=== PATIENT | male | born 1945 | race Caucasian/White ===

== ENCOUNTER 2019-02-23 09:45 | Inpatient (IN) ==
--- NOTE | 2019-02-23 09:51 | Emergency Department Note ---
Disposition Clinical Impression: NSTEMI (non-ST elevated myocardial infarction), Elevated troponin COPD (chronic obstructive pulmonary disease) Qualifiers: COPD type: unspecified COPD Qualified Code(s): J44.9 - Chronic obstructive pulmonary disease, unspecified Disposition: Admitted As Inpatient Time of Disposition: 14:04 General Adult HPI - General Chief complaint: ED Chest Pain Stated complaint: Chest Pressure,JAVIER Time Seen by Provider: 02/23/19 09:50 Source: patient Mode of arrival: ambulatory Limitations: no limitations Nursing Notes Reviewed: Yes Vital Signs Reviewed: Yes - History of Present Illness HPI Narrative: 73 yo male with past medical history of COPD and hypertension presents to the emergency department with chest pain after eating. Patient states that about an hour after he eats fatty or greasy foods he feels pain in his sternum that he describes as a pressure and it makes it hard for him to breathe secondary to the pain. Patient also has felt nauseous with this but has not vomited. He experienced chills last night but did not take her temperature and does not know if he had a fever. He states this has been going on for the past 2 weeks and he has been trying to avoid fatty foods which has improved his discomfort but has not completely resolved it. He has never had problems with his gallbladder before and denies any abdominal surgeries. He denies headache, abdominal pain, diarrhea and constipation as well as dysuria. Pain Scale: 5 - Related Data Home Medications Medication Instructions Recorded Confirmed Albuterol Sulfate [Proair Hfa] 1 puff IH PRN PRN 02/23/19 02/23/19 Brinzolamide/Brimonidine Tart 8 ml OP BID 02/23/19 02/23/19 [Simbrinza 1%-0.2% Eye Drops] Budesonide/Formoterol 160/4.5 1 puff IH BID 02/23/19 02/23/19 [Symbicort 160/4.5] Lisinopril-HCTZ 20-12.5 [Prinzide 1 each PO DAILY 02/23/19 02/23/19 20-12.5] Meloxicam 7.5 mg PO DAILY 02/23/19 02/23/19 Timolol Maleate 0.5% 1 drop OP DAILY 02/23/19 02/23/19 Allergies Allergy/AdvReac Type Severity Reaction Status Date / Time No Known Allergies Allergy Verified 03/15/16 10:28 All systems ED: reviewed and negative except as stated. Review of Systems: As Per HPI Constitutional: Reports: chills. Denies: fever Cardiovascular: Reports: chest pain, dyspnea on exertion. Denies: palpitations, edema Respiratory: Reports: cough, wheezes, sputum production (green). Denies: dyspnea Gastrointestinal: Reports: nausea. Denies: abdominal pain, vomiting, diarrhea, constipation Genitourinary: Denies: dysuria, hematuria Musculoskeletal: Denies: back pain, neck pain Integumentary: Denies: rash Neurological: Denies: headache Past Medical History - Past Medical History Attestation: Yes The following information was validated with the patient. Source: patient Medical history: Reports: COPD, hypertension - Social History Smoking Status: Former smoker Smokeless Tobacco Status: No Alcohol use: Reports: none Physical Exam - General Limitations: no limitations General appearance: alert, in no apparent distress - Head Head exam: atraumatic, normocephalic - Eye Eye exam: Present: normal appearance, PERRL, EOMI - ENT ENT exam: normal oropharynx, mucous membranes dry - Neck Neck exam: Present: normal inspection. Absent: tenderness, lymphadenopathy - Chest Chest inspection: Present: normal inspection. Absent: tenderness, rash - Respiratory Respiratory exam: Present: wheezes (in all lung goss). Absent: respiratory distress, stridor - Cardiovascular Cardiovascular exam: Present: regular rate, normal rhythm - Abdominal Exam Abdominal exam: Present: soft, Non-Tender. Absent: distention, guarding, rebound, rigidity, Walsh's sign Abdominal tenderness: Absent: epigastrium - Extremities Exam Extremities exam: Present: normal inspection. Absent: tenderness, pedal edema - Neurological Exam Neurological exam: Present: alert, oriented X3 - Psychiatric Psychiatric exam: Present: normal affect, normal mood - Skin Skin exam: Present: warm, dry, intact Course Vital Signs Temperature 97.7 F 02/23/19 09:47 Pulse Rate 85 02/23/19 09:47 Respiratory Rate 18 02/23/19 09:47 Blood Pressure 107/71 02/23/19 09:47 O2 Sat by Pulse Oximetry 95 02/23/19 09:47 Temperature 97.7 F 02/23/19 09:51 Pulse Rate 85 02/23/19 09:51 Respiratory Rate 17 02/23/19 10:27 Blood Pressure 107/71 02/23/19 09:51 O2 Sat by Pulse Oximetry 96 02/23/19 10:27 Oxygen Delivery Oxygen Delivery Room Air Medical Decision Making - MDM Narrative Medical decision making narrative: Patient presents with chest pain after eating fatty foods for the past 2 weeks which has become better with up with food. We will do a cardiac workup on the patient and had in LFTs, ultrasound of the right upper quadrant, and urinalysis. 1120 - patient's EKG shows non-specific changes with minor ST segment depressions in leads V2 and V3. Chest x-ray does not demonstrate any acute cardiopulmonary abnormalities. Lab work is significant for an elevated troponin of 6.99. We will obtain a repeat EKG and a posterior EKG to look for any ST elevation or other changes. Patient will be given aspirin and heparin once repeat EKGs were obtained and we will consult the hospitalist. 1220 - ultrasound of the right upper quadrant did not demonstrate any acute gallbladder disease. 1300 - repeat EKG showed a resolution in the nonspecific ST segment changes. Spoke with Dr. Santillan, category analyst, who states the patient should be started on heparin drip and aspirin at this time and they will have someone come to evaluate the patient. Plan is admission to the hospitalist with possible cardiac procedure in the near future. Hospitalist has been called at this time. 1340 - cardiology has evaluated the patient at bedside and state they will attempt to take the patient to [facility] today as long as he can lie flat. Awaiting the hospitalist to call back for admission. 1400 - patient has been except the hospitalist at this time. - Medical Records Medical records reviewed: Yes I reviewed the patient's medical records. - Lab Data Lab results reviewed: Yes I reviewed the patient's lab results. Result diagrams: 02/24/19 03:52 02/24/19 03:52 Lab Results 02/23/19 02/23/19 02/23/19 Range/Units 10:00 10:00 10:18 WBC 11.9 H (4.3-11.1) K/mcL RBC 5.77 H (4.19-5.50) M/mcL Hgb 17.9 H (12.9-16.9) g/dL Hct 54.3 H (37.5-50.1) % MCV 94.1 (83.0-100.0) fL MCH 31.0 (28.0-33.3) pg MCHC 33.0 (31.6-35.5) g/dL RDW 13.3 (11.5-14.5) % Plt Count 205 (140-400) K/mcL MPV 10.1 (9.4-12.4) fL Immature Gran % 0.3 (0-4) % Seg Neutrophils % 73.4 % Lymphocytes % 15.8 % Monocytes % 8.9 % Eosinophils % 1.3 % Basophils % 0.3 % Neutrophils # 8.8 (1.6-8.9) K/mcL Lymphocytes # 1.9 (0.6-4.6) K/mcL Monocytes # 1.1 (0.0-1.3) K/mcL Eosinophils # 0.2 (0.0-0.6) K/mcL Basophils # 0.0 (0.0-0.2) K/mcL PT (9.4-12.1) Seconds INR Heparin Anti-Xa, Unfract (0.30-0.70) IU/mL Sodium 135 L (136-145) mEq/L Potassium 3.9 (3.5-5.1) mEq/L Chloride 96 L (98-107) mEq/L Carbon Dioxide 32 H (23-29) mEq/L BUN 13 (8-23) mg/dL Creatinine 0.85 (0.70-1.30) mg/dL Est GFR ( Amer) > 60 (> 60) Est GFR (Non-Af Amer) > 60 (> 60) BUN/Creatinine Ratio 15 (6-26) Glucose 99 (70-105) mg/dL Calculated Osmolality 280 (280-300) Calcium 10.3 (8.6-10.3) mg/dL Magnesium 2.1 (1.6-2.6) mg/dL Total Bilirubin 1.1 H (0.3-1.0) mg/dL AST 74 H (13-39) Units/L ALT 35 (7-52) Units/L Alkaline Phosphatase 77 (34-104) Units/L Troponin I 6.99 H* (< 0.04) ng/mL Serum Total Protein 7.7 (6.4-8.9) g/dL Albumin 4.3 (3.5-5.7) g/dL Globulin 3.4 (2.4-3.5) g/dL Albumin/Globulin Ratio 1.3 (1.1-2.2) Lipase 45 (11-82) Units/L TSH 0.799 (0.340-5.600) mcIU/mL Urine Color Yellow (Yellow) Urine Clarity Clear (Clear) Urine pH 7.5 (5.0-8.0) pH Units Ur Specific [place] 1.018 (1.010-1.025) Urine Protein Negative (Neg-Trace) mg/dL Urine Glucose (UA) Normal (Normal) mg/dL Urine Ketones Negative (Negative) mg/dL Urine Blood Negative (Negative) Urine Nitrite Negative (Negative) Urine Bilirubin Negative (Negative) Urine Urobilinogen Normal (Normal) mg/dL Ur Leukocyte Esterase Small H (Negative) Urine Microscopic RBC 3-5 H (0-3) per hpf Urine Microscopic WBC 5-15 H (0-3) per hpf Ur Squamous Epith Cells Moderate H (None-Few) per lpf Urine Bacteria None Seen (None-Few) per hpf Hyaline Casts None Seen (None-Few) per lpf Ur Culture Indicated? YES A (NO) 02/23/19 Range/Units 12:04 WBC (4.3-11.1) K/mcL RBC (4.19-5.50) M/mcL Hgb (12.9-16.9) g/dL Hct (37.5-50.1) % MCV (83.0-100.0) fL MCH (28.0-33.3) pg MCHC (31.6-35.5) g/dL RDW (11.5-14.5) % Plt Count (140-400) K/mcL MPV (9.4-12.4) fL Immature Gran % (0-4) % Seg Neutrophils % % Lymphocytes % % Monocytes % % Eosinophils % % Basophils % % Neutrophils # (1.6-8.9) K/mcL Lymphocytes # (0.6-4.6) K/mcL Monocytes # (0.0-1.3) K/mcL Eosinophils # (0.0-0.6) K/mcL Basophils # (0.0-0.2) K/mcL PT 11.7 (9.4-12.1) Seconds INR 1.0 Heparin Anti-Xa, Unfract 0.03 L (0.30-0.70) IU/mL Sodium (136-145) mEq/L Potassium (3.5-5.1) mEq/L Chloride (98-107) mEq/L Carbon Dioxide (23-29) mEq/L BUN (8-23) mg/dL Creatinine (0.70-1.30) mg/dL Est GFR ( Amer) (> 60) Est GFR (Non-Af Amer) (> 60) BUN/Creatinine Ratio (6-26) Glucose (70-105) mg/dL Calculated Osmolality (280-300) Calcium (8.6-10.3) mg/dL Magnesium (1.6-2.6) mg/dL Total Bilirubin (0.3-1.0) mg/dL AST (13-39) Units/L ALT (7-52) Units/L Alkaline Phosphatase (34-104) Units/L Troponin I (< 0.04) ng/mL Serum Total Protein (6.4-8.9) g/dL Albumin (3.5-5.7) g/dL Globulin (2.4-3.5) g/dL Albumin/Globulin Ratio (1.1-2.2) Lipase (11-82) Units/L TSH (0.340-5.600) mcIU/mL Urine Color (Yellow) Urine Clarity (Clear) Urine pH (5.0-8.0) pH Units Ur Specific [place] (1.010-1.025) Urine Protein (Neg-Trace) mg/dL Urine Glucose (UA) (Normal) mg/dL Urine Ketones (Negative) mg/dL Urine Blood (Negative) Urine Nitrite (Negative) Urine Bilirubin (Negative) Urine Urobilinogen (Normal) mg/dL Ur Leukocyte Esterase (Negative) Urine Microscopic RBC (0-3) per hpf Urine Microscopic WBC (0-3) per hpf Ur Squamous Epith Cells (None-Few) per lpf Urine Bacteria (None-Few) per hpf Hyaline Casts (None-Few) per lpf Ur Culture Indicated? (NO) - Radiology Data Radiology results reviewed: Yes I reviewed the patient's radiology results. - EKG Data EKG #1 EKG attestation: Yes I reviewed and interpreted this EKG. EKG results narrative: Posterior EKG obtained at 12:13 on 02/23/2019 Heart rate 81 bpm, RI interval 167, QRS duration 96, QT 361, QTC 419 Sinus rhythm without any elevations visible in the posterior leads. All other leads are unchanged compared to previous EKGs from today. EKG #2 EKG attestation: Yes I reviewed and interpreted this EKG. EKG results narrative: Posterior EKG obtained at 12:13 on 02/23/2019 Heart rate 81 bpm, RI interval 167, QRS duration 96, QT 361, QTC 419 Sinus rhythm without any elevations visible in the posterior leads. All other leads are unchanged compared to previous EKGs from today. EKG #3 EKG attestation: Yes I reviewed and interpreted this EKG. EKG results narrative: Posterior EKG obtained at 12:13 on 02/23/2019 Heart rate 81 bpm, RI interval 167, QRS duration 96, QT 361, QTC 419 Sinus rhythm without any elevations visible in the posterior leads. All other leads are unchanged compared to previous EKGs from today. Attestation Statement - Attestation Attestation: Resident Attestation: I examined this patient and my medical decision making was reviewed with the Resident Physician. I agree with the documented findings, disposition and treatment plan as described except to the extent set forth below. We independently had [id number] contact with the patient.EKG reviewed with resident physician. Agree with documentation. Patient presented for evaluation of epigastric/chest pain that is worse with food. Patient was found to have significant EKG changes. Patient did undergo further evaluation and had elevated troponin as well as negative gallbladder study. Case was discussed with cardiology. Patient will likely go for cardiac catheterization later today. Patient placed on heparin. Patient overall has been feeling better within the emergency department and is chest pain-free.
[2019-02-23] MEDS ORDERED: Ipratropium/Albuterol Neb 3 ML IH ONE (10:01)
[2019-02-23] MEDS ORDERED: 0.9 % Sodium Chloride 1,000 ML IVC ONE (10:18)
[2019-02-23 10:30] LABS: Basophils % 0.3 %; Eosinophils # 0.2 K/mcL (0.0-0.6); Eosinophils % 1.3 %; Hematocrit 54.3 % (37.5-50.1); Hemoglobin 17.9 g/dL (12.9-16.9); Immature Granulocytes % 0.3 % (0-4); Lymphocytes # 1.9 K/mcL (0.6-4.6); Lymphocytes % 15.8 %; Mean Corpuscular Volume 94.1 fL (83.0-100.0); Mean Platelet Volume 10.1 fL (9.4-12.4); Monocytes # 1.1 K/mcL (0.0-1.3); Monocytes % 8.9 %; Neutrophils # 8.8 K/mcL (1.6-8.9); Platelet Count 205 K/mcL (140-400); Red Blood Count 5.77 M/mcL (4.19-5.50); Red Cell Distribution Width 13.3 % (11.5-14.5); Segmented Neutrophils % 73.4 %; White Blood Count 11.9 K/mcL (4.3-11.1)
[2019-02-23 10:37] LABS: Bilirubin,Urine Negative (Negative); Blood,Urine Negative (Negative); Clarity,Urine Clear (Clear); Color,Urine Yellow (Yellow); Glucose,Urine (UA) Normal (Normal); Ketones,Urine Negative (Negative); Leukocyte Esterase,Urine Small (Negative); Nitrite,Urine Negative (Negative); PH,Urine 7.5 pH Units (5.0-8.0); Protein,Urine Negative (Neg-Trace); Specific Gravity,Urine 1.018 (1.010-1.025); Urobilinogen,Urine Normal (Normal)
[2019-02-23 10:39] LABS: Bacteria,Urine None Seen per hpf (None-Few); Hyaline Casts,Urine None Seen per lpf (None-Few); Squamous Epithelial Cell,Urine Moderate per lpf (None-Few)
[2019-02-23 10:58] LABS: Troponin I 6.99 ng/mL (< 0.04)
[2019-02-23 11:05] LABS: Alanine Aminotransferase 35 Units/L (7-52); Albumin 4.3 g/dL (3.5-5.7); Albumin/Globulin Ratio 1.3 (1.1-2.2); Alkaline Phosphatase 77 Units/L (34-104); Aspartate Amino Transferase 74 Units/L (13-39); BUN/Creatinine Ratio 15 (6-26); Bilirubin,Total 1.1 mg/dL (0.3-1.0); Blood Urea Nitrogen 13 mg/dL (8-23); Calcium 10.3 mg/dL (8.6-10.3); Carbon Dioxide 32 mEq/L (23-29); Chloride 96 mEq/L (98-107); Globulin 3.4 g/dL (2.4-3.5); Glucose 99 mg/dL (70-105); Lipase 45 Units/L (11-82); Magnesium 2.1 mg/dL (1.6-2.6); Osmolality,Calculated 280 (280-300); Potassium 3.9 mEq/L (3.5-5.1); Sodium 135 mEq/L (136-145); Thyroid Stimulating Hormone 0.799 mcIU/mL (0.340-5.600); Total Protein 7.7 g/dL (6.4-8.9); eGFR For African Americans > 60 (> 60); eGFR For Non-African Americans > 60 (> 60)
[2019-02-23] MEDS ORDERED: Aspirin 81 MG TAB.CHEW PO ONE (11:24)
[2019-02-23] MEDS ORDERED: *HR* Heparin 5,000 UNIT/ML VIAL IVP PRN ×2 (11:25)
[2019-02-23] MEDS ORDERED: *HR* Heparin 5,000 UNIT/ML VIAL IVP ONE (11:25)
[2019-02-23] MEDS ORDERED: Heparin 25,000 UNIT/250 ML D5W 25,000 UNIT/250 ML IV.SOLN IVC SCH (11:30)
[2019-02-23 12:34] LABS: Heparin anti-factor XA UFH 0.03 IU/mL (0.30-0.70); Prothrombin Time 11.7 Seconds (9.4-12.1)
--- NOTE | 2019-02-23 13:45 | Cardiology Consult Note ---
<KarolMariny R - Last Filed: 02/23/19 13:42> Date of Encounter: 02/23/19 Time of Encounter: 13:42 Assessment and Plan (1) NSTEMI (non-ST elevated myocardial infarction) Current Visit: Yes Status: Acute Chest pain after eating associated with nausea and dyspnea over the past 2 weeks. Antacids seem to help the symptoms. Gallbladder US no acute sonographic findings in the right upper quadrant. Initial troponin 6.99. Trend for total of 3. No acute ECG changes. CP free currently. On heparin gtt. Recommend ASA, Statin, BB. TTE to evaluate structure and function. Recommend LHC. R/B/A discussed. Pt agrees to proceed. Discussion w patient/family: The assessment and plan as outlined above was discussed with the patient and/or family members who expressed understanding and agreement. All questions were answered. Thank you for involving us in the care of your patient. Please call with any questions. I will discuss all the above with Dr. Boudreaux and make changes as necessary. History of Present Illness Consult date: 02/23/19 Consult reason: NSTEMI Chief complaint: Chest pain History of present illness: Mr. Galeano is a 73 year old male with PMH of COPD, tobacco abuse and HTN presents to the ED with chest pain after eating. Patient states that about an hour after he eats fatty or greasy foods he feels pain in his sternum that he describes as a pressure and it makes it hard for him to breathe. He felt nauseous with this but has not vomited. This has been going on for the past 2 weeks and he has been trying to avoid fatty foods which has improved his discomfort but has not completely resolved it. Antiacids seem to help the symptoms. He presented to ED and initial troponin found to be 6.99. Cardiology consulted for further recs. Past Med Surg Social Fam HX - Past Medical History Medical history: COPD, hypertension Psychiatric history: no psych history - Social History Smoking Status: Former smoker Smokeless Tobacco Status: No Alcohol use: none Drug use: none Medications and Allergies Albuterol Sulfate [Proair Hfa] 1 puff IH PRN PRN 02/23/19 [History] Brinzolamide/Brimonidine Tart [Simbrinza 1%-0.2% Eye Drops] 8 ml OP BID 02/23/19 [History] Budesonide/Formoterol 160/4.5 [Symbicort 160/4.5] 1 puff IH BID 02/23/19 [History] Lisinopril-HCTZ 20-12.5 [Prinzide 20-12.5] 1 each PO DAILY 02/23/19 [History] Meloxicam 7.5 mg PO DAILY 02/23/19 [History] Timolol Maleate 0.5% 1 drop OP DAILY 02/23/19 [History] Allergy/AdvReac Type Severity Reaction Status Date / Time No Known Allergies Allergy Verified 03/15/16 10:28 All Systems Review: The remainder of the systems were reviewed and are negative - Cardiovascular Cardiovascular: as per HPI, chest pain at rest, dyspnea at rest - Respiratory Respiratory: dyspnea - Gastrointestinal Gastrointestinal: nausea Physical Examination Vital Signs, Last 4 Hours Temp Pulse Resp BP Pulse Ox 02/23/19 10:27 17 96 02/23/19 09:51 97.7 F 85 18 107/71 95 02/23/19 09:47 97.7 F 85 18 107/71 95 Vital Signs Temp Pulse Resp BP Pulse Ox 02/23/19 10:27 17 96 02/23/19 09:51 97.7 F 85 18 107/71 95 02/23/19 09:47 97.7 F 85 18 107/71 95 Intake and Output 02/22/19 02/23/19 02/23/19 23:59 07:59 15:59 Other: Weight 95.254 kg Patient Weight 02/23/19 23:59 Weight 95.254 kg General: Conversant, No Apparent Distress HEENT: Atraumatic, Normocephaly, Mucus Membranes Moist Neck: No JVD, Normal carotid pulses Cardiac: Reg Rate and Rhythm, Normal S1 and S2, No Murmur Lungs: Normal Breath Sounds, No Wheeze, Rales, Rhonchi Neuro: Alert and responsive, No focal deficits noted Abdomen: Soft, Non-Tender Skin: No rashes noted on visualized skin Musculoskeletal: No Chest Wall Tenderness Extremities: No Clubbing, No Cyanosis, No Edema, Normal Pulses Results 02/23/19 10:00 02/23/19 10:00 Lab Results 02/23/19 02/23/19 02/23/19 10:00 10:00 12:04 WBC 11.9 H Hgb 17.9 H Hct 54.3 H Plt Count 205 INR 1.0 Sodium 135 L Potassium 3.9 Chloride 96 L Carbon Dioxide 32 H BUN 13 Creatinine 0.85 Glucose 99 Calcium 10.3 Magnesium 2.1 Total Bilirubin 1.1 H AST 74 H ALT 35 Alkaline Phosphatase 77 Troponin I 6.99 H* Lipase 45 TSH 0.799 Short CBC 02/23/19 Range/Units 10:00 WBC 11.9 H (4.3-11.1) K/mcL Hgb 17.9 H (12.9-16.9) g/dL Hct 54.3 H (37.5-50.1) % Plt Count 205 (140-400) K/mcL Neutrophils # 8.8 (1.6-8.9) K/mcL BMP 02/23/19 Range/Units 10:00 Sodium 135 L (136-145) mEq/L Potassium 3.9 (3.5-5.1) mEq/L Chloride 96 L (98-107) mEq/L Carbon Dioxide 32 H (23-29) mEq/L BUN 13 (8-23) mg/dL Creatinine 0.85 (0.70-1.30) mg/dL Glucose 99 (70-105) mg/dL Calcium 10.3 (8.6-10.3) mg/dL Cardiac Enzymes 02/23/19 Range/Units 10:00 Troponin I 6.99 H* (< 0.04) ng/mL Liver Function 02/23/19 Range/Units 10:00 Total Bilirubin 1.1 H (0.3-1.0) mg/dL AST 74 H (13-39) Units/L ALT 35 (7-52) Units/L Alkaline Phosphatase 77 (34-104) Units/L Albumin 4.3 (3.5-5.7) g/dL Urine 02/23/19 Range/Units 10:18 Urine Color Yellow (Yellow) Urine Clarity Clear (Clear) Urine pH 7.5 (5.0-8.0) pH Units Ur Specific [place] 1.018 (1.010-1.025) Urine Protein Negative (Neg-Trace) mg/dL Urine Glucose (UA) Normal (Normal) mg/dL Impressions Chest X-Ray 02/23/19 09:51 IMPRESSION: No acute cardiopulmonary disease D/ / Pedro Abernathy MD / Pedro Abernathy MD Interpreting Provider: Pedro Abernathy MD Gallbladder Ultrasound 02/23/19 10:01 IMPRESSION: 1. No acute sonographic findings in the right upper quadrant. 2. Only minimal visualization of the pancreas. 3. Right renal cysts for which no follow-up is recommend. D/ / Javed Montejo MD / Javed Montejo MD Interpreting Provider: Javed Montejo MD Active Medications Heparin Sodium (Porcine) (Heparin) 4,000 unit IVP Q6HR PRN PRN Reason: SEE COMMENTS Stop: 08/25/19 11:26 Heparin Sodium (Porcine) (Heparin) 2,000 unit IVP Q6H PRN PRN Reason: SEE COMMENTS Stop: 08/25/19 11:26 Heparin Sodium/Dextrose (Heparin 25,000 Unit/250 Ml D5w) 25,000 unit in 250 mls @ 11.43 mls/hr IVC .[id number] [facility]; Protocol Stop: 08/25/19 11:31 Last Admin: 02/23/19 13:03 Dose: 12 unit/kg/hr, 11.4 mls/hr Documented by: - EKG Interpretation EKG results cardiology: personally reviewed Consult Discharge Plan - Plan <Nancie Boudreaux - Last Filed: 02/23/19 15:08> Date of Encounter: 02/23/19 - Attending Attestation I examined this patient and my medical decision-making was reviewed with the F[employer]GRAPHIC PRESS HELPER. I agree with the documented findings, disposition and treatment plan as described. Mr. Galeano presents with chest discomfort and elevated troponin. Initial troponin 6.99. No acute ECG findings. Currently chest pain free and hemodynamically stable. Risk factors include male gender, age, long history of smoking, HTN. Discussed options with patient including R/B/A of [facility]. Patient expressed understanding and has decided to proceed. No upcoming elective procedures. Normal renal function. Acceptable Hgb, plt. Assessment and Plan Discussion w patient/family: The assessment and plan as outlined above was discussed with the patient and/or family members who expressed understanding and agreement. All questions were answered. Thank you for involving us in the care of your patient. Please call with any questions. History of Present Illness History of present illness: Mr. Galeano is a 73 year old male All Systems Review: The remainder of the systems were reviewed and are negative Physical Examination Vital Signs, Last 4 Hours Pulse Resp BP Pulse Ox 02/23/19 14:44 20 106/70 02/23/19 14:37 74 20 106/70 97 Results 02/23/19 10:00 02/23/19 10:00 Lab Results 02/23/19 02/23/19 02/23/19 10:00 10:00 12:04 WBC 11.9 H Hgb 17.9 H Hct 54.3 H Plt Count 205 INR 1.0 Sodium 135 L Potassium 3.9 Chloride 96 L Carbon Dioxide 32 H BUN 13 Creatinine 0.85 Glucose 99 Calcium 10.3 Magnesium 2.1 Total Bilirubin 1.1 H AST 74 H ALT 35 Alkaline Phosphatase 77 Troponin I 6.99 H* Lipase 45 TSH 0.799
[2019-02-23] MEDS ORDERED: *HR* Ticagrelor 90 MG TABLET PO ONE (13:55)
[2019-02-23] MEDS ORDERED: 0.9 % Sodium Chloride 1,000 ML ONE ×2 (15:14→15:15)
[2019-02-23] MEDS ORDERED: Heparin 1,000 UNITS/500 mL 500 ML ONE ×2 (15:14→16:34)
[2019-02-23] MEDS ORDERED: ISOVUE-370 200 ML INFUS..BTL ONE (15:14)
[2019-02-23] MEDS ORDERED: *HR* Heparin 10,000 UNIT/10 ML VIAL ONE (15:14)
[2019-02-23] MEDS ORDERED: Nitroglycerin 1,000 MCG/10 ML VIAL IV ONE (15:14)
--- NOTE | 2019-02-23 15:14 | Internal Med History&Physical ---
Date of Encounter: 02/23/19 Time of Encounter: 15:09 Internal Medicine - H&P: HPI Chief complaint: chest pain Admitted From: Home Plans for Post Hospital Care: Home History of present illness: Mr. Galeano is a 73 year old male who has history of COPD, cataracts, right eye infection, hypertension, chronic smoking, chronic back pain presenting emergency room for chest pain. Patient stated that he has on and off chest pain for over 2 weeks. It happens after dinner, located epigastric area, pressure-like, 10 out of 10, initially lasts for few hours, over last 3 days it lasted for whole Night. Associated with nausea and shortness of breath, denies diaphoresis and palpation dizziness. Last night after dinner he started having chest pain, lasted all night until this this morning he presented to emergency room. In the emergency room he was found troponin 6.99, EKG shows nonspecific ST changes. He was started on heparin drip, chest pain improved now 2 out of 10. Cardiology was called he is going to have C now. Patient denies mhx of PA, DM, code status disucssed, he is full code, but just one try, his is NOK. Past Med Surg Social Fam HX - Past Medical History Medical history: COPD, hypertension Psychiatric history: no psych history - Past Surgical History Surgical History: other (back surgery) - Social History Smoking Status: Former smoker Smokeless Tobacco Status: No Alcohol use: none Drug use: none Internal Medicine - H&P: Meds Albuterol Sulfate [Proair Hfa] 1 puff IH PRN PRN 02/23/19 [History] Brinzolamide/Brimonidine Tart [Simbrinza 1%-0.2% Eye Drops] 8 ml OP BID 02/23/19 [History] Budesonide/Formoterol 160/4.5 [Symbicort 160/4.5] 1 puff IH BID 02/23/19 [History] Lisinopril-HCTZ 20-12.5 [Prinzide 20-12.5] 1 each PO DAILY 02/23/19 [History] Meloxicam 7.5 mg PO DAILY 02/23/19 [History] Timolol Maleate 0.5% 1 drop OP DAILY 02/23/19 [History] Allergy/AdvReac Type Severity Reaction Status Date / Time No Known Allergies Allergy Verified 03/15/16 10:28 All Systems PM: A 10-system review of systems was performed and is negative for pertinent findings except as documented above in the HPI. - Constitutional Vitals: Temp Pulse Resp BP Pulse Ox 97.7 F 74 20 106/70 97 02/23/19 09:51 02/23/19 14:37 02/23/19 14:44 02/23/19 14:44 02/23/19 14:37 General appearance: Present: A&O X 3, pleasant Exam: CONSTITUTIONAL: Patient appears as an age appropriate male well developed, in no acute distress. EYES Clear sclerae, bilateral pupils are equal, reactive to light and accommodation. Extraocular movements are intact RESPIRATORY: No accessory muscle use, bilateral reduced breath sounds to auscultation, no wheezing, no crackles/rales. CARDIOVASCULAR: Regular heart rate, normal S1 and S2, no murmurs GASTROINTESTINAL: bowel sounds present, soft, no tenderness. No hepatosplenomegaly. No bilateral CVA tenderness MUSCULOSKELETAL: Joints in normal range of motion, no clubbing, no edema, no cyanosis. Bilateral peripheral pulses 2+ LYMPHATIC no lymphadenopathy in neck, groin and axilla bilaterally, no thyromegaly. NEUROLOGIC: CN II to XII are grossly intact, no focal neurological deficit. Deep tendon reflexes 2+ bilaterally. Normal light touch sensation to upper and lower extremity PSYCHIATRIC: Oriented x3, with good insight, mood is euthymic. No hallucinations or delusions. SKIN: Skin warm and dry, no rashes, no open wound. Internal Med - H&P Results - Labs CBC & Chem 7: 02/23/19 10:00 02/23/19 10:00 Labs: Short CBC 02/23/19 Range/Units 10:00 WBC 11.9 H (4.3-11.1) K/mcL Hgb 17.9 H (12.9-16.9) g/dL Hct 54.3 H (37.5-50.1) % Plt Count 205 (140-400) K/mcL Neutrophils # 8.8 (1.6-8.9) K/mcL BMP 02/23/19 10:00 Sodium 135 L Potassium 3.9 Chloride 96 L Carbon Dioxide 32 H BUN 13 Creatinine 0.85 Glucose 99 Calcium 10.3 Cardiac Enzymes 02/23/19 Range/Units 10:00 Troponin I 6.99 H* (< 0.04) ng/mL Liver Function 02/23/19 Range/Units 10:00 Total Bilirubin 1.1 H (0.3-1.0) mg/dL AST 74 H (13-39) Units/L ALT 35 (7-52) Units/L Alkaline Phosphatase 77 (34-104) Units/L Albumin 4.3 (3.5-5.7) g/dL Urine 02/23/19 Range/Units 10:18 Urine Color Yellow (Yellow) Urine Clarity Clear (Clear) Urine pH 7.5 (5.0-8.0) pH Units Ur Specific [place] 1.018 (1.010-1.025) Urine Protein Negative (Neg-Trace) mg/dL Urine Glucose (UA) Normal (Normal) mg/dL - Impressions ITS Impressions Chest X-Ray 02/23/19 09:51 IMPRESSION: No acute cardiopulmonary disease D/ / Pedro Abernathy MD / Pedro Abernathy MD Interpreting Provider: Pedro Abernathy MD Gallbladder Ultrasound 02/23/19 10:01 IMPRESSION: 1. No acute sonographic findings in the right upper quadrant. 2. Only minimal visualization of the pancreas. 3. Right renal cysts for which no follow-up is recommend. D/ / Javed Montejo MD / Javed Montejo MD Interpreting Provider: Javed Montejo MD - Summary of Assessment and Plan Summary of Assessment and Plan: This is a 73 year 70 male who has history of COPD, hypertension, chronic back pain, tobacco dependent presenting emergency room for on and off chest pain for 2 weeks. He was found elevated troponin 6.9, EKG shows normal skin specific ST depression. Cardiology was consulted, he is going to have left heart catheterization today. 1. NSTEMI, contineu heparin drip, cardiology is on board, getting C now, normal TSH, will check lipid panel am, conitnue ASA, statin 2. COPD, not on exacerbation, albuterol prn 3. tobacco dependent, smoking cessation discussed 4. Hypertension, conitnue lisinopril and HCTZ 5. Glaucoma, conitnue eye drop 6. UTI, will start ceftriaxone, pending culture 7.chronic back pain 8. DVT prophrophalsx, on heparin drip, GI add pepcid - Time Spent With Patient Total time spent is greater than 50% in coordination of care (as documented) at patient's floor/unit and/or counseling patient: Greater than 35 minutes
[2019-02-23] MEDS ORDERED: Naloxone 0.4 MG/ML INJ IVP PRN (15:23)
[2019-02-23] MEDS ORDERED: Ondansetron 4 MG/2 ML VIAL IVP PRN (15:23)
[2019-02-23] MEDS ORDERED: Acetaminophen 325 MG TABLET PO PRN (15:23)
--- NOTE | 2019-02-23 15:25 | Pre-Sedation Evaluation ---
Pre-sedation evaluation - Pre-sedation checklist Date of procedure: 02/23/19 Procedure: Heart cath Recent Vitals: Last Vital Signs Temp 97.7 F 02/23/19 09:51 Pulse 74 02/23/19 14:37 Resp 20 02/23/19 14:44 BP 106/70 02/23/19 14:44 Pulse Ox 97 02/23/19 14:37 H&P (including ROS) documented in medical record: Yes Previous reaction to sedatives/anesthetics: No Dietary Status: NPO 6 hours prior to procedure Airway Assessment: Patient can open mouth completely, TMJ function normal, Micrognathia (under-bite, receding chin) absent, Neck with adequate range of motion Dentition: dentures removed Possible difficult airway: No ASA Classification *see protocol: CLASS II-Mild systemic disease Plan of Care: Pt appropriate candidate for procedure/moderate/conscious sedation, Risks/benefits of procedure/sedation discussed w/ patient/family Cardiac Registry (Cardio Only) - Functional Capacity Functional Capacity: < 4 METS - Clincal Frailty Scale Clinical Frailty Scale: Vulnerable
[2019-02-23] MEDS ORDERED: *HR* FentaNYL (PF) 100 MCG/2 ML VIAL ONE (15:32)
[2019-02-23] MEDS ORDERED: *HR* Midazolam HCl 2 MG/2 ML VIAL ONE (15:32)
[2019-02-23] MEDS ORDERED: Verapamil 5 MG/2 ML VIAL ONE (15:59)
[2019-02-23] MEDS ORDERED: Isovue-370 500 ML BOTTLE IVP ONE (16:42)
--- NOTE | 2019-02-23 16:59 | Event Note ---
Date of Encounter: 02/23/19 Time of Encounter: 16:58 - Cardiology Event Note Large abdominal aortic aneurysm seen during [facility]. Discussed with Dr. Toth. CTA Abd/P ordered.
[2019-02-23] MEDS ORDERED: *HR* Ticagrelor 90 MG TABLET ONE (17:06)
[2019-02-23] MEDS ORDERED: Nitroglycerin 0.4 MG TAB.SUBL SL PRN (17:26)
--- NOTE | 2019-02-23 17:54 | Invasive Diagnostic Lab Proc ---
Name: Donnie Galeano Date of Study: 02/23/2019 Date: 1945 Ht: 70.9in Medical Record#: [id number] Age: 73 Wt: 210.10lb Gender: Male BSA: 2.15 Order #: [id number] BMI: 29.41 Physicians Procedure Physician: Jacqueline Santillan MD, FACC Referring MD: Referring MD: Staff Name Position Time In Magui Velasco RT (R) Monitor 03:34 PM Alyce Roman RN Scrub 03:34 PM Marleen Joiner RN Director Of Advertising Sales 03:35 PM Indications Indication Non-Stemi Procedures Performed Procedure CORONARY ARTERY ANGIO S&I PRQ CARD REVASC AR 1 VSL Pre-Procedure Checklist Informed consent is complete signed and on chart. H&P is on chart. ID band is on and ID verified with patient. Patient NPO for procedure The procedure was described for the patient and questions were answered. Blood Pressure: 106/70 ECG is on chart. Rhythm: NSR Plan of Care Patient will tolerate the procedure without complications. Adequate level of comfort will be maintained. Hemodynamics will remain stable Patient will recover from procedure without complications. Respiratory function will be maintained. Cardiac rhythm will remain stable. Patient temperature will be maintained. Patient and/or family have verbalized understanding of the procedure. Patient Education Chief Complaint/Reason for Test: Cardiac Cath Developmental Category: Geriatric (65+ years) Developmentally Appropriate for Age: Yes Learning Barriers: None Education Needs: Procedure Education Method: Verbal Information Taught: Cardiac Cath Educational Evaluation: Able to repeat information Intravenous Access Time IV Size Location DC'd Fluid/Drip Rate Units RN 03:36 PM 20g 1 09/10" Patent On Arrival Lt Arm 0.9NaCl 25 ml/hr Allergies No Known Allergies NKDA Vital Signs Time BP (mmHg) HR (bpm) O2 Sat. RR (bpm) LOC 03:35 PM 107 / 80 74 99 % 18 4 = Oriented but drowsy 03:35 PM / % 4 = Oriented but drowsy 03:50 PM / % 4 = Oriented but drowsy 04:05 PM / % 4 = Oriented but drowsy 04:21 PM / % 4 = Oriented but drowsy 04:36 PM / % 4 = Oriented but drowsy 03:34 PM 107 / 80 70 100 % 24 03:39 PM 95 / 74 74 97 % 18 03:44 PM 84 / 62 70 96 % 20 03:45 PM 98 / 70 71 97 % 14 03:49 PM 89 / 66 71 96 % 20 03:54 PM 92 / 65 72 97 % 17 03:59 PM 92 / 69 70 98 % 19 04:04 PM 102 / 79 68 98 % 22 04:09 PM 108 / 85 74 99 % 20 04:14 PM 99 / 71 75 95 % 15 04:19 PM 94 / 71 71 96 % 22 04:24 PM 96 / 65 65 96 % 19 04:29 PM 92 / 69 69 96 % 24 04:34 PM 92 / 74 71 99 % 29 04:39 PM 100 / 75 70 97 % 21 04:44 PM 105 / 72 69 97 % 22 04:49 PM 87 / 65 70 94 % 16 04:50 PM 93 / 68 74 95 % 29 04:54 PM 86 / 65 73 93 % 22 04:59 PM 89 / 65 69 94 % 18 05:20 PM 85 / 63 61 92 % 20 5 = Fully awake and oriented or at pre-proc level 05:30 PM 83 / 64 66 93 % 20 5 = Fully awake and oriented or at pre-proc level Procedural Medications Time Medication Dose Units Method Given By 03:35 PM Oxygen 2 L/min nasal cannula Marleen Joiner RN 03:35 PM Versed 2 mg Intravenous Marleen Joiner RN 03:35 PM Fentanyl 50 mcg Intravenous Marleen Joiner RN 03:40 PM Lidocaine 2% 19 ml Subcutaneous Jacqueline Santillan MD, FACC 04:09 PM Lidocaine 2% 2 ml Subcutaneous Jacqueline Santillan MD, FACC 04:11 PM Heparin 2000 units Nitroglycerin 200 mcg Verapamil 2.5 mg Intraarterial Jacqueline Santillan MD, FACC 04:31 PM Angiomax 0.75mg/kg bolus: 14 ml Intravenous Marleen Joiner RN 04:31 PM Angiomax 1.75mg/kg/hr: 33 ml Intravenous Marleen Joiner RN 04:45 PM Nitroglycerin 200 mcg Intracoronary Jacqueline Santillan MD, FACC 04:51 PM Fentanyl 25 mcg Intravenous Marleen Joiner RN 04:51 PM Nitroglycerin 200 mcg Jacqueline Santillan MD, FACC 05:05 PM Brilinta 180 mg Orally Marleen Joiner RN ASA Classification: CLASS II- Mild systemic disease (i.e. well-controlled diabetes, hypertension, asthma, cigarette smoking) Cristopher Score Preprocedure Postprocedure Activity 2- Moves 4 extremities sustained head lift Activity 2- Moves 4 extremities sustained head lift Circulation 2- SBP +/= 20 points of pre-anesthetic level Circulation 2- SBP +/= 20 points of pre-anesthetic level Consciousness 2- Awake and alert oriented x 3 Consciousness 2- Awake and alert oriented x 3 O2 Saturation 2- Able to maintain O2 satruation of 92% on room air O2 Saturation 2- Able to maintain O2 satruation of 92% on room air Respiratory 2- Able to deep breathe and cough well Respiratory 2- Able to deep breathe and cough well Total Score 10 Total Score 10 Contrast Agent: Isovue Diagnostic Contrast: 285 ml Total Contrast: 285 ml Fluoro Dose: 152 mGy Procedure Log Time Note Enter By 03:33 PM CathStat 03:33 PM Vitals capture started with the following parameters, Patient=Adult, Interval=5 min, Initial Sakpckso=766 mmHg, Deflation Rate=3 mmHg, Cuff placed on Right Arm 03:34 PM HR=70 bpm, AIHH=143/80 mmhg, GfT1=664.0 %, Resp=24 B/min, Comment=A-flutter 03:34 PM Pt arrived to carpenter/labor 2 at 15:34 [email or web address] 03:34 PM Patient charges- Angio tray pack, Navilyst 3mm J, Pulse Oximetry and ACIST tubing and transducer [email or web address] 03:34 PM Case Delayed No [email or web address] 03:34 PM Hair removed from procedure site in holding area using clippers. Bilateral groin prepped with Chloraprep by Magui Velasco RT (R), then patient was draped. Skin intact. [email or web address] 03:34 PM Physician arrived 15:34 [email or web address] 03:34 PM ASA Class CLASS II- Mild systemic disease (i.e. well-controlled diabetes, hypertension, asthma, cigarette smoking) [email or web address] 03:34 PM Meet and greet completed [email or web address] 03:34 PM Sign in performed according to hospital policy. Informed consent was obtained. [email or web address] 03:34 PM Procedure start 15:34 [email or web address] 03:34 PM Magui Velasco (R) Position: Monitor Time in: 15:34 [email or web address] 03:35 PM Deck, Alyce RN Position: Scrub Time in: 15:34 [email or web address] 03:35 PM Marleen Joiner RN Position: Director Of Advertising Sales Time in: 15:35 [email or web address] 03:35 PM Time: 15:35 Oxygen on at 2 L/min per nasal cannula by Marleen Joiner RN [email or web address] 03:35 PM Time: 15:35 Versed 2 mg Intravenous Given by Marleen Joiner RN [email or web address] 03:35 PM Time: 15:35 Fentanyl 50 mcg Intravenous Given by Marleen Joiner RN [email or web address] 03:35 PM Time: 15:35 Patient comfortable and pain free: No [email or web address] 03:35 PM Time: 15:35LOC: 4 = Oriented but drowsy [email or web address] 03:36 PM Recorded ECG: HR=72 Condition=Condition 1 03:36 PM Reference ECG taken 03:37 PM Pressure channel 1 zero failed. 03:37 PM Pressure channel 1 zeroed. 03:39 PM HR=74 bpm, NIBP=95/74 mmhg, SpO2=97.0 %, Resp=18 B/min, Comment=aflutter 03:40 PM Time out was performed according to hospital policy. Conscious sedation and anesthesia was achieved (see medication log with in this report above) [email or web address] 03:41 PM Time: 15:40 19 ml Lidocaine 2% to right groin Subcutaneous Given by Jacqueline Santillan MD, [facility] [email or web address] 03:42 PM Access obtained by percutaneous puncture. 5Fr 10cm Terumo Thousandsticks sheath placed in right Femoral artery. [id number] [email or web address] 03:42 PM 0.035 145cm Navilyst 3mmJ wire [id number] [email or web address] 03:42 PM 5Fr FL 4 catheter inserted over the wire [facility] [email or web address] 03:44 PM HR=70 bpm, NIBP=84/62 mmhg, SpO2=96.0 %, Resp=20 B/min, EtCO2=36 mmHg, Comment=aflutter 03:44 PM NIBP STAT measurement started. 03:45 PM HR=71 bpm, NIBP=98/70 mmhg, SpO2=97.0 %, Resp=14 B/min, EtCO2=36 mmHg, Comment=aflutter 03:45 PM 0.035 260cm Navilyst 3mmJ wire [id number] [email or web address] 03:45 PM Recorded ECG: HR=71 Condition=Condition 1 03:46 PM Catheter removed [email or web address] 03:46 PM 5Fr FR 4 catheter inserted over the wire DNC [email or web address] 03:49 PM HR=71 bpm, NIBP=89/66 mmhg, SpO2=96.0 %, Resp=20 B/min, EtCO2=20 mmHg, Comment=aflutter 03:50 PM Time: 15:35LOC: 4 = Oriented but drowsy [email or web address] 03:50 PM Time: 15:35 Patient comfortable and pain free: Yes [email or web address] 03:51 PM Catheter removed [email or web address] 03:52 PM 5Fr Pigtail catheter inserted over the wire DNC [email or web address] 03:54 PM Bolus angiogram of Abdominal aorta complete: 15 ml/sec for a total of 30 mls [email or web address] 03:54 PM HR=72 bpm, NIBP=92/65 mmhg, SpO2=97.0 %, Resp=17 B/min, EtCO2=36 mmHg, Comment=aflutter 03:58 PM Catheter removed [email or web address] 03:58 PM JR4 re-inserted. [email or web address] 03:59 PM HR=70 bpm, NIBP=92/69 mmhg, SpO2=98.0 %, Resp=19 B/min, EtCO2=38 mmHg, Comment=SR 03:59 PM Catheter removed [email or web address] 04:00 PM Wire removed [email or web address] 04:00 PM Bolus angiogram of right Femoral complete: 4 ml/sec for a total of 7 mls [email or web address] 04:04 PM HR=68 bpm, OQXA=413/79 mmhg, SpO2=98.0 %, Resp=22 B/min, EtCO2=38 mmHg, Comment=SR 04:05 PM Time: 15:50 Patient comfortable and pain free: Yes [email or web address] 04:05 PM Time: 15:50LOC: 4 = Oriented but drowsy [email or web address] 04:05 PM Unable to cross through abdominal aorta. [email or web address] 04:06 PM Prepping Lt wrist for radial access. [email or web address] 04:09 PM HR=74 bpm, JWAF=894/85 mmhg, SpO2=99.0 %, Resp=20 B/min, EtCO2=37 mmHg, Comment=SR 04:10 PM Time: 16:09 2 ml Lidocaine 2% to left radial Subcutaneous Given by Jacqueline Santillan MD, [facility] [email or web address] 04:11 PM Access obtained by percutaneous puncture. 6Fr 10cm Terumo Glidesheath sheath placed in left Radial artery. [id number] [email or web address] 04:11 PM Time: 16:11 Patient given 2,000 units Heparin, 200 mcg Nitroglycerin, and 2.5 mg Verapamil Intraarterial by Jacqueline Santillan MD, [facility]. This is given to reduce risk of vessel spasm and thrombosis. [email or web address] 04:14 PM HR=75 bpm, NIBP=99/71 mmhg, SpO2=95.0 %, Resp=15 B/min, EtCO2=23 mmHg, Comment=SR 04:14 PM FR 4 catheter re-inserted. [email or web address] 04:16 PM RCA angiography performed in multiple views. [email or web address] 04:18 PM Catheter removed [email or web address] 04:18 PM FL4 catheter re-inserted. [email or web address] 04:19 PM HR=71 bpm, NIBP=94/71 mmhg, SpO2=96.0 %, Resp=22 B/min, EtCO2=29 mmHg, Comment=SR 04:21 PM Time: 16:05LOC: 4 = Oriented but drowsy [email or web address] 04:21 PM Time: 16:05 Patient comfortable and pain free: Yes [email or web address] 04:23 PM Recorded Pressure: Ao, HR=67, Condition=Condition 1 (Aorta) Ao 113/90/103 04:24 PM HR=65 bpm, NIBP=96/65 mmhg, SpO2=96.0 %, Resp=19 B/min, EtCO2=36 mmHg, Comment=SR 04:25 PM Catheter removed [email or web address] 04:25 PM 5Fr 3DRC catheter inserted over the wire [id number] [email or web address] 04:29 PM RCA angiography performed in multiple views. [email or web address] 04:29 PM HR=69 bpm, NIBP=92/69 mmhg, SpO2=96.0 %, Resp=24 B/min, EtCO2=35 mmHg, Comment=SR 04:29 PM Recorded Pressure: Ao, HR=67, Condition=Condition 1 (Aorta) Ao 109/86/98 04:29 PM Catheter removed [email or web address] 04:30 PM Sheath exchanged for a 6 Fr 11 cm Terumo Thousandsticks sheath [id number] [email or web address] 04:31 PM Time: 16:31 Angiomax 0.75mg/kg bolus: 14 ml Intravenous Given by Marleen Joiner RN Osorio pump [email or web address] 04:31 PM Time: 16:31 Angiomax 1.75mg/kg/hr: 33 ml Intravenous Given by Marleen Joiner RN Osorio pump [email or web address] 04:32 PM Coronary Dominance: Left [email or web address] 04:34 PM HR=71 bpm, NIBP=92/74 mmhg, SpO2=99.0 %, Resp=29 B/min 04:36 PM Time: 16:21LOC: 4 = Oriented but drowsy [email or web address] 04:36 PM Time: 16:21 Patient comfortable and pain free: Yes [email or web address] 04:36 PM 6Fr XB LAD 3.5 Cordis guide catheter was used to cannulate the PCI vessel successfully. reused? No twilson 04:36 PM Inflation device was opened. [email or web address] 04:36 PM PCI Status Urgent twilson 04:37 PM Wire removed, intact. twilson 04:38 PM Recorded Pressure: Ao, HR=71, Condition=Condition 1 (Aorta) Ao 112/82/97 04:39 PM HR=70 bpm, YADA=066/75 mmhg, SpO2=97.0 %, Resp=21 B/min 04:40 PM .014 Prowater 190cm guide wire across target lesion- successful. reused? No twilson 04:42 PM 2.0 mm x 15 mm Emerge Monorail balloon across target lesion- successful. reused? No twilson 04:43 PM Balloon inflated @ 8 carlton for 20 seconds twilson 04:44 PM HR=69 bpm, MAWE=323/72 mmhg, SpO2=97.0 %, Resp=22 B/min 04:44 PM Recorded Pressure: Ao, HR=70, Condition=Condition 1 (Aorta) Ao 107/82/95 04:45 PM Time: 16:45 Nitroglycerin 200 mcg Intracoronary Given by Jac[facility]an MD, [facility] twilson 04:46 PM Balloon catheter removed intact. [email or web address] 04:47 PM 3.5mm x 20mm Rebel [employer] bare metal stent across target lesion- successful Lot #[id number] [email or web address] 04:49 PM HR=70 bpm, NIBP=87/65 mmhg, SpO2=94.0 %, Resp=16 B/min 04:49 PM NIBP STAT measurement started. 04:50 PM HR=74 bpm, NIBP=93/68 mmhg, SpO2=95.0 %, Resp=29 B/min 04:50 PM Stent deployed @ 12 carlton for 30 seconds twilson 04:50 PM Stent balloon reinflated @ 18 carlton for 18 seconds [email or web address] 04:51 PM Time: 16:36 Patient comfortable and pain free: Yes [email or web address] 04:51 PM Time: 16:36LOC: 4 = Oriented but drowsy [email or web address] 04:51 PM Time: 16:51 Fentanyl 25 mcg Intravenous Given by Marleen Joiner RN twilson 04:51 PM Stent delivery system removed intact. [email or web address] 04:51 PM Time: 16:51 Nitroglycerin 200 mcg Given by Jacqueline Santillan MD, [facility] twilson 04:52 PM Guide wire removed intact. [email or web address] 04:53 PM Guide catheter removed intact. [email or web address] 04:54 PM HR=73 bpm, NIBP=86/65 mmhg, SpO2=93.0 %, Resp=22 B/min 04:56 PM Procedure completed at 16:56 02/23/2019 twilson 04:56 PM Did you address YESSY flow and Dominance? YesCoronary Dominance: Left twilson 04:57 PM Isovue 370 - 200ml,2 Bottle(s) used. twilson 04:57 PM Arterial sheath pulled, Vasc Band closure device used and was Successful S/N. twilson 04:57 PM Estimated Blood Loss: less than 20cc twilson 04:57 PM Post ECG NSR twilson 04:58 PM Post Blood Pressure 86/65 twilson 04:58 PM 16:58 Post Pulses Bilateral DP & PT 1+ twilson 04:58 PM 16:58 Post Pulses Bilateral radial 2+ twilson 04:58 PM Information taught Cardiac Cath, PCI, and Vasc Band twilson 04:58 PM Education needs Procedure, Plan of Care, and Responsibilities of Patient in Care twilson 04:58 PM Learning barriers :None twilson 04:58 PM Education Methods Verbal twilson 04:58 PM Education evaluation Able to repeat information twilson 04:58 PM Site status No bleeding/hematoma - Lt Wrist as reported by Richmond Amaro RT (R) at 16:58 twilson 04:59 PM HR=69 bpm, NIBP=89/65 mmhg, SpO2=94.0 %, Resp=18 B/min 04:59 PM 11 ml air in Vasc Band. twilson 05:00 PM Sign out completed: Radiation Dose 773.71 mGy, 152 Gy/cm2 Fluoro Time: 22.1 Isovue 370 - 200ml contrast 285 ml given by Jacqueline Santillan MD, [facility]. Complications: None. 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 Sedation minutes 75. Cardiac Rehab Consult needed: Yes. Confirmed administered medications: Yes twilson 05:00 PM Lesion found in Proximal LAD. Pre Stenosis: 40 Pre YESSY Flow: twilson 05:00 PM Lesion found in Mid LAD. Pre Stenosis: 50 Pre YESSY Flow: twilson 05:00 PM Lesion found in Proximal RCA. Pre Stenosis: 40 Pre YESSY Flow: twilson 05:02 PM Proximal Left Anterior Descending Coronary Artery with 40% stenosis. If graft is supplying this territory, 0 % stenosis. twilson 05:03 PM Lesion found in 1st Diagonal. Pre Stenosis: 70 Pre YESSY Flow: twilson 05:03 PM Right Coronary, Right Posterior Descending Arteries with Right Posterolateral and Acute Marginal branches with 40 % stenosis. If graft is supplying this area, 0 % stenosis twilson 05:03 PM Mid/Distal Left Anterior Descending Coronary Artery and diagonal branches with 70% stenosis. If graft is supplying this area, 0 % stenosis twilson 05:03 PM Lesion found in Proximal Circumflex. Pre Stenosis: 40 Pre YESSY Flow: twilson 05:03 PM Lesion found in Mid Circumflex. Pre Stenosis: 100 Pre YESSY Flow: 0: No Flow/No perfusion twilson 05:04 PM Circumflex, Obtuse Marginal, Left Posterior Descending, and Left Posterolateral Coronary Arteries with 100 % stenosis. If graft is supplying this area, 0 % stenosis twilson 05:04 PM Lesion found in 1st Marginal. Pre Stenosis: 99 Pre YESSY Flow: twilson 05:05 PM Time: 17:05 Brilinta 180 mg Orally Given by Marleen Joiner RN twilson 05:06 PM Sheath left in place to be pulled on floor/holding areaV+Pad twilson 05:06 PM Opsite applied twilson 05:06 PM Delay to floor Bed availability twilson 05:06 PM Family placed in consult room. twilson 05:09 PM Report given to Hollis HERRMANN Pt taken to Holding room Room #2. 17:09 twilson 05:14 PM Patient out of room: 17:14 twilson 05:21 PM at bedside, after speaking with Dr. Santillan. [email or web address] 05:23 PM Patient assisted to urinal to void. kwitte 05:34 PM Elo HERRMANN from cardiac rehab at bedside to discuss cardia rehab options with patient and his . kwitte 05:40 PM Delay to floor Bed availability kwitte 05:47 PM Report given to Marlene HERRMANN Pt taken to Holding room Room #ICU 12. 17:46 kwitte 05:47 PM Complications: None kwitte 05:47 PM Patient out of room: 17:47 kwitte Complications Complication None None Hemodynamics Pressures Site Systolic/A Wave Diastolic/V Wave Mean AO 113 90 103 AO 109 86 98 AO 112 82 97 AO 107 82 95 Post Procedure Information Blood Pressure: 86/65 mmHg Rhythm: NSR Post procedural instructions were given Closure Device Time Device Success/Fail 02/23/2019 5:09:00 PM Mechanical Compression Successful Site Checks Time Location Status Staff Sheath In? Note 04:58 PM Lt Wrist No bleeding/hematoma Richmond Amaro RT (R) 05:20 PM Lt Groin No bleeding/ No Hematoma Ama Mcconnell RN vasc band in place 05:20 PM Rt Groin No bleeding/ No Hematoma Hollis Ricardo RN Yes 05:30 PM Rt Groin No bleeding/ No Hematoma Hollis Ricardo RN Yes 05:30 PM Lt Wrist No bleeding/ No Hematoma Hollis Ricardo RN vasc band in place Pulses Time Site Pre-Procedure Post-Procedure Note 02/23/2019 3:36:00 PM Bilateral DP & PT 1+ 02/23/2019 3:36:00 PM Bilateral radial 2+ 4:58:00 PM Bilateral DP & PT 1+ 4:58:00 PM Bilateral radial 2+ 02/23/2019 5:20:00 PM Bilateral DP & PT 1+ 02/23/2019 5:00:00 PM Lt Radial 1+ Updated by Hollis Ricardo RN on 02/23/2019 5:48:00 PM Hollis Ricardo RN electronically signed on 02/23/2019 5:48:28 PM with status of Final
--- NOTE | 2019-02-23 17:59 | Vascular/Endovasc Consult Note ---
Date of Encounter: 02/23/19 Time of Encounter: 17:00 Assessment and Plan (1) Abdominal aortic aneurysm (AAA) Current Visit: Yes Status: Acute The pathophysiology and natural history of abdominal aortic aneurysms was discussed the patient and all questions were answered. The patient was unaware that he has an aneurysm. His aneurysm is large in size on recent angiography. A CT scan will be ordered for site bleeding and to determine acceptability of his anatomy for endograft placement. Qualifiers: Presence of rupture: without rupture Qualified Code(s): I71.4 - Abdominal aortic aneurysm, without rupture (2) Tobacco abuse Current Visit: Yes Status: Chronic The patient was counseled regarding smoking cessation. (3) NSTEMI (non-ST elevated myocardial infarction) Current Visit: Yes Status: Acute The patient is undergone coronary stenting for a non-ST elevation myocardial for him. At this time is chest pain-free. (4) COPD (chronic obstructive pulmonary disease) Current Visit: Yes Status: Chronic Qualifiers: COPD type: emphysema Emphysema type: panlobular Qualified Code(s): J43.1 - Panlobular emphysema (5) Hypertension Current Visit: No Status: Chronic The patient was counter atherosclerotic risk factor reduction. Qualifiers: Hypertension type: essential hypertension Qualified Code(s): I10 - Essential (primary) hypertension - History of Present Illness Consult date: 02/23/19 Requesting physician: Nancie Boudreaux Consult reason: Abdominal aortic aneurysm Chief complaint: Chest pain History of present illness: Mr. Galeano is a 73 year old male with a history of COPD, hypertension and tobacco abuse who presented to [facility] with chest pain. He is found have a non-ST elevation myocardial infarction. He taken to the Operations Welder where he underwent left heart catheterization. During his her Incision is noted to have a large abdominal aortic aneurysm. The patient denies any abdominal, flank or back pain. He denies a family history of aneurysms and he is unaware of his own aneurysm. At the time of evaluation, the patient is alert and oriented and appears comfortable. He denies any chest pain or shortness of breath. Past Med Surg Social Fam HX - Past Medical History Medical history: COPD, hypertension Psychiatric history: no psych history - Past Surgical History Surgical History: other (back surgery) - Social History Smoking Status: Former smoker Smokeless Tobacco Status: No Alcohol use: none Drug use: none - Family History Mother Living Status: Hx Family Cardiac Disorders: Yes (Hypertension) Father Living Status: Medications and Allergies Albuterol Sulfate [Proair Hfa] 1 puff IH PRN PRN 02/23/19 [History] Brinzolamide/Brimonidine Tart [Simbrinza 1%-0.2% Eye Drops] 1 drop OP BID 02/23/19 [History] Budesonide/Formoterol 160/4.5 [Symbicort 160/4.5] 2 puff IH BID 02/23/19 [History] Meloxicam 7.5 mg PO DAILY 02/23/19 [History] Timolol Maleate 0.5% 1 drop OP DAILY 02/23/19 [History] Lisinopril-HCTZ 10-12.5 [Prinzide 10-12.5] 2 each PO DAILY 02/24/19 [History] Allergy/AdvReac Type Severity Reaction Status Date / Time No Known Allergies Allergy Verified 02/24/19 12:41 All Systems Review: The remainder of the systems were reviewed and are negative - Constitutional Constitutional: no chills, no fever(s) - Cardiovascular Cardiovascular: chest pain at rest, dyspnea at rest - Gastrointestinal Gastrointestinal: no abdominal pain, no constipation - Neurological Neurological: no abnormal speech, no focal weakness, no numbness Exam Vital Signs, Last 4 Hours Pulse Resp BP Pulse Ox 02/23/19 14:44 20 106/70 02/23/19 14:37 74 20 106/70 97 General: Present: No Apparent Distress HEENT: Present: Atraumatic Neck: Absent: JVD, Lymphadenopathy, Left Carotid bruit, Right Carotid bruit Cardiac: Present: Reg Rate and Rhythm, Normal S1 and S2 Lungs: Present: Normal Breath Sounds Neuro: Present: Alert and responsive, No focal deficits noted, Motor nerves grossly intact, Sensory nerves grossly intact Abdomen: Present: Soft, Non-tender, Other (Obese, abdominal aorta not palpable.). Absent: Masses Vascular: Present: Normal capillary refill. Absent: Cyanosis, Edema Skin: Present: No rashes noted on visualized skin Consult Discharge Plan - Plan Referrals: Stefania Sue, WIN [Primary Care Provider] -
[2019-02-23] MEDS ORDERED: Perflutren Lipid Microsphere 1.3 ML in 0.9 % Sodium Chloride 8.7 ML IVP ONE (18:34)
[2019-02-23] MEDS: cefTRIAXone 1,000 MG in 0.9 % Sodium Chloride Mini Bag 100 ML IVPB SCH (19:01)
[2019-02-23] MEDS: 0.9 % Sodium Chloride 1,000 ML IVC SCH ×2 (19:01→21:12)
--- NOTE | 2019-02-23 20:28 | Electrocardiograph Report ---
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
[2019-02-23] MEDS: Budesonide/Formoterol 160/4.5 1 PUFF INH IH SCH (20:46)
[2019-02-23] MEDS: Famotidine 20 MG/2 ML VIAL IVP SCH (20:59)
[2019-02-23] MEDS ORDERED: *HR* Atropine Sulfate 1 MG/10 ML SYRINGE ONE (23:02)
[2019-02-24 04:10] LABS: Basophils % 0.4 %; Eosinophils # 0.1 K/mcL (0.0-0.6); Eosinophils % 0.8 %; Hematocrit 49.2 % (37.5-50.1); Immature Granulocytes % 0.4 % (0-4); Lymphocytes # 1.4 K/mcL (0.6-4.6); Lymphocytes % 13.7 %; Mean Corpuscular HGB Conc 33.1 g/dL (31.6-35.5); Mean Corpuscular Hemoglobin 30.6 pg (28.0-33.3); Mean Corpuscular Volume 92.3 fL (83.0-100.0); Mean Platelet Volume 10.1 fL (9.4-12.4); Monocytes # 0.9 K/mcL (0.0-1.3); Monocytes % 8.3 %; Platelet Count 192 K/mcL (140-400); Red Blood Count 5.33 M/mcL (4.19-5.50); Red Cell Distribution Width 13.7 % (11.5-14.5); Segmented Neutrophils % 76.4 %; White Blood Count 10.5 K/mcL (4.3-11.1)
[2019-02-24 04:11] LABS: Hemoglobin 16.3 g/dL (12.9-16.9)
[2019-02-24 04:31] LABS: BUN/Creatinine Ratio 17 (6-26); Blood Urea Nitrogen 15 mg/dL (8-23); Calcium 9.3 mg/dL (8.6-10.3); Carbon Dioxide 27 mEq/L (23-29); Chloride 102 mEq/L (98-107); Chol/HDL Ratio 3.5 (0-4.9); Cholesterol 118 mg/dL (< 200); Glucose 119 mg/dL (70-105); HDL Cholesterol 34 mg/dL (40-59); LDL Cholesterol,Calculated 68 mg/dL (0-99); Magnesium 2.2 mg/dL (1.6-2.6); Osmolality,Calculated 282 (280-300); Potassium 3.9 mEq/L (3.5-5.1); Sodium 135 mEq/L (136-145); Triglycerides 80 mg/dL (< 150); eGFR For African Americans > 60 (> 60); eGFR For Non-African Americans > 60 (> 60)
[2019-02-24] MEDS: Famotidine 20 MG/2 ML VIAL IVP SCH ×2 (05:14→17:46)
[2019-02-24] MEDS: cefTRIAXone 1,000 MG in 0.9 % Sodium Chloride Mini Bag 100 ML IVPB SCH (07:47)
[2019-02-24] MEDS: Aspirin 81 MG TAB.CHEW PO SCH (07:47)
[2019-02-24] MEDS ORDERED: Lisinopril-HCTZ 20-12.5mg TABLET PO SCH (09:00)
[2019-02-24] MEDS: Budesonide/Formoterol 160/4.5 1 PUFF INH IH SCH ×2 (09:22→20:20)
--- NOTE | 2019-02-24 10:32 | Cardiology Progress Note ---
Date of Encounter: 02/24/19 Time of Encounter: 10:30 Assessment and Plan (1) NSTEMI (non-ST elevated myocardial infarction) Current Visit: Yes Status: Acute Per Cardiology: Peak troponin 10.15. Echo showed EF 50%, no significant Dysfunction. Status post catheterization: Lesion Findings/Interventions * Left Main Coronary Artery The LMCA is angiographically free of disease. * Left Anterior Descending There is a 40% stenosis in the Proximal LAD. There is a 50% stenosis in the Mid LAD. There is a 70% stenosis in the 1st Diagonal. * Circumflex There is a 40% stenosis in the Proximal Circumflex. There is a 20 mm long, 100% stenosis in the Mid Circumflex. The lesion has a YESSY flow of 0 and has thrombus present. An intervention was performed on the Mid Circumflex with a final stenosis of 0%. There were no lesion complications. The final YESSY flow was 3. There is a 99% stenosis in the 1st Marginal. * Right Coronary Artery There is a 40% stenosis in the Proximal RCA. On aspirin, Plavix, statin, beta lubna, JARRET inhibitor. CP free. All questions answered. (2) Abdominal aortic aneurysm (AAA) Current Visit: Yes Status: Acute Per Cardiology: On C: "There is a large abdominal aneurysm present". CT Abd/Pelvis IMPRESSION: "Infrarenal abdominal aortic aneurysm measuring maximally 8.9 cm". Vascular surgery following. SBP 90's - 100's. Qualifiers: Presence of rupture: without rupture Qualified Code(s): I71.4 - Abdominal aortic aneurysm, without rupture Discussion w patient/family: The assessment and plan as outlined above was discussed with the patient and/or family members who expressed understanding and agreement. All questions were answered. Thank you for involving us in the care of your patient. Please call with any questions. Subjective Principal diagnosis: NSTEMI Interval history: Denies any concerns today. Denies any chest pain, short of breath, palpitations. Denies any concerns from his left wrist and right groin sites. Patient with family at bedside. Patient extremely hard of hearing. Objective Vital Signs, Last 4 Hours Temp Pulse Resp BP Pulse Ox 02/24/19 09:23 18 94 02/24/19 09:00 72 25 90/55 93 02/24/19 08:00 75 25 100/71 95 02/24/19 07:00 70 25 100/79 98 02/24/19 06:48 97.5 F L General: Conversant, No Apparent Distress HEENT: Atraumatic, Normocephaly, Mucus Membranes Moist, Other ([place]) Neck: No JVD, Normal carotid pulses Cardiac: Reg Rate and Rhythm, Normal S1 and S2, No Murmur Lungs: Normal Breath Sounds, No Wheeze, Rales, Rhonchi Neuro: Alert and responsive, No focal deficits noted Abdomen: Soft, Non-Tender Skin: No rashes noted on visualized skin, Other (Left wrist site dry and intact, no hematoma, no bleeding, no ecchymosis, radial pulse 2+ palpable; right groin site dry and intact, mild ecchymosis, no bleeding, no hematoma, right PT and DP pulses 1+ palpable) Musculoskeletal: No Chest Wall Tenderness Extremities: No Clubbing, No Cyanosis, No Edema, Normal Pulses Results 02/24/19 03:52 02/24/19 03:52 Lab Results Laboratory Tests 02/23/19 02/23/19 02/23/19 10:00 10:18 12:04 Hgb Hct INR 1.0 Creatinine Est GFR (Non-Af Amer) Magnesium Troponin I 6.99 H* B-Natriuretic Peptide LDL Cholesterol, Calc TSH 0.799 Ur Leukocyte Esterase Small H Ur Culture Indicated? YES A 02/24/19 02/24/19 02/24/19 03:52 03:52 03:52 Hgb 16.3 D Hct 49.2 INR Creatinine 0.90 Est GFR (Non-Af Amer) > 60 Magnesium 2.2 Troponin I B-Natriuretic Peptide 195 H LDL Cholesterol, Calc 68 TSH Ur Leukocyte Esterase Ur Culture Indicated? 02/24/19 03:52 Hgb Hct INR Creatinine Est GFR (Non-Af Amer) Magnesium Troponin I 10.15 H* B-Natriuretic Peptide LDL Cholesterol, Calc TSH Ur Leukocyte Esterase Ur Culture Indicated? ITS Impressions Chest X-Ray 02/23/19 09:51 IMPRESSION: No acute cardiopulmonary disease D/ / Pedro Abernathy MD / Pedro Abernathy MD Interpreting Provider: Pedro Abernathy MD Gallbladder Ultrasound 02/23/19 10:01 IMPRESSION: 1. No acute sonographic findings in the right upper quadrant. 2. Only minimal visualization of the pancreas. 3. Right renal cysts for which no follow-up is recommend. D/ / Javed Montejo MD / Javed Montejo MD Interpreting Provider: Javed Montejo MD Echocardiogram 02/23/19 14:38 Impressions: LVEF 50%. Mild segmental left ventricular systolic dysfunction. Mild left ventricular diastolic dysfunction. Normal right ventricular structure and function. No significant valvular dysfunction. Unable to estimate RVSP due to lack of TR jet. Left Ventricular Wall Motion: Rest Echo Findings The basal inferior and basal inferior lateral pickering were hypokinetic. All other wall segments showed normal motion. Findings: Study Quality * Technically adequate exam. ECG Findings * Normal sinus rhythm. Left Ventricle * LVEF 50%. * Normal LV chamber size, wall thickness. * Mild segmental left ventricular systolic dysfunction. * Mild left ventricular diastolic dysfunction. * Definity echo contrast was not used. Right Ventricle * Normal right ventricular structure and function. Left Atrium * Normal left atrial size. Right Atrium * Normal right atrial size. Interatrial Septum * Interatrial septum not well evaluated. * No evidence of PFO by color Doppler. Aortic Valve * Aortic valve not well visualized. * Mildly calcified aortic valve leaflets. * No aortic stenosis. * No aortic regurgitation. Mitral Valve * Normal mitral valve structure. * No mitral stenosis. * Trace mitral regurgitation. Tricuspid Valve * Normal tricuspid valve structure. * No tricuspid stenosis. * Trace tricuspid regurgitation. * Unable to estimate RVSP due to lack of TR jet. * Estimated RA pressure is 8 mmHg. Pulmonic Valve * Pulmonic valve is not well visualized. * No pulmonic stenosis. * No pulmonic regurgitation. Aorta * Normally sized aortic root. Pericardium * The pericardium appears normal. IVC * The IVC is dilated. * > 50% respiratory change Abdomen/Pelvis CTA 02/24/19 00:00 IMPRESSION: Infrarenal abdominal aortic aneurysm measuring maximally 8.9 cm. Reference management guidelines below. 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 No acute intraabdominal or intrapelvic abnormality. High attenuation fat stranding in the right inguinal region may relate to hemorrhagic material relating to recent intervention such as catheterization. No focal fluid collections or soft tissue gas. No extension intrapelvic. Focus of apparent enhancement to the prostate laterally on the left may relate to timing of imaging with contrast bolus, but lesion to the prostate cannot be excluded. Clinical and laboratory correlation suggested and consider further evaluation with MRI with and without contrast. Colonic diverticulosis without evidence for diverticulitis. RECOMMENDATIONS: Managing Abdominal Aortic Aneurysms Greater than or equal to 5.5 cm: Referral to vascular surgeon. Reference: J Vasc Surg. 2009 Jun;50(4 Suppl):S2-49 D/ / 02/24/2019 07:39:08 Guy Goncalves MD / [email or web address] Interpreting Provider: Guy Goncalves MD Active Medications Acetaminophen (Tylenol) 650 mg PO Q6HR PRN PRN Reason: Mild Pain/Fever Stop: 08/25/19 15:24 Albuterol Sulfate (Albuterol Inhaler) 2 puff IH [id number] PRN PRN Reason: Shortness Of Breath/Wheezing Stop: 08/25/19 15:46 Aspirin (Aspirin) 81 mg PO DAILY [facility] Stop: 08/26/19 09:01 Last Admin: 02/24/19 07:47 Dose: 81 mg Documented by: Atorvastatin Calcium (Lipitor) 40 mg PO HS [facility] Stop: 08/25/19 21:01 Last Admin: 02/23/19 20:59 Dose: 40 mg Documented by: Budesonide/Formoterol Fumarate (Symbicort) 1 puff IH BIDR [facility]; Protocol Stop: 08/25/19 22:01 Last Admin: 02/24/19 09:22 Dose: 1 puff Documented by: Clopidogrel Bisulfate (Plavix) 75 mg PO DAILY [facility] Stop: 08/26/19 09:01 Last Admin: 02/24/19 07:47 Dose: 75 mg Documented by: Docusate Sodium (Colace) 100 mg PO BID [facility] Stop: 08/25/19 21:01 Last Admin: 02/24/19 07:47 Dose: 100 mg Documented by: Famotidine (Pepcid) 20 mg IVP Q12HR [facility]; Protocol Stop: 08/25/19 18:01 Last Admin: 02/24/19 05:14 Dose: 20 mg Documented by: Lisinopril/HCTZ (Prinzide 20-12.5) 1 each PO DAILY [facility] Stop: 08/26/19 09:01 Last Admin: 02/24/19 07:49 Dose: Not Given Documented by: Ceftriaxone Sodium 1,000 mg/ (Sodium Chloride) 100 mls @ 200 mls/hr IVPB DAILY [facility] Stop: 08/25/19 16:01 Last Infusion: 02/24/19 08:30 Dose: Infused Documented by: Metoprolol Tartrate (Lopressor) 25 mg PO BID [facility] Stop: 08/25/19 21:01 Last Admin: 02/24/19 07:49 Dose: Not Given Documented by: Naloxone HCl (Narcan) 0.4 mg IVP Q2MPRN PRN PRN Reason: SEE COMMENTS Stop: 08/25/19 15:24 Nitroglycerin (Nitroglycerin) 0.4 mg SL Q5MPRN PRN PRN Reason: Chest Pain Stop: 08/25/19 17:27 Ondansetron HCl (Zofran) 4 mg IVP Q8HR PRN PRN Reason: Nausea And Vomiting Stop: 08/25/19 15:24 Pharmacy Profile Note (Patient Taking Own Medication) 1 each OP BID [facility] Stop: 08/25/19 21:01 Last Admin: 02/24/19 07:49 Dose: 1 each Documented by: Timolol Maleate (Timolol Maleate 0.5%) 1 drop OP DAILY [facility]; Protocol Stop: 08/25/19 15:31 Last Admin: 02/23/19 18:59 Dose: Not Given Documented by: - Imaging and Cardiology Echo: report reviewed Cardiac cath: report reviewed Consult Discharge Plan - Plan Referrals: Stefania Sue, AUTOMATIC GLUING MACHINE OPERATOR [Primary Care Provider] -
--- NOTE | 2019-02-24 12:11 | Electrocardiograph Report ---
[address] [place] [address] Test Date: 2019-02-23 Pat Name: Donnie Galeano Department: 109 Room: 12 Gender: M Receiving Supervisor: : 1945 Requested By: Jacqueline Santillan Order Number: [id number] Reading MD: Jag Santillan Measurements Intervals [place] Rate: 66 P: 52 VT: 176 QRS: 8 QRSD: 96 T: 12 QT: 372 QTc: 385 Interpretive Statements SINUS RHYTHM INCOMPLETE RIGHT BUNDLE BRANCH BLOCK INFERIOR MYOCARDIAL INFARCTION, OF INDETERMINATE AGE Electronically Signed On 02-24-2019 12:09:50 EDT by Jag Santillan
--- NOTE | 2019-02-24 12:59 | Internal Med Progress Note ---
Hospitalist Progress Note - Encounter Date of Encounter: 02/24/19 Time of Encounter: 12:57 - Subjective Interval History: patient is doing well, chest pain resolved, he was found new AAA, denies abdominal pain. - Exam Vitals: Temp Pulse Resp BP Pulse Ox 97.5 F L 72 18 90/55 94 02/24/19 12:07 02/24/19 09:00 02/24/19 09:23 02/24/19 09:00 02/24/19 09:23 Exam: CONSTITUTIONAL: Patient appears as an age appropriate male well developed, in no acute distress. EYES Clear sclerae, bilateral pupils are equal, reactive to light and accommodation. Extraocular movements are intact RESPIRATORY: No accessory muscle use, bilateral reduced breath sounds to auscultation, no wheezing, no crackles/rales. CARDIOVASCULAR: Regular heart rate, normal S1 and S2, no murmurs GASTROINTESTINAL: bowel sounds present, soft, no tenderness. No hepatosplenomegaly. No bilateral CVA tenderness MUSCULOSKELETAL: Joints in normal range of motion, no clubbing, no edema, no cyanosis. Bilateral peripheral pulses 2+ LYMPHATIC no lymphadenopathy in neck, groin and axilla bilaterally, no t hyromegaly. NEUROLOGIC: CN II to XII are grossly intact, no focal neurological deficit. Deep tendon reflexes 2+ bilaterally. Normal light touch sensation to upper and lower extremity PSYCHIATRIC: Oriented x3, with good insight, mood is euthymic. No hallucinations or delusions. SKIN: Skin warm and dry, no rashes, no open wound. DVT Prophylaxis: heparin SC - Summary of Assessment and Plan Summary of Assessment and Plan: This is a 73 year 70 male who has history of COPD, hypertension, chronic back pain, tobacco dependent presenting emergency room for on and off chest pain for 2 weeks. He was found elevated troponin 6.9, EKG shows normal skin specific ST depression. Cardiology was consulted, he is going to have left heart catheterization today. 1. NSTEMI, s/p LHC on 02/23 s/p BMS,Peak troponin 10.15. Echo showed EF 50%, no significant Dysfunction. normal TSH, normal LDL, continneu ASA, plavix, statin Lesion Findings/Interventions cath showed * Left Main Coronary Artery The LMCA is angiographically free of disease. * Left Anterior Descending There is a 40% stenosis in the Proximal LAD. There is a 50% stenosis in the Mid LAD. There is a 70% stenosis in the 1st Diagonal. * Circumflex There is a 40% stenosis in the Proximal Circumflex. There is a 20 mm long, 100% stenosis in the Mid Circumflex. The lesion has a YESSY flow of 0 and has thrombus present. An intervention was performed on the Mid Circumflex with a final stenosis of 0%. There were no lesion complications. The final YESSY flow was 3. There is a 99% stenosis in the 1st Marginal. * Right Coronary Artery There is a 40% stenosis in the Proximal RCA. 2. AAA Infrarenal abdominal aortic aneurysm measuring maximally 8.9 cm, vascular surgeon is on board 3. tobacco dependent, smoking cessation discussed 4. Hypertension, conitnue lisinopril and HCTZ 5. Glaucoma, conitnue eye drop 6. UTI, will start ceftriaxone, pending culture 7. COPD, not on exacerbation, albuterol prn 7.chronic back pain 8. DVT prophrophalsx, on heparin SC GI add pepcid - Time Spent with Patient Total time spent is greater than 50% in coordination of care (as documented) at patient's floor/unit and/or counseling patient: 25 - 35 minutes Plan of Care Discussed with: family Internal Medicine: Result - Labs CBC & Chem 7: 02/24/19 03:52 02/24/19 03:52 Labs: Short CBC 02/24/19 Range/Units 03:52 WBC 10.5 (4.3-11.1) K/mcL Hgb 16.3 D (12.9-16.9) g/dL Hct 49.2 (37.5-50.1) % Plt Count 192 (140-400) K/mcL Neutrophils # 8.0 (1.6-8.9) K/mcL BMP 02/24/19 03:52 Sodium 135 L Potassium 3.9 Chloride 102 Carbon Dioxide 27 BUN 15 Creatinine 0.90 Glucose 119 H Calcium 9.3 Cardiac Enzymes 02/24/19 Range/Units 03:52 Troponin I 10.15 H* (< 0.04) ng/mL - ABG Interpretation ABG results: PT/INR, D-dimer PT 11.7 Seconds (9.4-12.1) 02/23/19 12:04 - Impressions Impressions Echocardiogram 02/23/19 14:38 Impressions: LVEF 50%. Mild segmental left ventricular systolic dysfunction. Mild left ventricular diastolic dysfunction. Normal right ventricular structure and function. No significant valvular dysfunction. Unable to estimate RVSP due to lack of TR jet. Left Ventricular Wall Motion: Rest Echo Findings The basal inferior and basal inferior lateral pickering were hypokinetic. All other wall segments showed normal motion. Findings: Study Quality * Technically adequate exam. ECG Findings * Normal sinus rhythm. Left Ventricle * LVEF 50%. * Normal LV chamber size, wall thickness. * Mild segmental left ventricular systolic dysfunction. * Mild left ventricular diastolic dysfunction. * Definity echo contrast was not used. Right Ventricle * Normal right ventricular structure and function. Left Atrium * Normal left atrial size. Right Atrium * Normal right atrial size. Interatrial Septum * Interatrial septum not well evaluated. * No evidence of PFO by color Doppler. Aortic Valve * Aortic valve not well visualized. * Mildly calcified aortic valve leaflets. * No aortic stenosis. * No aortic regurgitation. Mitral Valve * Normal mitral valve structure. * No mitral stenosis. * Trace mitral regurgitation. Tricuspid Valve * Normal tricuspid valve structure. * No tricuspid stenosis. * Trace tricuspid regurgitation. * Unable to estimate RVSP due to lack of TR jet. * Estimated RA pressure is 8 mmHg. Pulmonic Valve * Pulmonic valve is not well visualized. * No pulmonic stenosis. * No pulmonic regurgitation. Aorta * Normally sized aortic root. Pericardium * The pericardium appears normal. IVC * The IVC is dilated. * > 50% respiratory change Abdomen/Pelvis CTA 02/24/19 00:00 IMPRESSION: Infrarenal abdominal aortic aneurysm measuring maximally 8.9 cm. Reference management guidelines below. 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 No acute intraabdominal or intrapelvic abnormality. High attenuation fat stranding in the right inguinal region may relate to hemorrhagic material relating to recent intervention such as catheterization. No focal fluid collections or soft tissue gas. No extension intrapelvic. Focus of apparent enhancement to the prostate laterally on the left may relate to timing of imaging with contrast bolus, but lesion to the prostate cannot be excluded. Clinical and laboratory correlation suggested and consider further evaluation with MRI with and without contrast. Colonic diverticulosis without evidence for diverticulitis. RECOMMENDATIONS: Managing Abdominal Aortic Aneurysms Greater than or equal to 5.5 cm: Referral to vascular surgeon. Reference: J Vasc Surg. 2009 Oct;50(4 Suppl):S2-49 D/ / 02/24/2019 07:39:08 Guy Goncalves MD / [facility] Interpreting Provider: Guy Goncalves MD Consult Discharge Plan - Plan Referrals: Stefania Sue, NUCLEAR OPERATIONS SPECIALIST [Primary Care Provider] -
--- NOTE | 2019-02-24 14:18 | Event Note ---
Date of Encounter: 02/24/19 Time of Encounter: 14:15 - Cardiology Event Note Clinically stable. Awaiting Vasc. reqs. Cardiology signing off, reconsult as needed, follow-up arranged. Discussed with Dr. Rosa.
[2019-02-24] MEDS: *HR* Heparin 5,000 UNIT/ML VIAL SQ SCH ×2 (15:21→21:03)
--- NOTE | 2019-02-24 16:47 | Vascular/[facility]as Progress Note ---
Date of Encounter: 02/24/19 Time of Encounter: 15:45 - Assessment and plan (1) Abdominal aortic aneurysm (AAA) Current Visit: Yes Status: Acute The patient is a 9.0 cm infrarenal abdominal aortic aneurysm. His CT scan which revealed a he appears to be an appropriate candidate for endograft repair. The patient currently denies abdominal, flank or back pain. He is no evidence of acute or impending rupture. He will be scheduled for endograft repair the near future. He expressed understanding and wishes to proceed Qualifiers: Presence of rupture: without rupture Qualified Code(s): I71.4 - Abdominal aortic aneurysm, without rupture (2) COPD (chronic obstructive pulmonary disease) Current Visit: Yes Status: Chronic Qualifiers: COPD type: emphysema Emphysema type: panlobular Qualified Code(s): J43.1 - Panlobular emphysema (3) NSTEMI (non-ST elevated myocardial infarction) Current Visit: Yes Status: Acute Patient recently sustained an acute myocardial infarction. He recently underwent left heart catheterization with coronary stent placement. His troponin remains elevated. He will have a repeat troponin drawn the morning. - Subjective Interval history: The patient is alert and comfortable. He denies any chest pain, abdomen pain, back pain or flank pain. He denies shortness of breath. Vital Signs, Last 4 Hours Temp 02/24/19 16:00 97.8 F - Physical Examination General: Present: Conversant, No Apparent Distress Neck: Present: Lymphadenopathy. Absent: JVD Cardiac: Present: Reg Rate and Rhythm, Normal S1 and S2 Lungs: Present: Normal Breath Sounds Neuro: Present: Alert and responsive, Motor nerves grossly intact, Sensory nerves grossly intact Vascular: Present: Normal capillary refill, Other (No hematoma). Absent: Clubbing, Cyanosis, Edema Abdomen: Present: Non-tender, Other (Abdominal aorta nonpalpable) Skin: Present: No rashes noted on visualized skin Results 02/25/19 17:20 02/25/19 04:32 Lab Results, Last 24 hours 02/24/19 02/24/19 02/24/19 03:52 03:52 03:52 WBC 10.5 Hgb 16.3 D Hct 49.2 Plt Count 192 Sodium 135 L Potassium 3.9 Chloride 102 Carbon Dioxide 27 BUN 15 Creatinine 0.90 Glucose 119 H Calcium 9.3 Magnesium 2.2 Troponin I B-Natriuretic Peptide 195 H 02/24/19 03:52 WBC Hgb Hct Plt Count Sodium Potassium Chloride Carbon Dioxide BUN Creatinine Glucose Calcium Magnesium Troponin I 10.15 H* B-Natriuretic Peptide Consult Discharge Plan - Plan Referrals: Stefania Sue, GREEN END MAN [Primary Care Provider] -
[2019-02-24] MEDS ORDERED: *HR* Metoprolol 5 MG/5 ML VIAL IVP ONE ×2 (18:17→18:24)
[2019-02-24] MEDS ORDERED: 0.9 % Sodium Chloride 500 ML ONE (18:18)
[2019-02-24] MEDS ORDERED: 0.9 % Sodium Chloride 500 ML IV ONE (18:27)
[2019-02-24] MEDS ORDERED: 0.9 % Sodium Chloride 1,000 ML IVC SCH (18:30)
--- NOTE | 2019-02-24 18:45 | Event Note ---
Date of Encounter: 02/24/19 Time of Encounter: 18:41 I was called to see the aptent is in a-fib with RVR, HR was 175, audie is asymptomatic. I give metoprolol 5 mg push, did not help, then 10 mg cardiazem 10 mg IV, HR slowed down to 100, Cardiazem drip started at 5 mg per hour. reconuslt cardiology, cardiology is called BP was 115/87 after cardiazem push audie is already on metoprolol
[2019-02-24] MEDS ORDERED: 0.9 % Sodium Chloride 1,000 ML ONE (18:46)
[2019-02-24] MEDS: 0.9 % Sodium Chloride 1,000 ML IVC SCH (19:00)
[2019-02-25] MEDS: 0.9 % Sodium Chloride 1,000 ML IVC SCH ×3 (03:42→21:54)
[2019-02-25 04:52] LABS: Basophils % 0.3 %; Eosinophils # 0.1 K/mcL (0.0-0.6); Eosinophils % 1.6 %; Hematocrit 46.6 % (37.5-50.1); Hemoglobin 15.2 g/dL (12.9-16.9); Immature Granulocytes % 0.5 % (0-4); Lymphocytes % 22.7 %; Mean Corpuscular HGB Conc 32.6 g/dL (31.6-35.5); Mean Corpuscular Hemoglobin 30.6 pg (28.0-33.3); Mean Corpuscular Volume 93.8 fL (83.0-100.0); Mean Platelet Volume 10.4 fL (9.4-12.4); Monocytes # 0.8 K/mcL (0.0-1.3); Monocytes % 8.8 %; Neutrophils # 5.8 K/mcL (1.6-8.9); Platelet Count 156 K/mcL (140-400); Red Blood Count 4.97 M/mcL (4.19-5.50); Red Cell Distribution Width 13.7 % (11.5-14.5); Segmented Neutrophils % 66.1 %; White Blood Count 8.8 K/mcL (4.3-11.1)
[2019-02-25 05:06] LABS: BUN/Creatinine Ratio 25 (6-26); Blood Urea Nitrogen 19 mg/dL (8-23); Calcium 8.9 mg/dL (8.6-10.3); Carbon Dioxide 24 mEq/L (23-29); Chloride 107 mEq/L (98-107); Glucose 101 mg/dL (70-105); Osmolality,Calculated 288 (280-300); Sodium 138 mEq/L (136-145); eGFR For African Americans > 60 (> 60); eGFR For Non-African Americans > 60 (> 60)
[2019-02-25] MEDS: Famotidine 20 MG/2 ML VIAL IVP SCH ×2 (05:30→17:26)
[2019-02-25] MEDS: *HR* Heparin 5,000 UNIT/ML VIAL SQ SCH (05:35)
[2019-02-25] MEDS: cefTRIAXone 1,000 MG in 0.9 % Sodium Chloride Mini Bag 100 ML IVPB SCH (07:38)
--- NOTE | 2019-02-25 09:33 | Electrocardiograph Report ---
[place] [address] Test Date: 2019-02-23 Pat Name: Donnie Galeano Department: EXAM17 Room: 12 Gender: M Per Diem Interpreter: : 1945 Requested By: Jacqueline Santillan Order Number: [id number] Reading MD: Kulwant Rosa Measurements Intervals [place] Rate: 81 P: 83 UT: 167 QRS: -9 QRSD: 96 T: 49 QT: 361 QTc: 419 Interpretive Statements Sinus rhythm Nonspecific ST-T changes Electronically Signed On 02-25-2019 9:31:56 EDT by Kulwant Rosa
[2019-02-25] MEDS: Aspirin 81 MG TAB.CHEW PO SCH (10:59)
[2019-02-25] MEDS: Levalbuterol Neb 1.25 MG/3 ML IH SCH ×3 (11:04→21:25)
[2019-02-25] MEDS: Budesonide/Formoterol 160/4.5 1 PUFF INH IH SCH ×2 (11:05→21:25)
--- NOTE | 2019-02-25 11:12 | Cardiology Progress Note ---
Date of Encounter: 02/25/19 Time of Encounter: 09:30 Assessment and Plan (1) Afib Current Visit: Yes Status: Acute Afib with RVR overnight, was given IV metoprolol, then started on IV cardizem gtt. HR controlled upon exam, 70's at bedside on cardizem 5 mg/hr. Chronicity unclear. Patient asymptomatic. TTE 02/24/19: LVEF 50%, no significant valvular dysfunction. TSH, electrolytes normal. Recommend rate control strategy, will transition to oral cardizem after AAA repair. CHA2Ds Vasc=3 (age, HTN, CAD); recommend long-term AC; however will discuss with Vascular surgery on appropriate timing given upcoming repair of 9.0 AAA. Discussed NOACs vs. coumadin, and pt/family at this time prefer NOAC. Qualifiers: Atrial fibrillation type: paroxysmal Qualified Code(s): I48.0 - Paroxysmal atrial fibrillation (2) NSTEMI (non-ST elevated myocardial infarction) Current Visit: Yes Status: Acute Peak troponin 10.15. [facility] 02/23/19: s/p PCI with BMS to LCx; otherwise non-obstructive CAD. TTE 02/24/19: LVEF 50%, no significant valvular dysfunction. No chest pain/discomfort reported. Cardiac rehab. Continue asa, statin, BB. Recommend DAPT x1 month. (3) Abdominal aortic aneurysm (AAA) Current Visit: Yes Status: Acute Large 9.0 infrarenal AAA, Vascular surgery following with plan for endograft, potentially today per bedside RN. Qualifiers: Presence of rupture: without rupture Qualified Code(s): I71.4 - Abdominal aortic aneurysm, without rupture Discussion w patient/family: The assessment and plan as outlined above was discussed with the patient and/or family members who expressed understanding and agreement. All questions were answered. Thank you for involving us in the care of your patient. Please call with any questions. The patient will be discussed and reviewed with Dr. Rosa; changes to be made accordingly. Subjective Principal diagnosis: NSTEMI Objective Vital Signs, Last 4 Hours Temp Pulse Resp BP Pulse Ox 02/25/19 11:06 20 98 02/25/19 09:30 98.0 F 02/25/19 09:00 84 20 96/71 98 02/25/19 08:00 98.2 F 96 20 103/68 97 Results 02/25/19 04:32 02/25/19 04:32 Lab Results 02/25/19 02/25/19 02/25/19 04:32 04:32 04:32 WBC 8.8 Hgb 15.2 Hct 46.6 Plt Count 156 Sodium 138 Potassium 4.0 Chloride 107 Carbon Dioxide 24 BUN 19 Creatinine 0.76 Glucose 101 Calcium 8.9 Troponin I 4.28 H* Consult Discharge Plan - Plan Referrals: Stefania Sue, BRICK OFFBEARER [Primary Care Provider] -
[2019-02-25] MEDS ORDERED: *HR* Heparin 5,000 UNIT/ML VIAL IVP PRN ×2 (12:57)
[2019-02-25 14:01] LABS: Heparin anti-factor XA UFH 0.01 IU/mL (0.30-0.70)
[2019-02-25 14:02] LABS: Prothrombin Time 11.8 Seconds (9.4-12.1)
--- NOTE | 2019-02-25 14:21 | Internal Med Progress Note ---
Hospitalist Progress Note - Encounter Date of Encounter: 02/25/19 Time of Encounter: 07:00 - Subjective Interval History: Patient did not well at night, HR has been on a 90-100, he said he had a good night sleep, denies chest pain palpation. Blood pressure has been running lower side we will continue IV fluids. Lung sounds clear. No leg edema. He is nothing by mouth for possible surgery intervention awaiting for cardiology to see patient to manage atrial fibrillation and anticoagulation perioperative - Exam Vitals: Temp Pulse Resp BP Pulse Ox 97.6 F 82 25 100/66 98 02/25/19 13:12 02/25/19 13:00 02/25/19 13:00 02/25/19 13:00 02/25/19 13:00 Exam: CONSTITUTIONAL: Patient appears as an age appropriate male well developed, in no acute distress. EYES Clear sclerae, bilateral pupils are equal, reactive to light and accommodation. Extraocular movements are intact RESPIRATORY: No accessory muscle use, bilateral reduced breath sounds to auscultation, no wheezing, no crackles/rales. CARDIOVASCULAR: Irregularly irregular heart rate, normal S1 and S2, no murmurs GASTROINTESTINAL: bowel sounds present, soft, no tenderness. No hepatosplenomegaly. No bilateral CVA tenderness MUSCULOSKELETAL: Joints in normal range of motion, no clubbing, no edema, no cy anosis. Bilateral peripheral pulses 2+ LYMPHATIC no lymphadenopathy in neck, groin and axilla bilaterally, no thyromegaly. NEUROLOGIC: CN II to XII are grossly intact, no focal neurological deficit. Deep tendon reflexes 2+ bilaterally. Normal light touch sensation to upper and lower extremity PSYCHIATRIC: Oriented x3, with good insight, mood is euthymic. No hallucinations or delusions. SKIN: Skin warm and dry, no rashes, no open wound. DVT Prophylaxis: heparin drip - Summary of Assessment and Plan Summary of Assessment and Plan: This is a 73 year 69 male who has history of COPD, hypertension, chronic back pain, tobacco dependent presenting emergency room for on and off chest pain for 2 weeks. He was found elevated troponin 6.9, EKG shows normal skin specific ST depression. Cardiology was consulted, he is going to have left heart catheterization today. 1. NSTEMI, s/p LHC on 02/23 s/p BMS,Peak troponin 10.15. Echo showed EF 50%, no significant Dysfunction. normal TSH, normal LDL, continue ASA, plavix, statin, metoprolol Lesion Findings/Interventions cath showed * Left Main Coronary Artery The LMCA is angiographically free of disease. * Left Anterior Descending There is a 40% stenosis in the Proximal LAD. There is a 50% stenosis in the Mid LAD. There is a 70% stenosis in the 1st Diagonal. * Circumflex There is a 40% stenosis in the Proximal Circumflex. There is a 20 mm long, 100% stenosis in the Mid Circumflex. The lesion has a YESSY flow of 0 and has thrombus present. An intervention was performed on the Mid Circumflex with a final stenosis of 0%. There were no lesion complications. The final YESSY flow was 3. There is a 99% stenosis in the 1st Marginal. * Right Coronary Artery There is a 40% stenosis in the Proximal RCA. 2. AAA Infrarenal abdominal aortic aneurysm measuring maximally 8.9 cm, vascular surgeon is on board, planing for endograft repair the near future. 3. New onset atrial fib with RVR, contineu BB and cardiazem drip, on heparin drip cardiology is on board 4. Hypertension, conitnue lisinopril and HCTZ 5. Glaucoma, conitnue eye drop 6. UTI, on ceftriaxone, pending culture 7. COPD, not on exacerbation, xopenx prn 7.chronic back pain 8.tobacco dependent, smoking cessation discussed . DVT prophrophalsx, on heparin, GI add pepcid - Time Spent with Patient Total time spent is greater than 50% in coordination of care (as documented) at patient's floor/unit and/or counseling patient: 25 - 35 minutes Plan of Care Discussed with: patient Internal Medicine: Result - Labs CBC & Chem 7: 02/25/19 04:32 02/25/19 04:32 Labs: Short CBC 02/25/19 Range/Units 04:32 WBC 8.8 (4.3-11.1) K/mcL Hgb 15.2 (12.9-16.9) g/dL Hct 46.6 (37.5-50.1) % Plt Count 156 (140-400) K/mcL Neutrophils # 5.8 (1.6-8.9) K/mcL BMP 02/25/19 04:32 Sodium 138 Potassium 4.0 Chloride 107 Carbon Dioxide 24 BUN 19 Creatinine 0.76 Glucose 101 Calcium 8.9 Cardiac Enzymes 02/25/19 Range/Units 04:32 Troponin I 4.28 H* (< 0.04) ng/mL - ABG Interpretation ABG results: PT/INR, D-dimer PT 11.8 Seconds (9.4-12.1) 02/25/19 13:29 - Impressions Impressions Abdomen/Pelvis CTA 02/24/19 00:00 IMPRESSION: Infrarenal abdominal aortic aneurysm measuring maximally 8.9 cm. Reference management guidelines below. 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 No acute intraabdominal or intrapelvic abnormality. High attenuation fat stranding in the right inguinal region may relate to hemorrhagic material relating to recent intervention such as catheterization. No focal fluid collections or soft tissue gas. No extension intrapelvic. Focus of apparent enhancement to the prostate laterally on the left may relate to timing of imaging with contrast bolus, but lesion to the prostate cannot be excluded. Clinical and laboratory correlation suggested and consider further evaluation with MRI with and without contrast. Colonic diverticulosis without evidence for diverticulitis. RECOMMENDATIONS: Managing Abdominal Aortic Aneurysms Greater than or equal to 5.5 cm: Referral to vascular surgeon. Reference: J Vasc Surg. 2008;50(4 Suppl):S2-49 D/ / 02/24/2019 07:39:08 Guy Goncalves MD / [facility] Interpreting Provider: Guy Goncalves MD Consult Discharge Plan - Plan Referrals: Stefania Sue, WIN [Primary Care Provider] -
[2019-02-25] MEDS: Heparin 25,000 UNIT/250 ML D5W 25,000 UNIT/250 ML IV.SOLN IVC SCH (14:22)
[2019-02-25 17:47] LABS: Hematocrit 48.6 % (37.5-50.1); Hemoglobin 15.7 g/dL (12.9-16.9); Mean Corpuscular HGB Conc 32.3 g/dL (31.6-35.5); Mean Corpuscular Hemoglobin 30.7 pg (28.0-33.3); Mean Corpuscular Volume 94.9 fL (83.0-100.0); Mean Platelet Volume 10.4 fL (9.4-12.4); Platelet Count 184 K/mcL (140-400); Red Blood Count 5.12 M/mcL (4.19-5.50); Red Cell Distribution Width 13.6 % (11.5-14.5); White Blood Count 10.3 K/mcL (4.3-11.1)
--- NOTE | 2019-02-25 20:24 | Vascular/[facility] Progress Note ---
Date of Encounter: 02/25/19 Time of Encounter: 15:15 - Assessment and plan (1) Abdominal aortic aneurysm (AAA) Current Visit: Yes Status: Acute The patient has a 9.0 cm infrarenal abdominal aortic aneurysm. His aneurysm appears adequate for endograft placement. Due to his acute onset atrial fibrillation fibrillation his surgery will be tentatively scheduled for Thursday. He will be assessed by the anesthesia team over the weekend. The risks and bene fits alternatives of the procedure were discussed and all questions were answered. He says understanding and again wishes to proceed. Qualifiers: Presence of rupture: without rupture Qualified Code(s): I71.4 - Abdominal aortic aneurysm, without rupture (2) COPD (chronic obstructive pulmonary disease) Current Visit: Yes Status: Chronic Qualifiers: COPD type: emphysema Emphysema type: panlobular Qualified Code(s): J43.1 - Panlobular emphysema (3) NSTEMI (non-ST elevated myocardial infarction) Current Visit: Yes Status: Acute Patient recently sustained an acute myocardial infarction. He recently underwent left heart catheterization with coronary stent placement. His troponin has decreased today. He denies chest pain or shortness of breath. (4) Afib Current Visit: Yes Status: Acute Qualifiers: Atrial fibrillation type: paroxysmal Qualified Code(s): I48.0 - Paroxysmal atrial fibrillation - Subjective Interval history: The patient developed rapid atrial fibrillation of acute onset last evening. The patient is currently rate controlled. He is hemodynamically stable and denies any chest pain or shortness of breath. He denies any abdominal, flank or back pain. He is alert reports that he is comfortable. Vital Signs, Last 4 Hours Temp Pulse Resp BP Pulse Ox 02/25/19 19:40 91 02/25/19 19:00 92 24 101/64 94 02/25/19 18:06 87 19 104/67 97 02/25/19 18:02 98.0 F 02/25/19 17:00 87 27 98/62 97 Results 02/25/19 17:20 02/25/19 04:32 Lab Results, Last 24 hours 02/25/19 02/25/19 02/25/19 04:32 04:32 04:32 WBC 8.8 Hgb 15.2 Hct 46.6 Plt Count 156 INR Sodium 138 Potassium 4.0 Chloride 107 Carbon Dioxide 24 BUN 19 Creatinine 0.76 Glucose 101 Calcium 8.9 Troponin I 4.28 H* 02/25/19 02/25/19 13:29 17:20 WBC 10.3 Hgb 15.7 Hct 48.6 Plt Count 184 INR 1.0 Sodium Potassium Chloride Carbon Dioxide BUN Creatinine Glucose Calcium Troponin I Consult Discharge Plan - Plan Referrals: Stefania Sue, QUILL LAYER [Primary Care Provider] -
[2019-02-26 03:22] LABS: Basophils # 0.1 K/mcL (0.0-0.2); Basophils % 0.5 %; Eosinophils # 0.2 K/mcL (0.0-0.6); Eosinophils % 2.1 %; Hematocrit 42.7 % (37.5-50.1); Immature Granulocytes % 0.3 % (0-4); Lymphocytes # 1.8 K/mcL (0.6-4.6); Mean Corpuscular HGB Conc 32.8 g/dL (31.6-35.5); Mean Corpuscular Hemoglobin 31.6 pg (28.0-33.3); Mean Corpuscular Volume 96.4 fL (83.0-100.0); Mean Platelet Volume 10.1 fL (9.4-12.4); Monocytes # 0.7 K/mcL (0.0-1.3); Monocytes % 7.7 %; Neutrophils # 6.4 K/mcL (1.6-8.9); Platelet Count 172 K/mcL (140-400); Red Blood Count 4.43 M/mcL (4.19-5.50); Red Cell Distribution Width 13.6 % (11.5-14.5); Segmented Neutrophils % 69.4 %; White Blood Count 9.2 K/mcL (4.3-11.1)
[2019-02-26] MEDS: Levalbuterol Neb 1.25 MG/3 ML IH SCH ×4 (03:26→21:41)
[2019-02-26 03:40] LABS: BUN/Creatinine Ratio 19 (6-26); Blood Urea Nitrogen 14 mg/dL (8-23); Calcium 8.4 mg/dL (8.6-10.3); Carbon Dioxide 25 mEq/L (23-29); Chloride 108 mEq/L (98-107); Glucose 109 mg/dL (70-105); Magnesium 1.9 mg/dL (1.6-2.6); Osmolality,Calculated 289 (280-300); Potassium 3.4 mEq/L (3.5-5.1); Sodium 139 mEq/L (136-145); eGFR For African Americans > 60 (> 60); eGFR For Non-African Americans > 60 (> 60)
[2019-02-26] MEDS: Famotidine 20 MG/2 ML VIAL IVP SCH ×2 (05:50→16:34)
[2019-02-26] MEDS: 0.9 % Sodium Chloride 1,000 ML IVC SCH ×2 (08:26→16:40)
[2019-02-26] MEDS: Aspirin 81 MG TAB.CHEW PO SCH (08:27)
[2019-02-26] MEDS: cefTRIAXone 1,000 MG in 0.9 % Sodium Chloride Mini Bag 100 ML IVPB SCH (08:27)
--- NOTE | 2019-02-26 08:42 | Internal Med Progress Note ---
<Adan Wakefield - Last Filed: 02/26/19 18:39> Hospitalist Progress Note - Encounter Date of Encounter: 02/26/19 - Exam Vitals: Temp Pulse Resp BP Pulse Ox 97.6 F 99 18 125/89 97 02/26/19 15:52 02/26/19 18:00 02/26/19 18:00 02/26/19 18:00 02/26/19 18:00 - Time Spent with Patient Total time spent is greater than 50% in coordination of care (as documented) at patient's floor/unit and/or counseling patient: Internal Medicine: Result - Labs CBC & Chem 7: 02/26/19 03:00 02/26/19 03:00 Labs: Short CBC 02/26/19 Range/Units 03:00 WBC 9.2 (4.3-11.1) K/mcL Hgb 14.0 D (12.9-16.9) g/dL Hct 42.7 (37.5-50.1) % Plt Count 172 (140-400) K/mcL Neutrophils # 6.4 (1.6-8.9) K/mcL BMP 02/26/19 03:00 Sodium 139 Potassium 3.4 L Chloride 108 H Carbon Dioxide 25 BUN 14 Creatinine 0.72 Glucose 109 H Calcium 8.4 L - ABG Interpretation ABG results: PT/INR, D-dimer PT 11.8 Seconds (9.4-12.1) 02/25/19 13:29 Consult Discharge Plan - Plan Referrals: Stefania Sue, LEGAL BILLING COORDINATOR [Primary Care Provider] - - Attending Attestation I examined this patient and my medical decision-making was reviewed with the Resident Physician on 02/26/19. I agree with the documented findings, disposition and treatment plan as described except to the extent set forth below. Mr Galeano is currently admitted for acute NSTEMI and AAA. He remains moderate to high risk. Mr Galeano is resting comfortably. He has had no further CP or other issues. Still in a fib but rate controlled. Exam as above. Further plan per vascular. <Glenda Reynolds - Last Filed: 02/26/19 20:59> Hospitalist Progress Note - Encounter Date of Encounter: 02/26/19 Time of Encounter: 10:14 - Subjective Interval History: Seen and examined at bedside. Patient is sitting up in bed his son and are at bedside as well. Patient reports he slept very well last night, has had no chest pain, shortness of breath, abdominal pain, nausea, vomiting, denies numbness or tingling in lower extremities. He has no complaints or questions at this time. - Exam Vitals: Temp Pulse Resp BP Pulse Ox 98.7 F 115 15 95/70 96 02/26/19 07:16 02/26/19 07:00 02/26/19 07:00 02/26/19 07:00 02/26/19 07:00 Exam: General: No acute distress, resting comfortably in bed, hard of hearing HEENT: head normocephalic/atraumatic, EOMI, PERRL, sclera anicteric, moist mucus membranes Neck: Supple, no lymphadenopathy Cardio: irregular rhythm, HR 80s-100, no murmurs, +S1/S2 Pulm: decreased breath sounds bilaterally, expiratory wheezing, no rhonchi/rales. Normal respiratory effort. Abdomen: soft, nontender, active bowel sounds Extremities: No LE edema, no cyanosis or clubbing, warm Neuro: AAOx3, no focal deficit, no speech deficit, mentating well, CN II-XII grossly intact, moves all extremities spontaneously MSK: Strength 5/5 throughout, no visible deformities Skin: clean, dry, intact, no visible rashes Psych: Appropriate mood and affect. Answers questions appropriately. Cooperative with exam - Assessment and Plan (1) Abdominal aortic aneurysm (AAA) Current Visit: Yes Status: Acute Assessment and Plan: CTA abdomen/pelvis shows 9.0 cm infrarenal AAA. Vascular surgery consulted and planning for endograft on Thursday. No complaints of chest, abdominal, or back pain. On heparin gtt. Continue to maintain control of HTN. (2) NSTEMI (non-ST elevated myocardial infarction) Current Visit: Yes Status: Acute Assessment and Plan: Peak troponin 10.15, decreased to 4.28. s/p C 02/23/19 with bare metal stent placement to left circumflex; otherwise n on-obstructive CAD. Echo shows LVEF 50%, no significant valvular dysfunction. No c/o chest pain at this time. Continue heparin drip. Cardiology recommendations: cardiac rehab, DAPT x 1 month, and continuation of ASA, statin, BB. (3) Hypertension Current Visit: Yes Status: Acute Assessment and Plan: Has not been hypertensive this visit, holding antihypertensives due to soft blood pressures with SBP 90s (4) Afib Current Visit: Yes Status: Acute Assessment and Plan: Rate controlled, HR 90's on Cardizem drip. TTE as above, normal TSH and electrolytes. CHADS-VASc 4 (age, CHF, HTN, vascular disease). Anticoagulated on heparin gtt. (5) COPD (chronic obstructive pulmonary disease) Current Visit: Yes Status: Chronic Assessment and Plan: Does not wear oxygen at home, wearing supplemental oxygen here for comfort (6) UTI (urinary tract infection) Current Visit: Yes Status: Ruled-out Assessment and Plan: Ceftriaxone discontinued. - Time Spent with Patient Total time spent is greater than 50% in coordination of care (as documented) at patient's floor/unit and/or counseling patient: Internal Medicine: Result - Labs CBC & Chem 7: 02/26/19 03:00 02/26/19 03:00 Labs: Short CBC 02/25/19 02/26/19 Range/Units 17:20 03:00 WBC 10.3 9.2 (4.3-11.1) K/mcL Hgb 15.7 14.0 D (12.9-16.9) g/dL Hct 48.6 42.7 (37.5-50.1) % Plt Count 184 172 (140-400) K/mcL Neutrophils # 6.4 (1.6-8.9) K/mcL BMP 02/26/19 03:00 Sodium 139 Potassium 3.4 L Chloride 108 H Carbon Dioxide 25 BUN 14 Creatinine 0.72 Glucose 109 H Calcium 8.4 L - ABG Interpretation ABG results: PT/INR, D-dimer PT 11.8 Seconds (9.4-12.1) 02/25/19 13:29 <Glenda Reynolds - Last Filed: 02/26/19 20:59> (1) Abdominal aortic aneurysm (AAA) Qualifiers: Presence of rupture: without rupture Qualified Code(s): I71.4 - Abdominal aortic aneurysm, without rupture (3) Hypertension Qualifiers: Hypertension type: unspecified Qualified Code(s): I10 - Essential (primary) hypertension (4) Afib Qualifiers: Atrial fibrillation type: paroxysmal Qualified Code(s): I48.0 - Paroxysmal atrial fibrillation (5) COPD (chronic obstructive pulmonary disease) Qualifiers: COPD type: emphysema Emphysema type: panlobular Qualified Code(s): J43.1 - Panlobular emphysema
--- NOTE | 2019-02-26 09:27 | Cardiology Progress Note ---
Date of Encounter: 02/26/19 Time of Encounter: 09:25 Assessment and Plan (1) Afib Current Visit: Yes Status: Acute Afib with RVR on IV cardizem gtt. HR 90s at bedside on cardizem 5 mg/hr. Chronicity unclear. Patient asymptomatic. TTE 02/24/19: LVEF 50%, no significant valvular dysfunction. TSH, electrolytes normal. Recommend rate control strategy, will transition to oral cardizem after AAA repair. CHA2Ds Vasc=3 (age, HTN, CAD); recommend long-term AC; however will discuss with Vascular surgery on appropriate timing given upcoming repair of 9.0 AAA. Discussed NOACs vs. coumadin, and pt/family at this time prefer NOAC. On heparin gtt for now. Qualifiers: Atrial fibrillation type: paroxysmal Qualified Code(s): I48.0 - Paroxysmal atrial fibrillation (2) NSTEMI (non-ST elevated myocardial infarction) Current Visit: Yes Status: Acute Peak troponin 10.15. [facility] 02/23/19: s/p PCI with BMS to LCx; otherwise non-obstructive CAD. TTE 02/24/19: LVEF 50%, no significant valvular dysfunction. No chest pain/discomfort reported. Cardiac rehab. Continue asa, statin, BB. Recommend DAPT x1 month. (3) Abdominal aortic aneurysm (AAA) Current Visit: Yes Status: Acute Large 9.0 infrarenal AAA, Vascular surgery following with plan for endograft. Qualifiers: Presence of rupture: without rupture Qualified Code(s): I71.4 - Abdominal aortic aneurysm, without rupture Discussion w patient/family: The assessment and plan as outlined above was discussed with the patient and/or family members who expressed understanding and agreement. All questions were answered. Thank you for involving us in the care of your patient. Please call with any questions. I will discuss all the above with Dr. Rosa and make changes as necessary. Subjective Principal diagnosis: NSTEMI Interval history: No acute complaints this AM. Objective Vital Signs, Last 4 Hours Temp Pulse Resp BP Pulse Ox 02/26/19 09:00 94 15 124/84 94 02/26/19 08:00 106 15 110/78 94 02/26/19 07:16 98.7 F 02/26/19 07:00 95 15 95/70 96 02/26/19 06:00 125 20 105/79 94 Vital Signs Temp Pulse Resp BP Pulse Ox 02/26/19 09:00 94 15 124/84 94 02/26/19 08:00 106 15 110/78 94 02/26/19 07:16 98.7 F 02/26/19 07:00 95 15 95/70 96 02/26/19 06:00 125 20 105/79 94 02/26/19 05:00 103 20 109/69 94 02/26/19 04:00 108 16 107/83 96 02/26/19 03:31 95 02/26/19 03:28 16 100 02/26/19 03:00 94 22 89/71 96 02/26/19 02:00 93 25 103/73 94 02/26/19 01:00 99 23 95/72 93 02/26/19 00:16 98.5 F 02/26/19 00:00 89 24 89/74 95 02/25/19 23:23 87 02/25/19 23:00 88 26 99/70 95 02/25/19 22:00 104 24 97/72 96 02/25/19 21:28 16 97 02/25/19 21:00 79 23 105/68 94 02/25/19 20:00 96.0 F L 92 24 101/71 94 02/25/19 19:40 91 02/25/19 19:00 92 24 101/64 94 02/25/19 18:06 87 19 104/67 97 02/25/19 18:02 98.0 F 02/25/19 17:00 87 27 98/62 97 02/25/19 16:12 19 98 02/25/19 16:04 97.6 F 85 19 103/74 98 02/25/19 16:00 85 02/25/19 15:00 85 23 104/71 98 02/25/19 14:00 89 24 97/70 98 02/25/19 13:12 97.6 F 02/25/19 13:00 82 25 100/66 98 02/25/19 12:00 72 23 151/131 98 02/25/19 11:06 20 98 02/25/19 11:00 81 17 100/65 98 02/25/19 10:00 85 22 91/69 98 02/25/19 09:30 98.0 F Intake and Output 02/25/19 02/26/19 02/26/19 23:59 07:59 15:59 Intake Total 1629 / 3789 970 / 970 Output Total 1100 / 1400 500 / 500 Balance 529 / 2389 470 / 470 Intake: IV Fluids 1129 / 3289 970 / 970 0.9 % Sodium Chloride 1,000 ML 1000 / 3000 900 / 900 @ 100 mls/hr IVC .Q10H [facility] Rx#: [id number] Cardizem 50 MG In 0.9 % Sodium 46 / 96 0 / 0 Chloride 40 ML @ 5 MG/HR 5 mls/ hr IVC CONT [facility] Rx#:[id number] Heparin 25,000 UNIT/250 ML D5W 83 / 83 70 / 70 25,000 unit In 250 ml @ 14 UNIT /KG/HR 12.684 mls/hr IVC . [id number] [facility] Rx#:[id number] Oral 500 / 500 Output: Urine 1100 / 1400 500 / 500 Other: Meal Dinner Percent of Meal Consumed 90% Stool Size Small Stool Consistency soft Stool Color Brown # Bowel Movements 1 Weight 92.3 kg Blood Glucose* 100 Patient Weight 02/26/19 23:59 Weight 92.3 kg General: Conversant, No Apparent Distress HEENT: Atraumatic, Normocephaly, Mucus Membranes Moist Neck: No JVD, Normal carotid pulses Cardiac: Other (irregularly irregular) Lungs: Other (coarse) Neuro: Alert and responsive, No focal deficits noted Abdomen: Soft, Non-Tender Skin: No rashes noted on visualized skin Musculoskeletal: No Chest Wall Tenderness Extremities: No Clubbing, No Cyanosis, No Edema, Normal Pulses Results 02/26/19 03:00 02/26/19 03:00 Lab Results 02/25/19 02/25/19 02/26/19 13:29 17:20 03:00 WBC 10.3 9.2 Hgb 15.7 14.0 D Hct 48.6 42.7 Plt Count 184 172 INR 1.0 Sodium Potassium Chloride Carbon Dioxide BUN Creatinine Glucose Calcium Magnesium 02/26/19 03:00 WBC Hgb Hct Plt Count INR Sodium 139 Potassium 3.4 L Chloride 108 H Carbon Dioxide 25 BUN 14 Creatinine 0.72 Glucose 109 H Calcium 8.4 L Magnesium 1.9 Short CBC 02/26/19 02/25/19 Range/Units 03:00 17:20 WBC 9.2 10.3 (4.3-11.1) K/mcL Hgb 14.0 D 15.7 (12.9-16.9) g/dL Hct 42.7 48.6 (37.5-50.1) % Plt Count 172 184 (140-400) K/mcL Neutrophils # 6.4 (1.6-8.9) K/mcL BMP 02/26/19 Range/Units 03:00 Sodium 139 (136-145) mEq/L Potassium 3.4 L (3.5-5.1) mEq/L Chloride 108 H (98-107) mEq/L Carbon Dioxide 25 (23-29) mEq/L BUN 14 (8-23) mg/dL Creatinine 0.72 (0.70-1.30) mg/dL Glucose 109 H (70-105) mg/dL Calcium 8.4 L (8.6-10.3) mg/dL Active Medications Acetaminophen (Tylenol) 650 mg PO Q6HR PRN PRN Reason: Mild Pain/Fever Stop: 08/25/19 15:24 Aspirin (Aspirin) 81 mg PO DAILY [facility] Stop: 08/26/19 09:01 Last Admin: 02/26/19 08:27 Dose: 81 mg Documented by: Atorvastatin Calcium (Lipitor) 40 mg PO HS [facility] Stop: 08/25/19 21:01 Last Admin: 02/25/19 21:10 Dose: 40 mg Documented by: Budesonide/Formoterol Fumarate (Symbicort) 1 puff IH BIDR [facility]; Protocol Stop: 08/25/19 22:01 Last Admin: 02/25/19 21:25 Dose: 1 puff Documented by: Clopidogrel Bisulfate (Plavix) 75 mg PO DAILY [facility] Stop: 08/26/19 09:01 Last Admin: 02/26/19 08:27 Dose: 75 mg Documented by: Docusate Sodium (Colace) 100 mg PO BID [facility] Stop: 08/25/19 21:01 Last Admin: 02/26/19 08:27 Dose: 100 mg Documented by: Famotidine (Pepcid) 20 mg IVP Q12HR [facility]; Protocol Stop: 08/25/19 18:01 Last Admin: 02/26/19 05:50 Dose: 20 mg Documented by: Heparin Sodium (Porcine) (Heparin) 6,300 unit 70 unit/kg (6300 unit) IVP Q6HR PRN PRN Reason: SEE COMMENTS Stop: 08/27/19 12:58 Last Admin: 02/25/19 14:25 Dose: 6,300 unit Documented by: Heparin Sodium (Porcine) (Heparin) 3,200 unit 35 unit/kg (3200 unit) IVP Q6H PRN PRN Reason: SEE COMMENTS Stop: 08/27/19 12:58 Ceftriaxone Sodium 1,000 mg/ (Sodium Chloride) 100 mls @ 200 mls/hr IVPB DAILY [facility] Stop: 08/25/19 16:01 Last Admin: 02/26/19 08:27 Dose: 200 mls/hr Documented by: Sodium Chloride (0.9 % Sodium Chloride) 1,000 mls @ 100 mls/hr IVC .Q10H [facility] Stop: 08/26/19 18:40 Last Admin: 02/26/19 08:26 Dose: 100 mls/hr Documented by: Diltiazem HCl 50 mg/ Sodium (Chloride) 50 mls @ 5 mls/hr IVC CONT [facility]; Protocol Stop: 08/26/19 18:31 Last Admin: 02/26/19 05:50 Dose: 5 mg/hr, 5 mls/hr Documented by: Heparin Sodium/Dextrose (Heparin 25,000 Unit/250 Ml D5w) 25,000 unit in 250 mls @ 12.684 mls/hr IVC .[id number] [facility]; Protocol Stop: 08/27/19 13:01 Last Titration: 02/26/19 03:36 Dose: 12.03 unit/kg/hr, 10.9 mls/hr Documented by: Levalbuterol HCl (Xopenex) 1.25 mg IH [id number] [facility] Stop: 08/27/19 10:01 Last Admin: 02/26/19 03:26 Dose: 1.25 mg Documented by: Metoprolol Tartrate (Lopressor) 25 mg PO BID [facility] Stop: 08/25/19 21:01 Last Admin: 02/26/19 08:27 Dose: 25 mg Documented by: Naloxone HCl (Narcan) 0.4 mg IVP Q2MPRN PRN PRN Reason: SEE COMMENTS Stop: 08/25/19 15:24 Nitroglycerin (Nitroglycerin) 0.4 mg SL Q5MPRN PRN PRN Reason: Chest Pain Stop: 08/25/19 17:27 Ondansetron HCl (Zofran) 4 mg IVP Q8HR PRN PRN Reason: Nausea And Vomiting Stop: 08/25/19 15:24 Pharmacy Profile Note (Patient Taking Own Medication) 1 each OP BID [facility] Stop: 08/25/19 21:01 Last Admin: 02/26/19 08:28 Dose: 1 each Documented by: Timolol Maleate (Timolol Maleate 0.5%) 1 drop OP DAILY [facility]; Protocol Stop: 08/25/19 15:31 Last Admin: 02/26/19 08:28 Dose: 1 drop Documented by: Consult Discharge Plan - Plan Referrals: Stefania Sue, MOHS SURGEON [Primary Care Provider] -
[2019-02-26] MEDS: Budesonide/Formoterol 160/4.5 1 PUFF INH IH SCH ×2 (09:41→21:40)
[2019-02-26] MEDS: Heparin 25,000 UNIT/250 ML D5W 25,000 UNIT/250 ML IV.SOLN IVC SCH (10:41)
--- NOTE | 2019-02-26 17:35 | Vascular/[facility] Progress Note ---
Date of Encounter: 02/27/19 Time of Encounter: 17:31 - Assessment and plan (1) NSTEMI (non-ST elevated myocardial infarction) Current Visit: Yes Status: Acute (2) Abdominal aortic aneurysm (AAA) Current Visit: Yes Status: Acute Asymptomatic 9 cm infrarenal abdominal aortic aneurysm. Dr. Toth to decide early next week about the timing of his procedure. Most likely he will defer h is surgical procedure for a month to allow him to recover from his recent myocardial infarction. Qualifiers: Presence of rupture: without rupture Qualified Code(s): I71.4 - Abdominal aortic aneurysm, without rupture (3) Afib Current Visit: Yes Status: Acute Qualifiers: Atrial fibrillation type: paroxysmal Qualified Code(s): I48.0 - Paroxysmal atrial fibrillation - Subjective Interval history: The patient presents with chest pain and was found to have circumflex coronary artery stenosis which required bare-metal stenting. Patient is also suffering from chronic atrial fibrillation and is on Cardizem drip. He is currently asymptomatic. He was found to have an asymptomatic 9 cm infrarenal abdominal aortic aneurysm. His troponin level At 10 and is trending down to 4. He is currently asymptomatic Vital Signs, Last 4 Hours Temp Pulse Resp BP Pulse Ox 02/26/19 17:00 92 24 110/83 100 02/26/19 16:00 81 23 109/77 100 02/26/19 15:57 95 02/26/19 15:52 97.6 F 02/26/19 15:46 18 100/74 95 02/26/19 15:00 93 22 100/74 98 02/26/19 14:00 90 20 99/64 99 - Physical Examination General: Present: No Apparent Distress HEENT: Present: Pupils equal Cardiac: Present: Irregular Rhythm Lungs: Present: Normal Breath Sounds Neuro: Present: Alert and responsive Vascular: Present: Normal capillary refill Abdomen: Present: Soft Skin: Present: No rashes noted on visualized skin Results 02/27/19 04:36 02/27/19 04:36 Lab Results, Last 24 hours 02/25/19 02/26/19 02/26/19 17:20 03:00 03:00 WBC 10.3 9.2 Hgb 15.7 14.0 D Hct 48.6 42.7 Plt Count 184 172 Sodium 139 Potassium 3.4 L Chloride 108 H Carbon Dioxide 25 BUN 14 Creatinine 0.72 Glucose 109 H Calcium 8.4 L Magnesium 1.9 Consult Discharge Plan - Plan Referrals: Stefania Sue, AIRPLANE DISPATCHER [Primary Care Provider] -
[2019-02-27] MEDS: Levalbuterol Neb 1.25 MG/3 ML IH SCH ×4 (03:57→21:24)
[2019-02-27 04:52] LABS: Basophils % 0.4 %; Eosinophils # 0.2 K/mcL (0.0-0.6); Eosinophils % 2.1 %; Hematocrit 42.9 % (37.5-50.1); Hemoglobin 13.9 g/dL (12.9-16.9); Immature Granulocytes % 0.2 % (0-4); Lymphocytes # 2.1 K/mcL (0.6-4.6); Lymphocytes % 22.9 %; Mean Corpuscular HGB Conc 32.4 g/dL (31.6-35.5); Mean Corpuscular Hemoglobin 31.1 pg (28.0-33.3); Mean Platelet Volume 10.4 fL (9.4-12.4); Monocytes # 0.7 K/mcL (0.0-1.3); Monocytes % 7.2 %; Neutrophils # 6.3 K/mcL (1.6-8.9); Platelet Count 173 K/mcL (140-400); Red Blood Count 4.47 M/mcL (4.19-5.50); Red Cell Distribution Width 13.6 % (11.5-14.5); Segmented Neutrophils % 67.2 %; White Blood Count 9.4 K/mcL (4.3-11.1)
[2019-02-27] MEDS: Heparin 25,000 UNIT/250 ML D5W 25,000 UNIT/250 ML IV.SOLN IVC SCH ×2 (05:03→09:17)
[2019-02-27] MEDS: Famotidine 20 MG/2 ML VIAL IVP SCH ×2 (05:04→18:21)
[2019-02-27] MEDS: 0.9 % Sodium Chloride 1,000 ML IVC SCH ×2 (05:06→07:27)
[2019-02-27 05:12] LABS: BUN/Creatinine Ratio 12 (6-26); Blood Urea Nitrogen 10 mg/dL (8-23); Calcium 8.8 mg/dL (8.6-10.3); Carbon Dioxide 26 mEq/L (23-29); Chloride 106 mEq/L (98-107); Glucose 102 mg/dL (70-105); Osmolality,Calculated 285 (280-300); Potassium 3.8 mEq/L (3.5-5.1); Sodium 138 mEq/L (136-145); eGFR For African Americans > 60 (> 60); eGFR For Non-African Americans > 60 (> 60)
--- NOTE | 2019-02-27 06:20 | Internal Med Progress Note ---
<Adan Wakefield - Last Filed: 02/27/19 12:44> Hospitalist Progress Note - Encounter Date of Encounter: 02/27/19 - Exam Vitals: Temp Pulse Resp BP Pulse Ox 97.8 F 69 20 89/68 94 02/27/19 11:00 02/27/19 11:29 02/27/19 11:00 02/27/19 11:00 02/27/19 11:00 - Time Spent with Patient Total time spent is greater than 50% in coordination of care (as documented) at patient's floor/unit and/or counseling patient: Internal Medicine: Result - Labs CBC & Chem 7: 02/27/19 04:36 02/27/19 04:36 Labs: Short CBC 02/27/19 Range/Units 04:36 WBC 9.4 (4.3-11.1) K/mcL Hgb 13.9 (12.9-16.9) g/dL Hct 42.9 (37.5-50.1) % Plt Count 173 (140-400) K/mcL Neutrophils # 6.3 (1.6-8.9) K/mcL BMP 02/27/19 04:36 Sodium 138 Potassium 3.8 Chloride 106 Carbon Dioxide 26 BUN 10 Creatinine 0.86 Glucose 102 Calcium 8.8 - ABG Interpretation ABG results: PT/INR, D-dimer PT 11.8 Seconds (9.4-12.1) 02/25/19 13:29 Consult Discharge Plan - Plan Referrals: Stefania Sue, METALLURGICAL INSPECTOR [Primary Care Provider] - - Attending Attestation I examined this patient and my medical decision-making was reviewed with the Resident Physician on 02/27/19. I agree with the documented findings, dispositio n and treatment plan as described except to the extent set forth below. Mr Galeano is currently admitted for NTSEMI and AAA. He remains moderate to high risk at this time. He is on heparin drip at this time. Cardizem transitioned to PO today. No further chest pain. Exam as above. Awaiting further recommendations per vascular. <Glenda Reynolds - Last Filed: 02/27/19 15:13> Hospitalist Progress Note - Encounter Date of Encounter: 02/27/19 Time of Encounter: 09:49 - Subjective Interval History: Family at bedside. Pt just finished breathing treatment, feels like his breathing is good. He reports morning cough with some phlegm, but states it's at baseline for him. Slept well overnight, but states he did get tangled up in his IV and tele/monitoring leads and accidentally pulled his IV out. He has no chest pain, palpitations, sensation of heart racing, shortness of breath, wheezing, nausea, abdominal pain, lower extremity pain or paresthesias. Good PO intake, had BM this morning and reports no problems with urination. - Exam Vitals: Temp Pulse Resp BP Pulse Ox 97.8 F 89 21 84/67 94 02/27/19 04:00 02/27/19 06:00 02/27/19 06:00 02/27/19 06:00 02/27/19 06:00 Exam: General: No acute distress, resting comfortably in bed, hard of hearing HEENT: head normocephalic/atraumatic, EOMI, PERRL, sclera anicteric, moist mucus membranes Neck: Supple, no lymphadenopathy Cardio: irregular rhythm, HR 120s, no murmurs, +S1/S2 Pulm: decreased breath sounds bilaterally, expiratory wheezing, no rhonchi/rales. Normal respiratory effort. Abdomen: soft, nontender, active bowel sounds Extremities: No LE edema, no cyanosis or clubbing, warm Neuro: AAOx3, no focal deficit, no speech deficit, mentating well, CN II-XII grossly intact, moves all extremities spontaneously MSK: Strength 5/5 throughout, no visible deformities Skin: clean, dry, intact, no visible rashes Psych: Appropriate mood and affect. Answers questions appropriately. Cooperative with exam - Assessment and Plan (1) Abdominal aortic aneurysm (AAA) Current Visit: Yes Status: Acute Assessment and Plan: CTA abdomen/pelvis shows 9.0 cm infrarenal AAA. Vascular surgery following, planning for endograft. No complaints of chest, abdominal, or back pain. On heparin gtt. (2) NSTEMI (non-ST elevated myocardial infarction) Current Visit: Yes Status: Acute Assessment and Plan: Peak troponin 10.15, has demonstrated downward trend. s/p LHC 02/23/19 with bare metal stent placement to left circumflex; otherwise non-obstructive CAD. Echo shows LVEF 50%, no significant valvular dysfunction. Continues to be chest pain free. Transitioned from cardizem gtt to PO today. Continue heparin drip. Cardiology recommendations: cardiac rehab, DAPT x 1 month, and continuation of ASA, statin, BB. (3) Afib Current Visit: Yes Status: Acute Assessment and Plan: Rate controlled. TTE as above, normal TSH and electrolytes. CHADS-VASc 4 (age, CHF, HTN, vascular disease). Anticoagulated on heparin gtt. Cardiology and vascular surgery to discuss starting NOAC. (4) COPD (chronic obstructive pulmonary disease) Current Visit: Yes Status: Chronic Assessment and Plan: Does not wear oxygen at home, wearing supplemental oxygen here for comfort. (5) UTI (urinary tract infection) Current Visit: Yes Status: Ruled-out - Time Spent with Patient Total time spent is greater than 50% in coordination of care (as documented) at patient's floor/unit and/or counseling patient: Internal Medicine: Result - Labs CBC & Chem 7: 02/27/19 04:36 02/27/19 04:36 Labs: Short CBC 02/27/19 Range/Units 04:36 WBC 9.4 (4.3-11.1) K/mcL Hgb 13.9 (12.9-16.9) g/dL Hct 42.9 (37.5-50.1) % Plt Count 173 (140-400) K/mcL Neutrophils # 6.3 (1.6-8.9) K/mcL BMP 02/27/19 04:36 Sodium 138 Potassium 3.8 Chloride 106 Carbon Dioxide 26 BUN 10 Creatinine 0.86 Glucose 102 Calcium 8.8 - ABG Interpretation ABG results: PT/INR, D-dimer PT 11.8 Seconds (9.4-12.1) 02/25/19 13:29 <Glenda Reynolds - Last Filed: 02/27/19 15:13> (1) Abdominal aortic aneurysm (AAA) Qualifiers: Presence of rupture: without rupture Qualified Code(s): I71.4 - Abdominal aortic aneurysm, without rupture (3) Afib Qualifiers: Atrial fibrillation type: paroxysmal Qualified Code(s): I48.0 - Paroxysmal atrial fibrillation (4) COPD (chronic obstructive pulmonary disease) Qualifiers: COPD type: emphysema Emphysema type: panlobular Qualified Code(s): J43.1 - Panlobular emphysema
--- NOTE | 2019-02-27 07:53 | Event Note ---
Date of Encounter: 02/27/19 Time of Encounter: 07:52 - Cardiology Event Note HR controlled on Cardizem gtt at 5mg/hr. Will transition to PO Cardizem CD 120mg daily. Continue BB. On heparin gtt for AC. Plan for endograft repair of AAA tomorrow. Will continue to follow until after surgery. Will discuss with vas cular regarding NOAC for A-Fib and timing of starting it.
[2019-02-27] MEDS: Aspirin 81 MG TAB.CHEW PO SCH (09:08)
[2019-02-27] MEDS: Budesonide/Formoterol 160/4.5 1 PUFF INH IH SCH ×2 (09:30→21:24)
[2019-02-27] MEDS: Diltiazem CD (24hr) 120 MG CAPSULE PO SCH (09:43)
--- NOTE | 2019-02-27 16:20 | Vascular/[facility] Progress Note ---
Date of Encounter: 02/28/19 Time of Encounter: 16:19 - Assessment and plan (1) NSTEMI (non-ST elevated myocardial infarction) Current Visit: Yes Status: Acute (2) Abdominal aortic aneurysm (AAA) Current Visit: Yes Status: Acute Asymptomatic 9 cm infrarenal abdominal aortic aneurysm. Dr. Toth to decide early next week about the timing of his procedure. Most likely he will defer h is surgical procedure for a month to allow him to recover from his recent myocardial infarction. Qualifiers: Presence of rupture: without rupture Qualified Code(s): I71.4 - Abdominal aortic aneurysm, without rupture (3) Afib Current Visit: Yes Status: Acute Qualifiers: Atrial fibrillation type: paroxysmal Qualified Code(s): I48.0 - Paroxysmal atrial fibrillation - Subjective Interval history: The patient presents with chest pain and was found to have circumflex coronary artery stenosis which required bare-metal stenting. Patient is also suffering from chronic atrial fibrillation and is on Cardizem drip. He is currently asymptomatic. He was found to have an asymptomatic 9 cm infrarenal abdominal aortic aneurysm. His troponin level At 10 and is trending down to 4. He is currently asymptomatic Vital Signs, Last 4 Hours Temp Pulse Resp BP Pulse Ox 02/27/19 16:00 97.8 F 63 20 110/82 99 02/27/19 15:53 16 110/82 98 02/27/19 15:00 61 20 78/66 98 02/27/19 14:00 65 20 92/67 98 02/27/19 13:00 83 16 94/74 95 - Physical Examination General: Present: No Apparent Distress HEENT: Present: Pupils equal Cardiac: Present: Reg Rate and Rhythm, Normal S1 and S2, No Murmur, Irregular Rhythm Lungs: Present: Normal Breath Sounds, No Wheeze, Rales, Rhonchi Neuro: Present: Alert and responsive Vascular: Present: Normal capillary refill, Pulse, normal Abdomen: Present: Soft, Non-tender Skin: Present: No rashes noted on visualized skin Musculoskeletal: Present: No Chest Wall Tenderness Results 02/27/19 04:36 02/28/19 04:08 Lab Results, Last 24 hours 02/27/19 02/27/19 04:36 04:36 WBC 9.4 Hgb 13.9 Hct 42.9 Plt Count 173 Sodium 138 Potassium 3.8 Chloride 106 Carbon Dioxide 26 BUN 10 Creatinine 0.86 Glucose 102 Calcium 8.8 Consult Discharge Plan - Plan Referrals: Stefania Sue, WIN [Primary Care Provider] -
--- NOTE | 2019-02-27 19:01 | Anesthesia Evaluation PreOp ---
Date of Encounter: 02/28/19 Time of Encounter: 18:59 - Past History Planned Operation: Endo AAA Cardiac History: IA (NSTEMI - , 1 week ago), HTN, Arrhythmia (AFib - on cardizem drip), Cardiac Stent (02/23/19 bare metal stent to Circumflex, Cardiology recommend continue asa, statin, BB and DAPT x1 month.), Other (Asymptomatic 9 cm infrarenal abdominal aortic aneurysm) Pulmonary History: Smoker, COPD STONER HAND History: Denies Any Significant HX Other Medical History: Denies Any Significant HX Anesthesia History: No Prior Anesthetic Complications, Past Anesthesia (BACK SX) Alcohol Use: none Drug use: none Medications and Allergies Albuterol Sulfate [Proair Hfa] 1 puff IH PRN PRN 02/23/19 [History] Brinzolamide/Brimonidine Tart [Simbrinza 1%-0.2% Eye Drops] 1 drop OP BID 02/23/19 [History] Budesonide/Formoterol 160/4.5 [Symbicort 160/4.5] 2 puff IH BID 02/23/19 [History] Meloxicam 7.5 mg PO DAILY 02/23/19 [History] Timolol Maleate 0.5% 1 drop OP DAILY 02/23/19 [History] Lisinopril-HCTZ 10-12.5 [Prinzide 10-12.5] 2 each PO DAILY 02/24/19 [History] 3 Allergy/AdvReac Type Severity Reaction Status Date / Time No Known Allergies Allergy Verified 02/24/19 12:41 - Meds/Allergy Pre-op Review Medications Reviewed: Yes Allergies Reviewed: Yes Beta Blockers on Current Med List: Yes If Beta Blockers taken, Date/Time (Last Dose taken): 20:27 02/27/2019 Anesthesia Results - Labs 02/27/19 04:36 02/28/19 04:08 - Imaging EKG: report reviewed (Sinus rhythm Nonspecific ST-T changes Electronically Signed On 02-25-2019 9:31:56 EDT by Kulwant Rosa) Additional studies: Name: Waleska Donniedavis Flores Date of Study: 02/23/2019 CORONARY ANGIOGRAPHY PCI of Acute IA Indications: Non-Stemi ACS <= 24 hrs Impressions: Double vessel coronary artery disease. Patient had successful PTCA/Bare Metal Stent placement in the mid Circ. There is a large abdominal aneurysm present. Recommendations: DAPT Optimal medical therapy of patient's disease. Aggressive risk factor modification. CTA abdomen/pelvis Vascular surgery consult Coronary Dominance: Left Lesion Findings/Interventions * Left Main Coronary Artery The LMCA is angiographically free of disease. * Left Anterior Descending There is a 40% stenosis in the Proximal LAD. There is a 50% stenosis in the Mid LAD. There is a 70% stenosis in the 1st Diagonal. * Circumflex There is a 40% stenosis in the Proximal Circumflex. There is a 20 mm long, 100% stenosis in the Mid Circumflex. The lesion has a YESSY flow of 0 and has thrombus present. An intervention was performed on the Mid Circumflex with a final stenosis of 0%. There were no lesion complications. The final YESSY flow was 3. There is a 99% stenosis in the 1st Marginal. * Right Coronary Artery There is a 40% stenosis in the Proximal RCA. Echocardiogram Name: Donnie Galeano Date of Study: 02/23/2019 EV/EV echocardiogram Impressions: LVEF 50%. Mild segmental left ventricular systolic dysfunction. Mild left ventricular diastolic dysfunction. Normal right ventricular structure and function. No significant valvular dysfunction. Unable to estimate RVSP due to lack of TR jet. Anesthesia Exam Vital Signs/O2 Sat, Most Current Temp Pulse Resp BP Pulse Ox 97.8 F 78 20 89/72 97 02/27/19 16:00 02/27/19 18:00 02/27/19 18:00 02/27/19 18:00 02/27/19 18:00 - HEENT Pupil (Motor): Pupils equal, EOMI Mallampati: I Teeth: Edentulous Oral Opening: Greater than 3 - STONER HAND LOC: Oriented STONER HAND Motor: Normal RUE, Normal LUE, Normal RLE, Normal LLE, Normal Face STONER HAND Sensory: Normal: RUE, LUE, RLE, LLE, Face - Cardiac Rhythm: Irregular Murmur: None JVD: No Carotid Bruit: No - Pulmonary Respiratory Effort: Symmetrical Anesthesia Assess/Plan ASA Score: 4 Level of consciousness: Cooperative Anesthetic Plan: General Monitoring Plan: A-Line, CVC Recovery Plan: PACU
[2019-02-28] MEDS ORDERED: *HR* Metoprolol 5 MG/5 ML VIAL IVP ONE ×4 (02:35→06:16)
[2019-02-28] MEDS: Levalbuterol Neb 1.25 MG/3 ML IH SCH ×4 (04:27→21:59)
[2019-02-28 04:55] LABS: BUN/Creatinine Ratio 14 (6-26); Blood Urea Nitrogen 11 mg/dL (8-23); Calcium 9.1 mg/dL (8.6-10.3); Carbon Dioxide 26 mEq/L (23-29); Chloride 105 mEq/L (98-107); Glucose 99 mg/dL (70-105); Osmolality,Calculated 285 (280-300); Potassium 3.7 mEq/L (3.5-5.1); Sodium 138 mEq/L (136-145); eGFR For African Americans > 60 (> 60); eGFR For Non-African Americans > 60 (> 60)
[2019-02-28] MEDS ORDERED: Vancomycin 1,000 MG, Sodium Chloride IRRigation 1,000 ML IR ONE (06:00)
[2019-02-28] MEDS: Famotidine 20 MG/2 ML VIAL IVP SCH ×2 (06:24→18:09)
[2019-02-28] MEDS: Heparin 25,000 UNIT/250 ML D5W 25,000 UNIT/250 ML IV.SOLN IVC SCH (09:34)
[2019-02-28] MEDS: Diltiazem CD (24hr) 120 MG CAPSULE PO SCH (09:37)
[2019-02-28] MEDS: Aspirin 81 MG TAB.CHEW PO SCH (09:42)
--- NOTE | 2019-02-28 10:19 | Internal Med Progress Note ---
<Glenda Reynolds - Last Filed: 02/28/19 13:35> Hospitalist Progress Note - Encounter Date of Encounter: 02/28/19 Time of Encounter: 09:30 - Subjective Interval History: Patient is sleeping, appears comfortable and family is present in the room. The patient states he slept well overnight, has no complaints. 09:00 pt had episode of Afib with RVR, heart rate in 150's and cardizem gtt restarted. He states he hasn't had any chest pain, shortness of breath, abdominal pain, or nausea. - Exam Vitals: Temp Pulse Resp BP Pulse Ox 97.8 F 143 22 89/63 95 02/28/19 08:17 02/28/19 08:00 02/28/19 08:00 02/28/19 08:00 02/28/19 08:00 Exam: General: No acute distress, resting comfortably in bed, hard of hearing HEENT: head normocephalic/atraumatic, EOMI, PERRL, sclera anicteric, moist mucus membranes Neck: Supple, no lymphadenopathy Cardio: irregular rhythm, HR 120s, no murmurs, +S1/S2 Pulm: decreased breath sounds bilaterally, expiratory wheezing, no rhonchi/rales. Normal respiratory effort. Abdomen: soft, nontender, active bowel sounds Extremities: No LE edema, no cyanosis or clubbing, warm Neuro: AAOx3, no focal deficit, no speech deficit, mentating well, CN II-XII grossly intact, moves all extremities spontaneously MSK: Strength 5/5 throughout, no visible deformities Skin: clean, dry, intact, no visible rashes Psych: Appropriate mood and affect. Answers questions appropriately. Cooperative with exam - Assessment and Plan (1) Atrial fibrillation with RVR Current Visit: Yes Status: Acute Assessment and Plan: Rate control improved--episode of Afib RVR this morning, rate increased to 150s, pt was placed back on Cardizem gtt. TTE as above, normal TSH and electrolytes. CHADS-VASc 4 (age, CHF, HTN, vascular disease). Anticoagulated on heparin gtt. Cardiology and vascular surgery to discuss starting NOAC. (2) Abdominal aortic aneurysm (AAA) Current Visit: Yes Status: Acute Assessment and Plan: CTA abdomen/pelvis shows 9.0 cm infrarenal AAA. No complaints of chest, abdominal, or back pain. Due to episode of afib RVR this morning, vascular cancelled endograft today--now tentatively planning for 03/03. On heparin gtt. (3) NSTEMI (non-ST elevated myocardial infarction) Current Visit: Yes Status: Acute Assessment and Plan: Peak troponin 10.15, has demonstrated downward trend. s/p LHC 02/23/19 with bare metal stent placement to left circumflex; otherwise non-obstructive CAD. Echo shows LVEF 50%, no significant valvular dysfunction. Continues to be chest pain free. Continue heparin drip. Cardizem gtt restarted. Cardiology recommendations: cardiac rehab, DAPT x 1 month, and continuation of ASA, statin, BB. (4) COPD (chronic obstructive pulmonary disease) Current Visit: Yes Status: Chronic Assessment and Plan: Does not wear oxygen at home, wearing supplemental oxygen here for comfort. (5) UTI (urinary tract infection) Current Visit: Yes Status: Ruled-out DVT Prophylaxis: heparin drip - Time Spent with Patient Total time spent is greater than 50% in coordination of care (as documented) at patient's floor/unit and/or counseling patient: Internal Medicine: Result - Labs CBC & Chem 7: 02/27/19 04:36 02/28/19 04:08 Labs: BMP 02/28/19 04:08 Sodium 138 Potassium 3.7 Chloride 105 Carbon Dioxide 26 BUN 11 Creatinine 0.79 Glucose 99 Calcium 9.1 - ABG Interpretation ABG results: PT/INR, D-dimer PT 11.8 Seconds (9.4-12.1) 02/25/19 13:29 Consult Discharge Plan - Plan Referrals: Stefania Sue, WIN [Primary Care Provider] - <Adan Wakefield - Last Filed: 02/28/19 16:09> Hospitalist Progress Note - Encounter Date of Encounter: 02/28/19 - Exam Vitals: Temp Pulse Resp BP Pulse Ox 97.8 F 89 18 79/59 97 02/28/19 08:17 02/28/19 10:20 02/28/19 15:58 02/28/19 10:20 02/28/19 15:58 - Assessment and Plan (1) Abdominal aortic aneurysm (AAA) Current Visit: Yes Status: Acute (2) Hypertension Current Visit: No Status: Chronic - Time Spent with Patient Total time spent is greater than 50% in coordination of care (as documented) at patient's floor/unit and/or counseling patient: Internal Medicine: Result - Labs CBC & Chem 7: 02/27/19 04:36 02/28/19 04:08 Labs: BMP 02/28/19 04:08 Sodium 138 Potassium 3.7 Chloride 105 Carbon Dioxide 26 BUN 11 Creatinine 0.79 Glucose 99 Calcium 9.1 - ABG Interpretation ABG results: PT/INR, D-dimer PT 11.8 Seconds (9.4-12.1) 02/25/19 13:29 - Attending Attestation I examined this patient and my medical decision-making was reviewed with the Resident Physician on 02/28/19. I agree with the documented findings, disposition and treatment plan as described except to the extent set forth below. Mr Galeano is currently admitted for acute NSTEMI s/p stent, a fib and AAA. He remains high risk at this time. Mr Galeano had recurrent rapid a fib this AM. No fever or chills. No chest or abd pain. He is alert and oriented and comfortable. Heart is irreg and tachy. Now on Cardizem and heparin drips. Fluids given. Awaiting surgery later this week per notes. <Glenda Reynolds - Last Filed: 02/28/19 13:35> (2) Abdominal aortic aneurysm (AAA) Qualifiers: Presence of rupture: without rupture Qualified Code(s): I71.4 - Abdominal aortic aneurysm, without rupture (4) COPD (chronic obstructive pulmonary disease) Qualifiers: COPD type: emphysema Emphysema type: panlobular Qualified Code(s): J43.1 - Panlobular emphysema <Adan Wakefield - Last Filed: 02/28/19 16:09> (1) Abdominal aortic aneurysm (AAA) Qualifiers: Presence of rupture: without rupture Qualified Code(s): I71.4 - Abdominal aortic aneurysm, without rupture (2) Hypertension Qualifiers: Hypertension type: essential hypertension Qualified Code(s): I10 - Essential (primary) hypertension
--- NOTE | 2019-02-28 10:41 | Cardiology Progress Note ---
Date of Encounter: 02/28/19 Time of Encounter: 10:39 Assessment and Plan (1) Afib Current Visit: Yes Status: Acute Afib with RVR on IV cardizem gtt. HR low 100s at bedside on cardizem 5 mg/hr. Chronicity unclear. Patient asymptomatic. Transitioned to PO Cardizem CD 120mg daily yesterday, but remained RVR and gtt was restarted overnight. TTE 02/24/19: LVEF 50%, no significant valvular dysfunction. TSH, electrolytes normal. Recommend rate control strategy. BP marginal--currently low 100s systolic. Will attempt to increase PO BB. Concern of pauses on telemetry. Longest pause noted was 1.8 seconds on conversion to SR. No significant pauses noted. CHA2Ds Vasc=3 (age, HTN, CAD); recommend long-term AC; however will discuss with Vascular surgery on appropriate timing given upcoming repair of 9.0 AAA. Discussed NOACs vs. coumadin, and pt/family at this time prefer NOAC. On heparin gtt for now. Qualifiers: Atrial fibrillation type: paroxysmal Qualified Code(s): I48.0 - Paroxysmal atrial fibrillation (2) NSTEMI (non-ST elevated myocardial infarction) Current Visit: Yes Status: Acute Peak troponin 10.15. [facility] 02/23/19: s/p PCI with BMS to LCx; otherwise non-obstructive CAD. TTE 02/24/19: LVEF 50%, no significant valvular dysfunction. No chest pain/discomfort reported. Cardiac rehab. Continue asa, statin, BB. Recommend DAPT x1 month. (3) Abdominal aortic aneurysm (AAA) Current Visit: Yes Status: Acute Large 9.0 infrarenal AAA, Vascular surgery following with plan for endograft. Qualifiers: Presence of rupture: without rupture Qualified Code(s): I71.4 - Abdominal aortic aneurysm, without rupture Discussion w patient/family: The assessment and plan as outlined above was discussed with the patient and/or family members who expressed understanding and agreement. All questions were answered. Thank you for involving us in the care of your patient. Please call with any questions. I will discuss all the above with Dr. Hill and make changes as necessary. Subjective Principal diagnosis: NSTEMI Interval history: No acute complaints this AM. Objective Vital Signs, Last 4 Hours Temp Pulse Resp BP Pulse Ox 02/28/19 09:30 112 22 82/63 94 02/28/19 08:17 97.8 F 02/28/19 08:00 143 22 89/63 95 02/28/19 07:15 117 24 83/62 94 Vital Signs Temp Pulse Resp BP Pulse Ox 02/28/19 09:30 112 22 82/63 94 02/28/19 08:17 97.8 F 02/28/19 08:00 143 22 89/63 95 02/28/19 07:15 117 24 83/62 94 02/28/19 06:00 111 24 112/90 95 02/28/19 05:30 108 20 77/59 94 02/28/19 04:27 22 109/89 94 02/28/19 04:00 98.0 F 142 24 109/89 94 02/28/19 03:00 121 22 101/80 92 02/28/19 02:00 71 18 92/72 94 02/28/19 01:00 57 24 84/69 93 02/28/19 00:30 98.1 F 02/28/19 00:00 61 22 90/66 93 02/27/19 23:30 62 02/27/19 23:00 65 20 100/76 94 02/27/19 22:00 63 22 85/62 93 02/27/19 21:24 19 96 02/27/19 21:00 66 20 105/82 96 02/27/19 20:00 98.6 F 63 18 118/86 96 02/27/19 19:00 76 22 126/88 96 02/27/19 18:00 78 20 89/72 97 02/27/19 17:00 72 20 108/91 98 02/27/19 16:00 97.8 F 63 20 110/82 99 02/27/19 15:53 16 110/82 98 02/27/19 15:00 61 20 78/66 98 02/27/19 14:00 65 20 92/67 98 02/27/19 13:00 83 16 94/74 95 02/27/19 12:00 75 20 83/62 96 02/27/19 11:29 69 02/27/19 11:00 97.8 F 61 20 89/68 94 Intake and Output 02/27/19 02/28/19 02/28/19 23:59 07:59 15:59 Intake Total 205.3 / 255.3 50 / 255.3 Output Total 400 / 1300 1020 / 1020 0 / 1020 Balance -400 / 503.5 -814.7 / -764.7 50 / -764.7 Intake: IV Fluids 205.3 / 255.3 50 / 255.3 Cardizem 50 MG In 0.9 % Sodium 5.3 / 5.3 Chloride 40 ML @ 5 MG/HR 5 mls/ hr IVC .Q10H [facility] Rx#:[id number] Heparin 25,000 UNIT/250 ML D5W 200 / 250 50 / 250 25,000 unit In 250 ml @ 14 UNIT /KG/HR 12.684 mls/hr IVC . [id number] [facility] Rx#:[id number] Oral 0 / 0 Output: Urine 400 / 1000 1020 / 1020 0 / 1020 Other: Weight 99.9 kg Patient Weight 02/28/19 23:59 Weight 99.9 kg General: Conversant, No Apparent Distress HEENT: Atraumatic, Normocephaly, Mucus Membranes Moist Neck: Normal carotid pulses Cardiac: Other (irregularly irregular) Lungs: Normal Breath Sounds, No Wheeze, Rales, Rhonchi Neuro: Alert and responsive, No focal deficits noted Abdomen: Soft, Non-Tender Skin: No rashes noted on visualized skin Musculoskeletal: No Chest Wall Tenderness Extremities: No Clubbing, No Cyanosis, No Edema, Normal Pulses Results 02/27/19 04:36 02/28/19 04:08 Lab Results 02/28/19 04:08 Sodium 138 Potassium 3.7 Chloride 105 Carbon Dioxide 26 BUN 11 Creatinine 0.79 Glucose 99 Calcium 9.1 Active Medications Acetaminophen (Tylenol) 650 mg PO Q6HR PRN PRN Reason: Mild Pain/Fever Stop: 08/25/19 15:24 Aspirin (Aspirin) 81 mg PO DAILY [facility] Stop: 08/26/19 09:01 Last Admin: 02/28/19 09:42 Dose: 81 mg Documented by: Atorvastatin Calcium (Lipitor) 40 mg PO HS [facility] Stop: 08/25/19 21:01 Last Admin: 02/27/19 20:27 Dose: 40 mg Documented by: Budesonide/Formoterol Fumarate (Symbicort) 1 puff IH BIDR [facility]; Protocol Stop: 08/25/19 22:01 Last Admin: 02/27/19 21:24 Dose: 1 puff Documented by: Clopidogrel Bisulfate (Plavix) 75 mg PO DAILY [facility] Stop: 08/26/19 09:01 Last Admin: 02/28/19 09:42 Dose: 75 mg Documented by: Diltiazem HCl (Cardizem Cd) 120 mg PO DAILY [facility] Stop: 08/29/19 09:46 Last Admin: 02/28/19 09:37 Dose: Not Given Documented by: Docusate Sodium (Colace) 100 mg PO BID [facility] Stop: 08/25/19 21:01 Last Admin: 02/28/19 09:42 Dose: 100 mg Documented by: Famotidine (Pepcid) 20 mg IVP Q12HR [facility]; Protocol Stop: 08/25/19 18:01 Last Admin: 02/28/19 06:24 Dose: 20 mg Documented by: Heparin Sodium (Porcine) (Heparin) 6,300 unit 70 unit/kg (6300 unit) IVP Q6HR PRN PRN Reason: SEE COMMENTS Stop: 08/27/19 12:58 Last Admin: 02/25/19 14:25 Dose: 6,300 unit Documented by: Heparin Sodium (Porcine) (Heparin) 3,200 unit 35 unit/kg (3200 unit) IVP Q6H PRN PRN Reason: SEE COMMENTS Stop: 08/27/19 12:58 Heparin Sodium/Dextrose (Heparin 25,000 Unit/250 Ml D5w) 25,000 unit in 250 mls @ 12.684 mls/hr IVC .[id number] [facility]; Protocol Stop: 08/27/19 13:01 Last Admin: 02/28/19 09:34 Dose: 12.03 unit/kg/hr, 10.9 mls/hr Documented by: Diltiazem HCl 50 mg/ Sodium (Chloride) 50 mls @ 5 mls/hr IVC .Q10H [facility]; Protocol Stop: 08/30/19 03:46 Last Infusion: 02/28/19 05:53 Dose: 5 mg/hr, 5 mls/hr Documented by: Levalbuterol HCl (Xopenex) 1.25 mg IH [id number] [facility] Stop: 08/27/19 10:01 Last Admin: 02/28/19 04:27 Dose: 1.25 mg Documented by: Metoprolol Tartrate (Lopressor) 25 mg PO BID [facility] Stop: 08/25/19 21:01 Last Admin: 02/28/19 09:42 Dose: Not Given Documented by: Naloxone HCl (Narcan) 0.4 mg IVP Q2MPRN PRN PRN Reason: SEE COMMENTS Stop: 08/25/19 15:24 Nitroglycerin (Nitroglycerin) 0.4 mg SL Q5MPRN PRN PRN Reason: Chest Pain Stop: 08/25/19 17:27 Ondansetron HCl (Zofran) 4 mg IVP Q8HR PRN PRN Reason: Nausea And Vomiting Stop: 08/25/19 15:24 Pharmacy Profile Note (Patient Taking Own Medication) 1 each OP BID [facility] Stop: 08/25/19 21:01 Last Admin: 02/28/19 09:43 Dose: 1 each Documented by: Timolol Maleate (Timolol Maleate 0.5%) 1 drop OP DAILY [facility]; Protocol Stop: 08/25/19 15:31 Last Admin: 02/28/19 09:43 Dose: 1 drop Documented by: - Imaging and Cardiology Echo: report reviewed Cardiac cath: report reviewed Consult Discharge Plan - Plan Referrals: Stefania Sue, CLINICAL QUALITY ASSURANCE ASSOCIATE [Primary Care Provider] -
[2019-02-28] MEDS: Budesonide/Formoterol 160/4.5 1 PUFF INH IH SCH ×2 (10:45→21:59)
[2019-02-28] MEDS ORDERED: 0.9 % Sodium Chloride 1,000 ML IVC ONE (12:02)
--- NOTE | 2019-02-28 15:08 | Vascular/[facility] Progress Note ---
Date of Encounter: 02/28/19 Time of Encounter: 15:04 - Assessment and plan (1) NSTEMI (non-ST elevated myocardial infarction) Current Visit: Yes Status: Acute (2) Abdominal aortic aneurysm (AAA) Current Visit: Yes Status: Acute Asymptomatic 9 cm infrarenal abdominal aortic aneurysm. Dr. Toth to decide in the next couple of days about the timing of his procedure. Cardiology to op timize his cardiac issues. Qualifiers: Presence of rupture: without rupture Qualified Code(s): I71.4 - Abdominal aortic aneurysm, without rupture (3) Afib Current Visit: Yes Status: Acute Qualifiers: Atrial fibrillation type: paroxysmal Qualified Code(s): I48.0 - Paroxysmal atrial fibrillation - Subjective Interval history: Seen and examined. events from the past 24 hours were reviewed. Denies abdominal pain. The patient is currently back on a Cardizem drip. He is anticoagulated. He denies any shortness of breath or chest pain. - Physical Examination General: Present: No Apparent Distress HEENT: Present: Pupils equal Cardiac: Present: Irregular Rhythm Lungs: Present: Normal Breath Sounds Neuro: Present: Alert and responsive, Other (Hard hearing) Vascular: Present: Normal capillary refill, Pulse, normal Abdomen: Present: Soft, Non-tender Results 02/27/19 04:36 02/28/19 04:08 Lab Results, Last 24 hours 02/28/19 04:08 Sodium 138 Potassium 3.7 Chloride 105 Carbon Dioxide 26 BUN 11 Creatinine 0.79 Glucose 99 Calcium 9.1 Consult Discharge Plan - Plan Referrals: Stefania Sue CNP [Primary Care Provider] -
--- NOTE | 2019-02-28 17:22 | Vascular/[facility] Progress Note ---
Date of Encounter: 02/28/19 Time of Encounter: 16:55 - Assessment and plan (1) Abdominal aortic aneurysm (AAA) Current Visit: Yes Status: Acute The patient has a 9.0 cm infrarenal abdominal aortic aneurysm. His aneurysm appears adequate for endograft placement. Discussion was held with anesthesia today. The decision was made to wait until to perform his repair in order to allow additional time for his myocardium to heal. If the patient has no further issues he will likely undergo repair of his aneurysm on . Qualifiers: Presence of rupture: without rupture Qualified Code(s): I71.4 - Abdominal aortic aneurysm, without rupture (2) COPD (chronic obstructive pulmonary disease) Current Visit: Yes Status: Chronic Qualifiers: COPD type: emphysema Emphysema type: panlobular Qualified Code(s): J43.1 - Panlobular emphysema (3) NSTEMI (non-ST elevated myocardial infarction) Current Visit: Yes Status: Acute Patient recently sustained an acute myocardial infarction. He recently underwent left heart catheterization with coronary stent placement. His troponin has decreased today. He denies chest pain or shortness of breath. (4) Afib Current Visit: Yes Status: Acute Qualifiers: Atrial fibrillation type: paroxysmal Qualified Code(s): I48.0 - Paroxysmal atrial fibrillation - Subjective Interval history: The patient reports that he has been feeling well today. He denies palpi tations. He denies any chest pain or shortness breath. He denies abdominal, flank or back pain. Vital Signs, Last 4 Hours Resp Pulse Ox 02/28/19 15:58 18 97 - Physical Examination General: Present: Conversant, No Apparent Distress HEENT: Present: Pupils equal Cardiac: Present: Normal S1 and S2, Irregular Rhythm Lungs: Present: Normal Breath Sounds Neuro: Present: Alert and responsive, No focal deficits noted Vascular: Present: Normal capillary refill, Pulse, normal. Absent: Cyanosis, Edema Abdomen: Present: Soft, Non-tender Skin: Present: No rashes noted on visualized skin Results 03/02/19 03:59 03/02/19 03:59 Lab Results, Last 24 hours 02/28/19 04:08 Sodium 138 Potassium 3.7 Chloride 105 Carbon Dioxide 26 BUN 11 Creatinine 0.79 Glucose 99 Calcium 9.1 Consult Discharge Plan - Plan Referrals: Stefania Sue CNP [Primary Care Provider] -
[2019-03-01] MEDS: Levalbuterol Neb 1.25 MG/3 ML IH SCH ×4 (04:12→22:40)
[2019-03-01] MEDS: Famotidine 20 MG/2 ML VIAL IVP SCH ×2 (05:16→18:06)
[2019-03-01] MEDS: Aspirin 81 MG TAB.CHEW PO SCH (08:47)
[2019-03-01] MEDS: Diltiazem CD (24hr) 120 MG CAPSULE PO SCH (08:47)
[2019-03-01] MEDS: Heparin 25,000 UNIT/250 ML D5W 25,000 UNIT/250 ML IV.SOLN IVC SCH (08:47)
[2019-03-01] MEDS: Budesonide/Formoterol 160/4.5 1 PUFF INH IH SCH ×2 (10:53→22:41)
--- NOTE | 2019-03-01 12:08 | Cardiology Progress Note ---
Date of Encounter: 03/01/19 Time of Encounter: 12:05 Assessment and Plan (1) Afib Current Visit: Yes Status: Acute PAF during stay. Chronicity unclear. Patient asymptomatic. On PO Cardizem CD 120mg daily. Increased BB yesterday to Lopressor 37.5 mg BID. Cardizem gtt stopped this AM as pt back in SR. Shortly after my exam, but went back into A-Fib RVR. Will attempt to rate control. TTE 02/24/19: LVEF 50%, no significant valvular dysfunction. TSH, electrolytes normal. CHA2Ds Vasc=3 (age, HTN, CAD); recommend long-term AC; however will discuss with Vascular surgery on appropriate timing given upcoming repair of 9.0 AAA. Discussed NOACs vs. coumadin, and pt/family at this time prefer NOAC. On heparin gtt for now. Will continue to follow to monitor BP/HR. Qualifiers: Atrial fibrillation type: paroxysmal Qualified Code(s): I48.0 - Paroxysmal atrial fibrillation (2) NSTEMI (non-ST elevated myocardial infarction) Current Visit: Yes Status: Acute Peak troponin 10.15. [facility] 02/23/19: s/p PCI with BMS to LCx; otherwise non-obstructive CAD. TTE 02/24/19: LVEF 50%, no significant valvular dysfunction. No chest pain/discomfort reported. Cardiac rehab. Continue asa, statin, BB. Recommend DAPT x1 month. (3) Abdominal aortic aneurysm (AAA) Current Visit: Yes Status: Acute Large 9.0 infrarenal AAA, Vascular surgery following with plan for endograft. Qualifiers: Presence of rupture: without rupture Qualified Code(s): I71.4 - Abdominal aortic aneurysm, without rupture Discussion w patient/family: The assessment and plan as outlined above was discussed with the patient and/or family members who expressed understanding and agreement. All questions were answered. Thank you for involving us in the care of your patient. Please call with any questions. I will discuss all the above with Dr. Hill and make changes as necessary. Subjective Principal diagnosis: NSTEMI Interval history: No acute complaints this AM. Objective Vital Signs, Last 4 Hours Temp Pulse Resp BP Pulse Ox 03/01/19 11:31 89 03/01/19 11:00 89 15 79/61 100 03/01/19 10:5 3 97.3 F L 22 99 03/01/19 10:00 91 25 83/70 95 03/01/19 09:00 105 20 107/82 94 General: Conversant, No Apparent Distress HEENT: Atraumatic, Normocephaly, Mucus Membranes Moist Neck: No JVD, Normal carotid pulses Cardiac: Reg Rate and Rhythm, Normal S1 and S2, No Murmur Lungs: Normal Breath Sounds, No Wheeze, Rales, Rhonchi Neuro: Alert and responsive, No focal deficits noted Abdomen: Soft, Non-Tender Skin: No rashes noted on visualized skin Musculoskeletal: No Chest Wall Tenderness Extremities: No Clubbing, No Cyanosis, No Edema, Normal Pulses Results 02/27/19 04:36 02/28/19 04:08 Active Medications Acetaminophen (Tylenol) 650 mg PO Q6HR PRN PRN Reason: Mild Pain/Fever Stop: 08/25/19 15:24 Aspirin (Aspirin) 81 mg PO DAILY [facility] Stop: 08/26/19 09:01 Last Admin: 03/01/19 08:47 Dose: 81 mg Documented by: Atorvastatin Calcium (Lipitor) 40 mg PO HS [facility] Stop: 08/25/19 21:01 Last Admin: 02/28/19 20:16 Dose: 40 mg Documented by: Budesonide/Formoterol Fumarate (Symbicort) 1 puff IH BIDR [facility]; Protocol Stop: 08/25/19 22:01 Last Admin: 03/01/19 10:53 Dose: 1 puff Documented by: Clopidogrel Bisulfate (Plavix) 75 mg PO DAILY [facility] Stop: 08/26/19 09:01 Last Admin: 03/01/19 08:47 Dose: 75 mg Documented by: Diltiazem HCl (Cardizem Cd) 120 mg PO DAILY [facility] Stop: 08/29/19 09:46 Last Admin: 03/01/19 08:47 Dose: 120 mg Documented by: Docusate Sodium (Colace) 100 mg PO BID [facility] Stop: 08/25/19 21:01 Last Admin: 03/01/19 08:47 Dose: 100 mg Documented by: Famotidine (Pepcid) 20 mg IVP Q12HR [facility]; Protocol Stop: 08/25/19 18:01 Last Admin: 03/01/19 05:16 Dose: 20 mg Documented by: Heparin Sodium (Porcine) (Heparin) 6,300 unit 70 unit/kg (6300 unit) IVP Q6HR PRN PRN Reason: SEE COMMENTS Stop: 08/27/19 12:58 Last Admin: 02/25/19 14:25 Dose: 6,300 unit Documented by: Heparin Sodium (Porcine) (Heparin) 3,200 unit 35 unit/kg (3200 unit) IVP Q6H [facility] PRN Reason: SEE COMMENTS Stop: 08/27/19 12:58 Last Admin: 03/01/19 05:16 Dose: 3,200 unit Documented by: Heparin Sodium/Dextrose (Heparin 25,000 Unit/250 Ml D5w) 25,000 unit in 250 mls @ 12.684 mls/hr IVC .[id number] [facility]; Protocol Stop: 08/27/19 13:01 Last Admin: 03/01/19 08:47 Dose: 14.03 unit/kg/hr, 12.7 mls/hr Documented by: Levalbuterol HCl (Xopenex) 1.25 mg IH [id number] [facility] Stop: 08/27/19 10:01 Last Admin: 03/01/19 10:52 Dose: 1.25 mg Documented by: Metoprolol Tartrate (Lopressor) 37.5 mg PO BID [facility] Stop: 08/30/19 21:01 Last Admin: 03/01/19 08:47 Dose: 37.5 mg Documented by: Naloxone HCl (Narcan) 0.4 mg IVP Q2MPRN PRN PRN Reason: SEE COMMENTS Stop: 08/25/19 15:24 Nitroglycerin (Nitroglycerin) 0.4 mg SL Q5MPRN PRN PRN Reason: Chest Pain Stop: 08/25/19 17:27 Ondansetron HCl (Zofran) 4 mg IVP Q8HR PRN PRN Reason: Nausea And Vomiting Stop: 08/25/19 15:24 Pharmacy Profile Note (Patient Taking Own Medication) 1 each OP BID [facility] Stop: 08/25/19 21:01 Last Admin: 03/01/19 09:03 Dose: 1 each Documented by: Timolol Maleate (Timolol Maleate 0.5%) 1 drop OP DAILY [facility]; Protocol Stop: 08/25/19 15:31 Last Admin: 03/01/19 09:03 Dose: 1 drop Documented by: - Imaging and Cardiology Echo: report reviewed Cardiac cath: report reviewed Consult Discharge Plan - Plan Referrals: Stefania Sue CNP [Primary Care Provider] -
--- NOTE | 2019-03-01 13:48 | Internal Med Progress Note ---
<Adan Wakefield - Last Filed: 03/01/19 15:30> Hospitalist Progress Note - Encounter Date of Encounter: 03/01/19 - Exam Vitals: Temp Pulse Resp BP Pulse Ox 97.3 F L 87 25 93/71 95 03/01/19 10:53 03/01/19 14:00 03/01/19 14:00 03/01/19 14:00 03/01/19 14:00 - Assessment and Plan (1) Abdominal aortic aneurysm (AAA) Current Visit: Yes Status: Acute (2) Hypertension Current Visit: No Status: Chronic - Time Spent with Patient Total time spent is greater than 50% in coordination of care (as documented) at patient's floor/unit and/or counseling patient: Internal Medicine: Result - Labs CBC & Chem 7: 02/27/19 04:36 02/28/19 04:08 - ABG Interpretation ABG results: PT/INR, D-dimer PT 11.8 Seconds (9.4-12.1) 02/25/19 13:29 Consult Discharge Plan - Plan Referrals: Stefania Sue, QUALITY ASSURANCE CONSULTANT [Primary Care Provider] - - Attending Attestation I examined this patient and my medical decision-making was reviewed with the Resident Physician on 03/01/19. I agree with the documented findings, disposition and treatment plan as described except to the extent set forth below. Mr Galeano is currently admitted for NSTEMI, a fib and AAA. He remains moderate to high risk due to potential for worsening clinical status. Mr Galeano is resting comfortably. No fever or chills. No pain. On PO meds now. Plan is for OR on . Exam - comfortable Heart irreg but not tachy. Agree with assessment and plan as above. <Glenda Reynolds - Last Filed: 03/01/19 17:00> Hospitalist Progress Note - Encounter Date of Encounter: 03/01/19 Time of Encounter: 13:44 - Subjective Interval History: Patient is resting in his room. Family is at bedside. Patient reports sleeping w ell overnight and had no issues. He has no chest pain or shortness of breath. No overnight events and no further Afib RVR events reported. Patient's nurse states he was taken off his cardizem gtt and has been doing well on PO cardizem. - Exam Vitals: Temp Pulse Resp BP Pulse Ox 97.3 F L 89 24 78/65 93 03/01/19 10:53 03/01/19 13:00 03/01/19 13:00 03/01/19 13:00 03/01/19 13:00 Exam: General: No acute distress, resting comfortably in bed, hard of hearing HEENT: head normocephalic/atraumatic, EOMI, PERRL, sclera anicteric, moist mucus membranes Neck: Supple Cardio: irregular rhythm, HR 90s, no murmurs, +S1/S2 Pulm: CTAB, no rhonchi/rales. Normal respiratory effort. Abdomen: soft, nontender, active bowel sounds Extremities: No LE edema, no cyanosis or clubbing, warm Neuro: AAOx3, no focal deficit, no speech deficit, mentating well, CN II-XII grossly intact, moves all extremities spontaneously Skin: clean, dry, intact, no visible rashes Psych: Appropriate mood and affect. Answers questions appropriately. Cooperative with exam - Assessment and Plan (1) Atrial fibrillation with RVR Current Visit: Yes Status: Acute Assessment and Plan: Rate control improved, stable. TTE shows LVEF 50%, no significant valvular dysfunction. Normal TSH and electrolytes. [id number] 4 (age, CHF, HTN, vascular disease). Transitioned from IV to PO cardizem 120 mg. Continue metoprolol, dosing per cardiology. Continue heparin gtt for AC. (2) Abdominal aortic aneurysm (AAA) Current Visit: Yes Status: Acute Assessment and Plan: CTA abdomen/pelvis shows 9.0 cm infrarenal AAA. No complaints of chest, abdominal, or back pain. Endograft tentatively planned for 03/03. On heparin gtt. (3) NSTEMI (non-ST elevated myocardial infarction) Current Visit: Yes Status: Acute Assessment and Plan: Peak troponin 10.15, has demonstrated downward trend. s/p LHC 02/23/19 with bare metal stent placement to left circumflex; otherwise non-obstructive CAD. Echo shows LVEF 50%, no significant valvular dysfunction. Continues to be chest pain free. Continue heparin drip. Transitioned from IV to PO cardizem 120 mg. Continue metoprolol, dosing per cardiology. Cardiology recommendations: cardiac rehab, DAPT x 1 month, and continuation of ASA, statin, BB. (4) COPD (chronic obstructive pulmonary disease) Current Visit: Yes Status: Chronic Assessment and Plan: Does not wear oxygen at home, wearing supplemental oxygen here for comfort. Scheduled symbicort BID. Xopenx nebs Q6H PRN. DVT Prophylaxis: heparin drip - Time Spent with Patient Total time spent is greater than 50% in coordination of care (as documented) at patient's floor/unit and/or counseling patient: Internal Medicine: Result - Labs CBC & Chem 7: 02/27/19 04:36 02/28/19 04:08 - ABG Interpretation ABG results: PT/INR, D-dimer PT 11.8 Seconds (9.4-12.1) 02/25/19 13:29 <Adan Wakefield - Last Filed: 03/01/19 15:30> (1) Abdominal aortic aneurysm (AAA) Qualifiers: Presence of rupture: without rupture Qualified Code(s): I71.4 - Abdominal aortic aneurysm, without rupture (2) Hypertension Qualifiers: Hypertension type: essential hypertension Qualified Code(s): I10 - Essential (primary) hypertension <Glenda Reynolds - Last Filed: 03/01/19 17:00> (2) Abdominal aortic aneurysm (AAA) Qualifiers: Presence of rupture: without rupture Qualified Code(s): I71.4 - Abdominal aortic aneurysm, without rupture (4) COPD (chronic obstructive pulmonary disease) Qualifiers: COPD type: emphysema Emphysema type: panlobular Qualified Code(s): J43.1 - Panlobular emphysema
[2019-03-01] MEDS ORDERED: *HR* Heparin 5,000 UNIT/ML VIAL IVP PRN (23:07)
[2019-03-01] MEDS ORDERED: Nitroglycerin 0.4 MG TAB.SUBL SL PRN (23:07)
[2019-03-01] MEDS ORDERED: Naloxone 0.4 MG/ML INJ IVP PRN (23:07)
[2019-03-01] MEDS ORDERED: Acetaminophen 325 MG TABLET PO PRN (23:07)
[2019-03-01] MEDS ORDERED: Ondansetron 4 MG/2 ML VIAL IVP PRN (23:07)
[2019-03-02] MEDS: Heparin 25,000 UNIT/250 ML D5W 25,000 UNIT/250 ML IV.SOLN IVC SCH (00:50)
[2019-03-02] MEDS: Levalbuterol Neb 1.25 MG/3 ML IH SCH ×4 (03:42→21:34)
[2019-03-02 04:38] LABS: Hematocrit 41.6 % (37.5-50.1); Hemoglobin 13.6 g/dL (12.9-16.9)
[2019-03-02 04:59] LABS: BUN/Creatinine Ratio 16 (6-26); Blood Urea Nitrogen 15 mg/dL (8-23); Carbon Dioxide 26 mEq/L (23-29); Chloride 104 mEq/L (98-107); Glucose 104 mg/dL (70-105); Osmolality,Calculated 283 (280-300); Potassium 3.7 mEq/L (3.5-5.1); Sodium 136 mEq/L (136-145); eGFR For African Americans > 60 (> 60); eGFR For Non-African Americans > 60 (> 60)
[2019-03-02] MEDS: *HR* Heparin 5,000 UNIT/ML VIAL IVP PRN ×2 (05:05→18:45)
[2019-03-02] MEDS: Famotidine 20 MG/2 ML VIAL IVP SCH ×2 (05:48→18:35)
--- NOTE | 2019-03-02 06:17 | Vascular/Endovas Progress Note ---
Date of Encounter: 03/01/19 Time of Encounter: 16:40 - Assessment and plan (1) Abdominal aortic aneurysm (AAA) Current Visit: Yes Status: Acute The patient has a 9.0 cm infrarenal abdominal aortic aneurysm. He denies any abdominal, flank or back pain. His aneurysm is appropriate for endograft placement. He is tentatively scheduled for surgery on . The risks, benefits alternatives were discussed and all questions were answered. Qualifiers: Presence of rupture: without rupture Qualified Code(s): I71.4 - Abdominal aortic aneurysm, without rupture (2) COPD (chronic obstructive pulmonary disease) Current Visit: Yes Status: Chronic Qualifiers: COPD type: emphysema Emphysema type: panlobular Qualified Code(s): J43.1 - Panlobular emphysema (3) NSTEMI (non-ST elevated myocardial infarction) Current Visit: Yes Status: Acute Patient recently sustained an acute myocardial infarction. He recently underwent left heart catheterization with coronary stent placement. His troponin has decreased today. He denies chest pain or shortness of breath. (4) Afib Current Visit: Yes Status: Acute The patient is currently in normal sinus rhythm. Qualifiers: Atrial fibrillation type: paroxysmal Qualified Code(s): I48.0 - Paroxysmal atrial fibrillation - Subjective Interval history: The patient is without complaints overnight. He denies any abdominal, flank or back pain. He denies chest pain or shortness of breath. Vital Signs, Last 4 Hours Resp Pulse Ox 03/02/19 03:42 16 94 - Physical Examination General: Present: Conversant, No Apparent Distress HEENT: Present: Pupils equal Cardiac: Present: Reg Rate and Rhythm Lungs: Present: Normal Breath Sounds Neuro: Present: Alert and responsive, No focal deficits noted Vascular: Present: Normal capillary refill. Absent: Cyanosis, Edema Abdomen: Present: Soft, Non-tender Skin: Present: No rashes noted on visualized skin Results 03/02/19 03:59 03/02/19 03:59 Lab Results, Last 24 hours 03/02/19 03/02/19 03:59 03:59 Hgb 13.6 Hct 41.6 Sodium 136 Potassium 3.7 Chloride 104 Carbon Dioxide 26 BUN 15 Creatinine 0.91 Glucose 104 Calcium 9.0 Consult Discharge Plan - Plan Referrals: Stefania Sue CNP [Primary Care Provider] -
[2019-03-02] MEDS: Diltiazem CD (24hr) 120 MG CAPSULE PO SCH (10:11)
[2019-03-02] MEDS: Aspirin 81 MG TAB.CHEW PO SCH (10:11)
[2019-03-02] MEDS: EYE OP SCH ×2 (10:16→21:38)
[2019-03-02] MEDS: SIMBRINZA OP SCH ×2 (10:16→21:38)
--- NOTE | 2019-03-02 10:43 | Internal Med Progress Note ---
<Glenda Reynolds - Last Filed: 03/02/19 13:16> Hospitalist Progress Note - Encounter Date of Encounter: 03/02/19 Time of Encounter: 10:41 - Subjective Interval History: Resting comfortably in bed. No complaints at this time. Eating well. Denies chest pain, dyspnea, back pain, abdominal pain, nausea/vomiting. Pt is anxious to have his procedure done and hopes it will be tomorrow. - Exam Vitals: Temp Pulse Resp BP Pulse Ox 97.8 F 67 19 95/75 95 03/02/19 07:15 03/02/19 07:15 03/02/19 07:15 03/02/19 07:15 03/02/19 07:15 Exam: General: No acute distress, resting comfortably in bed, hard of hearing HEENT: head normocephalic/atraumatic, EOMI, PERRL, sclera anicteric, moist mucus membranes Neck: Supple Cardio: irregular rhythm, HR 90s, no murmurs, +S1/S2 Pulm: CTAB, no rhonchi/rales. Normal respiratory effort. Abdomen: soft, nontender, active bowel sounds Extremities: No LE edema, no cyanosis or clubbing, warm Neuro: AAOx3, no focal deficit, no speech deficit, mentating well, CN II-XII grossly intact, moves all extremities spontaneously Skin: clean, dry, intact, no visible rashes Psych: Appropriate mood and affect. Answers questions appropriately. Cooperative with exam - Assessment and Plan (1) Abdominal aortic aneurysm (AAA) Current Visit: Yes Status: Acute Assessment and Plan: CTA abdomen/pelvis shows 9.0 cm infrarenal AAA. No complaints of chest, abdominal, or back pain. Seen by vascular surgery yesterday, still tentatively planning for endograft 03/03. On heparin gtt. NPO at midnight. (2) Atrial fibrillation with RVR Current Visit: Yes Status: Acute Assessment and Plan: Rate controlled. TTE shows LVEF 50%, no significant valvular dysfunction. Normal TSH and electrolytes. [id number] 4 (age, CHF, HTN, vascular disease). Continue PO cardizem 120 mg. Continue metoprolol, dosing per cardiology. Continue heparin gtt for AC. (3) NSTEMI (non-ST elevated myocardial infarction) Current Visit: Yes Status: Acute Assessment and Plan: Peak troponin 10.15, has demonstrated downward trend. s/p C 02/23/19 with bare metal stent placement to left circumflex; otherwise non-obstructive CAD. Echo shows LVEF 50%, no significant valvular dysfunction. Continues to be chest pain free. Continue heparin drip. Continue PO cardizem 120 mg. Continue metoprolol, dosing per cardiology. Cardiology recommendations: cardiac rehab, DAPT x 1 month, and continuation of ASA, statin, BB. (4) COPD (chronic obstructive pulmonary disease) Current Visit: Yes Status: Chronic Assessment and Plan: Does not wear oxygen at home, wearing supplemental oxygen here for comfort. Scheduled symbicort BID. Xopenx nebs Q6H PRN. DVT Prophylaxis: heparin drip - Time Spent with Patient Total time spent is greater than 50% in coordination of care (as documented) at patient's floor/unit and/or counseling patient: Internal Medicine: Result - Labs CBC & Chem 7: 03/02/19 03:59 03/02/19 03:59 Labs: Short CBC 03/02/19 Range/Units 03:59 Hgb 13.6 (12.9-16.9) g/dL Hct 41.6 (37.5-50.1) % BMP 03/02/19 03:59 Sodium 136 Potassium 3.7 Chloride 104 Carbon Dioxide 26 BUN 15 Creatinine 0.91 Glucose 104 Calcium 9.0 - ABG Interpretation ABG results: PT/INR, D-dimer PT 11.8 Seconds (9.4-12.1) 02/25/19 13:29 Consult Discharge Plan - Plan Referrals: Stefania Sue, ENGINEER TECHNICIAN [Primary Care Provider] - <Javed Denise - Last Filed: 03/02/19 15:36> Hospitalist Progress Note - Encounter Date of Encounter: 03/02/19 - Exam Vitals: Temp Pulse Resp BP Pulse Ox 97.9 F 64 18 96/69 96 03/02/19 12:20 03/02/19 12:20 03/02/19 12:20 03/02/19 12:20 03/02/19 12:20 - Assessment and Plan (1) Abdominal aortic aneurysm (AAA) Current Visit: Yes Status: Acute (2) Hypertension Current Visit: No Status: Chronic - Time Spent with Patient Total time spent is greater than 50% in coordination of care (as documented) at patient's floor/unit and/or counseling patient: Internal Medicine: Result - Labs CBC & Chem 7: 03/02/19 03:59 03/02/19 03:59 Labs: Short CBC 03/02/19 Range/Units 03:59 Hgb 13.6 (12.9-16.9) g/dL Hct 41.6 (37.5-50.1) % BMP 03/02/19 03:59 Sodium 136 Potassium 3.7 Chloride 104 Carbon Dioxide 26 BUN 15 Creatinine 0.91 Glucose 104 Calcium 9.0 - ABG Interpretation ABG results: PT/INR, D-dimer PT 11.8 Seconds (9.4-12.1) 02/25/19 13:29 - Attending Attestation I examined this patient and my medical decision-making was reviewed with the Resident Physician. I agree with the documented findings, disposition and warner tment plan as described except to the extent set forth below. Patient seen and examined at bedside. Patient has no complaints today. He denies any abdominal pain. On exam abdomen is soft, nontender. Heart is irregular rhythm with rate controlled. Plan is for aortic aneurysm repair tomorrow per vascular surgery, make nothing by mouth at midnight. Atrial fibrillation: Rate controlled at this time. Continue heparin drip and transitioned to oral anticoagulation 24 hours after surgery. Appreciate cardiology recommendations. <Glenda Reynolds - Last Filed: 03/02/19 13:16> (1) Abdominal aortic aneurysm (AAA) Qualifiers: Presence of rupture: without rupture Qualified Code(s): I71.4 - Abdominal aortic aneurysm, without rupture (4) COPD (chronic obstructive pulmonary disease) Qualifiers: COPD type: emphysema Emphysema type: panlobular Qualified Code(s): J43.1 - Panlobular emphysema <Javed Denise - Last Filed: 03/02/19 15:36> (1) Abdominal aortic aneurysm (AAA) Qualifiers: Presence of rupture: without rupture Qualified Code(s): I71.4 - Abdominal aortic aneurysm, without rupture (2) Hypertension Qualifiers: Hypertension type: essential hypertension Qualified Code(s): I10 - Essential (primary) hypertension
[2019-03-02] MEDS: Budesonide/Formoterol 160/4.5 1 PUFF INH IH SCH ×2 (10:55→21:34)
--- NOTE | 2019-03-02 11:04 | Cardiology Progress Note ---
Date of Encounter: 03/02/19 Time of Encounter: 11:02 Assessment and Plan (1) Afib Current Visit: Yes Status: Acute PAF during stay. Chronicity unclear. Patient asymptomatic. On PO Cardizem CD 120mg daily and Lopressor 25mg BID. Currently SR--12 hr tele AVG HR 68. TTE 02/24/19: LVEF 50%, no significant valvular dysfunction. TSH, electrolytes normal. CHA2Ds Vasc=3 (age, HTN, CAD); recommend long-term AC. Discussed with vascular surgery on appropriate timing given upcoming repair of 9.0 AAA tomorrow. They are okay with starting NOAC 24 hours after surgery. On heparin gtt for now. Eliquis is $47/month, 5mg BID. Will give free 30 day card. Plan to start evening of 03/04 and will stop heparin gtt at that time. Cardiology signing off. Reconsult PRN. Will coordinate outpt follow-up in 1 week. Qualifiers: Atrial fibrillation type: paroxysmal Qualified Code(s): I48.0 - Paroxysmal atrial fibrillation (2) NSTEMI (non-ST elevated myocardial infarction) Current Visit: Yes Status: Acute Peak troponin 10.15. [facility] 02/23/19: s/p PCI with BMS to LCx; otherwise non-obstructive CAD. TTE 02/24/19: LVEF 50%, no significant valvular dysfunction. No chest pain/discomfort reported. Cardiac rehab. Continue asa, statin, BB. Recommend DAPT x1 month. (3) Abdominal aortic aneurysm (AAA) Current Visit: Yes Status: Acute Large 9.0 infrarenal AAA, Vascular surgery following with plan for endograft. Qualifiers: Presence of rupture: without rupture Qualified Code(s): I71.4 - Abdominal aortic aneurysm, without rupture Discussion w patient/family: The assessment and plan as outlined above was discussed with the patient and/or family members who expressed understanding and agreement. All questions were answered. Thank you for involving us in the care of your patient. Please call with any questions. I will discuss all the above with Dr. Ramírez and make changes as necessary. Subjective Principal diagnosis: NSTEMI Interval history: No acute complaints this AM. Objective Vital Signs, Last 4 Hours Temp Pulse Resp BP Pulse Ox 03/02/19 07:15 97.8 F 67 19 95/75 95 Vital Signs Temp Pulse Resp BP Pulse Ox 03/02/19 07:15 97.8 F 67 19 95/75 95 03/02/19 04:54 97.9 F 71 15 100/66 93 03/02/19 03:42 16 94 03/02/19 01:00 99.0 F 71 16 90/64 97 03/01/19 23:01 99.1 F 70 15 97/74 94 03/01/19 22:40 20 96 03/01/19 17:48 97.1 F L 75 14 105/78 98 03/01/19 16:00 97.4 F L 62 20 89/66 98 03/01/19 15:54 18 94 03/01/19 15:00 90 21 90/70 96 03/01/19 14:00 87 25 93/71 95 03/01/19 13:00 89 24 78/65 93 03/01/19 12:00 100 24 104/86 96 03/01/19 11:31 89 Intake and Output 03/01/19 03/02/19 03/02/19 23:59 07:59 15:59 Intake Total 132 / 902 75 / 195 120 / 195 Output Total 250 / 1850 0 / 0 Balance -118 / -948 75 / 195 120 / 195 Intake: IV Fluids 132 / 512 75 / 75 Heparin 25,000 UNIT/250 ML D5W 132 / 382 75 / 75 25,000 unit In 250 ml @ 14 UNIT /KG/HR 13.692 mls/hr IVC . [id number] [facility] Rx#:[id number] Oral 0 / 390 0 / 120 120 / 120 Output: Urine 250 / 1850 0 / 0 Other: Meal Breakfast Percent of Meal Consumed 100% # Voids 1 Weight 97.8 kg 97.9 kg Patient Weight 03/02/19 23:59 Weight 97.9 kg General: Conversant, No Apparent Distress HEENT: Atraumatic, Normocephaly, Mucus Membranes Moist Neck: No JVD, Normal carotid pulses Cardiac: Reg Rate and Rhythm, Normal S1 and S2, No Murmur Lungs: Normal Breath Sounds, No Wheeze, Rales, Rhonchi Neuro: Alert and responsive, No focal deficits noted Abdomen: Soft, Non-Tender Skin: No rashes noted on visualized skin Musculoskeletal: No Chest Wall Tenderness Extremities: No Clubbing, No Cyanosis, No Edema, Normal Pulses Results 03/02/19 03:59 03/02/19 03:59 Lab Results 03/02/19 03/02/19 03:59 03:59 Hgb 13.6 Hct 41.6 Sodium 136 Potassium 3.7 Chloride 104 Carbon Dioxide 26 BUN 15 Creatinine 0.91 Glucose 104 Calcium 9.0 Short CBC 03/02/19 Range/Units 03:59 Hgb 13.6 (12.9-16.9) g/dL Hct 41.6 (37.5-50.1) % BMP 03/02/19 Range/Units 03:59 Sodium 136 (136-145) mEq/L Potassium 3.7 (3.5-5.1) mEq/L Chloride 104 (98-107) mEq/L Carbon Dioxide 26 (23-29) mEq/L BUN 15 (8-23) mg/dL Creatinine 0.91 (0.70-1.30) mg/dL Glucose 104 (70-105) mg/dL Calcium 9.0 (8.6-10.3) mg/dL Active Medications Acetaminophen (Tylenol) 650 mg PO Q6H PRN PRN Reason: Mild Pain/Fever Stop: 08/31/19 23:08 Aspirin (Aspirin) 81 mg PO DAILY [facility] Stop: 08/26/19 09:01 Last Admin: 03/02/19 10:11 Dose: 81 mg Documented by: Atorvastatin Calcium (Lipitor) 40 mg PO HS [facility] Stop: 08/25/19 21:01 Budesonide/Formoterol Fumarate (Symbicort) 1 puff IH BIDR [facility]; Protocol Stop: 08/25/19 22:01 Last Admin: 03/02/19 10:55 Dose: 1 puff Documented by: Clopidogrel Bisulfate (Plavix) 75 mg PO DAILY [facility] Stop: 08/26/19 09:01 Last Admin: 03/02/19 10:11 Dose: 75 mg Documented by: Diltiazem HCl (Cardizem Cd) 120 mg PO DAILY [facility] Stop: 08/29/19 09:46 Last Admin: 03/02/19 10:11 Dose: 120 mg Documented by: Docusate Sodium (Colace) 100 mg PO BID [facility] Stop: 08/25/19 21:01 Last Admin: 03/02/19 10:11 Dose: 100 mg Documented by: Famotidine (Pepcid) 20 mg IVP Q12HR [facility]; Protocol Stop: 08/25/19 18:01 Last Admin: 03/02/19 05:48 Dose: 20 mg Documented by: Heparin Sodium (Porcine) (Heparin) 6,300 unit 70 unit/kg (6300 unit) IVP Q6HR PRN PRN Reason: SEE COMMENTS Stop: 08/27/19 12:58 Heparin Sodium (Porcine) (Heparin) 3,200 unit 35 unit/kg (3200 unit) IVP Q6H PRN PRN Reason: SEE COMMENTS Stop: 08/27/19 12:58 Last Admin: 03/02/19 05:05 Dose: 3,200 unit Documented by: Heparin Sodium/Dextrose (Heparin 25,000 Unit/250 Ml D5w) 25,000 unit in 250 mls @ 13.692 mls/hr IVC .[id number] [facility]; Protocol Stop: 08/27/19 13:01 Last Titration: 03/02/19 05:05 Dose: 13 unit/kg/hr, 12.7 mls/hr Documented by: Levalbuterol HCl (Xopenex) 1.25 mg IH [id number] [facility] Stop: 08/27/19 10:01 Last Admin: 03/02/19 10:55 Dose: 1.25 mg Documented by: Metoprolol Tartrate (Lopressor) 25 mg PO BID [facility] Stop: 08/31/19 21:01 Last Admin: 03/02/19 10:11 Dose: 25 mg Documented by: Naloxone HCl (Narcan) 0.4 mg IVP Q2MPRN PRN PRN Reason: SEE COMMENTS Stop: 08/25/19 15:24 Nitroglycerin (Nitroglycerin) 0.4 mg SL Q5MPRN PRN PRN Reason: Chest Pain Stop: 08/25/19 17:27 Ondansetron HCl (Zofran) 4 mg IVP Q8H PRN PRN Reason: Nausea And Vomiting Stop: 08/31/19 23:08 Pharmacy Profile Note (Patient Taking Own Medication) 1 each OP BID [facility] Stop: 08/25/19 21:01 Last Admin: 03/02/19 10:16 Dose: 1 each Documented by: Timolol Maleate (Timolol Maleate 0.5%) 1 drop OP DAILY [facility]; Protocol Stop: 08/25/19 15:31 Last Admin: 03/02/19 10:17 Dose: 1 drop Documented by: - Imaging and Cardiology Echo: report reviewed - EKG Interpretation EKG results cardiology: other (12 hr tele AVG HR 68, SR) Consult Discharge Plan - Plan Referrals: Stefania Sue, LEATHER [employer]T [employer]APER [Primary Care Provider] -
[2019-03-03 00:44] LABS: Basophils # 0.1 K/mcL (0.0-0.2); Basophils % 0.5 %; Eosinophils # 0.4 K/mcL (0.0-0.6); Eosinophils % 3.5 %; Hematocrit 42.5 % (37.5-50.1); Hemoglobin 13.8 g/dL (12.9-16.9); Immature Granulocytes % 0.5 % (0-4); Lymphocytes % 19.3 %; Mean Corpuscular HGB Conc 32.5 g/dL (31.6-35.5); Mean Corpuscular Hemoglobin 30.7 pg (28.0-33.3); Mean Corpuscular Volume 94.7 fL (83.0-100.0); Mean Platelet Volume 10.6 fL (9.4-12.4); Monocytes # 0.7 K/mcL (0.0-1.3); Monocytes % 6.9 %; Platelet Count 213 K/mcL (140-400); Red Blood Count 4.49 M/mcL (4.19-5.50); Red Cell Distribution Width 13.7 % (11.5-14.5); Segmented Neutrophils % 69.3 %; White Blood Count 10.2 K/mcL (4.3-11.1)
[2019-03-03] MEDS: Heparin 25,000 UNIT/250 ML D5W 25,000 UNIT/250 ML IV.SOLN IVC SCH (00:46)
[2019-03-03 01:04] LABS: BUN/Creatinine Ratio 14 (6-26); Blood Urea Nitrogen 12 mg/dL (8-23); Calcium 9.2 mg/dL (8.6-10.3); Carbon Dioxide 27 mEq/L (23-29); Chloride 104 mEq/L (98-107); Glucose 108 mg/dL (70-105); Osmolality,Calculated 282 (280-300); Potassium 3.6 mEq/L (3.5-5.1); Sodium 136 mEq/L (136-145); eGFR For African Americans > 60 (> 60); eGFR For Non-African Americans > 60 (> 60)
[2019-03-03] MEDS ORDERED: 0.9 % Sodium Chloride 250 ML IVC ONE (03:54)
[2019-03-03] MEDS: Levalbuterol Neb 1.25 MG/3 ML IH SCH ×4 (04:01→22:33)
[2019-03-03] MEDS: Famotidine 20 MG/2 ML VIAL IVP SCH (05:58)
--- NOTE | 2019-03-03 07:53 | Internal Med Progress Note ---
<Glenda Reynolds - Last Filed: 03/03/19 08:46> Hospitalist Progress Note - Encounter Date of Encounter: 03/03/19 Time of Encounter: 07:51 - Subjective Interval History: Examined this morning at bedside, pt seated on edge of bed. Vascular surgery stopped by pt's room earlier this morning and told pt they are planning for surgery later this morning around 11:00. Reports not sleeping last night, otherwise feels ok and no complaints today. - Exam Vitals: Temp Pulse Resp BP Pulse Ox 98.0 F 120 18 107/88 97 03/03/19 06:41 03/03/19 06:41 03/03/19 06:41 03/03/19 06:41 03/03/19 06:41 Exam: General: No acute distress, hard of hearing HEENT: head normocephalic/atraumatic, EOMI, PERRL, sclera anicteric, moist mucus membranes Neck: Supple Cardio: irregular rhythm, regular rate, no murmurs, +S1/S2 Pulm: CTAB, no rhonchi/rales. Normal respiratory effort. Abdomen: soft, nontender, active bowel sounds Extremities: No LE edema, no cyanosis or clubbing, warm Neuro: AAOx3, no focal deficit, no speech deficit, mentating well, CN II-XII grossly intact, moves all extremities spontaneously Skin: clean, dry, intact, no visible rashes Psych: Appropriate mood and affect, somewhat anxious-appearing - Assessment and Plan (1) Abdominal aortic aneurysm (AAA) Current Visit: Yes Status: Acute Assessment and Plan: CTA abdomen/pelvis shows 9.0 cm infrarenal AAA. Vascular surgery planning for repair with endograft today. Per vascular and cardiology, start Eliquis 5 mg BID evening of 03/04 and heparin gtt will be stopped at that time. (2) Atrial fibrillation with RVR Current Visit: Yes Status: Acute Assessment and Plan: Rate controlled, sinus rhythm. Occasional, brief episodes of Afib RVR--converts back to NSR on his own. TTE shows LVEF 50%, no significant valvular dysfunction. Normal TSH and electrolytes. [id number] 4 (age, CHF, HTN, vascular disease). Continue PO cardizem 120 mg. Continue metoprolol, dosing per cardiology. Continue heparin gtt for AC. Outpatient follow up with cardiology 1 week after discharge. Per vascular and cardiology, pt ok to start Eliquis 5 mg BID evening of 03/04 and heparin gtt will be stopped at that time. (3) NSTEMI (non-ST elevated myocardial infarction) Current Visit: Yes Status: Acute Assessment and Plan: Peak troponin 10.15, has demonstrated downward trend. s/p [facility] 02/23/19 with bare metal stent placement to left circumflex; otherwise non-obstructive CAD. Echo shows LVEF 50%, no significant valvular dysfunction. Continues to be chest pain free. Continue heparin drip. Continue PO cardizem 120 mg. Continue metoprolol, dosing per cardiology. Cardiology recommendations: cardiac rehab, DAPT x 1 month, and continuation of ASA, statin, BB. (4) COPD (chronic obstructive pulmonary disease) Current Visit: Yes Status: Chronic Assessment and Plan: Does not wear oxygen at home. Scheduled symbicort BID. Xopenx nebs Q6H PRN. Supplemental oxygen here for comfort. - Time Spent with Patient Total time spent is greater than 50% in coordination of care (as documented) at patient's floor/unit and/or counseling patient: Internal Medicine: Result - Labs CBC & Chem 7: 03/03/19 00:18 03/03/19 00:18 Labs: Short CBC 03/03/19 Range/Units 00:18 WBC 10.2 (4.3-11.1) K/mcL Hgb 13.8 (12.9-16.9) g/dL Hct 42.5 (37.5-50.1) % Plt Count 213 (140-400) K/mcL Neutrophils # 7.0 (1.6-8.9) K/mcL BMP 03/03/19 00:18 Sodium 136 Potassium 3.6 Chloride 104 Carbon Dioxide 27 BUN 12 Creatinine 0.86 Glucose 108 H Calcium 9.2 - ABG Interpretation ABG results: PT/INR, D-dimer PT 11.8 Seconds (9.4-12.1) 02/25/19 13:29 Consult Discharge Plan - Plan Referrals: Stefania Sue, HIGH SCHOOL PHYSICAL EDUCATION TEACHER [Primary Care Provider] - <Javed Denise - Last Filed: 03/03/19 09:43> Hospitalist Progress Note - Encounter Date of Encounter: 03/03/19 - Exam Vitals: Temp Pulse Resp BP Pulse Ox 98.0 F 120 18 107/88 97 03/03/19 06:41 03/03/19 06:41 03/03/19 06:41 03/03/19 06:41 03/03/19 06:41 - Assessment and Plan (1) Abdominal aortic aneurysm (AAA) Current Visit: Yes Status: Acute (2) Hypertension Current Visit: No Status: Chronic - Time Spent with Patient Total time spent is greater than 50% in coordination of care (as documented) at patient's floor/unit and/or counseling patient: Internal Medicine: Result - Labs CBC & Chem 7: 03/03/19 00:18 03/03/19 00:18 Labs: Short CBC 03/03/19 Range/Units 00:18 WBC 10.2 (4.3-11.1) K/mcL Hgb 13.8 (12.9-16.9) g/dL Hct 42.5 (37.5-50.1) % Plt Count 213 (140-400) K/mcL Neutrophils # 7.0 (1.6-8.9) K/mcL BMP 03/03/19 00:18 Sodium 136 Potassium 3.6 Chloride 104 Carbon Dioxide 27 BUN 12 Creatinine 0.86 Glucose 108 H Calcium 9.2 - ABG Interpretation ABG results: PT/INR, D-dimer PT 11.8 Seconds (9.4-12.1) 02/25/19 13:29 - Attending Attestation I examined this patient and my medical decision-making was reviewed with the Resident Physician. I agree with the documented findings, disposition and treatment plan as described except to the extent set forth below. Patient seen and examined at bedside. Patient has no complaints. He denies any abdominal pain, nausea, vomiting, palpitations. Abdomen is soft, nontender. Heart is irregular rhythm with rate controlled. Plan is for aortic aneurysm repair today per vascular surgery. Atrial fibrillation: Rate controlled at this time. Continue heparin drip and transition Eliquis 24 hours after surgery. Appreciate cardiology recommendations. <Glenda Reynolds - Last Filed: 03/03/19 08:46> (1) Abdominal aortic aneurysm (AAA) Qualifiers: Presence of rupture: without rupture Qualified Code(s): I71.4 - Abdominal aortic aneurysm, without rupture (4) COPD (chronic obstructive pulmonary disease) Qualifiers: COPD type: emphysema Emphysema type: panlobular Qualified Code(s): J43.1 - Panlobular emphysema <Javed Denise - Last Filed: 03/03/19 09:43> (1) Abdominal aortic aneurysm (AAA) Qualifiers: Presence of rupture: without rupture Qualified Code(s): I71.4 - Abdominal aortic aneurysm, without rupture (2) Hypertension Qualifiers: Hypertension type: essential hypertension Qualified Code(s): I10 - Essential (primary) hypertension
[2019-03-03] MEDS: Diltiazem CD (24hr) 120 MG CAPSULE PO SCH (08:32)
[2019-03-03] MEDS: SIMBRINZA OP SCH (08:33)
[2019-03-03] MEDS: EYE OP SCH (08:33)
[2019-03-03] MEDS: Aspirin 81 MG TAB.CHEW PO SCH (08:33)
[2019-03-03] MEDS ORDERED: Heparin 1,000 UNITS/500 mL 500 ML ONE (10:14)
[2019-03-03] MEDS ORDERED: *HR* Succinylcholine 200 MG/10 ML VIAL IVP ONE (10:45)
[2019-03-03] MEDS ORDERED: Dexamethasone 4 MG/ML VIAL ONE (10:45)
[2019-03-03] MEDS ORDERED: *HR* Rocuronium Bromide 50 MG/5 ML VIAL ONE (10:45)
[2019-03-03] MEDS ORDERED: Ondansetron 4 MG/2 ML VIAL ONE (10:45)
[2019-03-03] MEDS ORDERED: *HR* FentaNYL (PF) 100 MCG/2 ML VIAL ONE ×3 (10:46→17:14)
[2019-03-03] MEDS ORDERED: NiCARdipine 2.5 MG/10 ML Syringe IVPB ONE (10:55)
[2019-03-03] MEDS ORDERED: Nitroglycerin 25 MG/250 ML INFUS..BTL IVC ONE (10:55)
[2019-03-03] MEDS ORDERED: Albumin Human 5% 25.0 GM/500 ML VIAL ONE (10:55)
[2019-03-03] MEDS ORDERED: D5% in Water 250 ML ONE (10:55)
[2019-03-03] MEDS ORDERED: *HR* Norepinephrine 4 MG/4 ML VIAL IVC ONE (10:55)
[2019-03-03] MEDS: Budesonide/Formoterol 160/4.5 1 PUFF INH IH SCH ×2 (11:08→22:33)
[2019-03-03] MEDS ORDERED: *HR* Midazolam HCl 2 MG/2 ML VIAL ONE ×2 (11:10→18:44)
[2019-03-03] MEDS ORDERED: Vancomycin 1,000 MG, Sodium Chloride IRRigation 1,000 ML IR ONE (11:15)
[2019-03-03] MEDS ORDERED: Heparin 1,000 UNITS/500 mL 2,000 ML ONE (11:37)
[2019-03-03] MEDS ORDERED: Isovue-300 150 ML INFUS..BTL ONE (11:38)
[2019-03-03] MEDS ORDERED: Isovue-300 50 ML VIAL ONE (11:38)
--- NOTE | 2019-03-03 11:41 | Anesthesia Procedures ---
Date of Encounter: 03/03/19 Time of Encounter: 11:41 Procedures: Anesthesia - Arterial Line Consent obtained: written consent Time out performed: Yes Sedation: Versed (mg): 2 Size (Gauge): 20 Length (inches): 1 3/4 Technique Used: sterile prep, guide wire technique, direct puncture technique Post-Procedure: line taped into place, dry sterile dressing placed Patient tolerated procedure: well, no complications Complications: none Site: Radial L
[2019-03-03] MEDS ORDERED: *HR* Phenylephrine 10 MG/ML VIAL ONE (11:47)
[2019-03-03] MEDS ORDERED: Lidocaine -MPF 2% 2 ML VIAL ONE (11:47)
[2019-03-03] MEDS ORDERED: *HR* PHENYLEPHRINE 1,000 MCG/10 ML SYRINGE IVP ONE (11:48)
[2019-03-03] MEDS ORDERED: CeFAZolin Syr 2,000MG/20 ML 2,000 MG/20 ML SYRINGE IVPB ONE (11:56)
[2019-03-03] MEDS ORDERED: Vancomycin (wt based) 1,000 MG VIAL IVPB ONE (12:00)
[2019-03-03] MEDS ORDERED: Calcium Gluconate 1,000 MG/10 ML VIAL ONE (12:31)
[2019-03-03] MEDS ORDERED: EPHEDrine 50 MG/ML VIAL ONE (12:48)
--- NOTE | 2019-03-03 13:03 | Anesthesia Procedures ---
Date of Encounter: 03/03/19 Time of Encounter: 13:00 Procedures: Anesthesia - Central Line Placement Right IJ Consent obtained: verbal consent Time out performed: Yes Patient placed on monitor/pulse ox: Yes MD prep: mask, gown, gloves Central line prep: Chlorhexidine scrub Ultrasound used for placement: Yes Technique: Seldinger Lumen Inserted: triple Size / Length: 7 Fr / 16 cm Post procedure: sutured in place, good blood return, all ports aspirated, flushed, capped, sterile dressing applied Patient tolerated procedure: well, no complications Complications: none Comments: indication: needed for vasoactive substance infusions placed easily, all ports easily aspirated and flushed. Will use CVC for case and get CXR in PACU
[2019-03-03 13:07] LABS: ABG Base Excess 0 mEq/L (-2 to 3); ABG Chloride 104 mEq/L (98-107); ABG Glucose 98 mg/dL (60-95); ABG HCO3 25 mEq/L (21-27); ABG Ionized Calcium 1.26 mmol/L (1.15-1.35); ABG Oxygen Saturation 100 % (95-98); ABG PCO2 43 mmHg (35-45); ABG PH 7.37 pH Units (7.32-7.45); ABG PO2 229 mmHg (85-104); ABG TCO2 26 mEq/L (20-26)
[2019-03-03] MEDS ORDERED: EPINEPHrine 1 MG/ML VIAL ONE (13:52)
[2019-03-03] MEDS ORDERED: *HR* Atropine Sulfate 8 MG/20 ML VIAL IVP ONE ×2 (13:52→15:53)
[2019-03-03] MEDS ORDERED: *HR* Heparin 5,000 UNIT/ML VIAL ONE (14:42)
[2019-03-03] MEDS ORDERED: *HR* Promethazine 25 MG/ML VIAL IVP PRN (18:08)
[2019-03-03] MEDS ORDERED: *HR* Labetalol 20 MG/4 ML SYRINGE IVP PRN ×2 (18:08→19:46)
[2019-03-03] MEDS ORDERED: *HR* HYDROmorphone (PF) 1 MG/ML SYRINGE IVP PRN (18:08)
[2019-03-03] MEDS ORDERED: *HR* OxyCODONE Immed Rel 5 MG TABLET PO PRN (18:08)
[2019-03-03] MEDS ORDERED: Ondansetron 4 MG/2 ML VIAL IVP ONE (18:08)
--- NOTE | 2019-03-03 18:16 | Operative Note ---
Date of procedure: 03/03/19 Pre-op diagnosis: 9 cm infrarenal abdominal aortic aneurysm Post-op diagnosis: same Procedure: 1. Endograft repair of infrarenal abdominal aortic aneurysm with Cook Zenith modular bifurcated graft including radiologic supervision and interpretation. 2. Right femoral vessel exposure for endograft placement. 3. Left femoral vessel exposure for endograft placement. 4. Right common femoral and proximal superficial femoral artery endarterectomy with bovine pericardial patch angioplasty. Complications: None Anesthesia: GETA Surgeon: Terence Toth Was there an temporary administrative assistant present: Yes Senior Qa Tester: Donavon Wilder Estimated blood loss (cc): 200 Specimen: None Condition: stable Disposition: PACU Procedure in Detail: Indications: The patient is a 73-year-old male who presented to the hospital wi th a non-ST elevated myocardial infarction. During his heart catheterization he was diagnosed with a 9.0 cm infrarenal abdominal aortic aneurysm. His anatomy appeared appropriate for endograft repair. The patient remained hospitalized and became hemodynamically stable without chest pain. Urgent repair was recommended to reduce his risk of rupture and . Procedure: The patient was identified, brought to the operating room and placed in the supine position on the operating room table. After induction of general endotracheal anesthesia, the patient was cleaned and draped in normal sterile fashion. Oblique incisions were made over both groins sharply. Hemostasis was obtained with electrocautery. Using blunt and sharp and electrocautery dissection, the bilateral common, deep and superficial femoral arteries were dissected circumferentially and surrounded with Vessel loops. At this point, the patient received intravenous and then bilateral femoral punctures with large-bore needles were performed. Bentson wires were advanced into the aorta under fluoroscopic view. Due to the atrial fibrillation and positioning of the aortic aneurysm neck significant time attention was given to advance wires into the proximal aorta. Given the anatomy, the main body was selected to be the right side of the patient. The needles were exchanged for bilateral #8-Turkish sheaths and a long Pigtail catheter was advanced over the right wire into the aortic arch. The wire was replaced with a Lunderquist wire. The catheter was removed and repositioned in the suprarenal aorta via the left femoral artery. Abdominal aortogram was then performed to determine graft main body sizing. The main body was inserted over the Lunderquist wire with the contralateral limb being in the anterolateral position. An aortogram was then performed at the level of the renal arteries. The graft was positioned just inferior to the renal arteries and the first 2 segments were deployed. Again an aortogram revealed adequate infrarenal placement. The graft was then further opened to the contralateral limb exposed. A final angiogram was performed confirming adequate infrarenal placement. The suprarenal stent was deployed in the usual fashion. The contralateral limb was then selected with a a guiding catheter wires. Again given the size of the aneurysm significant attention was given to cannulation of the left limb of the graft. An oblique view of the pelvis was performed with contrast to size the left extension limb. The #8-Turkish sheath was removed and exchanged for the appropriate limb, which was advanced under fluoroscopic view and positioned. Due to the length from the graft gate to the iliac artery, a bridging cuff was deployed into the contralateral gate in the usual fashion. The left extension limb was then deployed and the introducer was removed from the sheath. The remaining portion of the main body was then deployed. The top cap was retrieved under fluoroscopic view and the introducer was removed. An oblique view of the right pelvis was performed in a similar fashion to determine the length of the graft on the right. The graft extension was then advanced on the right and positioned in the usual fashion. Due to the length from the main body to the external iliac artery, a bridging cuff was deployed into the main body limb in the usual fashion. The extension limb was then deployed and the introducer was removed. Upon completion of the graft docking limb extension, a Coda balloon was then advanced into the graft proximal and distal endpoints as well as overlap were expanded with gentle pressure. The balloon was left in the suprarenal position and a Flush catheter was placed in the suprarenal aorta. A Flush completion angiogram revealed persistent type II endoleak arising from lumbar vessels. Additional imaging via retrograde angiography was performed in order to further evaluate the endoleak. Tension was then applied to the Vesseloops in the groin. The bilateral sheaths were then removed. After confirming hemodynamic stability, the wires were then removed. Further inspection of the right femoral artery revealed significant atherosclerotic plaque which was partially occlusive. A longitudinal arteriotomy was made into the common femoral artery and extended onto the proximal superficial femoral artery. A right common femoral and proximal superficial femoral artery endarterectomy was performed. Endpoints were inspected and no elevated flaps were noted. A bovine pericardial patch was cut to fit the arterial defect and sutured in place with a running 6-0 Prolene. Prior to completing the patch closure, the common, deep and superficial femoral arteries were flushed. However no backbleeding was noted from the superficial femoral artery. A 4- Turkish Sylvia embolectomy catheter was passed into the superficial femoral artery and withdrawn. No thrombus was identified. Retrograde flow was then noted from the superficial femoral artery. The patch was completed and flow was restored.. The left arteriotomy was repaired with a running 6-0 Prolene. Polyphasic signals were identified distal to the repairs of both femoral arteries. An tibiotic irrigation was infused into the groin. Platelet rich and platelet poor plasma were infused into the incisions. The bilateral groins were closed with a single layer of 2-0 Vicryl followed by two layers of 3-0 Vicryl followed by a layer of 3-0 monocryl in the subcuticular region. Sterile dressings were applied. The patient was then extubated and taken to the recovery room in stable condition.
[2019-03-03] MEDS ORDERED: *HR* Midazolam HCl 2 MG/2 ML VIAL IVP PRN (18:44)
--- NOTE | 2019-03-03 19:22 | Anesthesia Evaluation Post Op ---
Date of Encounter: 03/03/19 Time of Encounter: 19:19 - Vital Signs Vital Signs: Vital Signs/O2 Sat, Most Current Temp Pulse Resp BP Pulse Ox 97.6 F 55 18 100/67 93 03/03/19 19:15 03/03/19 19:15 03/03/19 19:15 03/03/19 19:15 03/03/19 19:15 - Lungs Lungs: Clear Ascult./Percussion - Airway Airway: Non-obstructed - Cardiovascular Regular Rate - Mental Status Mental Status: Alert & Oriented, Answers Appropriately - Pain Pain Scale: 0 Pain Scale used: Numeric (1 - 10) - Nausea Vomiting Nausea Vomiting: Not Present - Hydration Hydration: NPO, Veronica catheter - Discharge PostOp Status: Transfer Patient to floor
[2019-03-03] MEDS ORDERED: Naloxone 0.4 MG/ML INJ IVP PRN ×2 (19:46)
[2019-03-03] MEDS ORDERED: 0.9 % Sodium Chloride 1,000 ML IVC SCH (19:46)
[2019-03-03] MEDS ORDERED: *HR* HYDROcodone/Acet 5/325 mg TABLET PO PRN (19:46)
[2019-03-03] MEDS ORDERED: Nitroglycerin 0.4 MG TAB.SUBL SL PRN (19:46)
[2019-03-03] MEDS ORDERED: Ondansetron 4 MG/2 ML VIAL IVP PRN (19:46)
[2019-03-03] MEDS ORDERED: Acetaminophen 325 MG TABLET PO PRN (19:46)
[2019-03-03] MEDS: Patient Taking Own Medication 1 EACH OP SCH (21:10)
[2019-03-03] MEDS: *HR* OxyCODONE Immed Rel 5 MG TABLET PO PRN (22:53)
[2019-03-04 03:38] LABS: Basophils % 0.1 %; Hematocrit 36.6 % (37.5-50.1); Immature Granulocytes % 0.5 % (0-4); Lymphocytes # 0.6 K/mcL (0.6-4.6); Lymphocytes % 4.4 %; Mean Corpuscular HGB Conc 32.2 g/dL (31.6-35.5); Mean Corpuscular Hemoglobin 30.8 pg (28.0-33.3); Mean Corpuscular Volume 95.6 fL (83.0-100.0); Mean Platelet Volume 10.4 fL (9.4-12.4); Monocytes # 0.6 K/mcL (0.0-1.3); Monocytes % 4.6 %; Neutrophils # 11.9 K/mcL (1.6-8.9); Platelet Count 169 K/mcL (140-400); Red Blood Count 3.83 M/mcL (4.19-5.50); Segmented Neutrophils % 90.4 %; White Blood Count 13.2 K/mcL (4.3-11.1)
[2019-03-04] MEDS: Levalbuterol Neb 1.25 MG/3 ML IH SCH ×4 (03:46→22:32)
[2019-03-04 03:56] LABS: Hemoglobin 11.8 g/dL (12.9-16.9)
[2019-03-04 03:57] LABS: BUN/Creatinine Ratio 16 (6-26); Blood Urea Nitrogen 14 mg/dL (8-23); Calcium 8.6 mg/dL (8.6-10.3); Carbon Dioxide 25 mEq/L (23-29); Chloride 105 mEq/L (98-107); Glucose 126 mg/dL (70-105); Osmolality,Calculated 286 (280-300); Sodium 137 mEq/L (136-145); eGFR For African Americans > 60 (> 60); eGFR For Non-African Americans > 60 (> 60)
[2019-03-04] MEDS: Famotidine 20 MG/2 ML VIAL IVP SCH ×2 (05:32→19:54)
--- NOTE | 2019-03-04 08:16 | Internal Med Progress Note ---
<Glenda Reynolds - Last Filed: 03/04/19 11:17> Hospitalist Progress Note - Encounter Date of Encounter: 03/04/19 Time of Encounter: 08:15 - Subjective Interval History: Patient is POD #1 s/p repair of 9 cm infrarenal AAA with Drs. Toth and Tina. He tolerated surgery well. Postoperatively, he continues to have oozing from his right IJ CVC, which was removed. Pt is awake and alert, resting in bed. Visitors including are at bedside. Pt feels well this morning and tolerating PO intake. He has no chest pain, dyspnea, abdominal pain, or nausea. He has no complaints and states he really wants a bowel of cream of wheat and he hopes to go home tomorrow. At time of my exam, Dr. Wilder also present in the room to examine pt's surgical sites and briefly discuss post-operative care instructions to the pt and his . - Exam Vitals: Temp Pulse Resp BP Pulse Ox 98.2 F 60 19 91/66 95 03/04/19 07:41 03/04/19 07:41 03/04/19 07:41 03/04/19 07:41 03/04/19 07:41 Exam: General: No acute distress, hard of hearing, vitals noted. HEENT: head normocephalic/atraumatic, EOMI, PERRL, sclera anicteric, moist mucus membranes Neck: gauze dressing covering site of right IJ CVC, outer dressing appears clean and dry but there is some blood soaked into collar of hospital gown Cardio: regular rate, appears to be sinus rhythm on monitor no murmurs, +S1/S2 Pulm: CTAB anteriorly, no rhonchi/rales. Normal respiratory effort. Abdomen: soft, nontender, active bowel sounds Extremities: No LE edema, no cyanosis or clubbing, warm, DP pulses present and equal bilaterally Neuro: AAOx3, no focal deficit, no speech deficit, mentating well, CN II-XII grossly intact, moves all extremities spontaneously Skin: bruising of left and right inguinal areas surrounding surgical sites, small amount of tried blood soaked through gauze dressings over surgical sites. Psych: Appropriate mood and affect, - Assessment and Plan (1) Abdominal aortic aneurysm (AAA) Current Visit: Yes Status: Acute Assessment and Plan: s/p repair of 9 cm infrarenal AAA and R femoral artery endarterectomy with angioplasty with Drs. Toth and Tina on 03/04/19. CTA abdomen/pelvis at time of LHC showed 9.0 cm infrarenal AAA. Tentatively planning to start Eliquis 5 mg BID this evening. Heparin gtt has been discontinued. (2) Atrial fibrillation with RVR Current Visit: Yes Status: Acute Assessment and Plan: Rate controlled (HR 60's), sinus rhythm. TTE shows LVEF 50%, no significant valvular dysfunction. Normal TSH and electrolytes. [id number] (age, CHF, HTN, vascular disease). Continue PO cardizem and metoprolol. Tentatively planning to start Eliquis 5 mg BID this evening. Heparin gtt has been discontinued. Outpatient follow up with cardiology 1 week after discharge. (3) NSTEMI (non-ST elevated myocardial infarction) Current Visit: Yes Status: Acute Assessment and Plan: Peak troponin 10.15, has demonstrated downward trend. s/p C 02/23/19 with bare metal stent placement to left circumflex; otherwise non-obstructive CAD. Echo shows LVEF 50%, no significant valvular dysfunction. Continues to be chest pain free. Continue PO cardizem and metoprolol. Tentatively planning to start Eliquis 5 mg BID this evening. Heparin gtt has been discontinued. Cardiology recommendations: cardiac rehab, DAPT x 1 month, and continuation of ASA, statin, BB. (4) COPD (chronic obstructive pulmonary disease) Current Visit: Yes Status: Chronic Assessment and Plan: Does not wear oxygen at home. Scheduled symbicort BID. Xopenx nebs Q6H PRN. Supplemental oxygen here for comfort. Smoking cessation strongly encouraged. (5) Tobacco abuse counseling Current Visit: Yes Status: Chronic Assessment and Plan: Cessation of all tobacco products strongly encouraged. DVT Prophylaxis: EPCDs - Time Spent with Patient Total time spent is greater than 50% in coordination of care (as documented) at patient's floor/unit and/or counseling patient: Internal Medicine: Result - Labs CBC & Chem 7: 03/04/19 03:25 03/04/19 03:25 Labs: Short CBC 03/04/19 Range/Units 03:25 WBC 13.2 H (4.3-11.1) K/mcL Hgb 11.8 L D (12.9-16.9) g/dL Hct 36.6 L (37.5-50.1) % Plt Count 169 (140-400) K/mcL Neutrophils # 11.9 H (1.6-8.9) K/mcL BMP 03/04/19 03:25 Sodium 137 Potassium 4.0 Chloride 105 Carbon Dioxide 25 BUN 14 Creatinine 0.86 Glucose 126 H Calcium 8.6 - ABG Interpretation ABG results: ABG ABG pH 7.37 pH Units (7.32-7.45) 03/03/19 13:04 ABG pCO2 43 mmHg (35-45) 03/03/19 13:04 ABG pO2 229 mmHg (85-104) H 03/03/19 13:04 ABG O2 Saturation 100 % (95-98) H 03/03/19 13:04 PT/INR, D-dimer PT 11.8 Seconds (9.4-12.1) 02/25/19 13:29 - Impressions Impressions Fluoroscopy 03/03/19 00:00 IMPRESSION: Please see operative report for further details. D/ / Ashu Wolf MD / Ashu Wolf MD Interpreting Provider: Ashu Wolf MD X-Ray 03/03/19 00:00 IMPRESSION: Please see operative report for further details. D/ / Ashu Wolf MD / Ashu Wolf MD Interpreting Provider: Ashu Wolf MD Chest X-Ray 03/03/19 18:06 IMPRESSION: Mild pulmonary vascular congestion. Low lung volumes. D/ / Boyd Acosta MD / Boyd Acosta MD Interpreting Provider: Boyd Acosta MD Consult Discharge Plan - Plan Referrals: Stefania Sue, IMPLEMENT MECHANIC [Primary Care Provider] - 03/11/19 1:00 pm <Javed Denise - Last Filed: 03/04/19 14:11> Hospitalist Progress Note - Encounter Date of Encounter: 03/04/19 - Exam Vitals: Temp Pulse Resp BP Pulse Ox 97.8 F 72 18 96/62 94 03/04/19 11:35 03/04/19 11:35 03/04/19 11:35 03/04/19 11:35 03/04/19 11:35 - Assessment and Plan (1) Abdominal aortic aneurysm (AAA) Current Visit: Yes Status: Acute (2) Hypertension Current Visit: No Status: Chronic - Time Spent with Patient Total time spent is greater than 50% in coordination of care (as documented) at patient's floor/unit and/or counseling patient: Internal Medicine: Result - Labs CBC & Chem 7: 03/04/19 03:25 03/04/19 03:25 Labs: Short CBC 03/04/19 Range/Units 03:25 WBC 13.2 H (4.3-11.1) K/mcL Hgb 11.8 L D (12.9-16.9) g/dL Hct 36.6 L (37.5-50.1) % Plt Count 169 (140-400) K/mcL Neutrophils # 11.9 H (1.6-8.9) K/mcL BMP 03/04/19 03:25 Sodium 137 Potassium 4.0 Chloride 105 Carbon Dioxide 25 BUN 14 Creatinine 0.86 Glucose 126 H Calcium 8.6 - ABG Interpretation ABG results: ABG ABG pH 7.37 pH Units (7.32-7.45) 03/03/19 13:04 ABG pCO2 43 mmHg (35-45) 03/03/19 13:04 ABG pO2 229 mmHg (85-104) H 03/03/19 13:04 ABG O2 Saturation 100 % (95-98) H 03/03/19 13:04 PT/INR, D-dimer PT 11.8 Seconds (9.4-12.1) 02/25/19 13:29 - Impressions Impressions Fluoroscopy 03/03/19 00:00 IMPRESSION: Please see operative report for further details. D/ / Ashu Wolf MD / Ashu Wolf MD Interpreting Provider: Ashu Wolf MD X-Ray 03/03/19 00:00 IMPRESSION: Please see operative report for further details. D/ / Ashu Wolf MD / Ashu Wolf MD Interpreting Provider: Ashu Wolf MD Chest X-Ray 03/03/19 18:06 IMPRESSION: Mild pulmonary vascular congestion. Low lung volumes. D/ / Boyd Acosta MD / Boyd Acosta MD Interpreting Provider: Boyd Acosta MD - Attending Attestation I examined this patient and my medical decision-making was reviewed with the Resident Physician. I agree with the documented findings, disposition and treatment plan as described except to the extent set forth below. Patient seen and examined at bedside. States he feels pretty good today. He states surgery well. He does report continued bleeding from his right IJ site. Abdomen is soft, nontender. Heart is irregular rhythm with rate controlled. Dressing applied to right IJ site is saturated with blood. AAA: Postop day 1 status post endograft repair. Seems to be recovering well. Further postoperative recommendations per vascular surgery. Atrial fibrillation: Rate controlled at this time. Plan restart Eliquis this evening, 24 hours after surgery however patient is having some continued bleeding from his right IJ site, we will attempt to control before starting anticoagulation. <Glenda Reynolds - Last Filed: 03/04/19 11:17> (1) Abdominal aortic aneurysm (AAA) Qualifiers: Presence of rupture: without rupture Qualified Code(s): I71.4 - Abdominal a ortic aneurysm, without rupture (4) COPD (chronic obstructive pulmonary disease) Qualifiers: COPD type: emphysema Emphysema type: panlobular Qualified Code(s): J43.1 - Panlobular emphysema <Javed Denise - Last Filed: 03/04/19 14:11> (1) Abdominal aortic aneurysm (AAA) Qualifiers: Presence of rupture: without rupture Qualified Code(s): I71.4 - Abdominal aortic aneurysm, without rupture (2) Hypertension Qualifiers: Hypertension type: essential hypertension Qualified Code(s): I10 - Essential (primary) hypertension
[2019-03-04] MEDS: Aspirin 81 MG TAB.CHEW PO SCH (09:19)
[2019-03-04] MEDS: Patient Taking Own Medication 1 EACH OP SCH ×2 (09:20→19:54)
[2019-03-04] MEDS: Diltiazem CD (24hr) 120 MG CAPSULE PO SCH ×2 (09:21→16:11)
[2019-03-04] MEDS: *HR* OxyCODONE Immed Rel 5 MG TABLET PO PRN ×2 (09:21→14:39)
--- NOTE | 2019-03-04 09:55 | Vascular/End[facility]as Progress Note ---
Date of Encounter: 03/04/19 Time of Encounter: 09:53 - Assessment and plan (1) Abdominal aortic aneurysm (AAA) Current Visit: Yes Status: Acute Patient is postoperative day #1 following endovascular repair of abdominal aortic aneurysm. Patient has had asymptomatic hypotension overnight. Systolic pressure was as low as 80 mmHg. Pressures known the low 90s systolic. He is asymptomatic at this time. Qualifiers: Presence of rupture: without rupture Qualified Code(s): I71.4 - Abdominal aortic aneurysm, without rupture - Subjective Interval history: No complaints. Patient is postoperative day #1 following endovascular repair of large abdominal aortic aneurysm. Patient has had oozing from the right internal jugular vein central line catheter site. Vital Signs, Last 4 Hours Temp Pulse Resp BP Pulse Ox 03/04/19 07:41 98.2 F 60 19 91/66 95 - Physical Examination General: Present: Conversant, No Apparent Distress, Well developed, Well nourished HEENT: Present: Atraumatic, Normocephaly Neck: Absent: JVD Vascular: Present: Normal capillary refill, Surgical incisions (Bilateral groin dressings are intact.) Abdomen: Present: Soft, Non-tender Results 03/04/19 03:25 03/04/19 03:25 Lab Results, Last 24 hours 03/04/19 03/04/19 03:25 03:25 WBC 13.2 H Hgb 11.8 L D Hct 36.6 L Plt Count 169 Sodium 137 Potassium 4.0 Chloride 105 Carbon Dioxide 25 BUN 14 Creatinine 0.86 Glucose 126 H Calcium 8.6 Consult Discharge Plan - Plan Referrals: Stefania Sue, MACHINE CEMENTER [Primary Care Provider] -
[2019-03-04] MEDS: Budesonide/Formoterol 160/4.5 1 PUFF INH IH SCH ×2 (11:03→22:32)
--- NOTE | 2019-03-04 13:16 | Operative Note ---
Date of procedure: 03/04/19 Pre-op diagnosis: Abdominal aortic aneurysm Post-op diagnosis: same Procedure: Endovascular repair of abdominal aortic aneurysm using Cook Zenith stent graft system with radiologic interpretation and supervision. Bilateral open femoral artery exposure. Right femoral artery endarterectomy with patch angioplasty. Complications: None Anesthesia: KAVONA Surgeon: Terence Toth Co-Surgeon: Donavon Wilder Was there an diploma dental assistant present: No Estimated blood loss (cc): 200 Specimen: None Condition: stable Disposition: PACU Procedure in Detail: History This patient is a 73-year-old white male who was found on cardiac catheterization to have a large abdominal aortic aneurysm. He had a non-STEMI. He had a coronary stent angioplasty. The aneurysm was found by CT scan to be 9 cm. It was nonruptured. The patient was then prepared for surgery. The patient now comes to the operating room today for operation. Procedure After informed consent was obtained patient was taken the operating room. Gene ral endotracheal anesthesia was established under arterial line and central line monitoring. A timeout protocol was observed. An oblique incision was then made in each groin. Dissection was carried down to the common femoral artery. The right side was a site of previous cardiac catheterization was significant inflammation and hematoma present. After control was obtained the artery was punctured on both sides with an 18-gauge needle. This is followed by an 8 Welsh sheath and dilator. The dilator was removed and the sheath was aspirated and flushed. Intravenous heparin was then administered. Under fluoroscopic control guidewires were then advanced. Advancing the wire into the suprarenal aorta was difficult due to the tortuosity of the neck of the aneurysm. This required extra manipulation and time. This was eventually achieved. An aortogram was then obtained to locate the renal arteries. The main body was then inserted via the right side. The right side main body was a Zenith 24 mm diameter device that was 111 mm long. This device was deployed to the point of opening the contralateral gate. The suprarenal fixation was then deployed. The gate was then cannulated. This again proved to be very difficult due to the size of the aneurysm and turbulent flow due to the immense diameter. Eventually this was cannulated and appropriate position was confirmed. A bridging device was placed first and this was a 13 x 56 mm device. After this bridging device was deployed a second component was deployed on the left side which was a 24 x 90mm spiral Z Limb. Deployed to the point of being immediately proximal to the iliac bifurcation. With this left side now complete and the stent grafts deployed attention was directed back to the main body. It was then completely deployed. The top cap was then recaptured and removed. Again a bridging device was deployed on the right side as was on the left. On the right side this was a 13 x 74 mm bridging device. Then the fifth and final component was deployed which was a 13 x 107 mm spiral Z limb. This was deployed so that the terminus of the stent limb was in the proximal aspect of the external iliac artery intentionally placed over the orifice of the right internal iliac artery. With the 5 components now deployed a Coda balloon was inserted and the components were gently angioplastied with the balloon so that they were fully deployed and opposing the vessel pickering. The marker pigtail catheter was then reinserted and a formal completion aortogram was obtained. This demonstrated appropriate position of the graft components. Both renal arteries were preserved. The left iliac bifurcation was preserved. The right landing zone at the external iliac artery was appropriate and there is no finding of a type IA or 1B leak. A type II leak was identified from distal lumbar vessels. The wires and catheters were then removed. Evaluation of the right side revealed significant disease once the device was removed. This required then a formal right femoral artery endarterectomy. A bovine patch angioplasty was performed to close the vessel. On the left side the puncture site was closed with a 6-0 Prolene suture. After appropriate backbleeding and flushing the limbs were opened. Pulsatile flow was restored to both lower extremities. Excellent pulsations and Doppler signals were documented. The groin wounds were then irrigated with an about containing solution. Hemostasis was achieved. The wounds were closed with absorbable suture. Dry sterile dressings were then applied. The patient was extubated in the operating room. He was taken to the recovery room in stable condition. There were no intraoperative complications.
[2019-03-04 18:30] LABS: Hematocrit 36.4 % (37.5-50.1); Hemoglobin 12.1 g/dL (12.9-16.9)
[2019-03-04] MEDS: Apixaban 5 MG TABLET PO SCH (19:47)
[2019-03-04] MEDS ORDERED: Apixaban 5 MG TABLET PO SCH (21:00)
[2019-03-05] MEDS ORDERED: *HR* Metoprolol 5 MG/5 ML VIAL IVP ONE (03:50)
[2019-03-05] MEDS: Levalbuterol Neb 1.25 MG/3 ML IH SCH ×4 (04:01→22:33)
[2019-03-05 05:15] LABS: Basophils % 0.2 %; Eosinophils # 0.2 K/mcL (0.0-0.6); Hematocrit 32.2 % (37.5-50.1); Hemoglobin 10.7 g/dL (12.9-16.9); Immature Granulocytes % 0.4 % (0-4); Lymphocytes # 2.2 K/mcL (0.6-4.6); Lymphocytes % 13.8 %; Mean Corpuscular HGB Conc 33.2 g/dL (31.6-35.5); Mean Corpuscular Hemoglobin 31.8 pg (28.0-33.3); Mean Corpuscular Volume 95.8 fL (83.0-100.0); Mean Platelet Volume 10.6 fL (9.4-12.4); Monocytes # 1.3 K/mcL (0.0-1.3); Monocytes % 7.8 %; Neutrophils # 12.4 K/mcL (1.6-8.9); Platelet Count 182 K/mcL (140-400); Red Blood Count 3.36 M/mcL (4.19-5.50); Red Cell Distribution Width 13.9 % (11.5-14.5); Segmented Neutrophils % 76.8 %; White Blood Count 16.2 K/mcL (4.3-11.1)
[2019-03-05] MEDS: Famotidine 20 MG/2 ML VIAL IVP SCH ×2 (05:21→17:32)
[2019-03-05 05:32] LABS: BUN/Creatinine Ratio 24 (6-26); Blood Urea Nitrogen 19 mg/dL (8-23); Calcium 8.8 mg/dL (8.6-10.3); Carbon Dioxide 26 mEq/L (23-29); Chloride 102 mEq/L (98-107); Glucose 104 mg/dL (70-105); Osmolality,Calculated 287 (280-300); Sodium 137 mEq/L (136-145); eGFR For African Americans > 60 (> 60); eGFR For Non-African Americans > 60 (> 60)
[2019-03-05] MEDS: Aspirin 81 MG TAB.CHEW PO SCH (09:11)
[2019-03-05] MEDS: Patient Taking Own Medication 1 EACH OP SCH ×2 (09:12→21:14)
[2019-03-05] MEDS: Budesonide/Formoterol 160/4.5 1 PUFF INH IH SCH ×2 (10:11→22:33)
[2019-03-05 10:57] LABS: Hematocrit 32.5 % (37.5-50.1); Hemoglobin 10.5 g/dL (12.9-16.9)
--- NOTE | 2019-03-05 11:38 | Vascular/Endovas Progress Note ---
Date of Encounter: 03/05/19 Time of Encounter: 11:35 - Assessment and plan (1) Abdominal aortic aneurysm (AAA) Current Visit: Yes Status: Acute Patient is postoperative day #2 following endovascular repair of abdominal aortic aneurysm. Patient has persistent tachycardia with brief episodes of atrial fibrillation. The surgical sites are healing appropriately. There is no post operative surgical complication. Once the rhythm and catheter losing issues have been resolved patient is okay from vascular surgery perspective to be discharged. He is to follow up with Dr. Toth as ordered. I reviewed with him and his family wound care and activity issues.. Qualifiers: Presence of rupture: without rupture Qualified Code(s): I71.4 - Abdominal aortic aneurysm, without rupture - Subjective Interval history: No complaints referable to the surgical sites. Patient is postoperative day #2 following endovascular repair of large(9 cm) abdominal aortic aneurysm. Patient has had oozing from the right internal jugular vein central line catheter site. He denies any abdominal pain or groin pain or leg pain. Vital Signs, Last 4 Hours Temp Pulse Resp BP Pulse Ox 03/05/19 10:14 18 98 03/05/19 09:31 76 03/05/19 07:46 98.7 F 72 18 91/63 96 - Physical Examination General: Present: Conversant, No Apparent Distress HEENT: Present: Atraumatic, Trachea midline Cardiac: Present: Other (Patient has sinus tachycardia with brief runs of atrial fibrillation.) Neuro: Present: Alert and responsive, No focal deficits noted Vascular: Present: Normal capillary refill, Surgical incisions (Dressings were removed from the groin area. The incisions are clean and dry. The patient has ecchymosis in the groins more so on the right side and the left. The right side was the side of the cardiac catheterization and stent angioplasty of the coronary artery last week.) Abdomen: Present: Soft, Non-tender Results 03/05/19 10:36 03/05/19 04:58 Lab Results, Last 24 hours 03/04/19 03/05/19 03/05/19 18:17 04:58 04:58 WBC 16.2 H Hgb 12.1 L 10.7 L Hct 36.4 L 32.2 L Plt Count 182 Sodium 137 Potassium 4.0 Chloride 102 Carbon Dioxide 26 BUN 19 Creatinine 0.79 Glucose 104 Calcium 8.8 Magnesium 2.0 03/05/19 10:36 WBC Hgb 10.5 L Hct 32.5 L Plt Count Sodium Potassium Chloride Carbon Dioxide BUN Creatinine Glucose Calcium Magnesium Consult Discharge Plan - Plan Additional Instructions: Okay for patient to ambulate both inside and outside. Keep surgical sites dry for total of 5 days following surgery. Okay for patient to use stairs as tolerated. No driving. No lifting greater than 10 pounds. No manual labor. Use incentive spirometer at home 10 times an hour while awake and then after 2 weeks discard incentive spirometer. Referrals: Stefania Sue CNP [Primary Care Provider] - 03/11/19 1:00 pm
[2019-03-05] MEDS: Diltiazem CD (24hr) 120 MG CAPSULE PO SCH (11:42)
--- NOTE | 2019-03-05 13:09 | Internal Med Progress Note ---
Hospitalist Progress Note - Encounter Date of Encounter: 03/05/19 Time of Encounter: 09:00 - Subjective Interval History: Mr Galeano is currently admitted for acute NSTEMI, rapid a fib and AAA s/p endovascular repair. He remains moderate to high risk due to potential for worsening clinical status. Mr Galeano was in NSR this AM but returned to rapid a fib. Has been receiving Eliquis. Has had a lot of oozing from R IJ central line site. H/H lower today but stable on recheck. Overall he has been feeling well since surgery. No CP or SOB. No fever or chills. - Exam Vitals: Temp Pulse Resp BP Pulse Ox 98.7 F 145 20 105/79 94 03/05/19 12:03 03/05/19 12:03 03/05/19 12:03 03/05/19 12:03 03/05/19 12:03 Exam: General: Alert and oriented. Comfortable at this time. Skin: Normal color, no rash, Neck: Dressing on R neck changed. No significant bleeding with dressing off but large amount of blood on dressing that was changed. H: Normocephalic. EENT: EOMI, Mucus membranes moist. Cardiovascular: Normal S1 & S2, Regular at this time with rate about 80 Lungs: Normal breath sounds, no wheezes or crackles. Abdomen: Soft, non-tender, Normal bowel sounds. Extremities: No deformity, no edema or tenderness, Neurological: Normal cognition and motor skills. Pulses: radial pulses normal +2. Rest of the physical exam is non contributory - Assessment and Plan (1) Bleeding at insertion site Current Visit: Yes Status: Acute Assessment and Plan: Pt has developed continuous oozing from prior IJ catheter site on R. Anesthesia to evaluate today. (2) Anemia Current Visit: Yes Status: Acute Assessment and Plan: Pt has had decrease in his H/H today - has had bleeding from IJ site. Monitoring H/H. (3) Afib Current Visit: Yes Status: Chronic Assessment and Plan: Pt noted to be in NSR this AM but then developed rapid atrial fibrillation. Continue metoprolol and Cardizem as ordered. Eliquis held for bleeding this AM. Will restart later in day. (4) Abdominal aortic aneurysm (AAA) Current Visit: Yes Status: Acute Assessment and Plan: Pt is s/p endovascular repair on . Has been cleared for discharge pending heartrate and catheter site bleeding. (5) Hypertension Current Visit: No Status: Chronic Assessment and Plan: BP has been on lower side last 24 hours. Meds were held earlier (and he became tachycardic) and now given. Monitoring BP. May need further adjustment. (6) NSTEMI (non-ST elevated myocardial infarction) Current Visit: Yes Status: Resolved Assessment and Plan: Pt initially presented with acute NSTEMI. He is s/p bare metal stent placement. (7) COPD (chronic obstructive pulmonary disease) Current Visit: Yes Status: Chronic Assessment and Plan: Chronic issue. No exacerbation at this time. - Time Spent with Patient Total time spent is greater than 50% in coordination of care (as documented) at patient's floor/unit and/or counseling patient: Internal Medicine: Result - Labs CBC & Chem 7: 03/05/19 10:36 03/05/19 04:58 Labs: Short CBC 03/04/19 03/05/19 03/05/19 Range/Units 18:17 04:58 10:36 WBC 16.2 H (4.3-11.1) K/mcL Hgb 12.1 L 10.7 L 10.5 L (12.9-16.9) g/dL Hct 36.4 L 32.2 L 32.5 L (37.5-50.1) % Plt Count 182 (140-400) K/mcL Neutrophils # 12.4 H (1.6-8.9) K/mcL BMP 03/05/19 04:58 Sodium 137 Potassium 4.0 Chloride 102 Carbon Dioxide 26 BUN 19 Creatinine 0.79 Glucose 104 Calcium 8.8 - ABG Interpretation ABG results: ABG ABG pH 7.37 pH Units (7.32-7.45) 03/03/19 13:04 ABG pCO2 43 mmHg (35-45) 03/03/19 13:04 ABG pO2 229 mmHg (85-104) H 03/03/19 13:04 ABG O2 Saturation 100 % (95-98) H 03/03/19 13:04 PT/INR, D-dimer PT 11.8 Seconds (9.4-12.1) 02/25/19 13:29 Consult Discharge Plan - Plan Additional Instructions: Okay for patient to ambulate both inside and outside. Keep surgical sites dry for total of 5 days following surgery. Okay for patient to use stairs as tolerated. No driving. No lifting greater than 10 pounds. No manual labor. Use incentive spirometer at home 10 times an hour while awake and then after 2 weeks discard incentive spirometer. Referrals: Stefania Sue, SOFTBALL COACH [Primary Care Provider] - 03/11/19 1:00 pm (2) Anemia Qualifiers: Anemia type: other cause Other causes of anemia: acute posthemorrhagic Qualified Code(s): D62 - Acute posthemorrhagic anemia (3) Afib Qualifiers: Atrial fibrillation type: paroxysmal Qualified Code(s): I48.0 - Paroxysmal atrial fibrillation (4) Abdominal aortic aneurysm (AAA) Qualifiers: Presence of rupture: without rupture Qualified Code(s): I71.4 - Abdominal aortic aneurysm, without rupture (5) Hypertension Qualifiers: Hypertension type: essential hypertension Qualified Code(s): I10 - Essential (primary) hypertension (7) COPD (chronic obstructive pulmonary disease) Qualifiers: COPD type: emphysema Emphysema type: panlobular Qualified Code(s): J43.1 - Panlobular emphysema
[2019-03-05] MEDS: Apixaban 5 MG TABLET PO SCH ×2 (17:24→21:06)
[2019-03-05 18:29] LABS: Hematocrit 33.4 % (37.5-50.1); Hemoglobin 10.5 g/dL (12.9-16.9)
--- NOTE | 2019-03-05 19:52 | Anesthesia Progress Note ---
Date of Encounter: 03/05/19 Time of Encounter: 19:41 Anesthesia Note - Note Note: 03/05/19 19:41 CTSP re: bleeding from Subclavian CVC site s/p CVC removal on Floor. Pt POD #2 s/p AAA repair by Dr. Toth. CVC placed by Dr. Colon uneventfully was subsequently withdrawn on floor with noted continued bleeding from CVC site. Called by Floor RN earlier in the day. RN stated Vascular surgeon requested Anesthesia come to place a stitch at bleeding site as Floor RN attempt to control bleeding with pressure dressings without success. Floor RN informed that Anesthesia provider [self] was unable to come to place stitch as I had 3 rooms running in ORs and was unlikely to become available prior to 5pm. Barber Or Beauty [employer] Manager stated I would be happy to place stitch as soon as I became avaiable, however if surgeon would like to address CVC site bleeding prior to likely evening arrival that would be fine too. Phoned again by Floor RN at approximately 3pm stating Pt was still bleeding from CVC site inquiring when I might arrive. Informed RN that I was still busy in OR and would come as soon as I was relieved close to 7pm. At roughly 7pm was relieved by Dr. Bender who offered to go stitch site in my stead since I was waking up OR Pt and headed to ICU. Dr. Bender returned shortly stating the Floor RN stated the bleeding had stopped. RN stated would call again should they need us. - MD Lynda
[2019-03-06] MEDS ORDERED: *HR* Metoprolol 5 MG/5 ML VIAL IVP ONE ×2 (00:18→00:55)
[2019-03-06] MEDS ORDERED: 0.9 % Sodium Chloride 1,000 ML IVC ONE (02:01)
[2019-03-06 02:21] LABS: Hemoglobin 9.5 g/dL (12.9-16.9); Mean Corpuscular HGB Conc 32.8 g/dL (31.6-35.5); Mean Corpuscular Hemoglobin 31.3 pg (28.0-33.3); Mean Corpuscular Volume 95.4 fL (83.0-100.0); Mean Platelet Volume 10.8 fL (9.4-12.4); Platelet Count 168 K/mcL (140-400); Red Blood Count 3.04 M/mcL (4.19-5.50); Red Cell Distribution Width 14.2 % (11.5-14.5); White Blood Count 15.9 K/mcL (4.3-11.1)
[2019-03-06 03:06] LABS: Alanine Aminotransferase 15 Units/L (7-52); Albumin 3.1 g/dL (3.5-5.7); Albumin/Globulin Ratio 1.3 (1.1-2.2); Alkaline Phosphatase 43 Units/L (34-104); Aspartate Amino Transferase 24 Units/L (13-39); BUN/Creatinine Ratio 24 (6-26); Bilirubin,Total 0.8 mg/dL (0.3-1.0); Blood Urea Nitrogen 19 mg/dL (8-23); Calcium 8.5 mg/dL (8.6-10.3); Carbon Dioxide 25 mEq/L (23-29); Chloride 105 mEq/L (98-107); Globulin 2.4 g/dL (2.4-3.5); Glucose 109 mg/dL (70-105); Magnesium 1.9 mg/dL (1.6-2.6); Osmolality,Calculated 283 (280-300); Sodium 135 mEq/L (136-145); Total Protein 5.5 g/dL (6.4-8.9); eGFR For African Americans > 60 (> 60); eGFR For Non-African Americans > 60 (> 60)
[2019-03-06] MEDS: Levalbuterol Neb 1.25 MG/3 ML IH SCH ×4 (03:37→19:59)
[2019-03-06] MEDS: Famotidine 20 MG/2 ML VIAL IVP SCH (05:45)
[2019-03-06] MEDS: Diltiazem CD (24hr) 120 MG CAPSULE PO SCH (07:46)
[2019-03-06] MEDS: Aspirin 81 MG TAB.CHEW PO SCH (07:46)
[2019-03-06] MEDS: Patient Taking Own Medication 1 EACH OP SCH ×2 (07:47→20:25)
[2019-03-06] MEDS: Apixaban 5 MG TABLET PO SCH ×2 (10:16→20:24)
[2019-03-06] MEDS: Budesonide/Formoterol 160/4.5 1 PUFF INH IH SCH ×2 (11:20→19:58)
[2019-03-06 13:07] LABS: Hematocrit 32.5 % (37.5-50.1); Hemoglobin 10.4 g/dL (12.9-16.9)
--- NOTE | 2019-03-06 15:17 | Internal Med Progress Note ---
Hospitalist Progress Note - Encounter Date of Encounter: 03/06/19 Time of Encounter: 14:45 - Subjective Interval History: Mr Galeano is currently admitted for NSTEMI, afib and AAA. He continues to have issues with rapid a fib/flutter. He remains moderate to high risk. Mr Galeano is feeling OK. Really wants to go home. No CP or SOB. Hemoglobin lower today and was hypotensive during the night. No CP. Feels very constipated. Continues to have rapid a fib/flutter on monitor with occasional conversion to sinus around 60. Lasts only seconds and returns to a fib. No further bleeding noted since last night. - Exam Vitals: Temp Pulse Resp BP Pulse Ox 97.4 F L 98 18 99/78 98 03/06/19 11:43 03/06/19 14:47 03/06/19 15:06 03/06/19 14:47 03/06/19 15:06 Exam: General: Alert and oriented. Mild distress - wants to go home. Skin: Normal color, no rash, Neck: No further bleeding noted R neck. H: Normocephalic. EENT: EOMI, Mucus membranes moist. Cardiovascular: Irreg and tachycardic. Hard to hear. Lungs: Normal breath sounds, No crackles Abdomen: Soft, non-tender, Extremities: No deformity, no edema or tenderness, Moves all equally Neurological: Normal cognition and motor skills. Pulses: radial pulses normal +2. Rest of the physical exam is non contributory - Assessment and Plan (1) Afib Current Visit: Yes Status: Chronic Assessment and Plan: Pt continues to have rapid a fib. Now having some episodes of a flutter on monitor. Converts briefly to sinus rhythm around 60 but quickly returns to a fib/flutter. Will keep patient tonight and have cardiology reeval tomorrow. ? tachy/luisana (2) Bleeding at insertion site Current Visit: Yes Status: Resolved Assessment and Plan: Site stopped bleeding last evening. H/H lower - will transfuse today. (3) Anemia Current Visit: Yes Status: Acute Assessment and Plan: Related to bleeding yesterday. Will give a unit of PRBCs today and recheck later. (4) Abdominal aortic aneurysm (AAA) Current Visit: Yes Status: Acute Assessment and Plan: Pt is s/p endovascular repair on . No issues. (5) Hypertension Current Visit: No Status: Chronic Assessment and Plan: BP lower during the night. Will give unit of blood today. (6) NSTEMI (non-ST elevated myocardial infarction) Current Visit: Yes Status: Resolved Assessment and Plan: Pt initially presented with acute NSTEMI. He is s/p bare metal stent placement. (7) COPD (chronic obstructive pulmonary disease) Current Visit: Yes Status: Chronic Assessment and Plan: Chronic issue. No exacerbation at this time. - Time Spent with Patient Total time spent is greater than 50% in coordination of care (as documented) at patient's floor/unit and/or counseling patient: Internal Medicine: Result - Labs CBC & Chem 7: 03/06/19 12:44 03/06/19 01:35 Labs: Short CBC 03/05/19 03/06/19 03/06/19 Range/Units 17:59 01:35 12:44 WBC 15.9 H (4.3-11.1) K/mcL Hgb 10.5 L 9.5 L 10.4 L (12.9-16.9) g/dL Hct 33.4 L 29.0 L 32.5 L (37.5-50.1) % Plt Count 168 (140-400) K/mcL BMP 03/06/19 01:35 Sodium 135 L Potassium 4.0 Chloride 105 Carbon Dioxide 25 BUN 19 Creatinine 0.79 Glucose 109 H Calcium 8.5 L Liver Function 03/06/19 Range/Units 01:35 Total Bilirubin 0.8 (0.3-1.0) mg/dL AST 24 (13-39) Units/L ALT 15 (7-52) Units/L Alkaline Phosphatase 43 (34-104) Units/L Albumin 3.1 L (3.5-5.7) g/dL - ABG Interpretation ABG results: ABG ABG pH 7.37 pH Units (7.32-7.45) 03/03/19 13:04 ABG pCO2 43 mmHg (35-45) 03/03/19 13:04 ABG pO2 229 mmHg (85-104) H 03/03/19 13:04 ABG O2 Saturation 100 % (95-98) H 03/03/19 13:04 PT/INR, D-dimer PT 11.8 Seconds (9.4-12.1) 02/25/19 13:29 Consult Discharge Plan - Plan Additional Instructions: Okay for patient to ambulate both inside and outside. Keep surgical sites dry for total of 5 days following surgery. Okay for patient to use stairs as tolerated. No driving. No lifting greater than 10 pounds. No manual labor. Use incentive spirometer at home 10 times an hour while awake and then after 2 weeks discard incentive spirometer. Referrals: Stefania Sue, SHIP CLEANER [Primary Care Provider] - 03/11/19 1:00 pm (1) Afib Qualifiers: Atrial fibrillation type: paroxysmal Qualified Code(s): I48.0 - Paroxysmal atrial fibrillation (3) Anemia Qualifiers: Anemia type: other cause Other causes of anemia: acute posthemorrhagic Qualified Code(s): D62 - Acute posthemorrhagic anemia (4) Abdominal aortic aneurysm (AAA) Qualifiers: Presence of rupture: without rupture Qualified Code(s): I71.4 - Abdominal aortic aneurysm, without rupture (5) Hypertension Qualifiers: Hypertension type: essential hypertension Qualified Code(s): I10 - Essential (primary) hypertension (7) COPD (chronic obstructive pulmonary disease) Qualifiers: COPD type: emphysema Emphysema type: panlobular Qualified Code(s): J43.1 - Panlobular emphysema
[2019-03-06] MEDS: Famotidine 20 MG TABLET PO SCH (18:34)
[2019-03-07] MEDS ORDERED: 0.9 % Sodium Chloride 1,000 ML IVC ONE (01:16)
[2019-03-07] MEDS ORDERED: 0.9 % Sodium Chloride 1,000 ML ONE (01:19)
[2019-03-07 01:45] LABS: Hematocrit 28.2 % (37.5-50.1); Hemoglobin 9.2 g/dL (12.9-16.9); Mean Corpuscular HGB Conc 32.6 g/dL (31.6-35.5); Mean Corpuscular Hemoglobin 30.6 pg (28.0-33.3); Mean Corpuscular Volume 93.7 fL (83.0-100.0); Mean Platelet Volume 10.4 fL (9.4-12.4); Platelet Count 147 K/mcL (140-400); Red Blood Count 3.01 M/mcL (4.19-5.50); Red Cell Distribution Width 14.5 % (11.5-14.5)
[2019-03-07 02:08] LABS: Alanine Aminotransferase 22 Units/L (7-52); Albumin 2.8 g/dL (3.5-5.7); Albumin/Globulin Ratio 1.2 (1.1-2.2); Alkaline Phosphatase 44 Units/L (34-104); Aspartate Amino Transferase 24 Units/L (13-39); BUN/Creatinine Ratio 19 (6-26); Bilirubin,Total 1.1 mg/dL (0.3-1.0); Blood Urea Nitrogen 13 mg/dL (8-23); Calcium 8.5 mg/dL (8.6-10.3); Carbon Dioxide 24 mEq/L (23-29); Chloride 104 mEq/L (98-107); Globulin 2.3 g/dL (2.4-3.5); Glucose 106 mg/dL (70-105); Magnesium 1.8 mg/dL (1.6-2.6); Osmolality,Calculated 279 (280-300); Sodium 134 mEq/L (136-145); Total Protein 5.1 g/dL (6.4-8.9); eGFR For African Americans > 60 (> 60); eGFR For Non-African Americans > 60 (> 60)
[2019-03-07] MEDS: Levalbuterol Neb 1.25 MG/3 ML IH SCH ×3 (03:27→16:05)
[2019-03-07] MEDS: Famotidine 20 MG TABLET PO SCH (07:43)
--- NOTE | 2019-03-07 08:53 | Internal Med Progress Note ---
Hospitalist Progress Note - Encounter Date of Encounter: 03/07/19 Time of Encounter: 09:45 - Subjective Interval History: Patient seen and examined at bedside when he is sitting up in his chair. His is present. He denies any complaints. He denies chest pain, fever, chills, shortness of breath, palpitations. He is anxious to be discharged and go home as soon as possible. He is awaiting cardiology reevaluation due to his persistent tachycardia. - Exam Vitals: Temp Pulse Resp BP Pulse Ox 98.7 F 145 18 106/78 94 03/07/19 08:22 03/07/19 08:22 03/07/19 08:22 03/07/19 08:22 03/07/19 08:22 Exam: Gen.: Vitals noted. No acute distress. AAOx3 HEENT: oropharynx clear, Normocephalic, atraumatic Cardiac: tachycardic, no murmur, +S1/S2 Pulmonary: CTA bilaterally, no wheezes, rales or rhonchi, equal chest expansion Abdomen: soft, nontender, Bowel sounds noted, no guarding MSK: no joint swelling noted Extremities: no BLE edema, nontender calf, no cyanosis or clubbing Neuro: A&Ox3, moves all extremities, no focal deficits Psych: Appropriate mood and behavior - Assessment and Plan (1) NSTEMI (non-ST elevated myocardial infarction) Current Visit: Yes Status: Resolved (2) COPD (chronic obstructive pulmonary disease) Current Visit: Yes Status: Chronic (3) Abdominal aortic aneurysm (AAA) Current Visit: Yes Status: Acute (4) Afib Current Visit: Yes Status: Chronic (5) Hypertension Current Visit: No Status: Chronic (6) Anemia Current Visit: Yes Status: Acute (7) Bleeding at insertion site Current Visit: Yes Status: Resolved - Time Spent with Patient Total time spent is greater than 50% in coordination of care (as documented) at patient's floor/unit and/or counseling patient: Internal Medicine: Result - Labs CBC & Chem 7: 03/07/19 01:18 03/07/19 01:18 Labs: Short CBC 03/06/19 03/07/19 Range/Units 12:44 01:18 WBC 14.0 H (4.3-11.1) K/mcL Hgb 10.4 L 9.2 L (12.9-16.9) g/dL Hct 32.5 L 28.2 L (37.5-50.1) % Plt Count 147 (140-400) K/mcL BMP 03/07/19 01:18 Sodium 134 L Potassium 4.0 Chloride 104 Carbon Dioxide 24 BUN 13 Creatinine 0.70 Glucose 106 H Calcium 8.5 L Liver Function 03/07/19 Range/Units 01:18 Total Bilirubin 1.1 H (0.3-1.0) mg/dL AST 24 (13-39) Units/L ALT 22 (7-52) Units/L Alkaline Phosphatase 44 (34-104) Units/L Albumin 2.8 L (3.5-5.7) g/dL - ABG Interpretation ABG results: ABG ABG pH 7.37 pH Units (7.32-7.45) 03/03/19 13:04 ABG pCO2 43 mmHg (35-45) 03/03/19 13:04 ABG pO2 229 mmHg (85-104) H 03/03/19 13:04 ABG O2 Saturation 100 % (95-98) H 03/03/19 13:04 PT/INR, D-dimer PT 11.8 Seconds (9.4-12.1) 02/25/19 13:29 Consult Discharge Plan - Plan Additional Instructions: Okay for patient to ambulate both inside and outside. Keep surgical sites dry for total of 5 days following surgery. Okay for patient to use stairs as tolerated. No driving. No lifting greater than 10 pounds. No manual labor. Use incentive spirometer at home 10 times an hour while awake and then after 2 weeks discard incentive spirometer. Referrals: Stefania Sue, HOME HOUSEKEEPER [Primary Care Provider] - 03/11/19 1:00 pm (2) COPD (chronic obstructive pulmonary disease) Qualifiers: COPD type: emphysema Emphysema type: panlobular Qualified Code(s): J43.1 - Panlobular emphysema (3) Abdominal aortic aneurysm (AAA) Qualifiers: Presence of rupture: without rupture Qualified Code(s): I71.4 - Abdominal aortic aneurysm, without rupture (4) Afib Qualifiers: Atrial fibrillation type: paroxysmal Qualified Code(s): I48.0 - Paroxysmal atrial fibrillation (5) Hypertension Qualifiers: Hypertension type: essential hypertension Qualified Code(s): I10 - Essential (primary) hypertension (6) Anemia Qualifiers: Anemia type: other cause Other causes of anemia: acute posthemorrhagic Qualified Code(s): D62 - Acute posthemorrhagic anemia
[2019-03-07] MEDS: Diltiazem CD (24hr) 120 MG CAPSULE PO SCH (09:46)
[2019-03-07] MEDS: Aspirin 81 MG TAB.CHEW PO SCH (09:46)
[2019-03-07] MEDS: Apixaban 5 MG TABLET PO SCH (09:46)
[2019-03-07] MEDS: Patient Taking Own Medication 1 EACH OP SCH (09:48)
[2019-03-07] MEDS: Budesonide/Formoterol 160/4.5 1 PUFF INH IH SCH (10:29)
--- NOTE | 2019-03-07 11:40 | Cardiology Progress Note ---
Date of Encounter: 03/07/19 Time of Encounter: 11:00 Assessment and Plan (1) Afib Current Visit: Yes Status: Chronic PAF during stay. Chronicity unclear. Patient asymptomatic. On PO Cardizem CD 120mg daily and Lopressor 37.5 mg BID. Currently SR--12 hr tele AVG HR 110s. Reconsulted for tachy/luisana--appears to be PAF. SR upon exam, continue BB, and C CB. Unable to uptitrate medications due to marginal BP. Recommend outpatient follow-up with EP for evaluation of rhythm control strategy after on full AC for 30 days. Patient/ are agreeable. TTE 02/24/19: LVEF 50%, no significant valvular dysfunction. TSH, electrolytes normal. CHA2Ds Vasc=3 (age, HTN, CAD); started on Eliquis. No further inpt recommendations. Discussed with Dr. Rosa; cardiology will sign-off Qualifiers: Atrial fibrillation type: paroxysmal Qualified Code(s): I48.0 - Paroxysmal atrial fibrillation (2) NSTEMI (non-ST elevated myocardial infarction) Current Visit: Yes Status: Resolved Peak troponin 10.15. [facility] 02/23/19: s/p PCI with BMS to LCx; otherwise non-obstructive CAD. TTE 02/24/19: LVEF 50%, no significant valvular dysfunction. No chest pain/discomfort reported. Cardiac rehab. Continue asa, statin, BB. Recommend DAPT x1 month. (3) Abdominal aortic aneurysm (AAA) Current Visit: Yes Status: Acute Large 9.0 infrarenal AAA, s/p endograft on 03/04. Qualifiers: Presence of rupture: without rupture Qualified Code(s): I71.4 - Abdominal aortic aneurysm, without rupture Discussion w patient/family: The assessment and plan as outlined above was discussed with the patient and/or family members who expressed understanding and agreement. All questions were answered. Thank you for involving us in the care of your patient. Please call with any questions. The patient will be discussed and reviewed with Dr. Rosa; changes to be made accordingly. Subjective Principal diagnosis: NSTEMI Interval history: Seen and examined. No complaints upon exam today. NSR upon exam. He is anxious and eager for discharge. Objective Vital Signs, Last 4 Hours Temp Pulse Resp BP Pulse Ox 03/07/19 08:22 98.7 F 145 18 106/78 94 General: Conversant, No Apparent Distress, Other (pale) HEENT: Atraumatic, Normocephaly, Mucus Membranes Moist Cardiac: Reg Rate and Rhythm, Normal S1 and S2 Lungs: Normal Breath Sounds Neuro: Alert and responsive Abdomen: Soft Skin: No rashes noted on visualized skin Musculoskeletal: No Chest Wall Tenderness Extremities: No Edema, Normal Pulses Results 03/07/19 01:18 03/07/19 01:18 Lab Results 03/06/19 03/07/19 03/07/19 12:44 01:18 01:18 WBC 14.0 H Hgb 10.4 L 9.2 L Hct 32.5 L 28.2 L Plt Count 147 Sodium 134 L Potassium 4.0 Chloride 104 Carbon Dioxide 24 BUN 13 Creatinine 0.70 Glucose 106 H Calcium 8.5 L Magnesium 1.8 Total Bilirubin 1.1 H AST 24 ALT 22 Alkaline Phosphatase 44 Active Medications Acetaminophen (Tylenol) 650 mg PO Q6HR PRN PRN Reason: Mild Pain/Fever Stop: 09/02/19 19:47 Last Admin: 03/05/19 17:32 Dose: 650 mg Documented by: Hydrocodone Bitart/Acetaminophen ([place] 5-325 Mg) 1 tab PO Q6HR PRN PRN Reason: Moderate Pain Stop: 09/02/19 19:47 Apixaban (Eliquis) [address] [facility] Stop: 09/03/19 21:01 Last Admin: 03/07/19 09:46 Dose: 5 mg Documented by: Aspirin (Aspirin) [address] [facility] Stop: 08/26/19 09:01 Last Admin: 03/07/19 09:46 Dose: 81 mg Documented by: Atorvastatin Calcium (Lipitor) [address] [facility] Stop: 08/25/19 21:01 Last Admin: 03/06/19 20:24 Dose: 40 mg Documented by: Budesonide/Formoterol Fumarate (Symbicort) [address] [facility]; Protocol Stop: 09/06/19 22:01 Clopidogrel Bisulfate (Plavix) [address] [facility] Stop: 08/26/19 09:01 Last Admin: 03/07/19 09:46 Dose: 75 mg Documented by: Diltiazem HCl (Cardizem Cd) [address] [facility] Stop: 08/29/19 09:46 Last Admin: 03/07/19 09:46 Dose: 120 mg Documented by: Docusate Sodium (Colace) [address] [facility] Stop: 08/25/19 21:01 Last Admin: 03/07/19 09:46 Dose: 100 mg Documented by: Famotidine (Pepcid) 20 mg PO Q12HR [facility]; Protocol Stop: 09/05/19 18:01 Last Admin: 03/07/19 07:43 Dose: 20 mg Documented by: Hydralazine HCl (Hydralazine) 10 mg IVP Q1H PRN PRN Reason: Hypertension Stop: 09/02/19 19:47 Labetalol HCl (Labetalol) 10 mg IVP Q1H PRN PRN Reason: SBP greater than 160 Stop: 09/02/19 19:47 Last Admin: 03/04/19 16:20 Dose: 10 mg Documented by: Levalbuterol HCl (Xopenex) 1.[id number] [facility] Stop: 08/27/19 10:01 Last Admin: 03/07/19 10:29 Dose: 1.25 mg Documented by: Metoprolol Tartrate (Lopressor) 37.[address] [facility] Stop: 09/05/19 21:01 Last Admin: 03/07/19 09:46 Dose: 37.5 mg Documented by: Naloxone HCl (Narcan) 0.4 mg IVP Q2MPRN PRN PRN Reason: SEE COMMENTS Stop: 08/25/19 15:24 Nitroglycerin (Nitroglycerin) 0.4 mg SL Q5MPRN PRN PRN Reason: Chest Pain Stop: 08/25/19 17:27 Ondansetron HCl (Zofran) 4 mg IVP Q8H PRN PRN Reason: Nausea And Vomiting Stop: 08/31/19 23:08 Oxycodone HCl (Roxicodone) 10 mg PO Q6HR PRN PRN Reason: Severe Pain Stop: 09/02/19 19:47 Last Admin: 03/04/19 14:39 Dose: 10 mg Documented by: Oxycodone HCl (Oxycodone Oral Conc) 5 mg SL Q4H PRN; Protocol PRN Reason: mild to moderate pain Stop: 09/02/19 19:47 Oxycodone HCl (Oxycodone Oral Conc) 10 mg SL Q4H PRN; Protocol PRN Reason: Severe Pain Stop: 09/02/19 19:47 Pharmacy Profile Note (Patient Taking Own Medication) 1 each OP BID [facility] Stop: 08/25/19 21:01 Last Admin: 03/07/19 09:48 Dose: 1 each Documented by: Polyethylene Glycol (Miralax) 17 gm PO DAILY [facility] Stop: 09/05/19 09:01 Last Admin: 03/07/19 09:46 Dose: Not Given Documented by: Timolol Maleate (Timolol Maleate 0.5%) 1 drop OP DAILY [facility]; Protocol Stop: 08/25/19 15:31 Last Admin: 03/07/19 09:48 Dose: 1 drop Documented by: - Imaging and Cardiology Echo: report reviewed Cardiac cath: report reviewed - EKG Interpretation EKG results cardiology: personally reviewed Consult Discharge Plan - Plan Additional Instructions: Okay for patient to ambulate both inside and outside. Keep surgical sites dry for total of 5 days following surgery. Okay for patient to use stairs as tolerated. No driving. No lifting greater than 10 pounds. No manual labor. Use incentive spirometer at home 10 times an hour while awake and then after 2 weeks discard incentive spirometer. Referrals: Stefania Sue CNP [Primary Care Provider] - 03/11/19 1:00 pm
--- NOTE | 2019-03-07 12:34 | Discharge Summary ---
- NOTES TO OUTPATIENT PROVIDER Notes to Outpatient Provider: Admitted for NSTEMI, A.fib, and abdominal aortic aneurysm 9.0cm. -[facility] 02/23/19: s/p PCI with BMS to LCx; otherwise non- obstructive CAD. -TTE 02/24/19: LVEF 50%, no significant valvular dysfunction. -AAA repair, s/p endograft on 03/04/2019. -patient is to follow up with card iology assistant cook due to paroxysmal a fib. Continue on eliquis, Cardizem, metoprolol, Statin. Continue DAPT for 1 month then stop plavix. Orders not resulted at time of discharge: Pending orders 03/03/19 07:27 Red Blood Cells [BBK] Routine Type and Screen [BBK] Routine 03/04/19 16:01 ECG 12 lead ECG [ECG] Stat Date of Encounter: 03/07/19 Time of Encounter: 09:45 - Discharge Diagnosis (1) NSTEMI (non-ST elevated myocardial infarction) Priority: Primary Status: Resolved (2) COPD (chronic obstructive pulmonary disease) Priority: Secondary Status: Chronic Qualifiers: COPD type: emphysema Emphysema type: panlobular Qualified Code(s): J43.1 - Panlobular emphysema (3) Abdominal aortic aneurysm (AAA) Priority: Secondary Status: Acute Qualifiers: Presence of rupture: without rupture Qualified Code(s): I71.4 - Abdominal aortic aneurysm, without rupture (4) Afib Priority: Secondary Status: Chronic Qualifiers: Atrial fibrillation type: paroxysmal Qualified Code(s): I48.0 - Paroxysmal atrial fibrillation (5) Hypertension Priority: Secondary Status: Chronic Qualifiers: Hypertension type: essential hypertension Qualified Code(s): I10 - Essential (primary) hypertension (6) Anemia Priority: Secondary Status: Acute Qualifiers: Anemia type: other cause Other causes of anemia: acute posthemorrhagic Qualified Code(s): D62 - Acute posthemorrhagic anemia (7) Bleeding at insertion site Priority: Secondary Status: Resolved Hospital course: Mr. Galeano is a 73 year old male who has history of COPD, cataracts, right eye infection, hypertension, chronic smoking, chronic back pain presenting emergency room for chest pain. Patient stated that he has on and off chest pain for over 2 weeks. It happens after dinner, located epigastric area, pressure-like, 10 out of 10, initially lasts for few hours, over last 3 days it lasted for whole Night. Associated with nausea and shortness of breath, denies diaphoresis and palpation dizziness. Last night after dinner he started having chest pain, lasted all night until this this morning he presented to emergency room. In the emergency room he was found troponin 6.99, EKG showed nonspecific ST changes. He was started on heparin drip, chest pain improved to 2 out of 10. Patient was evaluated by cardiology whom took the patient for left heart catheterization on 02/23/19: s/p PCI with BMS to LCx; otherwise non-obstructive CAD. TTE 02/24/19: LVEF 50%, no significant valvular dysfunction. CTA abdomen/pelvis at time of C showed 9.0 cm infrarenal AAA. Vascular surgery took the patient to OR for endovascular repair of abdominal aortic aneurysm on 03/04/2019. After procedure patient required 2 units PRBC. Upon discharge the patient was alert and oriented times 3 and no acute distress. He denied chest pain, palpitations, shortness of breath, bleeding. Patient is to follow up with cardiology assistant cook due to paroxysmal a fib in one month. Continue on eliquis, cardizem, metoprolol, statin. Continue DAPT for 1 month then stop plavix. She is to follow up with vascular surgery. Patient is to follow up with primary care provider in one week. The patient was alongside his both stated clear understanding of the treatment plan. Discharge discussed with: patient, family, nurse - Time Spent with Patient Total time spent providing and/or coordinating discharge services: Time spent: Greater than 30 minutes - Discharge Medications Prescriptions: New Aspirin 81 mg PO DAILY #30 tab.chew Diltiazem CD (24hr) [Cardizem CD] 120 mg PO DAILY #30 cap.er.24h Apixaban [Eliquis] 5 mg PO BID #60 tablet Atorvastatin [Lipitor] 40 mg PO HS #30 tablet Metoprolol [Lopressor] 37.5 mg PO BID #60 tablet Clopidogrel [Plavix] 75 mg PO DAILY #30 tablet Continued Brinzolamide/Brimonidine Tart [Simbrinza 1%-0.2% Eye Drops] 1 drop OP BID Timolol Maleate 0.5% 1 drop OP DAILY Meloxicam 7.5 mg PO DAILY Budesonide/Formoterol 160/4.5 [Symbicort 160/4.5] 2 puff IH BID Albuterol Sulfate [Proair Hfa] 1 puff IH PRN PRN PRN Reason: Shortness Of Breath/Wheezing Discontinued Lisinopril-HCTZ 10-12.5 [Prinzide 10-12.5] 2 each PO DAILY Home Medications: Albuterol Sulfate [Proair Hfa] 1 puff IH PRN PRN 02/23/19 [History] Brinzolamide/Brimonidine Tart [Simbrinza 1%-0.2% Eye Drops] 1 drop OP BID 02/23/19 [History] Budesonide/Formoterol 160/4.5 [Symbicort 160/4.5] 2 puff IH BID 02/23/19 [History] Meloxicam 7.5 mg PO DAILY 02/23/19 [History] Timolol Maleate 0.5% 1 drop OP DAILY 02/23/19 [History] Apixaban [Eliquis] 5 mg PO BID #60 tablet 03/07/19 [Rx] Aspirin 81 mg PO DAILY #30 tab.chew 03/07/19 [Rx] Atorvastatin [Lipitor] 40 mg PO HS #30 tablet 03/07/19 [Rx] Clopidogrel [Plavix] 75 mg PO DAILY #30 tablet 03/07/19 [Rx] Diltiazem CD (24hr) [Cardizem CD] 120 mg PO DAILY #30 cap.er.24h 03/07/19 [Rx] Metoprolol [Lopressor] 37.5 mg PO BID #60 tablet 03/07/19 [Rx] Allergies/Adverse Reactions: Allergy/AdvReac Type Severity Reaction Status Date / Time No Known Allergies Allergy Verified 02/24/19 12:41 Date of admission: 02/24/19 09:33 Primary care physician: Stefania Sue CNP Consults: 02/23/19 12:42 Consult to Cardiology [CONS] Stat Comment: Consulting Provider: Cardiology Jenifer Reason for Consult: chest pain, elevated trop Call Completed: Yes 02/23/19 17:25 Consult to Cardiac Rehabilitation-Phase1 [CONS] Routine Comment: Reason for Consult: post op PCI Call Completed: Yes 02/23/19 17:28 Consult to Vascular Surgery [CONS] Routine Consulting Provider: Vascular Surgery Jenifer Reason for Consult: AAA Call Completed: Yes 02/24/19 18:35 Consult to Cardiology [CONS] Routine Comment: Consulting Provider: Cardiology Jenifer Reason for Consult: atrial fib with RVR, pre-op AAA Call Completed: Yes 03/06/19 15:11 Consult to Cardiology [CONS] Routine Comment: Consulting Provider: Cardiology Jenifer Reason for Consult: Pt with persistent rapid a fib/ flutter with brief periods of sinus around 60. ? tachy/luisana Time Notified: 15:00 Call Completed: Yes Discharging clinician: Adan Wakefield Anticipated date of discharge: 03/07/19 - Constitutional Vitals: Temp Pulse Resp BP Pulse Ox 98.4 F 69 18 99/55 97 03/07/19 12:20 03/07/19 12:20 03/07/19 12:20 03/07/19 12:20 03/07/19 12:20 General appearance: Present: A&O X 3, pleasant Exam: Gen.: Vitals noted. No acute distress. AAOx3 HEENT: oropharynx clear, Normocephalic, atraumatic Cardiac: tachycardic, no murmur, +S1/S2 Pulmonary: CTA bilaterally, no wheezes, rales or rhonchi, equal chest expansion Abdomen: soft, nontender, Bowel sounds noted, no guarding MSK: no joint swelling noted Extremities: no BLE edema, nontender calf, no cyanosis or clubbing Neuro: A&Ox3, moves all extremities, no focal deficits Psych: Appropriate mood and behavior - Patient Status Disposition: Home, Self-Care Condition: Good Functional capacity at discharge: independent ambulation Overall status at discharge: patient is back to baseline - Ambulatory Orders Ambulatory Orders: Hemoglobin and Hematocrit [HEME] Time Frame: 2 Days, Facility: [facility], Location: Lab - Discharge Instructions Follow Up With: Jag Santillan MD [Partnered Physician] - Stefania Sue CNP [Primary Care Provider] - 03/11/19 1:00 pm Terence Toth MD [Partnered Physician] - Additional Instructions: Okay for patient to ambulate both inside and outside. Keep surgical sites dry for total of 5 days following surgery. Okay for patient to use stairs as tolerated. No driving. No lifting greater than 10 pounds. No manual labor. Use incentive spirometer at home 10 times an hour while awake and then after 2 weeks discard incentive spirometer. -follow up with her primary care provider in one week -Continue taking eliquis, simvastatin, metoprolol, Cardizem, atorvastatin -Continue taking aspirin and Plavix together for 1 month, and then after that only take aspirin -Follow-up with the cardiology assistant cook in one month. -Follow-up with the vascular surgeon -Go to lab to have your hemoglobin rechecked in 2 days -Return hospital should you develop chest pain, shortness of breath, palpitations - Diet and Activity Activity: resume usual activities as tolerated Diet: low salt diet
[2019-03-07] MEDS ORDERED: 0.9 % Sodium Chloride 250 ML ONE (13:01)
[2019-03-07 15:37] VITALS: BP 112/82
--- NOTE | 2019-03-07 15:44 | Electrocardiograph Report ---
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
[2019-03-07] MEDS ORDERED: Budesonide/Formoterol 160/4.5 1 PUFF INH IH SCH (22:00)
== END 2019-03-07 16:51 | disposition home or self-care (01) | DRG 269 ==
LOC: EMEROOARM 09:45 → 2ANU 09:45 → SUATTDRO 14:08 → 2ANU 15:28 → ICNU 18:02 → SUATTDRO 02-24 09:33 → 2NENU 03-01 17:29 → 2NNU 03-03 19:26
PROVIDERS: ADMIT Internal Medicine Nephrology; ATTEND Internal Medicine

== ENCOUNTER 2019-03-28 12:18 | Inpatient (IN) ==
--- NOTE | 2019-03-28 12:46 | Emergency Department Note ---
Disposition Clinical Impression: Acute blood loss anemia GI bleed Qualifiers: GI bleed type/associated pathology: melena Qualified Code(s): K92.1 - Melena Disposition: Admitted As Inpatient Condition: Serious Time of Disposition: 16:00 Arrhythmia/Palpitations HPI - General Chief Complaint: ED Arrhythmia/Palpitations Stated Complaint: "high HR" Time Seen by Provider: 03/28/19 12:25 Source: patient, family Limitations: other Nursing Notes Reviewed: Yes Vital Signs Reviewed: Yes - History of Present Illness HPI Narrative: Mr. Galeano is a 73 yo man who was sent to the ED from his medical affairs specialist's office in [place] when an EKG there showed a HR of 128. He has no CP or SOB. He denies other symptoms such as syncope, diaphoresis, weakness, JENNINGS, confusion, numbness, abdominal pain, fever, anorexia. He has also noted dark stools that were recently screened for blood "a few days ago" with a negative result. He said he has been told he's anemic. He is not taking iron supplements. PMH significant for afib, NSTEMI (02/23), AAA s/p surgical repair (02/23), Home meds include clopidogrel, aspirin, metoprolol, atorvastatin, diltiazem, a pixaban. Social history significant for smoking 1-2 ppd intermittently for years. - Related Data Home Medications Medication Instructions Recorded Confirmed Albuterol Sulfate [Proair Hfa] 1 puff IH PRN PRN 02/23/19 02/24/19 Brinzolamide/Brimonidine Tart 1 drop OP BID 02/23/19 03/28/19 [Simbrinza 1%-0.2% Eye Drops] Budesonide/Formoterol 160/4.5 2 puff IH BID 02/23/19 03/28/19 [Symbicort 160/4.5] Timolol Maleate 0.5% 1 drop OP DAILY 02/23/19 03/28/19 Vitamin C 1,000 mg PO DAILY 03/28/19 03/28/19 Vitamin D3 1 cap PO DAILY 03/28/19 03/28/19 Previous Rx's Medication Instructions Recorded Apixaban [Eliquis] 5 mg PO BID #60 tablet 03/07/19 Aspirin 81 mg PO DAILY #30 tab.chew 03/07/19 Atorvastatin [Lipitor] 40 mg PO HS #30 tablet 03/07/19 Clopidogrel [Plavix] 75 mg PO DAILY #30 tablet 03/07/19 Diltiazem CD (24hr) [Cardizem CD] 120 mg PO DAILY #30 cap.er.24h 03/07/19 Metoprolol [Lopressor] 37.5 mg PO BID #60 tablet 03/07/19 Allergies Allergy/AdvReac Type Severity Reaction Status Date / Time No Known Allergies Allergy Verified 02/24/19 12:41 All systems ED: reviewed and negative except as stated. ENT ED: Reports: hearing loss (Chronic) Cardiovascular: Reports: dyspnea on exertion, edema Gastrointestinal: Reports: other (Dark stools) Past Medical History - Past Medical History Source: patient, old records reviewed, obtained from family, nursing notes reviewed Medical history: Reports: aortic aneurysm, atrial fibrillation, COPD, hyperlipidemia, hypertension, myocardial infarction, other Surgical history: Reports: other Psychiatric history: Reports: no psych history - Social History Smoking Status: Former smoker (Has not smoked since 02/23/19) Smokeless Tobacco Status: No Alcohol use: Reports: none Drug use: Reports: none Physical Exam PE Gen: No apparent distress, AOX3, responsive ENT: Hearing loss bilaterally (chronic). Pupils equal. Card: Regular rate, tachycardia, no murmur on auscultation. Extremities well- perfused w/o cyanosis or clubbing. +1 edema in bilateral LE. Resp: All lung goss clear to auscultation. No cough, no crackles, no wheezes. GI: Abdomen soft, non-tender, non-distended. No bruit on auscultation. Rectal exam had normal tone, dark oily stool nearly liquid in consistency. No obvious lesions, erythema or hemorrhoids. : No suprapubic tenderness on palpation. MSK: Surgical sites clean, dry, no erythema or exudate. Neuro: CNI-XII intact, no obvious deficits or weakness. Psych: Appropriate affect, responsive - General Limitations: other General appearance: alert, in no apparent distress Course Course Narrative: Given patient's cardiac history, EKG repeated - no acute changes compared to EKG on 03/04/19. VS stable with intermittent tachycardia up to 120s. BMP, CBC and troponin ordered for further evaluation of tachycardia as well as reported anemia. - Reevaluation(s) Reevaluation #1: Patient's BP dropped slightly and initial CBC showed change in Hgb from 10 to 6 compared to last test. Consent obtained for blood transfusion, type & cross ordered, stool occult blood specimen sent to lab for analysis. Patient given IVF bolus, waiting for CT abd/pelvis w/ IV contrast to evaluated for source of blood loss. Time: 14:10 Reevaluation #2: Plan to admit discussed with patient and , who agreed. Stool occult blood positive. CT did not identify source. Cardiology consulted, agreed with CT report that source was not AAA repairs. General surgery consulted for possible endoscopy. BP improved, tachycardia resolved. Patient still comfortable and has no symptoms. Time: 15:30 Vital Signs Temperature 97.4 F L 03/28/19 12:26 Pulse Rate 117 03/28/19 12:26 Respiratory Rate 18 03/28/19 12:26 Blood Pressure 93/66 03/28/19 12:26 O2 Sat by Pulse Oximetry 100 03/28/19 12:26 Temperature 97.6 F 03/28/19 17:47 Pulse Rate 82 03/28/19 17:47 Respiratory Rate 16 03/28/19 17:47 Blood Pressure 128/60 03/28/19 17:47 O2 Sat by Pulse Oximetry 100 03/28/19 17:47 Oxygen Delivery Oxygen Delivery Room Air Arrhythmia/Palpitations - Lab Data Lab results reviewed: Yes I reviewed the patient's lab results. Result diagrams: 03/28/19 14:49 03/28/19 12:52 Lab Results 03/28/19 03/28/19 03/28/19 Range/Units 12:52 12:52 14:12 WBC (4.3-11.1) K/mcL RBC (4.19-5.50) M/mcL Hgb (12.9-16.9) g/dL Hct (37.5-50.1) % MCV (83.0-100.0) fL MCH (28.0-33.3) pg MCHC (31.6-35.5) g/dL RDW (11.5-14.5) % Plt Count (140-400) K/mcL MPV (9.4-12.4) fL Immature Gran % (0-4) % Seg Neutrophils % % Lymphocytes % % Monocytes % % Eosinophils % % Basophils % % Neutrophils # (1.6-8.9) K/mcL Lymphocytes # (0.6-4.6) K/mcL Monocytes # (0.0-1.3) K/mcL Eosinophils # (0.0-0.6) K/mcL Basophils # (0.0-0.2) K/mcL Nucleated RBCs/100 WBC (0) /100 WBC PT (9.4-12.1) Seconds INR APTT (26.0-36.0) Seconds Sodium 136 (136-145) mEq/L Potassium 3.8 (3.5-5.1) mEq/L Chloride 106 (98-107) mEq/L Carbon Dioxide 25 (23-29) mEq/L BUN 20 (8-23) mg/dL Creatinine 0.80 (0.70-1.30) mg/dL Est GFR ( Amer) > 60 (> 60) Est GFR (Non-Af Amer) > 60 (> 60) BUN/Creatinine Ratio 25 (6-26) Glucose 108 H (70-105) mg/dL Calculated Osmolality 285 (280-300) Calcium 8.8 (8.6-10.3) mg/dL Troponin I < 0.03 (< 0.04) ng/mL Stool Occult Bld Scrn Positive A (Negative) Specimen Rejected Miscellaneous Blood Type Antibody Screen Crossmatch 03/28/19 03/28/19 03/28/19 Range/Units 14:49 14:49 14:49 WBC 12.2 H (4.3-11.1) K/mcL RBC 2.09 L (4.19-5.50) M/mcL Hgb 6.2 L D (12.9-16.9) g/dL Hct 20.9 L (37.5-50.1) % MCV 100.0 (83.0-100.0) fL MCH 29.7 (28.0-33.3) pg MCHC 29.7 L (31.6-35.5) g/dL RDW 16.2 H (11.5-14.5) % Plt Count 259 (140-400) K/mcL MPV 9.7 (9.4-12.4) fL Immature Gran % 0.7 (0-4) % Seg Neutrophils % 74.4 % Lymphocytes % 15.3 % Monocytes % 6.5 % Eosinophils % 2.9 % Basophils % 0.2 % Neutrophils # 9.1 H (1.6-8.9) K/mcL Lymphocytes # 1.9 (0.6-4.6) K/mcL Monocytes # 0.8 (0.0-1.3) K/mcL Eosinophils # 0.4 (0.0-0.6) K/mcL Basophils # 0.0 (0.0-0.2) K/mcL Nucleated RBCs/100 WBC 0.3 H (0) /100 WBC PT 17.2 H (9.4-12.1) Seconds INR 1.5 APTT 34.5 (26.0-36.0) Seconds Sodium (136-145) mEq/L Potassium (3.5-5.1) mEq/L Chloride (98-107) mEq/L Carbon Dioxide (23-29) mEq/L BUN (8-23) mg/dL Creatinine (0.70-1.30) mg/dL Est GFR ( Amer) (> 60) Est GFR (Non-Af Amer) (> 60) BUN/Creatinine Ratio (6-26) Glucose (70-105) mg/dL Calculated Osmolality (280-300) Calcium (8.6-10.3) mg/dL Troponin I (< 0.04) ng/mL Stool Occult Bld Scrn (Negative) Specimen Rejected Blood Type O NEGATIVE Antibody Screen NEGATIVE Crossmatch See Detail - Radiology Data Radiology results reviewed: Yes I reviewed the patient's radiology results. Abdomen/Pelvis CT 03/28/19 13:34 IMPRESSION: 1. Interval endovascular repair of AAA. Stable caliber of the aorta following surgery. No evidence of retroperitoneal hemorrhage given history of decreasing hemoglobin. 2. Endoleak can not be evaluated. Dedicated CTA may be considered if there is additional concern. 3. Diverticulosis and renal cysts are incidentally noted. D/ / Ashu Rosa MD / Ashu Rosa MD Interpreting Provider: Ashu Rosa MD - EKG Data EKG attestation: Yes I reviewed and interpreted this EKG. Rate: tachycardia Rhythm: A.Fib Interpretation: no acute changes
[2019-03-28] MEDS ORDERED: 0.9 % Sodium Chloride 1,000 ML IVC ONE (13:22)
[2019-03-28] MEDS ORDERED: 0.9 % Sodium Chloride 1,000 ML ONE (13:23)
[2019-03-28] MEDS ORDERED: Isovue-370 500 ML BOTTLE IVP ONE (13:34)
--- NOTE | 2019-03-28 13:40 | Emergency Department Note ---
Disposition Clinical Impression: Acute blood loss anemia GI bleed Qualifiers: GI bleed type/associated pathology: melena Qualified Code(s): K92.1 - Melena Disposition: Admitted As Inpatient Condition: Serious Referrals: Stefania Sue CNP [Primary Care Provider] - Forms: ED Satisfaction Letter Time of Disposition: 16:32 General Adult HPI - General Chief complaint: ED Arrhythmia/Palpitations Stated complaint: "high HR" Time Seen by Provider: 03/28/19 12:25 Source: patient, family Limitations: other Nursing Notes Reviewed: Yes Vital Signs Reviewed: Yes - History of Present Illness Pain Scale: 0 - Related Data Home Medications Medication Instructions Recorded Confirmed Albuterol Sulfate [Proair Hfa] 1 puff IH PRN PRN 02/23/19 02/24/19 Brinzolamide/Brimonidine Tart 1 drop OP BID 02/23/19 02/24/19 [Simbrinza 1%-0.2% Eye Drops] Budesonide/Formoterol 160/4.5 2 puff IH BID 02/23/19 02/24/19 [Symbicort 160/4.5] Timolol Maleate 0.5% 1 drop OP DAILY 02/23/19 02/24/19 Vitamin C 1,000 mg PO DAILY 03/28/19 03/28/19 Vitamin D3 1 cap PO DAILY 03/28/19 03/28/19 Previous Rx's Medication Instructions Recorded Apixaban [Eliquis] 5 mg PO BID #60 tablet 03/07/19 Aspirin 81 mg PO DAILY #30 tab.chew 03/07/19 Atorvastatin [Lipitor] 40 mg PO HS #30 tablet 03/07/19 Clopidogrel [Plavix] 75 mg PO DAILY #30 tablet 03/07/19 Diltiazem CD (24hr) [Cardizem CD] 120 mg PO DAILY #30 cap.er.24h 03/07/19 Metoprolol [Lopressor] 37.5 mg PO BID #60 tablet 03/07/19 Allergies Allergy/AdvReac Type Severity Reaction Status Date / Time No Known Allergies Allergy Verified 02/24/19 12:41 ENT ED: Reports: hearing loss (Chronic) Cardiovascular: Reports: dyspnea on exertion, edema Gastrointestinal: Reports: other (Dark stools) Past Medical History - Past Medical History Medical history: Reports: aortic aneurysm, atrial fibrillation, COPD, hyperlipidemia, hypertension, myocardial infarction, other Surgical history: Reports: other Psychiatric history: Reports: no psych history - Social History Smoking Status: Former smoker (Has not smoked since 02/23/19) Smokeless Tobacco Status: No Alcohol use: Reports: none Drug use: Reports: none Physical Exam - General Limitations: other General appearance: alert, in no apparent distress Course Vital Signs Temperature 97.4 F L 03/28/19 12:26 Pulse Rate 117 03/28/19 12:26 Respiratory Rate 18 03/28/19 12:26 Blood Pressure 93/66 03/28/19 12:26 O2 Sat by Pulse Oximetry 100 03/28/19 12:26 Temperature 98.1 F 03/28/19 16:20 Pulse Rate 79 03/28/19 16:20 Respiratory Rate 22 03/28/19 16:20 Blood Pressure 86/7 03/28/19 16:20 O2 Sat by Pulse Oximetry 100 03/28/19 16:20 Oxygen Delivery Oxygen Delivery Room Air Medical Decision Making - Lab Data Result diagrams: 03/28/19 14:49 03/28/19 12:52 Lab Results 03/28/19 03/28/19 03/28/19 Range/Units 12:52 12:52 14:12 WBC (4.3-11.1) K/mcL RBC (4.19-5.50) M/mcL Hgb (12.9-16.9) g/dL Hct (37.5-50.1) % MCV (83.0-100.0) fL MCH (28.0-33.3) pg MCHC (31.6-35.5) g/dL RDW (11.5-14.5) % Plt Count (140-400) K/mcL MPV (9.4-12.4) fL Immature Gran % (0-4) % Seg Neutrophils % % Lymphocytes % % Monocytes % % Eosinophils % % Basophils % % Neutrophils # (1.6-8.9) K/mcL Lymphocytes # (0.6-4.6) K/mcL Monocytes # (0.0-1.3) K/mcL Eosinophils # (0.0-0.6) K/mcL Basophils # (0.0-0.2) K/mcL Nucleated RBCs/100 WBC (0) /100 WBC PT (9.4-12.1) Seconds INR APTT (26.0-36.0) Seconds Sodium 136 (136-145) mEq/L Potassium 3.8 (3.5-5.1) mEq/L Chloride 106 (98-107) mEq/L Carbon Dioxide 25 (23-29) mEq/L BUN 20 (8-23) mg/dL Creatinine 0.80 (0.70-1.30) mg/dL Est GFR ( Amer) > 60 (> 60) Est GFR (Non-Af Amer) > 60 (> 60) BUN/Creatinine Ratio 25 (6-26) Glucose 108 H (70-105) mg/dL Calculated Osmolality 285 (280-300) Calcium 8.8 (8.6-10.3) mg/dL Troponin I < 0.03 (< 0.04) ng/mL Stool Occult Bld Scrn Positive A (Negative) Specimen Rejected Miscellaneous Blood Type Antibody Screen Crossmatch 03/28/19 03/28/19 03/28/19 Range/Units 14:49 14:49 14:49 WBC 12.2 H (4.3-11.1) K/mcL RBC 2.09 L (4.19-5.50) M/mcL Hgb 6.2 L D (12.9-16.9) g/dL Hct 20.9 L (37.5-50.1) % MCV 100.0 (83.0-100.0) fL MCH 29.7 (28.0-33.3) pg MCHC 29.7 L (31.6-35.5) g/dL RDW 16.2 H (11.5-14.5) % Plt Count 259 (140-400) K/mcL MPV 9.7 (9.4-12.4) fL Immature Gran % 0.7 (0-4) % Seg Neutrophils % 74.4 % Lymphocytes % 15.3 % Monocytes % 6.5 % Eosinophils % 2.9 % Basophils % 0.2 % Neutrophils # 9.1 H (1.6-8.9) K/mcL Lymphocytes # 1.9 (0.6-4.6) K/mcL Monocytes # 0.8 (0.0-1.3) K/mcL Eosinophils # 0.4 (0.0-0.6) K/mcL Basophils # 0.0 (0.0-0.2) K/mcL Nucleated RBCs/100 WBC 0.3 H (0) /100 WBC PT 17.2 H (9.4-12.1) Seconds INR 1.5 APTT 34.5 (26.0-36.0) Seconds Sodium (136-145) mEq/L Potassium (3.5-5.1) mEq/L Chloride (98-107) mEq/L Carbon Dioxide (23-29) mEq/L BUN (8-23) mg/dL Creatinine (0.70-1.30) mg/dL Est GFR ( Amer) (> 60) Est GFR (Non-Af Amer) (> 60) BUN/Creatinine Ratio (6-26) Glucose (70-105) mg/dL Calculated Osmolality (280-300) Calcium (8.6-10.3) mg/dL Troponin I (< 0.04) ng/mL Stool Occult Bld Scrn (Negative) Specimen Rejected Blood Type O NEGATIVE Antibody Screen NEGATIVE Crossmatch See Detail Critical Care Time Critical Care Time: Yes Total Critical Care Time: 45 Attestation: Critical care performed: Time is exclusive of separately billable procedures. Time includes: direct patient care, patient reassessment, coordination of patient care, interpretation of data (laboratory data, radiology data, and respiratory data), review of patient's medical records, medical consultation and documentation of patient care. Procedures included in critical care time: Procedures excluded from critical care time: Attestation Statement - Attestation Attestation: I examined this patient and my medical decision-making was reviewed with the Resident Physician. I agree with the documented findings, disposition and treatment plan as described except to the extent set forth below. 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 His heart rate was in the 120s and atrial fibrillation. He has a history of paroxysmal A. fib. He was sent in for eval. Patient denies feeling anything but generalized weakness. On exam he is sleeping but easily arousable. Awake alert oriented and appropriate. Soft abdomen. Lungs clear. Heart irregular. Heart rate in the 90s on my eval. Plan. Patient is hypertensive. He has had a downtrending hemoglobin. We will CT his abdomen and pelvis to evaluate his stent. Cardiac workup. Stool Hemoccult. Likely admission. Rate is controlled at this time. Getting an IV fluid bolus. Patient with low hemoglobin of 6. We will type and cross. Imaging his graft for any leak, but he is not having any pain in this area. EKG reviewed with the resident. Starting transfusion. Case was discussed with we are in agreement we do not believe this is any type of endovascular leak. Paging hospitalist. Hospitalist accepts. Calling surgery for consultation.
[2019-03-28 13:45] LABS: BUN/Creatinine Ratio 25 (6-26); Blood Urea Nitrogen 20 mg/dL (8-23); Calcium 8.8 mg/dL (8.6-10.3); Carbon Dioxide 25 mEq/L (23-29); Chloride 106 mEq/L (98-107); Glucose 108 mg/dL (70-105); Osmolality,Calculated 285 (280-300); Potassium 3.8 mEq/L (3.5-5.1); Sodium 136 mEq/L (136-145); Troponin I < 0.03 ng/mL (< 0.04); eGFR For African Americans > 60 (> 60); eGFR For Non-African Americans > 60 (> 60)
[2019-03-28] MEDS ORDERED: Pantoprazole 40 MG VIAL IVP ONE (14:39)
[2019-03-28 15:06] LABS: Basophils % 0.2 %; Eosinophils # 0.4 K/mcL (0.0-0.6); Eosinophils % 2.9 %; Hematocrit 20.9 % (37.5-50.1); Immature Granulocytes % 0.7 % (0-4); Lymphocytes # 1.9 K/mcL (0.6-4.6); Lymphocytes % 15.3 %; Mean Corpuscular HGB Conc 29.7 g/dL (31.6-35.5); Mean Corpuscular Hemoglobin 29.7 pg (28.0-33.3); Mean Platelet Volume 9.7 fL (9.4-12.4); Monocytes # 0.8 K/mcL (0.0-1.3); Monocytes % 6.5 %; Neutrophils # 9.1 K/mcL (1.6-8.9); Nucleated Red Blood Cells 0.3 /100 WBC (0); Platelet Count 259 K/mcL (140-400); Red Blood Count 2.09 M/mcL (4.19-5.50); Red Cell Distribution Width 16.2 % (11.5-14.5); Segmented Neutrophils % 74.4 %; White Blood Count 12.2 K/mcL (4.3-11.1)
[2019-03-28 15:07] LABS: Hemoglobin 6.2 g/dL (12.9-16.9)
[2019-03-28] MEDS ORDERED: 0.9 % Sodium Chloride 500 ML ONE ×3 (15:47→20:16)
[2019-03-28 16:19] LABS: INR 1.5; Prothrombin Time 17.2 Seconds (9.4-12.1)
[2019-03-28 16:21] LABS: Activated Partial Thrombo Time 34.5 Seconds (26.0-36.0)
[2019-03-28] MEDS ORDERED: Ondansetron 4 MG/2 ML VIAL IVP PRN (18:06)
[2019-03-28] MEDS ORDERED: Naloxone 0.4 MG/ML INJ IVP PRN (18:06)
--- NOTE | 2019-03-28 18:28 | AcuteCare Surgery Consult Note ---
Date of Encounter: 03/28/19 Time of Encounter: 18:20 Assessment and Plan (1) Acute blood loss anemia Current Visit: Yes Status: Acute Recommend upper endoscopy to evaluate for GI bleeding. Procedure, risk and benefits of upper endoscopy are discussed. Pt understands risks and possible complications. Possible complications include but, are not limited to bleeding, infection or perforation. Pt understands and wishes to proceed as recommended. Consent is obtained. Inpatient upper endoscopy is scheduled. Recommend colonoscopy also to evaluate for GI bleeding. Indications for colonoscopy are discussed in detail. Procedure, risk and benefits of colonscopy are discussed. Pt understands risks and possible complications. Possible complications include but, are not limited to bleeding, infection or perforation. Pt understands and wishes to proceed as recommended. Consent is obtained. Inpatient colonoscopy is scheduled. Prep today and scope tomorrow. Hold Eliquis, ASA and Plavix until GI bleeding ruled out. (2) Melena Current Visit: Yes Status: Acute see above (3) S/P AAA repair Current Visit: Yes Status: Acute History of Present Illness Consult date: 03/28/19 Reason for consult: other (anemia and heme+ stool) Requesting physician: Dang English History of present illness: This 73 y/o male presents to [facility] ED from cardiology office. Pt was found have a HR of 128 and has a hx of a fib with RVR. While in the ED he is found to have a low BP of 85/67 and guaiac positive stool. He denies nausea, vomiting or hematemesis. He denies hematochezia but, does reports dark stools. He is recently post op AAA repair. He has a hx of nonSTEMI. He is on Eliquis, ASA and Plavix. He denies abdominal pain. He denies CP or SOB. Denies lightheadedness or dizziness. Denies fevers. Past Med Surg Social Fam HX - Past Medical History Medical history: aortic aneurysm, atrial fibrillation, COPD, hyperlipidemia, hypertension, myocardial infarction, other Additional medical history: AAA Psychiatric history: no psych history - Past Surgical History Surgical History: other Additional surgical history: AAA repair - Social History Smoking Status: Former smoker Smokeless Tobacco Status: No Alcohol use: none Drug use: none - Family History Mother Living Status: Hx Family Cardiac Disorders: Yes (Hypertension) Father Living Status: Medications and Allergies Albuterol Sulfate [Proair Hfa] 1 puff IH PRN PRN 02/23/19 [History] Brinzolamide/Brimonidine Tart [Simbrinza 1%-0.2% Eye Drops] 1 drop OP BID 02/23/19 [History] Budesonide/Formoterol 160/4.5 [Symbicort 160/4.5] 2 puff IH BID 02/23/19 [History] Timolol Maleate 0.5% 1 drop OP DAILY 02/23/19 [History] Apixaban [Eliquis] 5 mg PO BID #60 tablet 03/07/19 [Rx] Aspirin 81 mg PO DAILY #30 tab.chew 03/07/19 [Rx] Atorvastatin [Lipitor] 40 mg PO HS #30 tablet 03/07/19 [Rx] Clopidogrel [Plavix] 75 mg PO DAILY #30 tablet 03/07/19 [Rx] Diltiazem CD (24hr) [Cardizem CD] 120 mg PO DAILY #30 cap.er.24h 03/07/19 [Rx] Metoprolol [Lopressor] 37.5 mg PO BID #60 tablet 03/07/19 [Rx] Vitamin C 1,000 mg PO DAILY 03/28/19 [History] Vitamin D3 1 cap PO DAILY 03/28/19 [History] Allergy/AdvReac Type Severity Reaction Status Date / Time No Known Allergies Allergy Verified 02/24/19 12:41 Review of Systems All systems PM: The remainder of the systems were reviewed and are negative - Constitutional no anorexia, no chills, no fatigue, no headache(s), no night sweats, no weakness - EENT Nose, mouth and throat: no dizziness, no dysphagia, no nasal congestion, no nasal discharge, no sinus pain, no sinus pressure, no sore throat - Cardiovascular no chest pain, no diaphoresis, no dyspnea, no edema - Respiratory no cough, no dyspnea, no wheezing - Gastrointestinal melena, no abdominal pain, no belching, no bloating, no constipation, no diarrhea, no hematemesis, no hematochezia, no nausea, no vomiting - Genitourinary no dysuria, no flank pain, no urinary frequency - Musculoskeletal back pain, no joint swelling, no limited range of motion, no neck pain - Integumentary no dry skin, no pruritus, no rash, no wounds, no jaundice - Psychiatric no anxiety, no depression - Hematologic/Lymphatic no easy bleeding, no easy bruising General Surgery Exam Initial Vital Signs Temp Pulse Resp BP Pulse Ox 97.4 F L 117 18 93/66 100 03/28/19 12:26 03/28/19 12:03/28/19 12:03/28/19 12:03/28/19 12:26 - General physical appearance well developed, well nourished, no distress, no pain. negative: jaundice - Eyes PERRL, normal ocular movement. negative: icteric - ENT normal mucosa, no congestion. negative: nasal discharge - Neck no masses, trachea midline, no lymphadectomy, no venous distension - Respiratory normal respiratory effort, clear to auscultation - Cardiovascular Cardiovascular exam: Present: RRR. Absent: JVD - Abdomen Abdomen general surgery: Present: bowel sounds present, soft, non tender. Absent: distended, guarding, rebound - Genitourinary Present: normal penis with no external lesions - Rectum Rectum: Present: other (heme+ stool in ED) - Integumentary Integumentary general surgery: Present: warm and dry - Neurologic Present: CN 2-12 grossly intact, normal coordination - Musculoskeletal Present: normal posture - Psychiatric Psychiatric general surgery: Present: A&Ox3, appropriate Exam Initial Vital Signs Temp Pulse Resp BP Pulse Ox 97.4 F L 117 18 93/66 100 03/28/19 12:26 03/28/19 12:26 03/28/19 12:26 03/28/19 12:03/28/19 12:26 Results - Labs 03/28/19 19:15 03/28/19 12:52 Abnormal lab results WBC 12.2 K/mcL (4.3-11.1) H 03/28/19 14:49 RBC 2.09 M/mcL (4.19-5.50) L 03/28/19 14:49 Hgb 6.2 g/dL (12.9-16.9) L D 03/28/19 14:49 Hct 20.9 % (37.5-50.1) L 03/28/19 14:49 MCHC 29.7 g/dL (31.6-35.5) L 03/28/19 14:49 RDW 16.2 % (11.5-14.5) H 03/28/19 14:49 Neutrophils # 9.1 K/mcL (1.6-8.9) H 03/28/19 14:49 Nucleated RBCs/100 WBC 0.3 /100 WBC (0) H 03/28/19 14:49 PT 17.2 Seconds (9.4-12.1) H 03/28/19 14:49 Glucose 108 mg/dL (70-105) H 03/28/19 12:52 Stool Occult Bld Scrn Positive (Negative) A 03/28/19 14:12 Crossmatch See Detail 03/28/19 14:49 Diabetes panel 03/28/19 Range/Units 12:52 Sodium 136 (136-145) mEq/L Potassium 3.8 (3.5-5.1) mEq/L Chloride 106 (98-107) mEq/L Carbon Dioxide 25 (23-29) mEq/L BUN 20 (8-23) mg/dL Creatinine 0.80 (0.70-1.30) mg/dL Glucose 108 H (70-105) mg/dL Calcium 8.8 (8.6-10.3) mg/dL Calcium panel 03/28/19 Range/Units 12:52 Calcium 8.8 (8.6-10.3) mg/dL Pituitary panel 03/28/19 Range/Units 12:52 Sodium 136 (136-145) mEq/L Potassium 3.8 (3.5-5.1) mEq/L Chloride 106 (98-107) mEq/L Carbon Dioxide 25 (23-29) mEq/L BUN 20 (8-23) mg/dL Creatinine 0.80 (0.70-1.30) mg/dL Glucose 108 H (70-105) mg/dL Calcium 8.8 (8.6-10.3) mg/dL Adrenal panel 03/28/19 Range/Units 12:52 Sodium 136 (136-145) mEq/L Potassium 3.8 (3.5-5.1) mEq/L Chloride 106 (98-107) mEq/L Carbon Dioxide 25 (23-29) mEq/L BUN 20 (8-23) mg/dL Creatinine 0.80 (0.70-1.30) mg/dL Glucose 108 H (70-105) mg/dL Calcium 8.8 (8.6-10.3) mg/dL All other labs normal. - Imaging CT scan - abdomen: image reviewed ( Interval endovascular repair of AAA. Stable caliber of the aorta following surgery and diverticulosis) CT scan - pelvis: image reviewed Consult Discharge Plan - Plan Referrals: Stefania Sue CNP [Primary Care Provider] -
--- NOTE | 2019-03-28 18:43 | Internal Med History&Physical ---
<Adan Wakefield Eros - Last Filed: 03/28/19 18:46> Date of Encounter: 03/28/19 Internal Medicine - H&P: HPI History of present illness: Mr. Galeano is a 73 year old male Internal Medicine - H&P: Meds Albuterol Sulfate [Proair Hfa] 1 puff IH PRN PRN 02/23/19 [History] Brinzolamide/Brimonidine Tart [Simbrinza 1%-0.2% Eye Drops] 1 drop OP BID 02/23/19 [History] Budesonide/Formoterol 160/4.5 [Symbicort 160/4.5] 2 puff IH BID 02/23/19 [History] Timolol Maleate 0.5% 1 drop OP DAILY 02/23/19 [History] Apixaban [Eliquis] 5 mg PO BID #60 tablet 03/07/19 [Rx] Aspirin 81 mg PO DAILY #30 tab.chew 03/07/19 [Rx] Atorvastatin [Lipitor] 40 mg PO HS #30 tablet 03/07/19 [Rx] Clopidogrel [Plavix] 75 mg PO DAILY #30 tablet 03/07/19 [Rx] Diltiazem CD (24hr) [Cardizem CD] 120 mg PO DAILY #30 cap.er.24h 03/07/19 [Rx] Metoprolol [Lopressor] 37.5 mg PO BID #60 tablet 03/07/19 [Rx] Vitamin C 1,000 mg PO DAILY 03/28/19 [History] Vitamin D3 1 cap PO DAILY 03/28/19 [History] Allergy/AdvReac Type Severity Reaction Status Date / Time No Known Allergies Allergy Verified 02/24/19 12:41 All Systems PM: A 10-system review of systems was performed and is negative for pertinent findings except as documented above in the HPI. - Constitutional Vitals: Temp Pulse Resp BP Pulse Ox 97.6 F 82 16 128/60 100 03/28/19 17:47 03/28/19 17:47 03/28/19 17:47 03/28/19 17:47 03/28/19 17:47 Internal Med - H&P Results - Labs CBC & Chem 7: 03/28/19 14:49 03/28/19 12:52 Labs: Short CBC 03/28/19 Range/Units 14:49 WBC 12.2 H (4.3-11.1) K/mcL Hgb 6.2 L D (12.9-16.9) g/dL Hct 20.9 L (37.5-50.1) % Plt Count 259 (140-400) K/mcL Neutrophils # 9.1 H (1.6-8.9) K/mcL BMP 03/28/19 12:52 Sodium 136 Potassium 3.8 Chloride 106 Carbon Dioxide 25 BUN 20 Creatinine 0.80 Glucose 108 H Calcium 8.8 Cardiac Enzymes 03/28/19 Range/Units 12:52 Troponin I < 0.03 (< 0.04) ng/mL - Impressions ITS Impressions Abdomen/Pelvis CT 03/28/19 13:34 IMPRESSION: 1. Interval endovascular repair of AAA. Stable caliber of the aorta following surgery. No evidence of retroperitoneal hemorrhage given history of decreasing hemoglobin. 2. Endoleak can not be evaluated. Dedicated CTA may be considered if there is additional concern. 3. Diverticulosis and renal cysts are incidentally noted. D/ / Ashu Rosa MD / Ashu Rosa MD Interpreting Provider: Ashu Rosa MD - Assessment and Plan (1) Acute blood loss anemia Current Visit: Yes Status: Acute (2) Melena Current Visit: Yes Status: Acute (3) Afib Current Visit: No Status: Chronic Qualifiers: Atrial fibrillation type: paroxysmal Qualified Code(s): I48.0 - Paroxysmal atrial fibrillation (4) Hypertension Current Visit: No Status: Chronic Qualifiers: Hypertension type: essential hypertension Qualified Code(s): I10 - Essential (primary) hypertension (5) CAD (coronary artery disease) Current Visit: Yes Status: Acute Qualifiers: Coronary Disease-Associated Artery/Lesion type: [place] artery [place] vs. transplanted heart: [place] heart Associated angina: without angina Qualified Code(s): I25.10 - Atherosclerotic heart disease of [place] coronary artery without angina pectoris - Time Spent With Patient Total time spent is greater than 50% in coordination of care (as documented) at patient's floor/unit and/or counseling patient: - Attending Attestation I examined this patient and my medical decision-making was reviewed with the Resident Physician on 03/28/19. I agree with the documented findings, disposition and treatment plan as described except to the extent set forth below. Mr Galeano is 73y/o male with recent complicated hx presented to ED with tachycardia and found to have anemia. Admits to melena. Receiving blood. Still taking Meloxicam with ASA/Plavix and Eliquis. Exam: Alert. Comfortable. NC. Mucus membranes dry. Heart reg and not tachy. Wheeze present. Mild epigastric discomfort. No edema. Moves all extremities. No rash. Plan: Clear liquids. Surg eval. hold eliquis tonight. Transfusion. <Dejuan Landry M - Last Filed: 03/28/19 20:03> Date of Encounter: 03/28/19 Time of Encounter: 17:30 Internal Medicine - H&P: HPI Chief complaint: Fatigue, Black stool History of present illness: Mr. Galeano is a 73 year old male with a past medical history of paroxysmal A. fib, COPD, coronary artery disease, AAA with endograft repair roughly one month ago, currently on dual antiplatelet therapy in addition to Eliquis, presents to the emergency department today at the recommendation of his material analyst as he was noted to be in atrial fibrillation. 2 days prior to this patient was seen in his PCPs office with some complaints regarding increasing weakness and fatigue, a stool guaiac test at that time apparently was negative according to the patient. However the patient states that for the past 10 days he has had black tarry stools of increasing frequency. He denies bright red blood, hematemesis, hemoptysis, hematuria, nausea, vomiting, diarrhea, shortness of breath, chest pain, palpitations. states that the patient has been taking meloxicam for several years however she did stop giving to him this week. The emergency department, patient's vitals were significant for heart rate 117, blood pressure 85/67. Labs are significant for hemoglobin of 6.2, was 10.15 days ago. EKG revealed patient was in A. fib. CT abdomen and pelvis did not reveal any evidence of retroperitoneal hemorrhage, caliber of the aorta was stable following surgery. However, an Endo leak could not be ruled out and vascular surgery was consulted. Vascular surgery did not believe this to be Endo leak given the patient's history and physical exam findings. Sameer suttonip was initiated, the patient converted to normal sinus rhythm. Blood pressure subsequently increased. Surgery was consulted and the patient was admitted for management of upper GI bleed. 2 units PRBCs were given with serial H&H's ordered. Patient was made nothing by mouth in anticipation of scope. Past Med Surg Social Fam HX - Past Medical History Medical history: aortic aneurysm, atrial fibrillation, COPD, hyperlipidemia, hypertension, myocardial infarction, other Additional medical history: AAA Psychiatric history: no psych history - Past Surgical History Surgical History: other Additional surgical history: AAA repair - Social History Smoking Status: Former smoker Smokeless Tobacco Status: No Alcohol use: none Drug use: none - Family History Mother Living Status: Hx Family Cardiac Disorders: Yes (Hypertension) Father Living Status: All Systems PM: A 10-system review of systems was performed and is negative for pertinent findings except as documented above in the HPI. - Constitutional Vitals: Temp Pulse Resp BP Pulse Ox 97.6 F 82 16 128/60 100 03/28/19 17:47 03/28/19 17:47 03/28/19 17:47 03/28/19 17:47 03/28/19 17:47 Exam: Gen.: Alert and oriented 3, no acute distress, pleasant Head: Atraumatic, normocephalic Eyes: No scleral icterus, EOMI, no nystagmus ENT: Oropharynx clear, mucous membranes moist Neck: Soft, supple, no nuchal rigidity, no thyromegaly, trachea midline CV: Regular rate and rhythm, no murmurs, gallops, rubs. Normal S1 plus S2 Respiratory: Diffuse wheezes throughout all lung goss, no evidence of rales or rhonchi. Mildly labored breathing Abdomen: Mild tenderness to palpation of the periumbilical region. Soft, no ndistended, nonrigid, no evidence of abdominal thrill or bruit Extremities: Skin turgor poor, pallor noted, no evidence of bleeding, bruising, rashes, peripheral edema MSK: Full range of motion not tested, patient moves all extremities appropriately Neuro: No focal neuro deficits, strength intact, sensation intact Psych: Affect appropriate Internal Med - H&P Results - Labs CBC & Chem 7: 03/28/19 14:49 03/28/19 12:52 Labs: Short CBC 03/28/19 Range/Units 14:49 WBC 12.2 H (4.3-11.1) K/mcL Hgb 6.2 L D (12.9-16.9) g/dL Hct 20.9 L (37.5-50.1) % Plt Count 259 (140-400) K/mcL Neutrophils # 9.1 H (1.6-8.9) K/mcL BMP 03/28/19 12:52 Sodium 136 Potassium 3.8 Chloride 106 Carbon Dioxide 25 BUN 20 Creatinine 0.80 Glucose 108 H Calcium 8.8 Cardiac Enzymes 03/28/19 Range/Units 12:52 Troponin I < 0.03 (< 0.04) ng/mL - Impressions ITS Impressions Abdomen/Pelvis CT 03/28/19 13:34 IMPRESSION: 1. Interval endovascular repair of AAA. Stable caliber of the aorta following surgery. No evidence of retroperitoneal hemorrhage given history of decreasing hemoglobin. 2. Endoleak can not be evaluated. Dedicated CTA may be considered if there is additional concern. 3. Diverticulosis and renal cysts are incidentally noted. D/ / Ashu Rosa MD / Ashu Rosa MD Interpreting Provider: Ashu Rosa MD - Assessment and Plan (1) Acute blood loss anemia Current Visit: Yes Status: Acute Assessment and plan: Patient presents with anemia secondary to acute blood loss Hemoglobin 5 days ago was greater than 10, on admission today it is 6.2 Source of acute blood loss is patient's worsening melena CT abdomen did not reveal evidence of retroperitoneal hemorrhage Vascular was consulted, did not feel this represented an endograft leak given patient's history and physical exam findings Likely secondary to DAPT + Eliquis + Meloxicam 2 units PRBCs ordered in the emergency department Surgery consult obtained We will continue to monitor closely for S/S of bleeding All anticoagulation/antiplatelet therapy on hold at this time We will order serial H&H's, first repeat ordered one hour following administration of PRBC We will continue to trend hemoglobin (2) GI bleed Current Visit: Yes Status: Acute Assessment and plan: Patient presents with several day history of melena Patient found to be profoundly anemic, hemoglobin 6.2 in the ED Patient has no other known source of blood loss at this time Surgery consult at, appreciate recommendations Nothing by mouth at this time in anticipation of endoscopy We will order Protonix twice a day Rest of plan as above Qualifiers: GI bleed type/associated pathology: melena Qualified Code(s): K92.1 - Melena (3) Melena Current Visit: Yes Status: Acute Assessment and plan: Patient presents with nearly 2 week history of black tarry stools Patient has no other S/S of bleeding at this time Likely 2/2 Eliquis plus DAPT in addition to chronic Meloxicam usage Anticoagulation currently on hold Surgery consult obtained, appreciate recommendations Patient made nothing by mouth in anticipation of endoscopy (4) Atrial fibrillation with RVR Current Visit: No Status: Acute Assessment and plan: Patient with a known history of paroxysmal atrial fibrillation Presented to the emergency department in A. fib with RVR Cardizem drip was initiated Patient has since converted to normal sinus rhythm Cardizem drip stopped Continuous telemetry Anticoagulation on hold at this time secondary to acute blood loss (5) COPD (chronic obstructive pulmonary disease) Current Visit: No Status: Chronic Assessment and plan: Known history of COPD On Symbicort at home Currently diffusely wheezy Oxygen saturation adequate on room air We will restart Symbicort and add DuoNeb's as needed Qualifiers: COPD type: emphysema Emphysema type: panlobular Qualified Code(s): J43.1 - Panlobular emphysema (6) Hypertension Current Visit: No Status: Chronic Assessment and plan: Patient with a known history of hypertension In the setting of hypotension due to acute blood loss, home meds on hold Patient does take metoprolol, will not resume until the morning pending stable vitals overnight Qualifiers: Hypertension type: essential hypertension Qualified Code(s): I10 - Essential (primary) hypertension (7) DVT prophylaxis Current Visit: Yes Status: Acute Assessment and plan: Intermittent pneumatic compression device - Time Spent With Patient Total time spent is greater than 50% in coordination of care (as documented) at patient's floor/unit and/or counseling patient:
[2019-03-28 19:44] LABS: Hematocrit 22.7 % (37.5-50.1); Hemoglobin 6.9 g/dL (12.9-16.9)
[2019-03-28] MEDS: Budesonide/Formoterol 160/4.5 1 PUFF INH IH SCH (21:36)
[2019-03-28] MEDS: BRIMONIDINE TART OP SCH (22:39)
[2019-03-28] MEDS: BRINZOLAMIDE OP SCH (22:39)
[2019-03-29] MEDS: Ringers Solution, Lactated 1,000 ML IVC SCH ×2 (00:57→21:04)
[2019-03-29 01:50] LABS: Basophils % 0.2 %; Eosinophils # 0.3 K/mcL (0.0-0.6); Eosinophils % 2.6 %; Hematocrit 26.6 % (37.5-50.1); Hemoglobin 8.2 g/dL (12.9-16.9); Immature Granulocytes % 0.7 % (0-4); Lymphocytes # 1.4 K/mcL (0.6-4.6); Lymphocytes % 11.4 %; Mean Corpuscular HGB Conc 30.8 g/dL (31.6-35.5); Mean Corpuscular Volume 97.4 fL (83.0-100.0); Mean Platelet Volume 9.2 fL (9.4-12.4); Monocytes # 0.8 K/mcL (0.0-1.3); Monocytes % 6.9 %; Neutrophils # 9.5 K/mcL (1.6-8.9); Nucleated Red Blood Cells 0.3 /100 WBC (0); Platelet Count 255 K/mcL (140-400); Red Blood Count 2.73 M/mcL (4.19-5.50); Red Cell Distribution Width 16.5 % (11.5-14.5); Segmented Neutrophils % 78.2 %; White Blood Count 12.1 K/mcL (4.3-11.1)
[2019-03-29 02:09] LABS: BUN/Creatinine Ratio 22 (6-26); Blood Urea Nitrogen 17 mg/dL (8-23); Calcium 8.4 mg/dL (8.6-10.3); Carbon Dioxide 23 mEq/L (23-29); Chloride 105 mEq/L (98-107); Glucose 107 mg/dL (70-105); Osmolality,Calculated 280 (280-300); Potassium 3.5 mEq/L (3.5-5.1); Sodium 134 mEq/L (136-145); eGFR For African Americans > 60 (> 60); eGFR For Non-African Americans > 60 (> 60)
--- NOTE | 2019-03-29 05:22 | Internal Med Progress Note ---
<Adan Wakefield - Last Filed: 03/29/19 13:23> Hospitalist Progress Note - Encounter Date of Encounter: 03/29/19 - Exam Vitals: Temp Pulse Resp BP Pulse Ox 97.9 F 81 18 108/74 98 03/29/19 11:46 03/29/19 11:46 03/29/19 11:46 03/29/19 11:46 03/29/19 11:46 - Assessment and Plan (1) Acute blood loss anemia Current Visit: Yes Status: Acute (2) Melena Current Visit: Yes Status: Acute (3) Afib Current Visit: No Status: Chronic (4) Hypertension Current Visit: No Status: Chronic (5) CAD (coronary artery disease) Current Visit: Yes Status: Acute - Time Spent with Patient Total time spent is greater than 50% in coordination of care (as documented) at patient's floor/unit and/or counseling patient: Internal Medicine: Result - Labs CBC & Chem 7: 03/29/19 01:37 03/29/19 01:37 Labs: Short CBC 03/28/19 03/28/19 03/29/19 Range/Units 14:49 19:15 01:37 WBC 12.2 H 12.1 H (4.3-11.1) K/mcL Hgb 6.2 L D 6.9 L 8.2 L (12.9-16.9) g/dL Hct 20.9 L 22.7 L 26.6 L (37.5-50.1) % Plt Count 259 255 (140-400) K/mcL Neutrophils # 9.1 H 9.5 H (1.6-8.9) K/mcL BMP 03/28/19 03/29/19 12:52 01:37 Sodium 136 134 L Potassium 3.8 3.5 Chloride 106 105 Carbon Dioxide 25 23 BUN 20 17 Creatinine 0.80 0.79 Glucose 108 H 107 H Calcium 8.8 8.4 L Cardiac Enzymes 03/28/19 Range/Units 12:52 Troponin I < 0.03 (< 0.04) ng/mL - ABG Interpretation ABG results: PT/INR, D-dimer PT 17.2 Seconds (9.4-12.1) H 03/28/19 14:49 - Impressions Impressions Abdomen/Pelvis CT 03/28/19 13:34 IMPRESSION: 1. Interval endovascular repair of AAA. Stable caliber of the aorta following surgery. No evidence of retroperitoneal hemorrhage given history of decreasing hemoglobin. 2. Endoleak can not be evaluated. Dedicated CTA may be considered if there is additional concern. 3. Diverticulosis and renal cysts are incidentally noted. D/ / Ashu Rosa MD / Ashu Rosa MD Interpreting Provider: Ashu Rosa MD Consult Discharge Plan - Plan Referrals: Stefania Sue, [employer] [Primary Care Provider] - - Attending Attestation I examined this patient and my medical decision-making was reviewed with the Resident Physician on 03/29/19. I agree with the documented findings, disposition and treatment plan as described except to the extent set forth below. Mr Galeano is currently admitted for anemia and presumed GI bleed. He remains moderate to high risk due to potential for worsening clinical status. Mr Gómez just returned from endoscopy. No fever or chills. No further bleeding noted. H/H stable after transfusion. Exam: Alert. Comfortable. Mucus membranes moist. NC. Neck supple. Heart reg. No wheeze. ABd soft. No edema. Moves all extremities. No rash. Plan: No overt bleeding on endoscopy. Pt needs restarted on ASA and Plavix today. Eliquis still on hold. Has known paroxysmal a fib. Will need to restart soon and if further bleeding - ? capsule endoscopy. Probable d/c next 24-48 hours. <Dejuan Landry - Last Filed: 03/29/19 14:33> Hospitalist Progress Note - Encounter Date of Encounter: 03/29/19 Time of Encounter: 09:00 - Subjective Interval History: The patient was seen and examined at bedside with this morning. Patient reports he had a "rough" night secondary to the bowel prep in anticipation of his upper and lower endoscopy today. Patient reports he has had continued black stools overnight, nursing reports by 9 AM this morning his BM was not clear. Patient denies any new or worsening complaints at this time however. As of this afternoon, patient had proceeded with upper and lower endoscopy, EGD revealed no acute findings, colonoscopy revealed several 3-7 mm polyps which were resected in addition to diverticulosis without evidence of diverticulitis. No signs of active bleeding were noted. Will restart patient on aspirin, Plavix and will continue holding L Alexander at this time. If further signs of bleeding we will consider endoscopy. - Exam Vitals: Temp Pulse Resp BP Pulse Ox 97.2 F L 78 18 112/64 97 03/29/19 03:13 03/29/19 03:13 03/29/19 03:13 03/29/19 03:13 03/29/19 03:13 Exam: Gen.: Alert and oriented 3, no acute distress, pleasant Head: Atraumatic, normocephalic Eyes: No scleral icterus, EOMI, no nystagmus ENT: Oropharynx clear, mucous membranes moist Neck: Soft, supple, no nuchal rigidity, no thyromegaly, trachea midline CV: Regular rate and rhythm, no murmurs, gallops, rubs. Normal S1 plus S2 Respiratory: Diffuse wheezes throughout all lung goss, no evidence of rales or rhonchi. Mildly labored breathing Abdomen: Mild tenderness to palpation of the periumbilical region. Soft, nondistended, nonrigid, no evidence of abdominal thrill or bruit Extremities: Skin turgor poor, pallor noted, no evidence of bleeding, bruising, rashes, peripheral edema MSK: Full range of motion not tested, patient moves all extremities appropriately Neuro: No focal neuro deficits, strength intact, sensation intact Psych: Affect appropriate - Assessment and Plan (1) Acute blood loss anemia Current Visit: Yes Status: Acute Assessment and Plan: Patient presents with anemia secondary to acute blood loss Hgb 03/24 10.2, in the ED 6.2 Presumed source is GI Bleed Patient with [address] Abd: no evidence retropritoneal hemorrhage Vascular consulted in ED; not likely to be endograft leak given History and PE Likely secondary to DAPT + Eliquis + Meloxicam Plan: 2 units PRBCs ordered yesterday Repeat Hgb up to 8.2 this morning NPO overnight Surgery consult obtained, upper/lower endoscopy this morning Hold Eliquis, ASA, Plavix We will continue to trend hemoglobin (2) GI bleed Current Visit: Yes Status: Acute Assessment and Plan: 10 day history of Melana Hgb 6.2 in the ED No other s/s of bleeding 2/2 Meloxicam plus Eliquis/ASA/Plavix Plan: Upper/Lower Endoscopy today Hold Eliquis/ASA/Plavix Continue Protonix BID Will follow any Surgery Recommendations (3) Melena Current Visit: Yes Status: Acute Assessment and Plan: 10 day history of black tarry stools No other S/S of bleeding 2/2 Meloxicam plus Eliquis/ASA/Plavix Stool Guiac in ED positive Plan: NPO for Upper/Lower endoscopy today Will follow surgery recommendations A/C on hold (4) Atrial fibrillation with RVR Current Visit: No Status: Acute Assessment and Plan: Patient with known history of Paroxysmal A.Fib Presented to the ED from cardiology office Found to be in A.Fib with RVR Cardizem drip started Converted to NSR shortly after Patient does take Eliquis for A/C Plan: Cardizem drip stopped Eliquis on hold 2/2 GI Bleed Continuous tele (5) COPD (chronic obstructive pulmonary disease) Current Visit: No Status: Chronic Assessment and Plan: Known history of COPD On Symbicort at home Currently with diffuse wheezes in all lung goss SpO2 adequate on RA while conversing Plan: Restart symbicort Duonebs PRN Monitor SpO2 (6) Hypertension Current Visit: No Status: Chronic Assessment and Plan: Patient with known history of HTN Home meds on hold in setting of Hypotension BP has been stable since admission Hypotension resolved following conversion to NSR and PRBCs currently receiving IVF at 75mls/hr Plan: Continue to hold BP meds at this time Monitor BP Closely If increasing, will hold stop fluids/add home BB DVT Prophylaxis: Intermittent Pneumatic Compression Device - Time Spent with Patient Total time spent is greater than 50% in coordination of care (as documented) at patient's floor/unit and/or counseling patient: Internal Medicine: Result - Labs CBC & Chem 7: 03/29/19 13:42 03/29/19 01:37 Labs: Short CBC 03/28/19 03/28/19 03/29/19 Range/Units 14:49 19:15 01:37 WBC 12.2 H 12.1 H (4.3-11.1) K/mcL Hgb 6.2 L D 6.9 L 8.2 L (12.9-16.9) g/dL Hct 20.9 L 22.7 L 26.6 L (37.5-50.1) % Plt Count 259 255 (140-400) K/mcL Neutrophils # 9.1 H 9.5 H (1.6-8.9) K/mcL BMP 03/28/19 03/29/19 12:52 01:37 Sodium 136 134 L Potassium 3.8 3.5 Chloride 106 105 Carbon Dioxide 25 23 BUN 20 17 Creatinine 0.80 0.79 Glucose 108 H 107 H Calcium 8.8 8.4 L Cardiac Enzymes 03/28/19 Range/Units 12:52 Troponin I < 0.03 (< 0.04) ng/mL - ABG Interpretation ABG results: PT/INR, D-dimer PT 17.2 Seconds (9.4-12.1) H 03/28/19 14:49 - Impressions Impressions Abdomen/Pelvis CT 03/28/19 13:34 IMPRESSION: 1. Interval endovascular repair of AAA. Stable caliber of the aorta following surgery. No evidence of retroperitoneal hemorrhage given history of decreasing hemoglobin. 2. Endoleak can not be evaluated. Dedicated CTA may be considered if there is additional concern. 3. Diverticulosis and renal cysts are incidentally noted. D/ / Ashu Rosa MD / Ashu Rosa MD Interpreting Provider: Ashu Rosa MD <Adan Wakefield - Last Filed: 03/29/19 13:23> (3) Afib Qualifiers: Atrial fibrillation type: paroxysmal Qualified Code(s): I48.0 - Paroxysmal atrial fibrillation (4) Hypertension Qualifiers: Hypertension type: essential hypertension Qualified Code(s): I10 - Essential (primary) hypertension (5) CAD (coronary artery disease) Qualifiers: Coronary Disease-Associated Artery/Lesion type: [place] artery [place] vs. transplanted heart: [place] heart Associated angina: without angina Qualified Code(s): I25.10 - Atherosclerotic heart disease of [place] coronary artery without angina pectoris <Dejuan Landry M - Last Filed: 03/29/19 14:33> (2) GI bleed Qualifiers: GI bleed type/associated pathology: melena Qualified Code(s): K92.1 - Melena (5) COPD (chronic obstructive pulmonary disease) Qualifiers: COPD type: emphysema Emphysema type: panlobular Qualified Code(s): J43.1 - Panlobular emphysema (6) Hypertension Qualifiers: Hypertension type: essential hypertension Qualified Code(s): I10 - Essential (primary) hypertension
[2019-03-29] MEDS ORDERED: Pantoprazole 40 MG VIAL IVP SCH (06:00)
[2019-03-29] MEDS: BRINZOLAMIDE OP SCH (08:46)
[2019-03-29] MEDS: BRIMONIDINE TART OP SCH (08:46)
[2019-03-29] MEDS ORDERED: Lidocaine -MPF 2% 2 ML VIAL ONE (09:06)
[2019-03-29] MEDS ORDERED: *HR* Propofol 200 MG/20 ML VIAL IVP ONE (09:06)
[2019-03-29] MEDS ORDERED: *HR* PHENYLEPHRINE 1,000 MCG/10 ML SYRINGE IVP ONE ×2 (09:30→09:52)
[2019-03-29] MEDS ORDERED: Tetracaine/Benzocaine/Butamben 1 SPRAY AEROSOL MM ONE (10:11)
[2019-03-29] MEDS ORDERED: Simethicone 40 MG/0.6 ML MLS IR ONE (10:11)
--- NOTE | 2019-03-29 10:15 | Anesthesia Evaluation PreOp ---
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 ASSISTANT History: Denies Any Significant HX Other Medical History: GERD Anesthesia History: No Prior Anesthetic Complications, Past Anesthesia Alcohol Use: none Drug use: none Medications and Allergies Albuterol Sulfate [Proair Hfa] 1 puff IH PRN PRN 02/23/19 [History] Brinzolamide/Brimonidine Tart [Simbrinza 1%-0.2% Eye Drops] 1 drop OP BID 02/23/19 [History] Budesonide/Formoterol 160/4.5 [Symbicort 160/4.5] 2 puff IH BID 02/23/19 [History] Timolol Maleate 0.5% 1 drop OP DAILY 02/23/19 [History] Apixaban [Eliquis] 5 mg PO BID #60 tablet 03/07/19 [Rx] Aspirin 81 mg PO DAILY #30 tab.chew 03/07/19 [Rx] Atorvastatin [Lipitor] 40 mg PO HS #30 tablet 03/07/19 [Rx] Clopidogrel [Plavix] 75 mg PO DAILY #30 tablet 03/07/19 [Rx] Diltiazem CD (24hr) [Cardizem CD] 120 mg PO DAILY #30 cap.er.24h 03/07/19 [Rx] Metoprolol [Lopressor] 37.5 mg PO BID #60 tablet 03/07/19 [Rx] Vitamin C 1,000 mg PO DAILY 03/28/19 [History] Vitamin D3 1 cap PO DAILY 03/28/19 [History] Allergy/AdvReac Type Severity Reaction Status Date / Time No Known Allergies Allergy Verified 02/24/19 12:41 - Meds/Allergy Pre-op Review Medications Reviewed: Yes Allergies Reviewed: Yes Beta Blockers on Current Med List: Yes (metoprolol) Anesthesia Results - Labs 03/29/19 01:37 03/29/19 01:37 - Imaging EKG: report reviewed Additional studies: 02/2019 CORONARY ANGIOGRAPHY PCI of Acute PA Indications: Non-Stemi ACS <= 24 hrs Impressions: Double vessel coronary artery disease. Patient had successful PTCA/Bare Metal Stent placement in the mid Circ. There is a large abdominal aneurysm present. Coronary Dominance: Left Lesion Findings/Interventions * Left Main Coronary Artery The LMCA is angiographically free of disease. * Left Anterior Descending There is a 40% stenosis in the Proximal LAD. There is a 50% stenosis in the Mid LAD. There is a 70% stenosis in the 1st Diagonal. * Circumflex There is a 40% stenosis in the Proximal Circumflex. There is a 20 mm long, 100% stenosis in the Mid Circumflex. The lesion has a YESSY flow of 0 and has thrombus present. An intervention was performed on the Mid Circumflex with a final stenosis of 0%. There were no lesion complications. The final YESSY flow was 3. There is a 99% stenosis in the 1st Marginal. * Right Coronary Artery There is a 40% stenosis in the Proximal RCA. 02/2019 echocardiogram Impressions: LVEF 50%. Mild segmental left ventricular systolic dysfunction. Mild left ventricular diastolic dysfunction. Normal right ventricular structure and function. No significant valvular dysfunction. Unable to estimate RVSP due to lack of TR jet. Anesthesia Exam Vital Signs/O2 Sat/Glucose, Most Recent Temp Pulse Resp BP Pulse Ox 98.1 F 87 18 141/64 98 03/29/19 10:06 03/29/19 10:06 03/29/19 10:06 03/29/19 10:06 03/29/19 10:06 Weight: 94 kg NPO (# of Hours): > 8 hr - HEENT Pupil (Motor): Pupils equal Mallampati: II Teeth: Edentulous - MALT SPECIFICATIONS CONTROL ASSISTANT LOC: Oriented MALT SPECIFICATIONS CONTROL ASSISTANT Motor: Normal RUE, Normal LUE, Normal RLE, Normal LLE, Normal Face MALT SPECIFICATIONS CONTROL ASSISTANT Sensory: Normal: RUE, LUE, RLE, LLE, Face - Cardiac Rhythm: Regular Murmur: None - Pulmonary Breath Sounds: bilateral Clear Respiratory Effort: Symmetrical Anesthesia Assess/Plan ASA Score: 4 Level of consciousness: Cooperative, Oriented Anesthetic Plan: MAC Monitoring Plan: Standard Monitors Recovery Plan: PACU
[2019-03-29] MEDS: Budesonide/Formoterol 160/4.5 1 PUFF INH IH SCH ×2 (10:55→20:32)
--- NOTE | 2019-03-29 13:58 | Anesthesia Evaluation Post Op ---
Date of Encounter: 03/29/19 Time of Encounter: 13:58 - Vital Signs Vital Signs: Vital Signs/O2 Sat/Glucose, Most Recent Temp Pulse Resp BP Pulse Ox 97.9 F 81 18 108/74 98 03/29/19 11:46 03/29/19 11:46 03/29/19 11:46 03/29/19 11:46 03/29/19 11:46 - Lungs Lungs: Clear Ascult./Percussion - Airway Airway: Non-obstructed - Cardiovascular Regular Rate - Mental Status Mental Status: Alert & Oriented, Answers Appropriately - Pain Pain Scale: 0 - Nausea Vomiting Nausea Vomiting: Not Present - Hydration Hydration: NPO - Discharge PostOp Status: Transfer Patient to floor
--- NOTE | 2019-03-29 14:08 | Electrocardiograph Report ---
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
[2019-03-29 14:17] LABS: Hematocrit 26.4 % (37.5-50.1); Hemoglobin 8.3 g/dL (12.9-16.9)
[2019-03-29] MEDS ORDERED: *HR* Metoprolol 5 MG/5 ML VIAL IVP ONE ×2 (17:02→19:50)
[2019-03-29] MEDS: Aspirin 81 MG TAB.CHEW PO SCH (17:12)
[2019-03-29] MEDS ORDERED: 0.9 % Sodium Chloride 1,000 ML IVC ONE (19:50)
[2019-03-29] MEDS ORDERED: 0.9 % Sodium Chloride 1,000 ML ONE (19:54)
[2019-03-29 20:43] LABS: Hematocrit 24.6 % (37.5-50.1); Hemoglobin 7.7 g/dL (12.9-16.9)
[2019-03-29 20:59] LABS: BUN/Creatinine Ratio 11 (6-26); Blood Urea Nitrogen 11 mg/dL (8-23); Calcium 8.4 mg/dL (8.6-10.3); Carbon Dioxide 27 mEq/L (23-29); Chloride 107 mEq/L (98-107); Glucose 107 mg/dL (70-105); Osmolality,Calculated 288 (280-300); Potassium 3.6 mEq/L (3.5-5.1); Sodium 139 mEq/L (136-145); eGFR For African Americans > 60 (> 60); eGFR For Non-African Americans > 60 (> 60)
[2019-03-29] MEDS: Brinzolamide 1% 10 ML BOTTLE BOTH EYES SCH (21:10)
[2019-03-29] MEDS: Apixaban 5 MG TABLET PO SCH (21:11)
[2019-03-29] MEDS ORDERED: Amiodarone Premix 360 MG/200 ML BAG IVC ONE (22:25)
[2019-03-29] MEDS ORDERED: Amiodarone Premix 150 MG/100 ML BAG IVPB ONE (22:25)
[2019-03-29] MEDS ORDERED: Amiodarone Premix 360 MG/200 ML BAG IVC SCH (22:30)
--- NOTE | 2019-03-29 22:30 | Event Note ---
Date of Encounter: 03/29/19 Time of Encounter: 22:27 Patient has been in atrial fibrillation with RVR and has been resistant to IV Lopressor and oral Lopressor (home dose) as well as correction of hypokalemia. As such, I am starting amiodarone drip on patient in hopes of stabilizing his atrial fib/RVR. Patient denies any CP, dyspnea, lightheadedness, or dizziness. I did order PRBC transfusion one time though for hgb of 7.7.
[2019-03-29] MEDS ORDERED: 0.9 % Sodium Chloride 250 ML ONE (23:22)
[2019-03-29 23:26] LABS: Hematocrit 24.3 % (37.5-50.1); Hemoglobin 7.4 g/dL (12.9-16.9)
[2019-03-30 05:57] LABS: Hematocrit 27.9 % (37.5-50.1); Hemoglobin 8.3 g/dL (12.9-16.9); Mean Corpuscular HGB Conc 29.7 g/dL (31.6-35.5); Mean Corpuscular Hemoglobin 29.2 pg (28.0-33.3); Mean Corpuscular Volume 98.2 fL (83.0-100.0); Mean Platelet Volume 10.1 fL (9.4-12.4); Platelet Count 232 K/mcL (140-400); Red Blood Count 2.84 M/mcL (4.19-5.50); Red Cell Distribution Width 16.5 % (11.5-14.5); White Blood Count 10.7 K/mcL (4.3-11.1)
[2019-03-30 06:12] LABS: BUN/Creatinine Ratio 10 (6-26); Blood Urea Nitrogen 10 mg/dL (8-23); Calcium 8.5 mg/dL (8.6-10.3); Carbon Dioxide 27 mEq/L (23-29); Chloride 106 mEq/L (98-107); Glucose 102 mg/dL (70-105); Magnesium 2.1 mg/dL (1.6-2.6); Osmolality,Calculated 287 (280-300); Potassium 4.2 mEq/L (3.5-5.1); Sodium 139 mEq/L (136-145); eGFR For African Americans > 60 (> 60); eGFR For Non-African Americans > 60 (> 60)
[2019-03-30] MEDS: Budesonide/Formoterol 160/4.5 1 PUFF INH IH SCH ×2 (07:39→19:46)
[2019-03-30] MEDS: Apixaban 5 MG TABLET PO SCH ×2 (08:49→20:21)
[2019-03-30] MEDS: Aspirin 81 MG TAB.CHEW PO SCH (08:49)
[2019-03-30] MEDS: Brinzolamide 1% 10 ML BOTTLE BOTH EYES SCH ×2 (08:55→20:23)
[2019-03-30] MEDS ORDERED: Pantoprazole 40 MG VIAL IVP SCH (09:00)
[2019-03-30] MEDS ORDERED: Apixaban 5 MG TABLET PO SCH (09:33)
--- NOTE | 2019-03-30 09:46 | Internal Med Progress Note ---
<Belgica Ballard - Last Filed: 03/30/19 12:49> Hospitalist Progress Note - Encounter Date of Encounter: 03/30/19 - Exam Vitals: Temp Pulse Resp BP Pulse Ox 97.7 F 78 14 130/74 98 03/30/19 11:00 03/30/19 11:00 03/30/19 11:00 03/30/19 11:00 03/30/19 11:00 - Assessment and Plan (1) Afib Current Visit: No Status: Chronic (2) Hypertension Current Visit: No Status: Chronic (3) Acute blood loss anemia Current Visit: Yes Status: Acute (4) Melena Current Visit: Yes Status: Acute (5) CAD (coronary artery disease) Current Visit: Yes Status: Acute - Time Spent with Patient Total time spent is greater than 50% in coordination of care (as documented) at patient's floor/unit and/or counseling patient: Internal Medicine: Result - Labs CBC & Chem 7: 03/30/19 04:30 03/30/19 04:30 Labs: Short CBC 03/29/19 03/29/19 03/29/19 Range/Units 13:42 20:08 22:59 WBC (4.3-11.1) K/mcL Hgb 8.3 L 7.7 L 7.4 L (12.9-16.9) g/dL Hct 26.4 L 24.6 L 24.3 L (37.5-50.1) % Plt Count (140-400) K/mcL 03/30/19 Range/Units 04:30 WBC 10.7 (4.3-11.1) K/mcL Hgb 8.3 L (12.9-16.9) g/dL Hct 27.9 L (37.5-50.1) % Plt Count 232 (140-400) K/mcL BMP 03/29/19 03/30/19 18:07 04:30 Sodium 139 139 Potassium 3.6 4.2 Chloride 107 106 Carbon Dioxide 27 27 BUN 11 10 Creatinine 0.97 0.97 Glucose 107 H 102 Calcium 8.4 L 8.5 L - ABG Interpretation ABG results: PT/INR, D-dimer PT 17.2 Seconds (9.4-12.1) H 03/28/19 14:49 Consult Discharge Plan - Plan Referrals: Stefania Sue, TRACTION POWER ENGINEER [Primary Care Provider] - - Attending Attestation I examined this patient and my medical decision-making was reviewed with the Resident Physician Dr Landry. I agree with the documented findings, disposition and treatment plan as described except to the extent set forth below. Mr Galeano is admitted for anemia and presumed GIB awake, at bedside. denies active bleeding or melena today. no cp, pressure or sob. only sx when afib rvr last evening was feeling tired. gen- alert, awake,appears stated age cv- reg rate and rhythm, normal s1,s2, no pitting le edema lungs- ctabl, no wheezing, rhonchi or crackles abd- soft, non tender, non distended neuro- AAOx3 Acute Blood Loss anemia presumed to be GIB -scopes unremarkable, will need GI fu outpt for small capsule endocscopy, s/p prbc and hgb remains stable, cont to monitor -currently on AC + asa (completed plavix course for prior stent) and monitoring, next hgb check this afternoon Afib rvr, resolved, now NSR- cont AC and monitor hgb, cont home BB, home cardizem held due to low BPS and will resume as able -he was not ever on the amio gtt ordered overnight dispo- check pt/ot aurelia <Dejuan Landry M - Last Filed: 03/30/19 17:41> Hospitalist Progress Note - Encounter Date of Encounter: 03/30/19 Time of Encounter: 09:00 - Subjective Interval History: Patient sitting up in chair on exam this morning. Vitals stable at this time. Reports no symptoms overnight, denies palpitation, shortness of breath, recurrence of melena. Patient did go back into Afib overnight. Was given IVP lopressor and restarted on home metoprolol. Self-converted shortly thereafter. His Hgb did drop again from 8.3 to 7.4 at 11pm, was transfused one unit PRBC, recheck was back up to 8.3. He was restarted on his Eliquis yesterday and we will continue this with close monitoring for recurrence of bleeding. - Exam Vitals: Temp Pulse Resp BP Pulse Ox 98.7 F 87 16 101/63 96 03/30/19 05:06 03/30/19 09:34 03/30/19 07:45 03/30/19 07:15 03/30/19 09:34 Exam: Gen.: Alert and oriented 3, no acute distress, pleasant Head: Atraumatic, normocephalic Eyes: No scleral icterus, EOMI, no nystagmus ENT: Oropharynx clear, mucous membranes moist Neck: Soft, supple, no nuchal rigidity, no thyromegaly, trachea midline CV: Regular rate and rhythm, no murmurs, gallops, rubs. Normal S1 plus S2 Respiratory: Diffuse wheezes throughout all lung goss, no evidence of rales or rhonchi. Mildly labored breathing Abdomen: Mild tenderness to palpation of the periumbilical region. Soft, nondistended, nonrigid, no evidence of abdominal thrill or bruit Extremities: Skin turgor poor, pallor noted, no evidence of bleeding, bruising, rashes, peripheral edema MSK: Full range of motion not tested, patient moves all extremities appropriately Neuro: No focal neuro deficits, strength intact, sensation intact Psych: Affect appropriate - Assessment and Plan (1) Acute blood loss anemia Current Visit: Yes Status: Acute Assessment and Plan: Presented with anemia 2/2 acute blood loss Hgb 03/24 10.2, in the ED was 6.2 Source is GI Bleed, upper/lower endoscopy no evidence of bleed Cause is DAPT with Eliquis and Meloxicam usage CT Abd: no evidence retroperitoneal Hemorrhage Vascular consulted in ED; not likely to be endograft leak 2units PRBCs given on 03/28, repeat Hgb 8.3 Restarted on Eliquis/ASA 2/2 AFib yesterday No recurrence of melena, but Hgb did drop to 7.4 last night 1unit PRBC given, repeat Hgb 8.3 today Plan: continue Eliquis/ASA Monitor for bleeding Trend Hgb Follow-up O/P GI for capsule endocscopy (2) GI bleed Current Visit: Yes Status: Acute Assessment and Plan: 10 day history of Melena Hgb 6.2 in ED, 2 units PRBCs given Repeat was 8.3 Endoscopy negative for acute bleed 2/2 Meloxicam+ASA+Plavix+Eliquis Hgb did drop again last night, 8.3-->7.4 Given another unit PRBC Repeat this morning 8.3 Has been restarted on Eliquis/ASA 2/2 Paroxysmal Afib Plavix stopped d/t completing 1month DAPT Plan: Monitor closely for recurrence of GI bleed Trend Hemoglobin, replace as needed Follow-up O/P with GI for Capsule Endoscopy (3) Melena Current Visit: Yes Status: Acute Assessment and Plan: Presented with 10 days of Melena Denies any other S/S of bleeding Stool guiac in ED positive 2/2 Meloxicam+ASA+Plavix+Eliquis Endoscopy yesterday did not reveal bleed No recurrence of melena since bowel prep Plan: Continue to monitor for recurrence Will need O/P GI followup for Capsule endoscopy (4) Atrial fibrillation with RVR Current Visit: No Status: Acute Assessment and Plan: Patient with known history of Paroxysmal A.Fib Presented to the ED from cardiology office Found to be in A.Fib with RVR Cardizem drip started Converted to NSR shortly after Patient does take Eliquis for A/C Went back into Afib overnight Given IVP lopressor+home dose metoprolol Converted back to NSR EKG this morning was normal Likely 2/2 anemia Plan: Cardizem drip stopped Eliquis restarted Continue metoprolol Continuous tele (5) COPD (chronic obstructive pulmonary disease) Current Visit: No Status: Chronic Assessment and Plan: Known hx of COPD Not in exacerbation stable on RA continue home Symbicort (6) Hypertension Current Visit: No Status: Chronic Assessment and Plan: BP low/normal on admission Did have recurrence AFib yesterday Restarted on home metoprolol Continue to monitor BP DVT Prophylaxis: Intermittent Pneumatic Compression Device - Time Spent with Patient Total time spent is greater than 50% in coordination of care (as documented) at patient's floor/unit and/or counseling patient: Internal Medicine: Result - Labs CBC & Chem 7: 03/30/19 04:30 03/30/19 04:30 Labs: Short CBC 03/29/19 03/29/19 03/29/19 Range/Units 13:42 20:08 22:59 WBC (4.3-11.1) K/mcL Hgb 8.3 L 7.7 L 7.4 L (12.9-16.9) g/dL Hct 26.4 L 24.6 L 24.3 L (37.5-50.1) % Plt Count (140-400) K/mcL 03/30/19 Range/Units 04:30 WBC 10.7 (4.3-11.1) K/mcL Hgb 8.3 L (12.9-16.9) g/dL Hct 27.9 L (37.5-50.1) % Plt Count 232 (140-400) K/mcL BMP 03/29/19 03/30/19 18:07 04:30 Sodium 139 139 Potassium 3.6 4.2 Chloride 107 106 Carbon Dioxide 27 27 BUN 11 10 Creatinine 0.97 0.97 Glucose 107 H 102 Calcium 8.4 L 8.5 L - ABG Interpretation ABG results: PT/INR, D-dimer PT 17.2 Seconds (9.4-12.1) H 03/28/19 14:49 <Belgica Ballard M - Last Filed: 03/30/19 12:49> (1) Afib Qualifiers: Atrial fibrillation type: paroxysmal Qualified Code(s): I48.0 - Paroxysmal atrial fibrillation (2) Hypertension Qualifiers: Hypertension type: essential hypertension Qualified Code(s): I10 - Essential (primary) hypertension (5) CAD (coronary artery disease) Qualifiers: Coronary Disease-Associated Artery/Lesion type: [place] artery [place] vs. transplanted heart: [place] heart Associated angina: without angina Qualified C ode(s): I25.10 - Atherosclerotic heart disease of [place] coronary artery without angina pectoris <Dejuan Landry M - Last Filed: 03/30/19 17:41> (2) GI bleed Qualifiers: GI bleed type/associated pathology: melena Qualified Code(s): K92.1 - Melena (5) COPD (chronic obstructive pulmonary disease) Qualifiers: COPD type: emphysema Emphysema type: panlobular Qualified Code(s): J43.1 - Panlobular emphysema (6) Hypertension Qualifiers: Hypertension type: essential hypertension Qualified Code(s): I10 - Essential (primary) hypertension
[2019-03-30] MEDS ORDERED: Ondansetron 4 MG/2 ML VIAL IVP PRN (11:15)
[2019-03-30] MEDS ORDERED: Naloxone 0.4 MG/ML INJ IVP PRN (11:15)
--- NOTE | 2019-03-30 15:22 | Electrocardiograph Report ---
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
--- NOTE | 2019-03-30 15:33 | Electrocardiograph Report ---
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
--- NOTE | 2019-03-30 15:47 | Electrocardiograph Report ---
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
[2019-03-30 17:55] LABS: Hematocrit 27.7 % (37.5-50.1); Hemoglobin 8.9 g/dL (12.9-16.9)
[2019-03-30] MEDS ORDERED: 0.9 % Sodium Chloride 250 ML ONE (22:43)
[2019-03-31 05:21] LABS: Hematocrit 27.8 % (37.5-50.1); Hemoglobin 8.5 g/dL (12.9-16.9); Mean Corpuscular HGB Conc 30.6 g/dL (31.6-35.5); Mean Corpuscular Hemoglobin 29.9 pg (28.0-33.3); Mean Corpuscular Volume 97.9 fL (83.0-100.0); Mean Platelet Volume 9.9 fL (9.4-12.4); Platelet Count 249 K/mcL (140-400); Red Blood Count 2.84 M/mcL (4.19-5.50); Red Cell Distribution Width 16.2 % (11.5-14.5); White Blood Count 11.5 K/mcL (4.3-11.1)
[2019-03-31 05:41] LABS: BUN/Creatinine Ratio 11 (6-26); Blood Urea Nitrogen 9 mg/dL (8-23); Calcium 8.4 mg/dL (8.6-10.3); Carbon Dioxide 26 mEq/L (23-29); Chloride 106 mEq/L (98-107); Glucose 102 mg/dL (70-105); Osmolality,Calculated 281 (280-300); Potassium 3.5 mEq/L (3.5-5.1); Sodium 136 mEq/L (136-145); eGFR For African Americans > 60 (> 60); eGFR For Non-African Americans > 60 (> 60)
[2019-03-31] MEDS: Budesonide/Formoterol 160/4.5 1 PUFF INH IH SCH ×2 (07:56→20:26)
[2019-03-31] MEDS ORDERED: Pantoprazole 40 MG VIAL IVP SCH (09:00)
[2019-03-31] MEDS: Diltiazem CD (24hr) 120 MG CAPSULE PO SCH (09:33)
[2019-03-31] MEDS: Aspirin 81 MG TAB.CHEW PO SCH (09:33)
[2019-03-31] MEDS: Apixaban 5 MG TABLET PO SCH ×2 (09:33→21:34)
[2019-03-31] MEDS: Brinzolamide 1% 10 ML BOTTLE BOTH EYES SCH ×2 (09:35→21:36)
--- NOTE | 2019-03-31 09:37 | Internal Med Progress Note ---
<NellieBelgica M - Last Filed: 03/31/19 12:39> Hospitalist Progress Note - Encounter Date of Encounter: 03/31/19 - Exam Vitals: Temp Pulse Resp BP Pulse Ox 97.8 F 96 18 96/63 96 03/31/19 07:06 03/31/19 07:06 03/31/19 07:58 03/31/19 07:06 03/31/19 07:58 - Assessment and Plan (1) Afib Current Visit: No Status: Chronic (2) Hypertension Current Visit: No Status: Chronic (3) Acute blood loss anemia Current Visit: Yes Status: Acute (4) Melena Current Visit: Yes Status: Acute (5) CAD (coronary artery disease) Current Visit: Yes Status: Acute - Time Spent with Patient Total time spent is greater than 50% in coordination of care (as documented) at patient's floor/unit and/or counseling patient: Internal Medicine: Result - Labs CBC & Chem 7: 03/31/19 04:22 03/31/19 04:22 Labs: Short CBC 03/30/19 03/31/19 Range/Units 16:28 04:22 WBC 11.5 H (4.3-11.1) K/mcL Hgb 8.9 L 8.5 L (12.9-16.9) g/dL Hct 27.7 L 27.8 L (37.5-50.1) % Plt Count 249 (140-400) K/mcL BMP 03/31/19 04:22 Sodium 136 Potassium 3.5 Chloride 106 Carbon Dioxide 26 BUN 9 Creatinine 0.83 Glucose 102 Calcium 8.4 L - ABG Interpretation ABG results: PT/INR, D-dimer PT 17.2 Seconds (9.4-12.1) H 03/28/19 14:49 Consult Discharge Plan - Plan Referrals: Stefania Sue, BOND TRADER [Primary Care Provider] - - Attending Attestation I examined this patient and my medical decision-making was reviewed with the Resident Physician Dr Landry. I agree with the documented findings, disposition and treatment plan as described except to the extent set forth below. Mr Galeano is admitted for anemia and presumed GIB, now with paroxysmal Afib RVR awake, at bedside.no palpitations, fatuge, cp or sob. frustrated by heart rate. brown bm this morning, no abd pain. currently on low rate cardizem gtt. gen- alert, awake,appears stated age cv- reg rate and irreg/irreg rhythm, normal s1,s2, no pitting le edema lungs- ctabl, normal resp effort on room air abd- soft, non tender, non distended neuro- AAOx3 Acute Blood Loss anemia presumed to be GIB, scopes unremarkable, will need GI fu outpt for small capsule endocscopy, hgb stable on AC,repeat level this afternoon -currently on AC + asa (completed plavix course for prior stent) Afib rvr, resolved, paroxysmal- home BB, + resume home CCB and wean off gtt this morning, follow up later in day HR, may need to increase evening BB dose, cont to monitor BPs on meds dispo- check pt/ot evals , hopeful for dc in next 24 hrs if HR stabilizes wiht med changes and hgb remains stable <Dejuan Landry - Last Filed: 03/31/19 15:45> Hospitalist Progress Note - Encounter Date of Encounter: 03/31/19 Time of Encounter: 09:00 - Subjective Interval History: Patient examined this morning with in room. Reports that he is ready to go.. Has been in A. fib overnight, does not experience palpitations. Continues to have some mild periumbilical tenderness. First bowel movement since e ndoscopy this morning, brown in color and no evidence of repeat bleeding. Patient was started on Cardizem drip overnight, heart rate came down this morning. Restarted on oral Cardizem today, we will titrate off the Cardizem drip, if goes back into A. fib we will consider increasing his home metoprolol dose - Exam Vitals: Temp Pulse Resp BP Pulse Ox 97.8 F 96 18 96/63 96 03/31/19 07:06 03/31/19 07:06 03/31/19 07:58 03/31/19 07:06 03/31/19 07:58 Exam: Gen.: Alert and oriented 3, no acute distress, pleasant Head: Atraumatic, normocephalic Eyes: No scleral icterus, EOMI, no nystagmus ENT: Oropharynx clear, mucous membranes moist Neck: Soft, supple, no nuchal rigidity, no thyromegaly, trachea midline CV: Regular rate and rhythm, no murmurs, gallops, rubs. Normal S1 plus S2 Respiratory: Diffuse wheezes throughout all lung goss, no evidence of rales or rhonchi. Mildly labored breathing Abdomen: Mild tenderness to palpation of the periumbilical region. Soft, nondistended, nonrigid, no evidence of abdominal thrill or bruit Extremities: Skin turgor poor, pallor noted, no evidence of bleeding, bruising, rashes, peripheral edema MSK: Full range of motion not tested, patient moves all extremities appropriately Neuro: No focal neuro deficits, strength intact, sensation intact Psych: Affect appropriate - Assessment and Plan (1) Atrial fibrillation with RVR Current Visit: No Status: Acute Assessment and Plan: Presented with A. fib RVR Started on Cardizem drip in the ED Has had paroxysmal A. fib since admission Restarted on Cardizem gtt last night Resumed PO Cardizem and weaned off gtt today We will follow up HR/BP this afternoon Will plan to increase evening BB if elevated of the gtt (2) Acute blood loss anemia Current Visit: Yes Status: Acute Assessment and Plan: Patient presented with hemoglobin 6.2 secondary to acute GI bleed Received 2 units PRBCs in the ED Transfused another 1 unit next day Hemoglobin 8.5 this morning, repeat 8.7 this afternoon No recurrence of melena Resolved (3) GI bleed Current Visit: Yes Status: Resolved Assessment and Plan: Presented with melena 10 days Endoscopy was negative for any abnormalities Has been restarted on his anticoagulant Bowel movement this morning showed no signs of recurrent bleeding Hemoglobin stable 36 hours Resolved (4) Melena Current Visit: Yes Status: Resolved Assessment and Plan: First bowel movement this morning brown in appearance Hemoglobin stable Resolved (5) COPD (chronic obstructive pulmonary disease) Current Visit: No Status: Chronic Assessment and Plan: Oxygen saturations adequate on room air No evidence of wheeze Restarted on home Symbicort We will order duo nebs as needed (6) Hypertension Current Visit: No Status: Chronic Assessment and Plan: Not hypertensive during this admission Continue to monitor blood pressures Resumed on home metoprolol, Cardizem DVT Prophylaxis: Intermittent Pneumatic Compression Device - Time Spent with Patient Total time spent is greater than 50% in coordination of care (as documented) at patient's floor/unit and/or counseling patient: Internal Medicine: Result - Labs CBC & Chem 7: 03/31/19 13:04 03/31/19 04:22 Labs: Short CBC 03/30/19 03/31/19 Range/Units 16:28 04:22 WBC 11.5 H (4.3-11.1) K/mcL Hgb 8.9 L 8.5 L (12.9-16.9) g/dL Hct 27.7 L 27.8 L (37.5-50.1) % Plt Count 249 (140-400) K/mcL BMP 03/31/19 04:22 Sodium 136 Potassium 3.5 Chloride 106 Carbon Dioxide 26 BUN 9 Creatinine 0.83 Glucose 102 Calcium 8.4 L - ABG Interpretation ABG results: PT/INR, D-dimer PT 17.2 Seconds (9.4-12.1) H 03/28/19 14:49 <Belgica Ballard M - Last Filed: 03/31/19 12:39> (1) Afib Qualifiers: Atrial fibrillation type: paroxysmal Qualified Code(s): I48.0 - Paroxysmal atrial fibrillation (2) Hypertension Qualifiers: Hypertension type: essential hypertension Qualified Code(s): I10 - Essential (primary) hypertension (5) CAD (coronary artery disease) Qualifiers: Coronary Disease-Associated Artery/Lesion type: [place] artery [place] vs. transplanted heart: [place] heart Associated angina: without angina Qualified Code(s): I25.10 - Atherosclerotic heart disease of [place] coronary artery without angina pectoris <Dejuan Landry M - Last Filed: 03/31/19 15:45> (3) GI bleed Qualifiers: GI bleed type/associated pathology: melena Qualified Code(s): K92.1 - Melena (5) COPD (chronic obstructive pulmonary disease) Qualifiers: COPD type: emphysema Emphysema type: panlobular Qualified Code(s): J43.1 - Panlobular emphysema (6) Hypertension Qualifiers: Hypertension type: essential hypertension Qualified Code(s): I10 - Essential (primary) hypertension
[2019-03-31 13:31] LABS: Hematocrit 28.9 % (37.5-50.1); Hemoglobin 8.7 g/dL (12.9-16.9)
[2019-03-31] MEDS ORDERED: *HR* Metoprolol 5 MG/5 ML VIAL IVP PRN (22:02)
[2019-04-01 04:10] LABS: Basophils % 0.4 %; Eosinophils # 0.4 K/mcL (0.0-0.6); Eosinophils % 3.4 %; Hematocrit 28.7 % (37.5-50.1); Hemoglobin 8.7 g/dL (12.9-16.9); Immature Granulocytes % 0.4 % (0-4); Lymphocytes # 1.6 K/mcL (0.6-4.6); Lymphocytes % 14.5 %; Mean Corpuscular HGB Conc 30.3 g/dL (31.6-35.5); Mean Corpuscular Volume 95.7 fL (83.0-100.0); Mean Platelet Volume 9.6 fL (9.4-12.4); Monocytes # 0.7 K/mcL (0.0-1.3); Monocytes % 6.2 %; Neutrophils # 8.4 K/mcL (1.6-8.9); Platelet Count 279 K/mcL (140-400); Red Cell Distribution Width 15.9 % (11.5-14.5); Segmented Neutrophils % 75.1 %; White Blood Count 11.2 K/mcL (4.3-11.1)
[2019-04-01] MEDS: Budesonide/Formoterol 160/4.5 1 PUFF INH IH SCH (07:13)
[2019-04-01] MEDS: Diltiazem CD (24hr) 120 MG CAPSULE PO SCH (09:16)
[2019-04-01] MEDS: Apixaban 5 MG TABLET PO SCH (09:17)
[2019-04-01] MEDS: Aspirin 81 MG TAB.CHEW PO SCH (09:17)
[2019-04-01] MEDS: Brinzolamide 1% 10 ML BOTTLE BOTH EYES SCH (09:18)
[2019-04-01 09:47] LABS: BUN/Creatinine Ratio 13 (6-26); Blood Urea Nitrogen 11 mg/dL (8-23); Calcium 8.9 mg/dL (8.6-10.3); Carbon Dioxide 28 mEq/L (23-29); Chloride 101 mEq/L (98-107); Glucose 127 mg/dL (70-105); Osmolality,Calculated 283 (280-300); Sodium 136 mEq/L (136-145); eGFR For African Americans > 60 (> 60); eGFR For Non-African Americans > 60 (> 60)
--- NOTE | 2019-04-01 10:54 | Discharge Summary ---
<Belgica Ballard - Last Filed: 04/01/19 15:11> Orders not resulted at time of discharge: Pending orders 03/29/19 10:46 Surgical Pathology [PTH] Routine Date of Encounter: 04/01/19 - Discharge Diagnosis (1) Afib Status: Chronic Qualifiers: Atrial fibrillation type: paroxysmal Qualified Code(s): I48.0 - Paroxysmal atrial fibrillation (2) Hypertension Status: Chronic Qualifiers: Hypertension type: essential hypertension Qualified Code(s): I10 - Essential (primary) hypertension (3) Acute blood loss anemia Status: Acute (4) Melena Status: Resolved (5) CAD (coronary artery disease) Status: Acute Qualifiers: Coronary Disease-Associated Artery/Lesion type: [place] artery [place] vs. transplanted heart: [place] heart Associated angina: without angina Qualified Code(s): I25.10 - Atherosclerotic heart disease of [place] coronary artery without angina pectoris Hospital course: Mr. Galeano is a 73 year old male - Time Spent with Patient Total time spent providing and/or coordinating discharge services: - Discharge Medications Prescriptions: New Omeprazole [PriLOSEC] 20 mg PO DAILY@0630 30 Days #[address] capsule.[address] Cee Brinzolamide/Brimonidine Tart [Simbrinza 1%-0.2% Eye Drops] 1 drop BOTH EYES BID Timolol Maleate 0.5% 1 drop BOTH EYES DAILY Budesonide/Formoterol 160/4.5 [Symbicort 160/4.5] 2 puff IH BID Aspirin 81 mg PO DAILY #30 tab.chew Diltiazem CD (24hr) [Cardizem CD] 120 mg PO DAILY #30 cap.er.24h Apixaban [Eliquis] 5 mg PO BID #60 tablet Atorvastatin [Lipitor] 40 mg PO HS #30 tablet Metoprolol [Lopressor] 37.5 mg PO BID #60 tablet Discontinued Clopidogrel [Plavix] 75 mg PO DAILY #30 tablet Home Medications: Brinzolamide/Brimonidine Tart [Simbrinza 1%-0.2% Eye Drops] 1 drop BOTH EYES BID 02/23/19 [History] Budesonide/Formoterol 160/4.5 [Symbicort 160/4.5] 2 puff IH BID 02/23/19 [History] Timolol Maleate 0.5% 1 drop BOTH EYES DAILY 02/23/19 [History] Apixaban [Eliquis] 5 mg PO BID #60 tablet 03/07/19 [Rx] Aspirin 81 mg PO DAILY #30 tab.chew 03/07/19 [Rx] Atorvastatin [Lipitor] 40 mg PO HS #30 tablet 03/07/19 [Rx] Diltiazem CD (24hr) [Cardizem CD] 120 mg PO DAILY #30 cap.er.24h 03/07/19 [Rx] Metoprolol [Lopressor] 37.5 mg PO BID #60 tablet 03/07/19 [Rx] Omeprazole [PriLOSEC] 20 mg PO DAILY@0630 30 Days #30 capsule. 04/01/19 [Rx] Allergies/Adverse Reactions: Allergy/AdvReac Type Severity Reaction Status Date / Time No Known Allergies Allergy Verified 03/30/19 16:20 Date of admission: 03/28/19 16:55 Primary care physician: Stefania Sue CNP Consults: 03/28/19 16:11 Consult to Surgery [CONS] Stat Consulting Provider: Acute Care Surgery Reason for Consult: GI bleed Time Notified: 16:11 Call Completed: Yes - Constitutional Vitals: Temp Pulse Resp BP Pulse Ox 97.8 F 74 16 106/62 99 04/01/19 11:39 04/01/19 11:39 04/01/19 11:39 04/01/19 11:39 04/01/19 11:39 - Patient Status Disposition: Home, Self-Care Condition: Fair - Discharge Instructions Instructions: Gastrointestinal Bleeding (DC), Anemia (GEN) Follow Up With: [facility] [Provider Group] Zeke Wong MD [Partnered Physician] - Stefania Sue CNP [Primary Care Provider] - Additional Instructions: You are to follow up with Cardiology for managment of your rapid heart rate and you are to follow up with [facility] to undergo outpatient capsule endoscopy. Please return to the emergency department if you notice any blood in your stool again, or if you develop symptoms associated with your atrial fibrillation including but not limited to palpitations, chest pain, shortness of breath. You are to STOP taking your Plavix. Follow-up with you primary care doctor in one to two weeks. - Attending Attestation I examined this patient and my medical decision-making was reviewed with the Resident Physician Dr Landry. I agree with the documented findings, disposition and treatment plan as described except to the extent set forth below. Mr Galeano is admitted for anemia and presumed GIB, with paroxysmal Afib RVR with holding initially of home BB and CCB dosing His gi work up was unremarkable and hgb remains stable. with resuming his home med regimen for afib his HR stabilized. He is discharged to home with with close outpt fu awake, at bedside.feeling baseline, no cp, pressure, sob or palpitations. no fatigue. no melena or abd pain. dc plan discussed in detail and all questions answered. gen- alert, awake,appears stated age cv- reg rate and irreg/irreg rhythm, normal s1,s2 lungs- ctabl, normal resp effort on room air abd- soft, non tender, non distended, + bs neuro- AAOx3 Acute Blood Loss anemia presumed to be GIB, scopes unremarkable, will need Dr Judith willis and outpt small capsule endocscopy, hgb stable on AC + ASA Afib rvr, resolved, paroxysmal- home BB, + home CCB + home AC, outpt cards fu CAD s/p BMS- he completed one month of DAPT and will cont on ASA + AC on dc and no longer plavix on dc, particularly in setting of presumed GIB anemia dispo- pt rec for home dc to home with time spent on dc 45 min <Dejuan Landry - Last Filed: 04/01/19 19:40> - NOTES TO OUTPATIENT PROVIDER Notes to Outpatient Provider: Patient admitted for Afib RVR and anemia 2/2 GI bleed with 10 day history of melana. Did require 3 units total of PRBCs, Hgb has been stable since then. Endoscopy was negative for any acute findings, eliquis/ASA restarted, no recurrence of bleeding. Afib resolved after resuming his home medications. Discharged with close follow-up with Cardiology, will need an appointment in [place], and an outpatient appt. with GI for capsule endoscopy. Follow up with PCP in one to two weeks. Orders not resulted at time of discharge: Pending orders 03/29/19 10:46 Surgical Pathology [PTH] Routine Date of Encounter: 04/01/19 Time of Encounter: 09:00 - Discharge Diagnosis (1) Atrial fibrillation with RVR Priority: Primary Status: Chronic (2) Acute blood loss anemia Priority: Secondary Status: Resolved (3) GI bleed Priority: Secondary Status: Resolved Qualifiers: GI bleed type/associated pathology: melena Qualified Code(s): K92.1 - Melena (4) Melena Priority: Secondary Status: Resolved (5) COPD (chronic obstructive pulmonary disease) Priority: Secondary Status: Chronic Qualifiers: COPD type: emphysema Emphysema type: panlobular Qualified Code(s): J43.1 - Panlobular emphysema (6) Hypertension Priority: Secondary Status: Chronic Qualifiers: Hypertension type: essential hypertension Qualified Code(s): I10 - Essential (primary) hypertension Hospital course: Mr. Galeano is a 73 year old male with a past medical history of paroxysmal A. fib, hypertension, COPD, AAA with recent repair with endograft, who presented to the emergency department on the recommendation of his outpatient gear shaper set up operator due to rapid heart rate. Patient reports in the emergency department that he has had greater than 10 days of dark black tarry stools and that his gear shaper set up operator noted him to be in A. fib. Additionally, he notes some increasing weakness and fatigue during the course of this melanoma. He denies chest pain, palpitations, shortness of breath, abdominal pain, nausea, vomiting, diarrhea. In the emergency department he was noted to be in A. fib with RVR and a guaiac test was positive for occult blood. On physical exam he did have some pallor to his skin color, is heart rate was irregularly irregular, tachycardic, lungs did have some mild diffuse rhonchi. Laboratory workup was significant for a hemoglobin of 6.2, one month prior was 10.1 5 days prior to admission. CT abdomen and pelvis did not reveal any evidence of retroperitoneal hemorrhage and vascular surgery was consulted and did not feel this represented an endograft leak based on history physical and imaging. Patient was given 2 units PRBCs, and was started on a Cardizem drip and quickly converted to normal sinus rhythm. Repeat H&H that night revealed hemoglobin 8.3. The patient had been taking Eliquis, meloxicam, aspirin, Plavix and these are the suspected precipitant of the patient's GI bleed. All anticoagulants/antiplatelets were held at time of admission. Upper and lower Endoscopy performed the following morning revealed no evidence of an acute bleed. Patient did not have any recurrent melena during his admission and all bowel movements prior to discharge had been brown and formed. Of note, the patient did continue to have problems with his A. fib the following night, requiring IV Lopressor. The patient was restarted on his home metoprolol and oral Cardizem. A repeat H&H the second night of admission revealed he had been back down to 7.4 hemoglobin, he was given one more unit of PRBCs, repeat H&H the following day was 8.9. Hemoglobin remained stable rest of patient's admission. Patient's heart rate ultimately had been stable for greater than 24 hours after resumption of his home metoprolol and oral Cardizem dose. He was scheduled for an outpatient follow-up with cardiology. He was also scheduled with outpatient follow-up with [facility] for capsule endoscopy. The patient was hemodynamically stable, the plan of care was discussed with him and the patient voiced understanding and was agreeable to the plan. He was discharged home with instructions to follow-up with his primary care provider in one to 2 weeks and to keep the appointments with cardiology and surgery that had been scheduled for him. Discharge discussed with: patient, family, nurse - Time Spent with Patient Total time spent providing and/or coordinating discharge services: Time spent: Greater than 30 minutes Date of admission: 03/28/19 16:55 Primary care physician: Stefania Sue CNP Consults: 03/28/19 16:11 Consult to Surgery [CONS] Stat Consulting Provider: Acute Care Surgery Reason for Consult: GI bleed Time Notified: 16:11 Call Completed: Yes Discharging clinician: Dejuan Landry Anticipated date of discharge: 04/01/19 - Constitutional Vitals: Temp Pulse Resp BP Pulse Ox 98.3 F 103 20 101/74 99 04/01/19 06:27 04/01/19 06:27 04/01/19 07:14 04/01/19 06:27 04/01/19 09:25 Exam: Gen.: Alert and oriented 3, no acute distress, pleasant Head: Atraumatic, normocephalic Eyes: No scleral icterus, EOMI, no nystagmus ENT: Oropharynx clear, mucous membranes moist Neck: Soft, supple, no nuchal rigidity, no thyromegaly, trachea midline CV: Regular rate and rhythm, no murmurs, gallops, rubs. Normal S1 plus S2 Respiratory: Patient has mild rhonchi at baseline, significantly improved during admission, no wheezes or crackles. Non-labored breathing. Abdomen: Soft, nondistended, nonrigid, no evidence of abdominal thrill or bruit Extremities: Skin turgor poor, pallor noted, no evidence of bleeding, bruising, rashes, peripheral edema MSK: Full range of motion not tested, patient moves all extremities appropriately Neuro: No focal neuro deficits, strength intact, sensation intact Psych: Affect appropriate - Patient Status Functional capacity at discharge: independent ambulation Overall status at discharge: patient is progressing back to baseline - Diet and Activity Activity: increase activity as tolerated Diet: low fat, low cholesterol, low salt diet
[2019-04-01 11:40] VITALS: BP 106/62
== END 2019-04-01 14:49 | disposition home or self-care (01) | DRG 378 ==
LOC: EMEROOARM 12:18 → 2NNU 16:55 → SUATTDRO 16:55 → 2NNU 17:19 → 3ANU 03-30 10:40
PROVIDERS: ADMIT Student in an Organized Health Care Education/Training Program; ATTEND Internal Medicine

== ENCOUNTER 2019-04-27 02:33 | Observation (INO) ==
[2019-04-27] MEDS ORDERED: Ipratropium/Albuterol Neb 3 ML IH ONE (02:52)
[2019-04-27] MEDS ORDERED: methylPREDNISolone 125 MG/2 ML VIAL IVP ONE (02:52)
[2019-04-27] MEDS ORDERED: Ipratropium/Albuterol Neb 3 ML ONE (03:19)
[2019-04-27 04:27] LABS: Basophils % 0.3 %; Eosinophils # 0.3 K/mcL (0.0-0.6); Eosinophils % 2.3 %; Hematocrit 32.3 % (37.5-50.1); Hemoglobin 9.4 g/dL (12.9-16.9); Immature Granulocytes % 0.5 % (0-4); Lymphocytes # 1.8 K/mcL (0.6-4.6); Lymphocytes % 14.3 %; Mean Corpuscular HGB Conc 29.1 g/dL (31.6-35.5); Mean Corpuscular Hemoglobin 24.2 pg (28.0-33.3); Mean Platelet Volume 9.9 fL (9.4-12.4); Monocytes # 0.7 K/mcL (0.0-1.3); Monocytes % 5.7 %; Neutrophils # 9.6 K/mcL (1.6-8.9); Nucleated Red Blood Cells 0.2 /100 WBC (0); Platelet Count 315 K/mcL (140-400); Red Blood Count 3.88 M/mcL (4.19-5.50); Red Cell Distribution Width 17.3 % (11.5-14.5); Segmented Neutrophils % 76.9 %; White Blood Count 12.4 K/mcL (4.3-11.1)
[2019-04-27 04:28] LABS: Mean Corpuscular Volume 83.2 fL (83.0-100.0)
[2019-04-27 04:31] LABS: Alanine Aminotransferase 15 Units/L (7-52); Albumin 3.7 g/dL (3.5-5.7); Albumin/Globulin Ratio 1.2 (1.1-2.2); Alkaline Phosphatase 87 Units/L (34-104); Aspartate Amino Transferase 18 Units/L (13-39); BUN/Creatinine Ratio 15 (6-26); Bilirubin,Direct 0.3 mg/dL (0.0-0.2); Bilirubin,Indirect 0.4 mg/dL (0.0-1.2); Bilirubin,Total 0.7 mg/dL (0.3-1.0); Blood Urea Nitrogen 13 mg/dL (8-23); Calcium 9.2 mg/dL (8.6-10.3); Carbon Dioxide 26 mEq/L (23-29); Chloride 101 mEq/L (98-107); Globulin 3.2 g/dL (2.4-3.5); Glucose 108 mg/dL (70-105); Osmolality,Calculated 279 (280-300); Potassium 3.7 mEq/L (3.5-5.1); Sodium 134 mEq/L (136-145); Total Protein 6.9 g/dL (6.4-8.9); Troponin I 0.04 ng/mL (< 0.04); eGFR For African Americans > 60 (> 60); eGFR For Non-African Americans > 60 (> 60)
[2019-04-27] MEDS ORDERED: Furosemide 40 MG/4 ML VIAL IVP ONE (05:05)
[2019-04-27] MEDS ORDERED: Aspirin 325 MG TABLET PO ONE (06:04)
[2019-04-27] MEDS ORDERED: *HR* Metoprolol 5 MG/5 ML VIAL IVP ONE ×2 (06:27→06:34)
[2019-04-27] MEDS ORDERED: DilTIAZem CD (24hr) 120 MG CAP.ER.24H PO STA (06:33)
[2019-04-27] MEDS: DilTIAZem 50 MG in 0.9 % Sodium Chloride 40 ML IVC SCH ×3 (08:03→23:23)
[2019-04-27] MEDS ORDERED: Ondansetron 4 MG/2 ML VIAL IVP PRN (09:17)
[2019-04-27] MEDS ORDERED: Acetaminophen 325 MG TABLET PO PRN (09:17)
[2019-04-27] MEDS ORDERED: *HR* HYDROcodone/Acet 5/325 mg TABLET PO PRN (09:17)
[2019-04-27] MEDS ORDERED: Naloxone 0.4 MG/ML INJ IVP PRN (09:17)
[2019-04-27] MEDS: Budesonide/Formoterol 160/4.5 1 PUFF INH IH SCH ×2 (10:58→22:28)
[2019-04-27] MEDS: Fluticasone Propionate Nasal 50 MCG/SPRAY BOTTLE NS SCH (13:03)
[2019-04-27] MEDS: Levalbuterol Neb 1.25 MG/3 ML IH SCH ×2 (15:44→22:28)
[2019-04-27] MEDS: Furosemide 40 MG TABLET PO SCH (16:52)
[2019-04-27] MEDS: Apixaban 5 MG TABLET PO SCH (20:01)
[2019-04-27] MEDS: Brinzolamide 1% 10 ML BOTTLE BOTH EYES SCH (20:04)
[2019-04-28] MEDS: Levalbuterol Neb 1.25 MG/3 ML IH SCH ×4 (03:57→22:25)
[2019-04-28 07:12] LABS: Basophils % 0.1 %; Hematocrit 29.5 % (37.5-50.1); Hemoglobin 8.8 g/dL (12.9-16.9); Immature Granulocytes % 0.6 % (0-4); Lymphocytes # 0.6 K/mcL (0.6-4.6); Lymphocytes % 4.9 %; Mean Corpuscular HGB Conc 29.8 g/dL (31.6-35.5); Mean Corpuscular Hemoglobin 24.6 pg (28.0-33.3); Mean Corpuscular Volume 82.6 fL (83.0-100.0); Mean Platelet Volume 10.5 fL (9.4-12.4); Monocytes # 0.7 K/mcL (0.0-1.3); Monocytes % 5.3 %; Neutrophils # 11.3 K/mcL (1.6-8.9); Platelet Count 302 K/mcL (140-400); Red Blood Count 3.57 M/mcL (4.19-5.50); Red Cell Distribution Width 17.2 % (11.5-14.5); Segmented Neutrophils % 89.1 %; White Blood Count 12.7 K/mcL (4.3-11.1)
[2019-04-28 07:23] LABS: BUN/Creatinine Ratio 22 (6-26); Blood Urea Nitrogen 18 mg/dL (8-23); Calcium 9.4 mg/dL (8.6-10.3); Carbon Dioxide 30 mEq/L (23-29); Chloride 98 mEq/L (98-107); Glucose 146 mg/dL (70-105); Magnesium 2.1 mg/dL (1.6-2.6); Osmolality,Calculated 287 (280-300); Potassium 3.6 mEq/L (3.5-5.1); Sodium 136 mEq/L (136-145); eGFR For African Americans > 60 (> 60); eGFR For Non-African Americans > 60 (> 60)
[2019-04-28] MEDS: Apixaban 5 MG TABLET PO SCH ×2 (07:55→21:38)
[2019-04-28] MEDS: Aspirin 81 MG TAB.CHEW PO SCH (07:55)
[2019-04-28] MEDS: Furosemide 40 MG TABLET PO SCH ×2 (07:55→19:02)
[2019-04-28] MEDS: Brinzolamide 1% 10 ML BOTTLE BOTH EYES SCH (07:57)
[2019-04-28] MEDS: Fluticasone Propionate Nasal 50 MCG/SPRAY BOTTLE NS SCH (08:12)
[2019-04-28] MEDS: DilTIAZem 50 MG in 0.9 % Sodium Chloride 40 ML IVC SCH (08:29)
[2019-04-28] MEDS: Budesonide/Formoterol 160/4.5 1 PUFF INH IH SCH ×2 (10:33→22:25)
[2019-04-28] MEDS ORDERED: *HR* Metoprolol 5 MG/5 ML VIAL IVP PRN (12:53)
[2019-04-28] MEDS: OPTHALMIC OP SCH ×2 (19:02→21:40)
[2019-04-28] MEDS: SIMBRINZA OP SCH ×2 (19:02→21:40)
[2019-04-29 04:12] LABS: Basophils % 0.1 %; Eosinophils # 0.1 K/mcL (0.0-0.6); Eosinophils % 0.4 %; Hematocrit 31.9 % (37.5-50.1); Hemoglobin 9.5 g/dL (12.9-16.9); Immature Granulocytes % 0.4 % (0-4); Lymphocytes # 1.5 K/mcL (0.6-4.6); Lymphocytes % 11.1 %; Mean Corpuscular HGB Conc 29.8 g/dL (31.6-35.5); Mean Corpuscular Hemoglobin 24.5 pg (28.0-33.3); Mean Corpuscular Volume 82.2 fL (83.0-100.0); Mean Platelet Volume 9.9 fL (9.4-12.4); Monocytes % 7.5 %; Neutrophils # 10.9 K/mcL (1.6-8.9); Platelet Count 357 K/mcL (140-400); Red Blood Count 3.88 M/mcL (4.19-5.50); Red Cell Distribution Width 17.7 % (11.5-14.5); Segmented Neutrophils % 80.5 %; White Blood Count 13.5 K/mcL (4.3-11.1)
[2019-04-29] MEDS: Levalbuterol Neb 1.25 MG/3 ML IH SCH ×4 (04:20→22:57)
[2019-04-29 04:31] LABS: % Iron Saturation 4 % (20-55); BUN/Creatinine Ratio 23 (6-26); Blood Urea Nitrogen 22 mg/dL (8-23); Calcium 9.6 mg/dL (8.6-10.3); Carbon Dioxide 29 mEq/L (23-29); Chloride 98 mEq/L (98-107); Glucose 99 mg/dL (70-105); Iron 18 mcg/dL (65-175); Osmolality,Calculated 283 (280-300); Potassium 3.4 mEq/L (3.5-5.1); Sodium 135 mEq/L (136-145); Transferrin 300 mg/dL (203-362); eGFR For African Americans > 60 (> 60); eGFR For Non-African Americans > 60 (> 60)
[2019-04-29 04:49] LABS: Ferritin 23 ng/mL (20-250)
[2019-04-29] MEDS ORDERED: TIMOLOL MALEATE BOTH EYES SCH (09:00)
[2019-04-29] MEDS: Apixaban 5 MG TABLET PO SCH ×2 (09:23→21:21)
[2019-04-29] MEDS: Furosemide 40 MG TABLET PO SCH ×2 (09:23→17:36)
[2019-04-29] MEDS: Aspirin 81 MG TAB.CHEW PO SCH (09:23)
[2019-04-29] MEDS: Psyllium 1 PACKET POWD.PACK PO SCH (09:23)
[2019-04-29] MEDS: Fluticasone Propionate Nasal 50 MCG/SPRAY BOTTLE NS SCH (09:24)
[2019-04-29] MEDS: OPTHALMIC OP SCH ×2 (09:27→21:20)
[2019-04-29] MEDS: SIMBRINZA OP SCH ×2 (09:27→21:20)
[2019-04-29] MEDS: Budesonide/Formoterol 160/4.5 1 PUFF INH IH SCH ×2 (10:53→22:57)
[2019-04-29] MEDS ORDERED: hydrOXYzine pamoate 25 MG CAPSULE PO ONE (20:53)
[2019-04-30] MEDS: Levalbuterol Neb 1.25 MG/3 ML IH SCH ×3 (03:35→15:28)
[2019-04-30 07:15] LABS: Basophils % 0.2 %; Eosinophils # 0.2 K/mcL (0.0-0.6); Eosinophils % 1.6 %; Hematocrit 30.2 % (37.5-50.1); Hemoglobin 8.9 g/dL (12.9-16.9); Immature Granulocytes % 0.4 % (0-4); Lymphocytes # 1.7 K/mcL (0.6-4.6); Lymphocytes % 16.7 %; Mean Corpuscular HGB Conc 29.5 g/dL (31.6-35.5); Mean Corpuscular Hemoglobin 23.8 pg (28.0-33.3); Mean Corpuscular Volume 80.7 fL (83.0-100.0); Mean Platelet Volume 10.1 fL (9.4-12.4); Monocytes # 0.9 K/mcL (0.0-1.3); Monocytes % 8.5 %; Neutrophils # 7.5 K/mcL (1.6-8.9); Platelet Count 329 K/mcL (140-400); Red Blood Count 3.74 M/mcL (4.19-5.50); Red Cell Distribution Width 17.6 % (11.5-14.5); Segmented Neutrophils % 72.6 %; White Blood Count 10.4 K/mcL (4.3-11.1)
[2019-04-30 07:19] VITALS: BP 108/94
[2019-04-30 07:35] LABS: BUN/Creatinine Ratio 22 (6-26); Blood Urea Nitrogen 21 mg/dL (8-23); Calcium 9.3 mg/dL (8.6-10.3); Carbon Dioxide 30 mEq/L (23-29); Chloride 100 mEq/L (98-107); Glucose 93 mg/dL (70-105); Osmolality,Calculated 287 (280-300); Potassium 3.3 mEq/L (3.5-5.1); Sodium 137 mEq/L (136-145); eGFR For African Americans > 60 (> 60); eGFR For Non-African Americans > 60 (> 60)
[2019-04-30] MEDS: Psyllium 1 PACKET POWD.PACK PO SCH (08:42)
[2019-04-30] MEDS: Aspirin 81 MG TAB.CHEW PO SCH (08:42)
[2019-04-30] MEDS: Apixaban 5 MG TABLET PO SCH (08:42)
[2019-04-30] MEDS: Furosemide 40 MG TABLET PO SCH (08:42)
[2019-04-30] MEDS: Fluticasone Propionate Nasal 50 MCG/SPRAY BOTTLE NS SCH (08:55)
[2019-04-30] MEDS: SIMBRINZA OP SCH (08:55)
[2019-04-30] MEDS: OPTHALMIC OP SCH (08:55)
[2019-04-30] MEDS: Budesonide/Formoterol 160/4.5 1 PUFF INH IH SCH (11:03)
[2019-04-30] MEDS ORDERED: DilTIAZem CD (24hr) 240 MG CAP.ER.24H PO SCH (12:27)
== END 2019-04-30 16:37 | disposition home or self-care (01) ==
LOC: 3BNU 02:33 → EMEROOARM 02:33 → SUATTDRO 06:10 → 2NENU 07:55
PROVIDERS: ADMIT Pediatrics; ATTEND Internal Medicine

== ENCOUNTER 2019-05-30 17:43 | Observation (INO) ==
--- NOTE | 2019-05-30 17:52 | Emergency Department Note ---
Disposition Clinical Impression: Multifocal pneumonia Congestive heart failure Qualifiers: Heart failure type: unspecified Heart failure chronicity: acute on chronic Qualified Code(s): I50.9 - Heart failure, unspecified COPD (chronic obstructive pulmonary disease) Qualifiers: COPD type: unspecified COPD Qualified Code(s): J44.9 - Chronic obstructive pulmonary disease, unspecified Disposition: Admitted As Inpatient Condition: Fair Referrals: Stefania Sue CNP [Primary Care Provider] - Forms: ED Satisfaction Letter Time of Disposition: 20:31 SOB HPI - General Chief Complaint: ED Shortness of Breath/Dyspnea Stated Complaint: JAVIER Time Seen by Provider: 05/30/19 17:52 Source: patient, EMS Mode of arrival: EMS Limitations: no limitations Nursing Notes Reviewed: Yes Vital Signs Reviewed: Yes - History of Present Illness The patient is a 74-year-old male past medical history of atrial fibrillation on Eliquis, known history of CHF, COPD, prior N STEMI presenting to [facility] ED for a 5 hour history of sudden onset dyspnea. Patient states that approximately 1 PM today he had the sudden onset of difficulty breathing. The patient states that he has never had a COPD/CHF exacerbation this bad however he states that he is not on any nebulized breathing treatments at home and relies solely on inhaled medications for his management of COPD. Patient denies any chest pain or pleuritic pain, he has had no abdominal pain nausea or vomiting, no lightheadedness dizziness no single episodes no paresthesias/numbness no difficulty with ambulation. Patient has no other concerns or complaints at this time. Upon my initial evaluation, my general impression is that the patient is awake, alert, oriented, engaged to conversation and answering questions appropriately. However it is noted that he is having conversational dyspnea and using accessory muscles of respiration. He is tachycardic and tachypneic notably in atrial fibrillation on the monitor. There are no overt lateralizing signs, their skin appears to be normal in color, they are not pale, not cyanotic, and not diaphoretic, they are sitting up in hospital bed appearing anxious but otherwise interacting appropriately with the environment. Pt Subjective Complaint: shortness of breath, cough Onset (ago): hour(s) Severity: moderate Consistency/Duration: gradually worsening Improves with: oxygen, bronchodilators, medication Known history of: COPD Associated symptoms: Reports: cough, wheezing Cough present: Yes - Related Data Home oxygen amount: none Home Medications Medication Instructions Recorded Confirmed Brinzolamide/Brimonidine Tart 1 drop BOTH EYES BID 02/23/19 04/27/19 [Simbrinza 1%-0.2% Eye Drops] Budesonide/Formoterol 160/4.5 2 puff IH BID 02/23/19 04/27/19 [Symbicort 160/4.5] Acetaminophen [Tylenol Arthritis] 1,300 mg PO QPM PRN 04/27/19 04/27/19 Albuterol Sulfate [Proair Hfa] 2 puff IH Q4-6H PRN 04/27/19 04/27/19 Aspirin Enteric Coated [Aspirin EC] 81 mg PO DAILY 04/27/19 04/27/19 Fluticasone Propionate Nasal 1 - 2 spray NS DAILY 04/27/19 04/27/19 [Flonase] Multivit-Min/FA/Lycopen/Lutein 1 tab PO DAILY 04/27/19 04/27/19 [Centrum Silver Tablet] Omeprazole [PriLOSEC] 20 mg PO QAM 04/27/19 04/27/19 Psyllium Husk [Metamucil] 1.04 gm PO DAILY 04/27/19 04/27/19 Timolol Maleate 1 drop BOTH EYES DAILY 04/27/19 04/27/19 Previous Rx's Medication Instructions Recorded Apixaban [Eliquis] 5 mg PO BID #60 tablet 03/07/19 Atorvastatin [Lipitor] 40 mg PO HS #30 tablet 03/07/19 Metoprolol [Lopressor] 37.5 mg PO BID #60 tablet 03/07/19 Diltiazem CD (24hr) [Cardizem CD] 240 mg PO DAILY 30 Days #30 04/30/19 cap.er.24h Ferrous Sulfate 325 mg PO BIDWM 30 Days #60 tablet 04/30/19 Furosemide [Lasix] 20 mg PO DAILY 30 Days #30 tablet 04/30/19 Allergies Allergy/AdvReac Type Severity Reaction Status Date / Time No Known Allergies Allergy Verified 04/27/19 11:03 Review of Systems: *See History of Present Illness for more detail Constitutional: Denies: fever, chills HEENT: Patient complains of really yellow drainage from his right ear which she states is due to a chronic tympanic membrane rupture. Cardiovascular: Denies: chest pain Respiratory: Admits: dyspnea, cough, denies: hemoptysis Gastrointestinal: Denies: abdominal pain, nausea, vomiting, diarrhea, constipation, hematemesis, melena, hematochezia Genitourinary: Denies: hematuria Musculoskeletal: Denies: back pain, neck pain Integumentary: Denies: rash Neurological: Denies: headache, weakness, lightheadedness/dizziness, numbness, paresthesias, difficulty with ambulation. Endocrine: Denies: fatigue All systems ED: reviewed and negative except as stated. Review of Systems: As Per HPI Past Medical History - Past Medical History Medical history: Reports: aortic aneurysm, atrial fibrillation, COPD, hyperlipidemia, hypertension, myocardial infarction, other Surgical history: Reports: other Psychiatric history: Reports: no psych history - Social History Smoking Status: Former smoker Smokeless Tobacco Status: No Alcohol use: Reports: none Drug use: Reports: none Physical Exam Constitutional: Patient appears to be in [id number] distress due to respiratory difficulties, [id number], engaged to conversation, speech is fluid, answers questions appropriately Neuro: GCS 15, no overt focal neurological deficits Head: Atraumatic, normocephalic Eyes: Pupils equal, round and reactive to light, no scleral icterus, no c onjunctival injection Neck: Trachea midline without deviation. Anterior neck is supple without swelling. *Chest: Symmetric chest wall rise *Heart: Cardiac rate is tachycardic rhythm is regular with S1 and S2 , no S3 or S4 appreciated, no murmurs, gallops, rubs, or clicks. *Lungs: Diffuse rhonchi and wheezing noted with the use of accessory muscles of respiration in conversational dyspnea noted. Abdomen: Abdomen is obese, soft to palpation, normal bowel sounds. No abdominal bruit auscultated. Non-distended, non-rigid, no organomegaly, no ascites appreciated. No pulsatile mass, no tenderness or guarding to palpation in all four quadrants, no rebound Extremities: 1+ pitting edema noted in lower extremities. Pulses/motor intact in all 4 extremities. Psychiatric exam: Patient displays a normal affect and mood for the environment. No overt signs of hallucination. Integumentary: warm, dry, intact, normal color. No rash, cyanosis, diaphoresis, erythema, or pallor - General Limitations: other (Patient is extremely hard of hearing) General appearance: alert, in distress Course Course Narrative: ED dyspnea workup to include basic labs, troponin, EKG/old EKG, chest x-ray, BNP, d-dimer, ABG, DuoNeb's plus methylprednisolone for the management of COPD. I will hold Lasix at this time until renal function is further assessed. Vital Signs Temperature 97.7 F 05/30/19 17:47 Pulse Rate 107 05/30/19 17:47 Respiratory Rate 16 05/30/19 17:47 Blood Pressure 153/89 05/30/19 17:47 O2 Sat by Pulse Oximetry 85 05/30/19 17:47 Temperature 97.7 F 05/30/19 17:47 Pulse Rate 107 05/30/19 17:47 Respiratory Rate 16 05/30/19 18:14 Blood Pressure 153/89 05/30/19 17:47 O2 Sat by Pulse Oximetry 95 05/30/19 18:30 Oxygen Delivery Oxygen Delivery Room Air Shortness of Breath/Dyspnea - MDM Narrative Medical decision making narrative: Patient's laboratory or consistent with elevated white count as well as an elevated d-dimer, imaging results with chest x-ray and CTA show multifocal pneumonia without pulmonary embolism. Patient was hospitalized approximately one month ago for dyspnea at this facility and thus I will treat him for hospital-acquired pneumonia with vancomycin, Zosyn and ciprofloxacin. Evaluation results were discussed with the patient and their family member(s) at bedside. Patient was given time to ask questions and state concerns. The patient states that they have had significant relief of their symptoms with our management here in the ED. The patient will be admitted to the hospitalist medicine service for further evaluation and management of multifocal pneumonia, COPD/CHF exacerbation. The patient verbalizes their understanding and agreement with this plan and is hemodynamically stable at the time of admission. - Lab Data Lab results reviewed: Yes I reviewed the patient's lab results. Result diagrams: 05/30/19 18:10 05/30/19 18:10 Lab Results 05/30/19 05/30/19 05/30/19 Range/Units 18:10 18:10 18:10 WBC 16.1 H (4.3-11.1) K/mcL RBC 5.23 (4.19-5.50) M/mcL Hgb 13.3 (12.9-16.9) g/dL Hct 44.7 (37.5-50.1) % MCV 85.5 (83.0-100.0) fL MCH 25.4 L (28.0-33.3) pg MCHC 29.8 L (31.6-35.5) g/dL RDW 23.8 H (11.5-14.5) % Plt Count 201 (140-400) K/mcL MPV 10.1 (9.4-12.4) fL Immature Gran % 0.2 (0-4) % Seg Neutrophils % 87.2 % Lymphocytes % 6.2 % Monocytes % 5.9 % Eosinophils % 0.1 % Basophils % 0.4 % Neutrophils # 14.0 H (1.6-8.9) K/mcL Lymphocytes # 1.0 (0.6-4.6) K/mcL Monocytes # 1.0 (0.0-1.3) K/mcL Eosinophils # 0.0 (0.0-0.6) K/mcL Basophils # 0.1 (0.0-0.2) K/mcL Platelet Estimate Normal (Normal) Polychromasia 1+ A (Not Present) Anisocytosis 2+ A (Not Present) PT 16.7 H (9.4-12.1) Seconds INR 1.5 APTT 37.1 H (26.0-36.0) Seconds D-Dimer 2104 H (0-500) ng/mLFEU Sample Site ABG pH (7.32-7.45) pH Units ABG pCO2 (35-45) mmHg ABG pO2 (85-104) mmHg ABG HCO3 (21-27) mEq/L ABG Total CO2 (20-26) mEq/L ABG O2 Saturation (95-98) % ABG Base Excess (-2 to 3) mEq/L Tommy Test O2 Delivery Device Inspired O2 (1-15=lpm [id number]=%) Sodium 135 L (136-145) mEq/L Potassium 3.5 (3.5-5.1) mEq/L Chloride 100 (98-107) mEq/L Carbon Dioxide 27 (23-29) mEq/L BUN 12 (8-23) mg/dL Creatinine 0.87 (0.70-1.30) mg/dL Est GFR ( Amer) > 60 (> 60) Est GFR (Non-Af Amer) > 60 (> 60) BUN/Creatinine Ratio 14 (6-26) Glucose 98 (70-105) mg/dL Calculated Osmolality 280 (280-300) Lactic Acid (0.5-2.2) mmol/L Calcium 9.5 (8.6-10.3) mg/dL Troponin I < 0.03 (< 0.04) ng/mL B-Natriuretic Peptide (Less than 100) pg/mL 05/30/19 05/30/19 05/30/19 Range/Units 18:10 18:10 18:11 WBC (4.3-11.1) K/mcL RBC (4.19-5.50) M/mcL Hgb (12.9-16.9) g/dL Hct (37.5-50.1) % MCV (83.0-100.0) fL MCH (28.0-33.3) pg MCHC (31.6-35.5) g/dL RDW (11.5-14.5) % Plt Count (140-400) K/mcL MPV (9.4-12.4) fL Immature Gran % (0-4) % Seg Neutrophils % % Lymphocytes % % Monocytes % % Eosinophils % % Basophils % % Neutrophils # (1.6-8.9) K/mcL Lymphocytes # (0.6-4.6) K/mcL Monocytes # (0.0-1.3) K/mcL Eosinophils # (0.0-0.6) K/mcL Basophils # (0.0-0.2) K/mcL Platelet Estimate (Normal) Polychromasia (Not Present) Anisocytosis (Not Present) PT (9.4-12.1) Seconds INR APTT (26.0-36.0) Seconds D-Dimer (0-500) ng/mLFEU Sample Site R Radial ABG pH 7.47 H (7.32-7.45) pH Units ABG pCO2 40 (35-45) mmHg ABG pO2 63 L (85-104) mmHg ABG HCO3 29 H (21-27) mEq/L ABG Total CO2 30 H (20-26) mEq/L ABG O2 Saturation 93 L (95-98) % ABG Base Excess 5 H (-2 to 3) mEq/L Tommy Test Positive O2 Delivery Device Cannula Inspired O2 32.0 (1-15=lpm [id number]=%) Sodium (136-145) mEq/L Potassium (3.5-5.1) mEq/L Chloride (98-107) mEq/L Carbon Dioxide (23-29) mEq/L BUN (8-23) mg/dL Creatinine (0.70-1.30) mg/dL Est GFR ( Amer) (> 60) Est GFR (Non-Af Amer) (> 60) BUN/Creatinine Ratio (6-26) Glucose (70-105) mg/dL Calculated Osmolality (280-300) Lactic Acid 0.9 (0.5-2.2) mmol/L Calcium (8.6-10.3) mg/dL Troponin I (< 0.04) ng/mL B-Natriuretic Peptide 707 H (Less than 100) pg/mL - Radiology Data Radiology results reviewed: Yes I reviewed the patient's radiology results. Chest X-Ray 05/30/19 19:00 IMPRESSION: Bilateral lower lung airspace disease, greater on the right, likely edema. Pneumonia is considered less likely. D/ / Ramona Henderson Cha, MD / Ramona Henderson Cha, MD Interpreting Provider: Ramona Henderson Cha, MD Chest CTA 05/30/19 20:05 IMPRESSION: No evidence of pulmonary embolism. Small bilateral pleural effusions with bilateral airspace disease involving both lower lobes, the right middle lobe, and lingula. Findings consistent with multifocal pneumonia. Follow-up to resolution recommended. D/ / Christina Flannery MD / Christina Flannery MD Interpreting Provider: Christina Flannery MD - EKG Data EKG attestation: Yes I reviewed and interpreted this EKG. EKG results narrative: The patients EKG shows atrial fibrillation at a computer analyzed rate of 115 beats per minute, a QRS duration of 93 milliseconds, a QT/QTc interval of 348 / 482 milliseconds respectively. There are no significant ST segment elevations, depressions, pathologic Q waves, abnormal T-wave inversions, nor any other signs of acute ischemic change. This EKG that was performed today is generally consistent in morphology with prior EKG that was performed on 04/27/2019.
[2019-05-30] MEDS ORDERED: Ipratropium/Albuterol Neb 3 ML IH ONE (18:05)
[2019-05-30] MEDS ORDERED: methylPREDNISolone 125 MG/2 ML VIAL IVP ONE (18:06)
[2019-05-30 18:14] LABS: ABG Base Excess 5 mEq/L (-2 to 3); ABG HCO3 29 mEq/L (21-27); ABG Oxygen Saturation 93 % (95-98); ABG PCO2 40 mmHg (35-45); ABG PH 7.47 pH Units (7.32-7.45); ABG PO2 63 mmHg (85-104); ABG TCO2 30 mEq/L (20-26)
[2019-05-30 18:26] LABS: Basophils # 0.1 K/mcL (0.0-0.2); Basophils % 0.4 %; Eosinophils % 0.1 %; Hematocrit 44.7 % (37.5-50.1); Hemoglobin 13.3 g/dL (12.9-16.9); Immature Granulocytes % 0.2 % (0-4); Lymphocytes % 6.2 %; Mean Corpuscular HGB Conc 29.8 g/dL (31.6-35.5); Mean Corpuscular Hemoglobin 25.4 pg (28.0-33.3); Mean Corpuscular Volume 85.5 fL (83.0-100.0); Mean Platelet Volume 10.1 fL (9.4-12.4); Monocytes % 5.9 %; Platelet Count 201 K/mcL (140-400); Red Blood Count 5.23 M/mcL (4.19-5.50); Red Cell Distribution Width 23.8 % (11.5-14.5); Segmented Neutrophils % 87.2 %; White Blood Count 16.1 K/mcL (4.3-11.1)
[2019-05-30 18:33] LABS: INR 1.5; Prothrombin Time 16.7 Seconds (9.4-12.1)
[2019-05-30 18:36] LABS: Activated Partial Thrombo Time 37.1 Seconds (26.0-36.0)
--- NOTE | 2019-05-30 18:46 | Emergency Department Note ---
Disposition Clinical Impression: Multifocal pneumonia Congestive heart failure Qualifiers: Heart failure type: unspecified Heart failure chronicity: acute on chronic Qualified Code(s): I50.9 - Heart failure, unspecified COPD (chronic obstructive pulmonary disease) Qualifiers: COPD type: unspecified COPD Qualified Code(s): J44.9 - Chronic obstructive pulmonary disease, unspecified Disposition: Admitted As Inpatient Condition: Fair Time of Disposition: 20:31 General Adult HPI - General Chief complaint: ED Shortness of Breath/Dyspnea Stated complaint: JAVIER Time Seen by Provider: 05/30/19 17:52 Source: patient, EMS Mode of arrival: EMS Limitations: other (Patient is extremely hard of hearing) - History of Present Illness Pain Scale: 0 - Related Data Home Medications Medication Instructions Recorded Confirmed Brinzolamide/Brimonidine Tart 1 drop BOTH EYES BID 02/23/19 05/30/19 [Simbrinza 1%-0.2% Eye Drops] Budesonide/Formoterol 160/4.5 2 puff IH BID 02/23/19 05/30/19 [Symbicort 160/4.5] Acetaminophen [Tylenol Arthritis] 1,300 mg PO QPM PRN 04/27/19 05/30/19 Albuterol Sulfate [Proair Hfa] 2 puff IH Q4-6H PRN 04/27/19 05/30/19 Aspirin Enteric Coated [Aspirin EC] 81 mg PO DAILY 04/27/19 05/30/19 Fluticasone Propionate Nasal 1 - 2 spray NS DAILY 04/27/19 05/30/19 [Flonase] Multivit-Min/FA/Lycopen/Lutein 1 tab PO DAILY 04/27/19 05/30/19 [Centrum Silver Tablet] Omeprazole [PriLOSEC] 20 mg PO QAM 04/27/19 05/30/19 Psyllium Husk [Metamucil] 1.04 gm PO DAILY 04/27/19 05/30/19 Timolol Maleate 1 drop BOTH EYES DAILY 04/27/19 05/30/19 Previous Rx's Medication Instructions Recorded Apixaban [Eliquis] 5 mg PO BID #60 tablet 03/07/19 Atorvastatin [Lipitor] 40 mg PO HS #30 tablet 03/07/19 Metoprolol [Lopressor] 37.5 mg PO BID #60 tablet 03/07/19 Diltiazem CD (24hr) [Cardizem CD] 240 mg PO DAILY 30 Days #30 04/30/19 cap.er.24h Ferrous Sulfate 325 mg PO BIDWM 30 Days #60 tablet 04/30/19 Furosemide [Lasix] 20 mg PO DAILY 30 Days #30 tablet 04/30/19 Allergies Allergy/AdvReac Type Severity Reaction Status Date / Time No Known Allergies Allergy Verified 05/30/19 20:43 Past Medical History - Past Medical History Medical history: Reports: aortic aneurysm, atrial fibrillation, COPD, hyperlipidemia, hypertension, myocardial infarction, other Surgical history: Reports: other Psychiatric history: Reports: no psych history - Social History Smoking Status: Former smoker Smokeless Tobacco Status: No Alcohol use: Reports: none Drug use: Reports: none Physical Exam - General Limitations: other (Patient is extremely hard of hearing) General appearance: alert, in distress Course Vital Signs Temperature 97.7 F 05/30/19 17:47 Pulse Rate 107 05/30/19 17:47 Respiratory Rate 16 05/30/19 17:47 Blood Pressure 153/89 05/30/19 17:47 O2 Sat by Pulse Oximetry 85 05/30/19 17:47 Temperature 98.7 F 05/30/19 23:12 Pulse Rate 105 05/30/19 23:12 Respiratory Rate 22 05/30/19 23:12 Blood Pressure 129/105 05/30/19 23:12 O2 Sat by Pulse Oximetry 91 05/30/19 23:12 Oxygen Delivery Oxygen Delivery Nasal Cannula Medical Decision Making - Lab Data Result diagrams: 05/30/19 18:10 05/30/19 18:10 Lab Results 05/30/19 05/30/19 05/30/19 Range/Units 18:10 18:10 18:10 WBC 16.1 H (4.3-11.1) K/mcL RBC 5.23 (4.19-5.50) M/mcL Hgb 13.3 (12.9-16.9) g/dL Hct 44.7 (37.5-50.1) % MCV 85.5 (83.0-100.0) fL MCH 25.4 L (28.0-33.3) pg MCHC 29.8 L (31.6-35.5) g/dL RDW 23.8 H (11.5-14.5) % Plt Count 201 (140-400) K/mcL MPV 10.1 (9.4-12.4) fL Immature Gran % 0.2 (0-4) % Seg Neutrophils % 87.2 % Lymphocytes % 6.2 % Monocytes % 5.9 % Eosinophils % 0.1 % Basophils % 0.4 % Neutrophils # 14.0 H (1.6-8.9) K/mcL Lymphocytes # 1.0 (0.6-4.6) K/mcL Monocytes # 1.0 (0.0-1.3) K/mcL Eosinophils # 0.0 (0.0-0.6) K/mcL Basophils # 0.1 (0.0-0.2) K/mcL Platelet Estimate Normal (Normal) Polychromasia 1+ A (Not Present) Anisocytosis 2+ A (Not Present) PT 16.7 H (9.4-12.1) Seconds INR 1.5 APTT 37.1 H (26.0-36.0) Seconds D-Dimer 2104 H (0-500) ng/mLFEU Sample Site ABG pH (7.32-7.45) pH Units ABG pCO2 (35-45) mmHg ABG pO2 (85-104) mmHg ABG HCO3 (21-27) mEq/L ABG Total CO2 (20-26) mEq/L ABG O2 Saturation (95-98) % ABG Base Excess (-2 to 3) mEq/L Tommy Test O2 Delivery Device Inspired O2 (1-15=lpm [id number]=%) Sodium 135 L (136-145) mEq/L Potassium 3.5 (3.5-5.1) mEq/L Chloride 100 (98-107) mEq/L Carbon Dioxide 27 (23-29) mEq/L BUN 12 (8-23) mg/dL Creatinine 0.87 (0.70-1.30) mg/dL Est GFR ( Amer) > 60 (> 60) Est GFR (Non-Af Amer) > 60 (> 60) BUN/Creatinine Ratio 14 (6-26) Glucose 98 (70-105) mg/dL Calculated Osmolality 280 (280-300) Lactic Acid (0.5-2.2) mmol/L Calcium 9.5 (8.6-10.3) mg/dL Troponin I < 0.03 (< 0.04) ng/mL B-Natriuretic Peptide (Less than 100) pg/mL Procalcitonin (0.00-0.15) ng/mL Urine Color (Yellow) Urine Clarity (Clear) Urine pH (5.0-8.0) pH Units Ur Specific [place] (1.010-1.025) Urine Protein (Neg-Trace) mg/dL Urine Glucose (UA) (Normal) mg/dL Urine Ketones (Negative) mg/dL Urine Blood (Negative) Urine Nitrite (Negative) Urine Bilirubin (Negative) Urine Urobilinogen (Normal) mg/dL Ur Leukocyte Esterase (Negative) Ur Culture Indicated? (NO) 05/30/19 05/30/19 05/30/19 Range/Units 18:10 18:10 18:10 WBC (4.3-11.1) K/mcL RBC (4.19-5.50) M/mcL Hgb (12.9-16.9) g/dL Hct (37.5-50.1) % MCV (83.0-100.0) fL MCH (28.0-33.3) pg MCHC (31.6-35.5) g/dL RDW (11.5-14.5) % Plt Count (140-400) K/mcL MPV (9.4-12.4) fL Immature Gran % (0-4) % Seg Neutrophils % % Lymphocytes % % Monocytes % % Eosinophils % % Basophils % % Neutrophils # (1.6-8.9) K/mcL Lymphocytes # (0.6-4.6) K/mcL Monocytes # (0.0-1.3) K/mcL Eosinophils # (0.0-0.6) K/mcL Basophils # (0.0-0.2) K/mcL Platelet Estimate (Normal) Polychromasia (Not Present) Anisocytosis (Not Present) PT (9.4-12.1) Seconds INR APTT (26.0-36.0) Seconds D-Dimer (0-500) ng/mLFEU Sample Site ABG pH (7.32-7.45) pH Units ABG pCO2 (35-45) mmHg ABG pO2 (85-104) mmHg ABG HCO3 (21-27) mEq/L ABG Total CO2 (20-26) mEq/L ABG O2 Saturation (95-98) % ABG Base Excess (-2 to 3) mEq/L Tommy Test O2 Delivery Device Inspired O2 (1-15=lpm [id number]=%) Sodium (136-145) mEq/L Potassium (3.5-5.1) mEq/L Chloride (98-107) mEq/L Carbon Dioxide (23-29) mEq/L BUN (8-23) mg/dL Creatinine (0.70-1.30) mg/dL Est GFR ( Amer) (> 60) Est GFR (Non-Af Amer) (> 60) BUN/Creatinine Ratio (6-26) Glucose (70-105) mg/dL Calculated Osmolality (280-300) Lactic Acid 0.9 (0.5-2.2) mmol/L Calcium (8.6-10.3) mg/dL Troponin I (< 0.04) ng/mL B-Natriuretic Peptide 707 H (Less than 100) pg/mL Procalcitonin 0.04 (0.00-0.15) ng/mL Urine Color (Yellow) Urine Clarity (Clear) Urine pH (5.0-8.0) pH Units Ur Specific [place] (1.010-1.025) Urine Protein (Neg-Trace) mg/dL Urine Glucose (UA) (Normal) mg/dL Urine Ketones (Negative) mg/dL Urine Blood (Negative) Urine Nitrite (Negative) Urine Bilirubin (Negative) Urine Urobilinogen (Normal) mg/dL Ur Leukocyte Esterase (Negative) Ur Culture Indicated? (NO) 05/30/19 05/30/19 Range/Units 18:11 20:36 WBC (4.3-11.1) K/mcL RBC (4.19-5.50) M/mcL Hgb (12.9-16.9) g/dL Hct (37.5-50.1) % MCV (83.0-100.0) fL MCH (28.0-33.3) pg MCHC (31.6-35.5) g/dL RDW (11.5-14.5) % Plt Count (140-400) K/mcL MPV (9.4-12.4) fL Immature Gran % (0-4) % Seg Neutrophils % % Lymphocytes % % Monocytes % % Eosinophils % % Basophils % % Neutrophils # (1.6-8.9) K/mcL Lymphocytes # (0.6-4.6) K/mcL Monocytes # (0.0-1.3) K/mcL Eosinophils # (0.0-0.6) K/mcL Basophils # (0.0-0.2) K/mcL Platelet Estimate (Normal) Polychromasia (Not Present) Anisocytosis (Not Present) PT (9.4-12.1) Seconds INR APTT (26.0-36.0) Seconds D-Dimer (0-500) ng/mLFEU Sample Site R Radial ABG pH 7.47 H (7.32-7.45) pH Units ABG pCO2 40 (35-45) mmHg ABG pO2 63 L (85-104) mmHg ABG HCO3 29 H (21-27) mEq/L ABG Total CO2 30 H (20-26) mEq/L ABG O2 Saturation 93 L (95-98) % ABG Base Excess 5 H (-2 to 3) mEq/L Tommy Test Positive O2 Delivery Device Cannula Inspired O2 32.0 (1-15=lpm [id number]=%) Sodium (136-145) mEq/L Potassium (3.5-5.1) mEq/L Chloride (98-107) mEq/L Carbon Dioxide (23-29) mEq/L BUN (8-23) mg/dL Creatinine (0.70-1.30) mg/dL Est GFR ( Amer) (> 60) Est GFR (Non-Af Amer) (> 60) BUN/Creatinine Ratio (6-26) Glucose (70-105) mg/dL Calculated Osmolality (280-300) Lactic Acid (0.5-2.2) mmol/L Calcium (8.6-10.3) mg/dL Troponin I (< 0.04) ng/mL B-Natriuretic Peptide (Less than 100) pg/mL Procalcitonin (0.00-0.15) ng/mL Urine Color Yellow (Yellow) Urine Clarity Clear (Clear) Urine pH 7.5 (5.0-8.0) pH Units Ur Specific [place] 1.021 (1.010-1.025) Urine Protein Trace (Neg-Trace) mg/dL Urine Glucose (UA) Normal (Normal) mg/dL Urine Ketones Negative (Negative) mg/dL Urine Blood Negative (Negative) Urine Nitrite Negative (Negative) Urine Bilirubin Negative (Negative) Urine Urobilinogen Normal (Normal) mg/dL Ur Leukocyte Esterase Negative (Negative) Ur Culture Indicated? NO (NO) Attestation Statement - Attestation Attestation: I examined this patient and my medical decision-making was reviewed with the Resident Physician. I agree with the documented findings, disposition and treatment plan as described except to the extent set forth below. Patient 74-year-old gentleman with history of COPD PDN CHF that presents to emergency department with chief complaint of shortness of breath. Patient reports that he has been wheezing and also has been very short of breath and having a tight feeling in his chest. The patient denies specifically complaining of chest pain states that he has history of CHF and COPD. Exam patient awake alert no acute distress resting comfortable in the stretcher is mildly tachycardic and mildly typic while receiving a nebulizer treatment. Medical decision management patient is to undergo EKG chest x-ray and laboratory testing. The patient will be treated and disposition is pending results of the patient's test and also treatments. I personally supervised and was present for the alston/critical portions of the following procedures completed by the resident:EKG.
[2019-05-30 18:47] LABS: BUN/Creatinine Ratio 14 (6-26); Blood Urea Nitrogen 12 mg/dL (8-23); Calcium 9.5 mg/dL (8.6-10.3); Carbon Dioxide 27 mEq/L (23-29); Chloride 100 mEq/L (98-107); Glucose 98 mg/dL (70-105); Osmolality,Calculated 280 (280-300); Potassium 3.5 mEq/L (3.5-5.1); Sodium 135 mEq/L (136-145); eGFR For African Americans > 60 (> 60); eGFR For Non-African Americans > 60 (> 60)
[2019-05-30 18:50] LABS: Troponin I < 0.03 ng/mL (< 0.04)
[2019-05-30 18:56] LABS: Anisocytosis 2+ (Not Present); Platelet Estimate Normal (Normal); Polychromasia 1+ (Not Present)
[2019-05-30] MEDS ORDERED: Isovue-370 500 ML BOTTLE IVP ONE (19:34)
[2019-05-30] MEDS ORDERED: Azithromycin 500 MG in 0.9 % Sodium Chloride 250 ML IVPB ONE (20:23)
[2019-05-30] MEDS ORDERED: Piperacillin/Tazobactam 3.375 GM in Water for inj. (sterile) 20 ML IVP ONE (20:27)
[2019-05-30 20:50] LABS: Bilirubin,Urine Negative (Negative); Blood,Urine Negative (Negative); Clarity,Urine Clear (Clear); Color,Urine Yellow (Yellow); Glucose,Urine (UA) Normal (Normal); Ketones,Urine Negative (Negative); Leukocyte Esterase,Urine Negative (Negative); Nitrite,Urine Negative (Negative); PH,Urine 7.5 pH Units (5.0-8.0); Protein,Urine Trace mg/dL (Neg-Trace); Specific Gravity,Urine 1.021 (1.010-1.025); Urobilinogen,Urine Normal (Normal)
[2019-05-30] MEDS ORDERED: Piperacillin/Tazobactam 3.375 GM in 0.9 % Sodium Chloride Mini Bag 100 ML IVPB ONE (21:08)
[2019-05-31] MEDS ORDERED: Naloxone 0.4 MG/ML INJ IVP PRN (02:57)
[2019-05-31] MEDS ORDERED: Albuterol 2.5 MG/3 ML NEBULIZER IH PRN (03:04)
--- NOTE | 2019-05-31 03:26 | Internal Med History&Physical ---
Date of Encounter: 05/31/19 Time of Encounter: 02:13 Internal Medicine - H&P: HPI Chief complaint: Multifocal pneumonia Admitted From: Emergency Dept Plans for Post Hospital Care: Home History of present illness: Mr. Galeano is a 74 year old male Patient presented to the emergency department with shortness of breath of sudden onset. He says that he was watching television, when he suddenly became short of breath, he denies chest pain however. He had his come over and listen to his chest and she indicated that he sounded "rattly." The symptoms began in the afternoon. He has had similar events like this in the past when he gets fluid in his lungs. He came to the emergency department for further evaluation. Emergency department vital signs: Notable for a pulse of 107, and O2 saturation of 85% on room air CBC: White count 16.1, otherwise unremarkable. BMP: Unremarkable Initial troponin undetectable BNP 707 ABG: PH 7.47, PCO2 40, PO2 63 Urinalysis negative for infection Chest x-ray showed bilateral lower lobe airspace disease right greater than left. Likely edema CT chest angiogram: No evidence of PE, small bilateral pleural effusions with bilateral airspace disease involving both lower lobes, the right middle lobe and lingula. Findings consistent with multifocal pneumonia. EKG: Atrial fibrillation, rate 115, QTc [address] elevations. Emergency department the patient was given ciprofloxacin, Zosyn and vancomycin. Blood cultures were obtained. He was also given 125 mg dose of IV steroids. He was admitted to the hospital for further management. Upon my evaluation, patient is resting comfortably in hospital bed in no acute distress. He states that the treatments provided to him in the emergency department relieved him of his symptoms. He denies chest pain, abdominal pain, nausea, vomiting, diarrhea and constipation. He denies shortness of breath and cough as well. He does not wear oxygen at home. He states that he would not want to be intubated if necessary, but he would be okay with chest compressions. Past Med Surg Social Fam HX - Past Medical History Medical history: aortic aneurysm, atrial fibrillation, COPD, hyperlipidemia, hypertension, myocardial infarction, other Additional medical history: AAA Psychiatric history: no psych history - Past Surgical History Surgical History: other Additional surgical history: AAA repair - Social History Smoking Status: Former smoker Smokeless Tobacco Status: No Alcohol use: none Drug use: none - Family History Mother Living Status: Hx Family Cardiac Disorders: Yes (Hypertension) Father Living Status: Internal Medicine - H&P: Meds Brinzolamide/Brimonidine Tart [Simbrinza 1%-0.2% Eye Drops] 1 drop BOTH EYES BID 02/23/19 [History] Budesonide/Formoterol 160/4.5 [Symbicort 160/4.5] 2 puff IH BID 02/23/19 [History] Apixaban [Eliquis] 5 mg PO BID #60 tablet 03/07/19 [Rx] Atorvastatin [Lipitor] 40 mg PO HS #30 tablet 03/07/19 [Rx] Metoprolol [Lopressor] 37.5 mg PO BID #60 tablet 03/07/19 [Rx] Acetaminophen [Tylenol Arthritis] 1,300 mg PO QPM PRN 04/27/19 [History] Albuterol Sulfate [Proair Hfa] 2 puff IH Q4-6H PRN 04/27/19 [History] Aspirin Enteric Coated [Aspirin EC] 81 mg PO DAILY 04/27/19 [History] Fluticasone Propionate Nasal [Flonase] 1 - 2 spray NS DAILY 04/27/19 [History] Multivit-Min/FA/Lycopen/Lutein [Centrum Silver Tablet] 1 tab PO DAILY 04/27/19 [History] Omeprazole [PriLOSEC] 20 mg PO QAM 04/27/19 [History] Psyllium Husk [Metamucil] 1.04 gm PO DAILY 04/27/19 [History] Timolol Maleate 1 drop BOTH EYES DAILY 04/27/19 [History] Diltiazem CD (24hr) [Cardizem CD] 240 mg PO DAILY 30 Days #30 cap.er.24h 04/30/19 [Rx] Ferrous Sulfate 325 mg PO BIDWM 30 Days #60 tablet 04/30/19 [Rx] Furosemide [Lasix] 20 mg PO DAILY 30 Days #30 tablet 04/30/19 [Rx] Allergy/AdvReac Type Severity Reaction Status Date / Time No Known Allergies Allergy Verified 05/30/19 20:43 All Systems PM: A 10-system review of systems was performed and is negative for pertinent findings except as documented above in the HPI. - Constitutional Vitals: Temp Pulse Resp BP Pulse Ox 98.7 F 100 22 129/105 91 05/30/19 23:12 05/30/19 23:55 05/30/19 23:12 05/30/19 23:12 05/30/19 23:12 General appearance: Present: cooperative, A&O X 3, pleasant, no acute distress, answers questions appropriately Exam: - - Head Head exam: Present: normal inspection - Eye Eye exam: Present: EOMI, normal appearance - Respiratory Respiratory exam: Present: decreased breath sounds, CTAB. Absent: rales, respiratory distress, rhonchi, wheezes - Cardiovascular Cardiovascular exam: Present: irregular rhythm. Absent: diastolic murmur, systolic murmur - GI/Abdominal GI/Abdominal exam: Present: normal bowel sounds, soft. Absent: tenderness - Extremities Exam Extremities exam: Present: warm, radial pulses palpable and symmetrical. Absent: calf tenderness, pedal edema, tenderness - Neurological Exam Neurological exam: Present: no focal deficits, strengths equal and symetr throughout. Absent: motor sensory deficit, facial droop, speech deficit - Skin Skin exam: Present: dry, normal color, warm Internal Med - H&P Results - Labs CBC & Chem 7: 05/30/19 18:10 05/30/19 18:10 Labs: Short CBC 05/30/19 Range/Units 18:10 WBC 16.1 H (4.3-11.1) K/mcL Hgb 13.3 (12.9-16.9) g/dL Hct 44.7 (37.5-50.1) % Plt Count 201 (140-400) K/mcL Neutrophils # 14.0 H (1.6-8.9) K/mcL BMP 05/30/19 18:10 Sodium 135 L Potassium 3.5 Chloride 100 Carbon Dioxide 27 BUN 12 Creatinine 0.87 Glucose 98 Calcium 9.5 Cardiac Enzymes 05/30/19 Range/Units 18:10 Troponin I < 0.03 (< 0.04) ng/mL Urine 05/30/19 Range/Units 20:36 Urine Color Yellow (Yellow) Urine Clarity Clear (Clear) Urine pH 7.5 (5.0-8.0) pH Units Ur Specific [place] 1.021 (1.010-1.025) Urine Protein Trace (Neg-Trace) mg/dL Urine Glucose (UA) Normal (Normal) mg/dL - ABG Interpretation ABG results: 05/30/19 18:11 ABG pH 7.47 H ABG pCO2 40 ABG pO2 63 L ABG HCO3 29 H ABG Total CO2 30 H ABG O2 Saturation 93 L ABG Base Excess 5 H - Impressions ITS Impressions Chest X-Ray 05/30/19 19:00 IMPRESSION: Bilateral lower lung airspace disease, greater on the right, likely edema. Pneumonia is considered less likely. D/ / Ramona Henderson Cha, MD / Ramona Henderson Cha, MD Interpreting Provider: Ramona Henderson Cha, MD Chest CTA 05/30/19 20:05 IMPRESSION: No evidence of pulmonary embolism. Small bilateral pleural effusions with bilateral airspace disease involving both lower lobes, the right middle lobe, and lingula. Findings consistent with multifocal pneumonia. Follow-up to resolution recommended. D/ / Christina Flannery MD / Christina Flannery MD Interpreting Provider: Christina Flannery MD - Assessment and Plan (1) Acute respiratory failure with hypoxia Current Visit: No Status: Acute Assessment and plan: Now resolved, likely secondary to multifocal pneumonia. Management as below (2) Multifocal pneumonia Current Visit: Yes Status: Acute Assessment and plan: As seen on patient's CT angiogram. Patient had recent hospitalization with discharge about one month ago. For this reason he was treated with a more a ggressive antibiotic regimen by the emergency department. Blood cultures were obtained. He did not meet sepsis criteria. Follow-up blood cultures when available Continue IV antibiotics Oxygen supplementation as needed Breathing treatments as needed Continue by mouth steroids Continue to monitor for worsening signs of infection (3) CHF exacerbation Current Visit: No Status: Acute Assessment and plan: Patient's chest imaging does indicate small bilateral pleural effusions. Patient takes Lasix at home. Continue lasix 40mg IV in the morning Strict I's & O's Daily weights Qualifiers: Heart failure type: combined systolic and diastolic Qualified Code(s): I50.43 - Acute on chronic combined systolic (congestive) and diastolic (congestive) heart failure (4) Afib Current Visit: No Status: Chronic Assessment and plan: Continue Home meds monitoring specialist Qualifiers: Atrial fibrillation type: paroxysmal Qualified Code(s): I48.0 - Paroxysmal atrial fibrillation (5) DVT prophylaxis Current Visit: No Status: Acute Assessment and plan: Continue home Eliquis which the patient takes for atrial fibrillation. - Time Spent With Patient Total time spent is greater than 50% in coordination of care (as documented) at patient's floor/unit and/or counseling patient:
[2019-05-31 05:45] LABS: Hematocrit 41.2 % (37.5-50.1); Hemoglobin 12.3 g/dL (12.9-16.9); Mean Corpuscular HGB Conc 29.9 g/dL (31.6-35.5); Mean Corpuscular Hemoglobin 25.3 pg (28.0-33.3); Mean Corpuscular Volume 84.8 fL (83.0-100.0); Mean Platelet Volume 9.9 fL (9.4-12.4); Platelet Count 189 K/mcL (140-400); Red Blood Count 4.86 M/mcL (4.19-5.50); Red Cell Distribution Width 23.9 % (11.5-14.5)
[2019-05-31 06:06] LABS: BUN/Creatinine Ratio 14 (6-26); Blood Urea Nitrogen 14 mg/dL (8-23); Calcium 9.4 mg/dL (8.6-10.3); Carbon Dioxide 26 mEq/L (23-29); Chloride 99 mEq/L (98-107); Glucose 231 mg/dL (70-105); Osmolality,Calculated 290 (280-300); Potassium 3.6 mEq/L (3.5-5.1); Sodium 136 mEq/L (136-145); eGFR For African Americans > 60 (> 60); eGFR For Non-African Americans > 60 (> 60)
--- NOTE | 2019-05-31 08:07 | Event Note ---
<NellieBelgica Marie - Last Filed: 05/31/19 13:56> Date of Encounter: 05/31/19 I examined this patient and my medical decision-making was reviewed with the Resident Physician Dr Hernandez. I agree with the documented findings, disposition and treatment plan as described except to the extent set forth below. Mr Galeano is being observed for multifocal pna and acute on chronic CHF awake, feeling somewhat better, not sob today, no cp, pressure or palpitations, no fevers or chills, + cough and wheezing improved w nebs gen- alert, awake,appears stated age cv- tachy rate low 100s and irreg/irreg rhythm, normal s1,s2, 1+ pitting bl le edema lungs- no rhonchi, wheezing + crackles, normal resp effort on ra neuro- AAOx3 acute hypoxic resp failure resolved multifocal pna, org uk- cont iv abx, xopenex nebs added, check resp panel and mrsa swab acute on chronic HFpEF EF 60%- IV lasix, strict i/os afib in and out of RVR- currently rate in 80s-100s- cont eugenie eAC, CCB and BB, tele further dx and plan as noted by resident <Javed Hernandez - Last Filed: 05/31/19 15:11> Date of Encounter: 05/31/19 Time of Encounter: 08:06 S- patient is seen and examined at bedside. Overall he says that he is feeling better than he was when he first came in. He says that he is breathing a little better. Not as short of breath this morning, however he does still have some cough. No chest pain, no fevers or chills. Admits to some wheezing, however he does feel that these improve with nebs. He has been having significant urine output since getting Lasix. O A/P 1. Acute on chronic Hypoxic Respiratory Failure, resolved. evidence by hypoxia with oxygen saturation 85 on admission. likely secondary to multifocal pneumonia. We will continue to monitor, supply oxygen as needed. 2. Sepsis secondary to multifocal pneumonia, resolved. Blood cultures pending, treat with Zosyn, vancomycin, Cipro. De-escalate pending culture positivity. We will go ahead and get a EKG in the morning due to medications which have possibility of QTC prolongation. 3. Multifocal Pna - as evidenced by CT chest. Treatment as above, continue IV antibiotics and Xopenex nebs as needed 4. Afib - A. fib and out of RVR, currently the rate remains between 801 100s. We will continue his home medications. I suspect that RVR will start to improve as the patient's respiratory status improves. We will continue with Lasix and treatment of pneumonia 5. acute on chronic heart failure with preserved ejection fraction, last EF 60%, continue IV Lasix daily, strict I's and O's
[2019-05-31] MEDS: Piperacillin/Tazobactam 3.375 GM in 0.9 % Sodium Chloride Mini Bag 100 ML IVPB SCH ×2 (09:00→16:12)
[2019-05-31] MEDS ORDERED: Diltiazem CD (24hr) 240 MG CAPSULE PO SCH (09:00)
[2019-05-31] MEDS: Aspirin Enteric Coated 81 MG Tablet PO SCH (09:01)
[2019-05-31] MEDS: Apixaban 5 MG TABLET PO SCH ×2 (09:02→20:54)
[2019-05-31] MEDS: Furosemide 40 MG/4 ML VIAL IVP SCH (09:02)
[2019-05-31] MEDS: predniSONE 20 MG TABLET PO SCH (09:02)
[2019-05-31] MEDS ORDERED: *HR* Dextrose 50 % in Water (Syg) 50 ML SYRINGE IVP PRN (13:34)
[2019-05-31] MEDS ORDERED: D5% in Water 1,000 ML IVC PRN (13:34)
[2019-05-31] MEDS ORDERED: Dextrose Gel 15 GM/37.5 ML TUBE PO PRN ×2 (13:34)
[2019-05-31] MEDS ORDERED: Levalbuterol Neb 0.63 MG/3 ML IH PRN (13:34)
[2019-05-31] MEDS ORDERED: Ipratropium Neb 0.5 MG NEBULIZER IH PRN (13:36)
[2019-05-31 15:22] LABS: Adenovirus Not Detected (Not Detect); Bordetella Pertussis Not Detected (Not Detect); Chlamydophila pneumoniae Not Detected (Not Detect); Coronavirus 229E Not Detected (Not Detect); Coronavirus HKU1 Not Detected (Not Detect); Coronavirus NL63 Not Detected (Not Detect); Coronavirus OC43 Not Detected (Not Detect); Human Metapneumovirus Not Detected (Not Detect); Human Rhinovirus/Enterovirus Not Detected (Not Detect); Influenza A Subtype 2009 H1 Not Detected (Not Detect); Influenza A Untypeable Not Detected (Not Detect); Influenza B Not Detected (Not Detect); Mycoplasma pneumoniae Not Detected (Not Detect); Parainfluenza Virus 1 Not Detected (Not Detect); Parainfluenza Virus 2 Not Detected (Not Detect); Parainfluenza Virus 3 Not Detected (Not Detect); Parainfluenza Virus 4 Not Detected (Not Detect); Respiratory Syncytial Virus Not Detected (Not Detect)
[2019-05-31 15:45] LABS: Estimated Average Glucose 97 mg/dl
--- NOTE | 2019-05-31 16:13 | Electrocardiograph Report ---
[place] [id number] Test Date: 2019-05-30 Pat Name: Donnie Galeano Department: EXAM4 Room: 2N13 Gender: M [employer]r: : 1945 Requested By: Alejandro Oh Order Number: [id number] Reading MD: Jacqueline Santillan Measurements Intervals [place] Rate: 115 P: HI: QRS: 128 QRSD: 93 T: -17 QT: 348 QTc: 482 Interpretive Statements Atrial fibrillation Right axis deviation Nonspecific ST-T wave changes Electronically Signed On 05-31-2019 16:12:17 EDT by Jacqueline Santillan
[2019-05-31] MEDS ORDERED: Insulin LISPRO 300 UNITS/3 ML VIAL SQ SCH ×2 (17:00→21:00)
[2019-05-31] MEDS: Insulin LISPRO 300 UNITS/3 ML VIAL SQ SCH (19:00)
[2019-05-31] MEDS: Budesonide/Formoterol 160/4.5 1 PUFF INH IH SCH (20:26)
[2019-05-31] MEDS ORDERED: Aminoglycoside Consult 1 EACH MC ONE (20:52)
[2019-05-31] MEDS: Brinzolamide 1% 10 ML BOTTLE BOTH EYES SCH (20:54)
[2019-06-01] MEDS: Piperacillin/Tazobactam 3.375 GM in 0.9 % Sodium Chloride Mini Bag 100 ML IVPB SCH (01:37)
[2019-06-01 02:37] LABS: Basophils % 0.1 %; Hematocrit 40.3 % (37.5-50.1); Hemoglobin 12.2 g/dL (12.9-16.9); Immature Granulocytes % 0.8 % (0-4); Lymphocytes # 0.7 K/mcL (0.6-4.6); Lymphocytes % 4.3 %; Mean Corpuscular HGB Conc 30.3 g/dL (31.6-35.5); Mean Corpuscular Hemoglobin 25.9 pg (28.0-33.3); Mean Corpuscular Volume 85.6 fL (83.0-100.0); Mean Platelet Volume 10.5 fL (9.4-12.4); Monocytes # 0.7 K/mcL (0.0-1.3); Monocytes % 4.1 %; Platelet Count 196 K/mcL (140-400); Red Blood Count 4.71 M/mcL (4.19-5.50); Red Cell Distribution Width 23.7 % (11.5-14.5); Segmented Neutrophils % 90.7 %; White Blood Count 16.9 K/mcL (4.3-11.1)
[2019-06-01 02:44] LABS: Neutrophils # 15.3 K/mcL (1.6-8.9)
[2019-06-01 02:59] LABS: BUN/Creatinine Ratio 25 (6-26); Blood Urea Nitrogen 23 mg/dL (8-23); Calcium 9.6 mg/dL (8.6-10.3); Carbon Dioxide 24 mEq/L (23-29); Chloride 101 mEq/L (98-107); Glucose 123 mg/dL (70-105); Osmolality,Calculated 285 (280-300); Potassium 3.6 mEq/L (3.5-5.1); Sodium 135 mEq/L (136-145); eGFR For African Americans > 60 (> 60); eGFR For Non-African Americans > 60 (> 60)
[2019-06-01 03:29] LABS: Anisocytosis 3+ (Not Present); Microcytosis Present (Not Present); Platelet Estimate Normal (Normal); Polychromasia 1+ (Not Present)
[2019-06-01 07:08] VITALS: BP 128/96
[2019-06-01] MEDS: Insulin LISPRO 300 UNITS/3 ML VIAL SQ SCH ×2 (07:32→11:49)
[2019-06-01] MEDS: Budesonide/Formoterol 160/4.5 1 PUFF INH IH SCH (07:40)
[2019-06-01] MEDS ORDERED: Fluticasone Propionate Nasal 50 MCG/SPRAY BOTTLE NS SCH (09:00)
[2019-06-01] MEDS: Brinzolamide 1% 10 ML BOTTLE BOTH EYES SCH (09:25)
[2019-06-01] MEDS: Apixaban 5 MG TABLET PO SCH (09:26)
[2019-06-01] MEDS: Furosemide 40 MG/4 ML VIAL IVP SCH (09:26)
[2019-06-01] MEDS: Aspirin Enteric Coated 81 MG Tablet PO SCH (09:27)
[2019-06-01] MEDS: predniSONE 20 MG TABLET PO SCH (09:27)
--- NOTE | 2019-06-01 10:04 | Discharge Summary ---
- NOTES TO OUTPATIENT PROVIDER Notes to Outpatient Provider: Pt admitted with acute exac CHF. Concern for pneumonia but procalcitonin and RIP negative. Responded to diuresis. 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 Galeano is a 74 year old male with hx of CHF presented to ED with complaints of SOB. He was found to be hypoxic and admitted. Mr Galeano was placed in [facility]. He was started on IV abx and diuresed. Procalcitonin and RIP negative. He was able to be taken off oxygen and ambulate after diuresis. Today he feels well. He is at baseline and does not need oxygen at all. He is afebrile and ready for discharge home. - Time Spent with Patient Total time spent providing and/or coordinating discharge services: - Discharge Medications Prescriptions: New Nebulizer and Compressor [Easy Neb Compressor Nebulizer] 1 each MC QID 100 Days each Ipratropium Neb [Atrovent Neb] 0.5 mg IH [id number] PRN #100 inhsol PRN Reason: Shortness Of Breath/Wheezing predniSONE [PredniSONE] 40 mg PO DAILY #6 tablet Levalbuterol Neb [Xopenex Neb] 0.63 mg IH [id number] PRN #100 vial.neb PRN Reason: Shortness Of Breath/Wheezing Continued Brinzolamide/Brimonidine Tart [Simbrinza 1%-0.2% Eye Drops] 1 drop BOTH EYES BID Budesonide/Formoterol 160/4.5 [Symbicort 160/4.5] 2 puff IH BID Apixaban [Eliquis] 5 mg PO BID #60 tablet Atorvastatin [Lipitor] 40 mg PO HS #30 tablet Metoprolol [Lopressor] 37.5 mg PO BID #60 tablet Aspirin Enteric Coated [Aspirin EC] 81 mg PO DAILY Omeprazole [PriLOSEC] 20 mg PO QAM Timolol Maleate 1 drop BOTH EYES DAILY Psyllium Husk [Metamucil] 2 cap PO DAILY Fluticasone Propionate Nasal [Flonase] 1 - 2 spray NS DAILY Acetaminophen [Tylenol Arthritis] 1,300 mg PO QPM PRN PRN Reason: Pain Albuterol Sulfate [Proair Hfa] 2 puff IH Q4-6H PRN PRN Reason: Shortness Of Breath Multivit-Min/FA/Lycopen/Lutein [Centrum Silver Tablet] 1 tab PO DAILY Diltiazem CD (24hr) [Cardizem CD] 240 mg PO DAILY 30 Days #30 cap.er.24h Furosemide [Lasix] 20 mg PO DAILY 30 Days #30 tablet Ferrous Sulfate 325 mg PO BIDWM 30 Days #60 tablet Potassium Chloride [K-Tab ER] 20 meq PO DAILY LORazepam [Ativan] 0.5 mg PO BID PRN PRN Reason: Anxiety Escitalopram [Lexapro] 10 mg PO DAILY Docusate [Colace] 100 mg PO TID PRN PRN Reason: Constipation Home Medications: Brinzolamide/Brimonidine Tart [Simbrinza 1%-0.2% Eye Drops] 1 drop BOTH EYES BID 02/23/19 [History] Budesonide/Formoterol 160/4.5 [Symbicort 160/4.5] 2 puff IH BID 02/23/19 [History] Apixaban [Eliquis] 5 mg PO BID #60 tablet 03/07/19 [Rx] Atorvastatin [Lipitor] 40 mg PO HS #30 tablet 03/07/19 [Rx] Metoprolol [Lopressor] 37.5 mg PO BID #60 tablet 03/07/19 [Rx] Acetaminophen [Tylenol Arthritis] 1,300 mg PO QPM PRN 04/27/19 [History] Albuterol Sulfate [Proair Hfa] 2 puff IH Q4-6H PRN 04/27/19 [History] Aspirin Enteric Coated [Aspirin EC] 81 mg PO DAILY 04/27/19 [History] Fluticasone Propionate Nasal [Flonase] 1 - 2 spray NS DAILY 04/27/19 [History] Multivit-Min/FA/Lycopen/Lutein [Centrum Silver Tablet] 1 tab PO DAILY 04/27/19 [History] Omeprazole [PriLOSEC] 20 mg PO QAM 04/27/19 [History] Psyllium Husk [Metamucil] 2 cap PO DAILY 04/27/19 [History] Timolol Maleate 1 drop BOTH EYES DAILY 04/27/19 [History] Diltiazem CD (24hr) [Cardizem CD] 240 mg PO DAILY 30 Days #30 cap.er.24h 04/30/19 [Rx] Ferrous Sulfate 325 mg PO BIDWM 30 Days #60 tablet 04/30/19 [Rx] Furosemide [Lasix] 20 mg PO DAILY 30 Days #30 tablet 04/30/19 [Rx] Docusate [Colace] 100 mg PO TID PRN 05/31/19 [History] Escitalopram [Lexapro] 10 mg PO DAILY 05/31/19 [History] LORazepam [Ativan] 0.5 mg PO BID PRN 05/31/19 [History] Potassium Chloride [K-Tab ER] 20 meq PO DAILY 05/31/19 [History] Ipratropium Neb [Atrovent Neb] 0.5 mg IH [id number] PRN #100 inhsol 06/01/19 [Rx] Levalbuterol Neb [Xopenex Neb] 0.63 mg IH [id number] PRN #100 vial.neb 06/01/19 [Rx] Nebulizer and Compressor [Easy Neb Compressor Nebulizer] 1 each MC QID 100 Days each 06/01/19 [Rx] predniSONE [PredniSONE] 40 mg PO DAILY #6 tablet 06/01/19 [Rx] Allergies/Adverse Reactions: Allergy/AdvReac Type Severity Reaction Status Date / Time No Known Allergies Allergy Verified 05/30/19 20:43 Date of admission: 05/30/19 20:51 Primary care physician: Stefania Sue CNP Consults: 05/31/19 00:19 Consult to Nutrition [CONS] Routine Comment: Consulting Provider: NUTRITION Reason for Dietary Consult: MST Score 05/31/19 03:04 Consult to Nurse Navigator [CONS] Routine Comment: 05/31/19 12:30 Consult to Analysis Specialist [CONS] Routine Reason for SW Consult: dispo planning and requesting to speak re financial concerns Discharging clinician: Adan Wakefield Anticipated date of discharge: 06/01/19 - Constitutional Vitals: Temp Pulse Resp BP Pulse Ox 97.9 F 89 16 128/96 95 06/01/19 07:03 06/01/19 07:03 06/01/19 09:43 06/01/19 09:43 06/01/19 09:43 General appearance: Present: cooperative, A&O X 3, pleasant, answers questions appropriately Exam: See below - Head Head exam: Present: atraumatic, normocephalic - Eye Eye exam: Present: EOMI, conjuntiva pink - ENT ENT exam: Present: mucous membranes moist - Neck Neck exam general surgery: Present: supple - Respiratory Respiratory exam: Present: CTAB. Absent: rhonchi, wheezes - Cardiovascular Cardiovascular exam: Absent: irregular rhythm, tachycardia - GI/Abdominal GI/Abdominal exam: Present: soft. Absent: tenderness - Extremities Exam Extremities exam: Present: warm. Absent: tenderness - Neurological Exam Neurological exam: Present: alert, oriented X3 - Skin Skin exam: Present: dry, warm - Patient Status Disposition: Home, Self-Care Condition: Fair Functional capacity at discharge: independent ambulation Overall status at discharge: patient is progressing back to baseline - Discharge Instructions Instructions: Ipratropium (By breathing), Prednisone (By mouth), Levalbuterol (By breathing), Heart Failure (DC), Atrial Fibrillation (DC), Chronic Obstructive Pulmonary Disease (DC), Pneumonia (DC) Follow Up With: Stefania Sue CNP [Primary Care Provider] - 06/07/19 1:00 pm - Diet and Activity Activity: resume usual activities as tolerated Diet: advance to your usual diet
[2019-06-01] MEDS ORDERED: Diltiazem CD (24hr) 120 MG CAPSULE PO ONE (10:15)
[2019-06-01] MEDS ORDERED: Diltiazem CD (24hr) 240 MG CAPSULE PO ONE (10:30)
--- NOTE | 2019-06-01 21:32 | Electrocardiograph Report ---
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
[2019-06-02] MEDS ORDERED: Diltiazem CD (24hr) 180 MG CAPSULE PO SCH (09:00)
--- NOTE | 2019-06-07 10:17 | Electrocardiograph Report ---
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
== END 2019-06-01 12:08 | disposition home or self-care (01) ==
LOC: 2NENU 17:43 → EMEROOARM 17:43 → SUATTDRO 20:51 → 2NNU 20:55
PROVIDERS: ADMIT Internal Medicine; ATTEND Internal Medicine